=== PATIENT | female | born 1950 | race Caucasian/White ===

== ENCOUNTER 2016-10-23 10:43 | Inpatient (IN) ==
--- NOTE | 2016-10-23 10:56 | Emergency Department Note ---
Disposition Clinical Impression: Acute on chronic kidney failure, Hyperkalemia, Weakness Disposition: Admitted As Inpatient Condition: Good Recheck wound or abnormal lab - General Chief Complaint: ED Recheck/Abnormal Lab/Rx Stated Complaint: Abnormal Labs From [facility] Time Seen by Provider: 10/23/16 10:48 Source: patient, family Mode of arrival: ambulatory Limitations: no limitations Nursing Notes Reviewed: Yes Vital Signs Reviewed: Yes - History of Present Illness HPI Narrative: 66-year-old female history of COPD stage IV followed with nephrology, renal stent, hypertension, lupus, ovarian cancer currently treated with chemotherapy who presents to the ER with a chief complaint of abnormal lab results. Patient reports that she was contacted by her ethnoarchaeology professor office today abnormal labs. She states that she has felt somewhat weak over the last few days. States she was short of breath and had a paracentesis yesterday which improved some of her symptoms. She was called because her creatinine and potassium came back high. She reports compliance with her medications. No recent changes in those. No other complaints. Pt Subjective Complaint: abnormal lab(s) Initial Visit (ago): day(s) Returns Today for: other (Elevated creatinine and potassium) Context: called for abnormal lab result Associated symptoms: shortness of breath - Related Data Home Medications Medication Instructions Recorded Confirmed Allopurinol [Zyloprim 100 MG] 100 mg PO BID 05/03/15 10/23/16 Hydroxychloroquine [Plaquenuil] 200 mg PO QAM 05/03/15 10/23/16 Furosemide [Lasix] 20 mg PO DAILY 10/09/15 10/23/16 HydrALAZINE 25 mg PO Q8HR 10/30/15 10/23/16 Isosorbide DInitrate [Isordil] 10 mg PO TIDAC 10/30/15 10/23/16 Acetaminophen [Tylenol Arthritis] 650 mg PO BID PRN 04/02/16 10/23/16 Multivitamin [Multi-Day Vitamins] 1 each PO DAILY 04/02/16 10/23/16 Aspirin [Lo-Dose Aspirin EC] 81 mg PO DAILY 04/21/16 10/23/16 Esomeprazole Magnesium [Nexium] 20 mg PO BID 07/10/16 10/23/16 Prochlorperazine Maleate 10 mg PO Q8H PRN 10/23/16 10/23/16 [Compazine] Previous Rx's Medication Instructions Recorded Metoprolol XL (24 HR) Succ [Toprol 100 mg PO DAILY 30 Days 08/27/15 Xl] Apixaban [Eliquis] 2.5 mg PO BID #60 tablet 04/21/16 Magnesium Oxide [Mgo] 400 mg PO DAILY #30 tablet 07/28/16 Lidocaine/Prilocaine CREAM [Emla] 1 appl TP AD #1 tube 08/14/16 Allergies Allergy/AdvReac Type Severity Reaction Status Date / Time paclitaxel [From Taxol] AdvReac Severe See Verified 08/08/16 13:31 Comments All systems ED: reviewed and negative except as stated. Constitutional: Denies: fever Cardiovascular: Denies: chest pain Respiratory: Reports: dyspnea. Denies: cough Gastrointestinal: Denies: abdominal pain, nausea, vomiting Genitourinary: Denies: hematuria Musculoskeletal: Denies: back pain, neck pain Past Medical History - Past Medical History Attestation: Yes The following information was validated with the patient. Source: patient Medical history: Reports: arthritis, cancer, CHF, coronary artery disease, hypertension, pulmonary embolus, renal disease, other Surgical history: Reports: hysterectomy, other Psychiatric history: Reports: no psych history - Social History Smoking Status: Never smoker Smokeless Tobacco Status: No Alcohol use: Reports: none Drug use: Reports: none Physical Exam - General Limitations: no limitations General appearance: alert, in no apparent distress - Head Head exam: atraumatic, normocephalic, normal inspection - Eye Eye exam: Present: normal appearance, EOMI - ENT ENT exam: normal exam - Neck Neck exam: Present: normal inspection - Chest Chest inspection: Present: normal inspection, symmetric chest wall rise - Respiratory Respiratory exam: Present: normal lung sounds bilaterally - Cardiovascular Cardiovascular exam: Present: regular rate, normal rhythm, normal heart sounds - Abdominal Exam Abdominal exam: Present: soft, Non-Tender. Absent: tenderness - Expanded Lower Extremity Exam Hip/Pelvis exam: Present: normal inspection, full ROM Upper leg exam: Present: normal inspection, full ROM Knee exam: Present: normal inspection, full ROM Lower leg exam: Present: normal inspection, full ROM Ankle exam: Present: normal inspection, full ROM Foot/toe exam: Present: normal inspection, full ROM - Neurological Exam Neurological exam: Present: alert - Psychiatric Psychiatric exam: Present: normal affect, normal mood - Skin Skin exam: Present: warm, dry, intact, normal color Course Course Narrative: Patient seen and examined. Vital signs reviewed. I reviewed her recent lab work which shows a creatinine of 5.82 which was previously 3.87 on 10/16/16 as well as a potassium of 6.1. She had a recent ultrasound which shows some right hydronephrosis. We will place an IV and repeat her labs and admit her to the hospitalist for further management. - Reevaluation(s) Reevaluation #1: Discussed results of lab work with the patient. Vital Signs Temperature 97.5 F L 10/23/16 10:45 Pulse Rate 77 10/23/16 10:45 Respiratory Rate 18 10/23/16 10:45 Blood Pressure 106/64 10/23/16 10:45 O2 Sat by Pulse Oximetry 98 10/23/16 10:45 Temperature 97.3 F L 10/23/16 15:05 Pulse Rate 77 10/23/16 15:05 Respiratory Rate 16 10/23/16 15:05 Blood Pressure 93/56 10/23/16 15:05 O2 Sat by Pulse Oximetry 97 10/23/16 16:01 Oxygen Delivery Oxygen Delivery Room Air Recheck wound or abnormal lab - MDM Narrative Medical decision making narrative: 66-year-old female presents to the ER due to abnormal lab results. Her creatinine here is up to 5.8 with a potassium of 6.1. She has left bundle branch block on her EKG which is not new however she does have some peaked T waves. Patient was treated with albuterol, insulin, D50, sodium bicarbonate and calcium gluconate. Patient admitted to medicine for further management. - Lab Data Lab results reviewed: Yes I reviewed the patient's lab results. Result diagrams: 10/23/16 11:45 10/23/16 11:45 Lab Results 10/23/16 10/23/16 10/23/16 Range/Units 11:45 11:45 11:45 WBC 6.0 (4.3-11.1) K/mcL RBC 3.25 L (3.82-4.97) M/mcL Hgb 10.8 L (11.5-15.4) g/dL Hct 32.7 L (35.3-44.9) % MCV 100.6 H (83.0-100.0) fL MCH 33.2 (28.0-33.3) pg MCHC 33.0 (31.6-35.5) g/dL RDW 24.7 H (11.5-14.5) % Plt Count 181 (140-400) K/mcL MPV 11.3 (9.4-12.4) fL Immature Gran % 1.5 (0-4) % Seg Neutrophils % 83.9 % Lymphocytes % 9.5 % Monocytes % 3.7 % Eosinophils % 1.2 % Basophils % 0.2 % Neutrophils # 5.0 (1.6-8.9) K/mcL Lymphocytes # 0.6 (0.6-4.6) K/mcL Monocytes # 0.2 (0.0-1.3) K/mcL Eosinophils # 0.1 (0.0-0.6) K/mcL Basophils # 0.0 (0.0-0.2) K/mcL Nucleated RBCs/100 WBC 0.3 H (0) /100 WBC Platelet Estimate Normal (Normal) Large Platelets Present A (Not Present) Anisocytosis 2+ A (Not Present) Ovalocytes 2+ A (Not Present) Sodium 133 L (136-145) mEq/L Potassium 5.8 H (3.5-4.5) mEq/L Chloride 112 H (98-109) mEq/L Carbon Dioxide 13 L (19-29) mEq/L BUN 104 H (7-20) mg/dL Creatinine 5.82 H (0.57-1.11) mg/dL Est GFR ( Amer) 9 L (> 60) Est GFR (Non-Af Amer) 7 L (> 60) BUN/Creatinine Ratio 18 (6-26) Glucose 100 H (70-99) mg/dL Calculated Osmolality 309 H (280-300) Calcium 7.3 L (8.6-10.8) mg/dL Troponin I 0.04 H* (0-0.03) ng/mL - EKG Data EKG attestation: Yes I reviewed and interpreted this EKG. EKG results narrative: EKG demonstrates sinus rhythm with a left bundle branch block with rate of 74 bpm. Left axis deviation. WV interval 147 QRS duration 159 and QTc 473 patient has hyperacute T waves in leads V1 and V2. No ST elevations or depressions. Changes from previous EKG included hyper acute T waves. Attestation Statement - Attestation Attestation: I examined this patient and my medical decision-making was reviewed with the MAINTENANCE ENGINEER/PA/Advanced Practice Nurse/Resident Physician. I agree with the documented findings, disposition and treatment plan as described except to the extent set forth below. Patient presents to the emergency Department with abnormal labs. Patient had outpatient lab studies done with her ethnoarchaeology professor showed hyperkalemia and worsening renal failure. She had outpatient renal ultrasound yesterday as well that showed hydronephrosis. Patient has ovarian cancer. She voices no complaints and states she feels the same as she has for weeks. On examination she is in no acute distress. Heart regular rate and rhythm her lungs are clear. She is nontoxic appearing. Plan. Patient has a left bundle branch block on her EKG however this is not new. He is given hyperkalemia cocktail including insulin, calcium gluconate, sodium bicarbonate, and albuterol. She will be admitted to medicine. 40 minutes of critical care exclusive of separately billable procedures.
[2016-10-23] MEDS ORDERED: Albuterol 2.5 MG/3 ML NEBULIZER IH ONE (11:13)
[2016-10-23] MEDS ORDERED: *HR* Dextrose 50 % in Water (Syg) 50 ML SYRINGE IVP ONE (11:14)
[2016-10-23] MEDS ORDERED: Insulin Human Regular 10 UNIT in 0.9 % Sodium Chloride 10 ML IV ONE (11:14)
[2016-10-23] MEDS ORDERED: Calcium Gluconate 1,000 MG in D5% in Water 100 ML IVPB ONE (11:49)
[2016-10-23 11:54] LABS: Basophils % 0.2 %; Eosinophils # 0.1 K/mcL (0.0-0.6); Eosinophils % 1.2 %; Hematocrit 32.7 % (35.3-44.9); Hemoglobin 10.8 g/dL (11.5-15.4); Immature Granulocytes % 1.5 % (0-4); Lymphocytes # 0.6 K/mcL (0.6-4.6); Lymphocytes % 9.5 %; Mean Corpuscular Hemoglobin 33.2 pg (28.0-33.3); Mean Corpuscular Volume 100.6 fL (83.0-100.0); Mean Platelet Volume 11.3 fL (9.4-12.4); Monocytes # 0.2 K/mcL (0.0-1.3); Monocytes % 3.7 %; Nucleated Red Blood Cells 0.3 /100 WBC (0); Platelet Count 181 K/mcL (140-400); Red Blood Count 3.25 M/mcL (3.82-4.97); Red Cell Distribution Width 24.7 % (11.5-14.5); Segmented Neutrophils % 83.9 %
[2016-10-23 12:06] LABS: Calcium 7.3 mg/dL (8.6-10.8); Potassium 5.8 mEq/L (3.5-4.5)
[2016-10-23 12:16] LABS: Anisocytosis 2+ (Not Present); Large Platelets Present (Not Present); Platelet Estimate Normal (Normal)
[2016-10-23 12:17] LABS: Ovalocytes 2+ (Not Present)
[2016-10-23] MEDS ORDERED: *HR* HYDROmorphone (PF) 1 MG/ML SYRINGE IVP PRN (13:30)
[2016-10-23] MEDS ORDERED: Naloxone 0.4 MG/ML INJ IVP PRN (13:30)
--- NOTE | 2016-10-23 13:50 | Internal Med History&Physical ---
Date of Encounter: 10/23/16 Time of Encounter: 13:44 Assessment and Plan (1) Acute on chronic kidney failure Current visit: Yes Status: Acute Acute on chronic kidney failure: Creatinine: 10/16/2016: 3.37, potassium: 5 Creatinine: 10/23/2016: 5.82, potassium: 5.8 Patient is right-sided hydronephrosis. This is a new development. I have personally spoke to nephrology. Nephrology recommended IV fluids, urology evaluation and oncology evaluation. I have personally spoken to nephrology/urology/oncology (2) Hyperkalemia Current visit: Yes Status: Acute Received treatment for acute hyperkalemic episode. We will recheck potassium in 4-6 hours. (3) Hydronephrosis, right Current visit: No Status: Acute Urology on the board and we will follow the recommendation (4) Lupus (systemic lupus erythematosus) Current visit: No Status: Chronic Stable at this point Qualifiers: Systemic lupus erythematosus type: unspecified Systemic lupus erythematosus organ involvement: unspecified Qualified Code(s): M32.9 - Systemic lupus erythematosus, unspecified (5) Ovarian cancer Current visit: No Status: Chronic Oncology on the phone and will follow the recommendation Qualifiers: Laterality: right Qualified Code(s): C56.1 - Malignant neoplasm of right ovary (6) DVT prophylaxis Current visit: No Status: Acute On Eliquis Medical decision making: This patient has a [id number] risk of worsening in spite of being on the appropriate treatment Internal Medicine - H&P: HPI Chief complaint: abnormal labs Admitted From: Emergency Dept Plans for Post Hospital Care: Home History of present illness: PCP: Cleve aHnnon Top Lift Trimmer : Dr Jerry Urology : [facility] Oncologist : [facility] Oncologist. Brief PMH : HTN, Ovarian cancer, CAD, PE on A/C, CKDIV History of present illness: Patient was called at home by her nephrology team. She was told to come to the emergency room as she has abnormal labs. It was noted that patient's creatinine is elevated and she also has elevated potassium. Patient is asymptomatic. Patient denies any chest pain, cough, shortness of breath, abdominal pain, nausea, vomiting, dizziness, or diarrhea. Course in the ER: Patient was evaluated in the emergency room. It was noted that her creatinine on 10/16/2016 was 3. patient's creatinine today is 5.82. Patient's potassium is 5.8. Patient received treatment for hyperkalemia. Repeat labs show a downward trend of potassium. Patient had ultrasound scan of her kidneys yesterday which showed right-sided hydronephrosis. I received this information from the emergency room physician. Reason for admission: Acute kidney injury in a patient with a chronic kidney disease stage IV. Worsening hydronephrosis on the right side is the possible etiological factor for the same. This patient needs hospitalization for further workup which needs close monitoring in the hospital. Family history: Noncontributory Past Med Surg Social Fam HX - Past Medical History Medical history: arthritis, cancer, CHF, coronary artery disease, hypertension, pulmonary embolus, renal disease, other Psychiatric history: no psych history - Past Surgical History Surgical History: hysterectomy, other - Social History Smoking Status: Never smoker Smokeless Tobacco Status: No Alcohol use: none Drug use: none - Family History Mother Living Status: Hx Family Cardiac Disorders: No Hx Family Respiratory Disorders: No Hx Family Cancer: No Hx Family GI Disorders: No Hx Family Endocrine Disorder: No Hx Family Neuromuscular Disorders: No Hx Family Neurologic Disorders: No Hx Family HEENT Disorders: No Hx Family Autoimmune Disorders: No Father Hx Family Cardiac Disorders: Yes Hx Family Respiratory Disorders: No Hx Family Cancer: No Hx Family GI Disorders: No Hx Family Endocrine Disorder: Yes Hx Family Neuromuscular Disorders: No Hx Family Neurologic Disorders: No Hx Family HEENT Disorders: No Hx Family Autoimmune Disorders: No Internal Medicine - H&P: Meds Allopurinol [Zyloprim 100 MG] 100 mg PO BID 05/03/15 [History] Hydroxychloroquine [Plaquenuil] 200 mg PO QAM 05/03/15 [History] Metoprolol XL (24 HR) Succ [Toprol Xl] 100 mg PO DAILY 30 Days 08/27/15 [Rx] Furosemide [Lasix] 20 mg PO DAILY 10/09/15 [History] HydrALAZINE 25 mg PO Q8HR 10/30/15 [History] Isosorbide DInitrate [Isordil] 10 mg PO TIDAC 10/30/15 [History] Acetaminophen [Tylenol Arthritis] 650 mg PO BID PRN 04/02/16 [History] Multivitamin [Multi-Day Vitamins] 1 each PO DAILY 04/02/16 [History] Apixaban [Eliquis] 2.5 mg PO BID #60 tablet 04/21/16 [Rx] Aspirin [Lo-Dose Aspirin EC] 81 mg PO DAILY 04/21/16 [History] Esomeprazole Magnesium [Nexium] 20 mg PO BID 07/10/16 [History] Magnesium Oxide [Mgo] 400 mg PO DAILY #30 tablet 07/28/16 [Rx] Lidocaine/Prilocaine CREAM [Emla] 1 appl TP AD #1 tube 08/14/16 [Rx] Prochlorperazine Maleate [Compazine] 10 mg PO Q8H PRN 10/23/16 [History] Allergies paclitaxel [From Taxol] Adverse Reaction (Severe, Verified 08/08/16 13:31) See Comments Hypertension, chest pain, pain into her right arm, shortness of breath, constant [id number] movement in the chair All Systems PM: A 10-system review of systems was performed and is negative for pertinent findings except as documented above in the HPI. - Constitutional Constitutional: no chills, no fever(s), no night sweats - EENT Eyes: no change in vision, no discharge, no pain, no photophobia Ears: no ear discharge, no ear pain, no tinnitus Nose, mouth and throat: no dysphagia, no nasal discharge, no neck pain, no sore throat - Cardiovascular Cardiovascular ROS IM: no chest pain, no diaphoresis, no dyspnea, no lightheadedness, no palpitations, no syncope - Respiratory Respiratory: no cough, no dyspnea, no wheezing, no excessive phlegm production - Gastrointestinal Gastrointestinal: no abdominal pain, no diarrhea, no hematemesis, no hematochezia, no melena, no nausea, no vomiting - Genitourinary Genitourinary: no change in urinary stream, no dysuria, no flank pain, no hematuria - Musculoskeletal Musculoskeletal ROS IM: no numbness, no tingling - Integumentary Integumentary IM: no rash, no unusual bruising - Neurological Neurological ROS: no confusion, no convulsions, no focal weakness, no numbness, no tingling, no tremor(s) - Hematologic/Lymphatic Hematologic/Lymphatic: no easy bruising - Constitutional Vitals: Temp Pulse Resp BP Pulse Ox 97.5 F L 75 16 105/56 98 10/23/16 10:45 10/23/16 12:16 10/23/16 13:01 10/23/16 13:01 10/23/16 12:16 General appearance: Present: A&O X 3, pleasant, no acute distress, underweight, answers questions appropriately - Head Head exam: Present: atraumatic, normocephalic - Eye Eye exam: Present: PERRL, conjuntiva pink, sclera anicteric Pupils: Present: PERRL - Neck Neck exam general surgery: Present: supple, trachea midline. Absent: lymphadenopathy - Respiratory Respiratory exam: Present: CTAB. Absent: accessory muscle use, rales, rhonchi, wheezes - Cardiovascular Cardiovascular exam: Present: RRR, +S1, +S2. Absent: diastolic murmur, gallop, rubs, systolic murmur - GI/Abdominal GI/Abdominal exam: Present: normal bowel sounds, soft, no peritoneal signs. Absent: distended, tenderness - Extremities Exam Extremities exam: Present: warm, radial pulses palpable and symetrical. Absent : calf tenderness, cyanotic, pedal edema - Neurological Exam Neurological exam: Present: CN II-XII intact, oriented X3, no focal deficits. Absent: pronater drift, facial droop, speech deficit - Skin Skin exam: Present: dry, intact Internal Med - H&P Results - Labs CBC & Chem 7: 10/23/16 11:45 10/23/16 11:45 Labs: Labs discussed with the emergency room physician.
[2016-10-23] MEDS: 0.9 % Sodium Chloride 1,000 ML IVC SCH (15:16)
--- NOTE | 2016-10-23 15:18 | Urology - Consult Note ---
Date of Encounter: 10/23/16 Time of Encounter: 15:18 - Assessment and Plan (1) Acute on chronic kidney failure Current Visit: Yes Status: Acute Assessment and plan: stent appears to be working well. ct showed that patient had minimal hydro. no urological intervention needed (2) Hydroureter on right Current Visit: No Status: Ruled-out Assessment and plan: stable on right side. no intervention needed from urology standpoint Urology CN:HPI Consult date: 10/23/16 Reason for consult Urology: Hydronephrosis Requesting physician: Alex Napier History of present illness: Michelle is a 66 y/o female well known to me for solitary right kidney with indwelling ureteral stent. The patient had renal us done recently which showed that the stent may not be working well. She also had a dramatically elevated serum creatinine recently. The patient denies any flank pain. Past Med Surg Social Fam HX - Past Medical History Medical history: arthritis, cancer, CHF, coronary artery disease, hypertension, pulmonary embolus, renal disease, other Psychiatric history: no psych history - Past Surgical History Surgical History: hysterectomy, other - Social History Smoking Status: Never smoker Smokeless Tobacco Status: No Alcohol use: none Drug use: none - Family History Mother Living Status: Hx Family Cardiac Disorders: No Hx Family Respiratory Disorders: No Hx Family Cancer: No Hx Family GI Disorders: No Hx Family Endocrine Disorder: No Hx Family Neuromuscular Disorders: No Hx Family Neurologic Disorders: No Hx Family HEENT Disorders: No Hx Family Autoimmune Disorders: No Father Hx Family Cardiac Disorders: Yes Hx Family Respiratory Disorders: No Hx Family Cancer: No Hx Family GI Disorders: No Hx Family Endocrine Disorder: Yes Hx Family Neuromuscular Disorders: No Hx Family Neurologic Disorders: No Hx Family HEENT Disorders: No Hx Family Autoimmune Disorders: No Medications and Allergies Allopurinol [Zyloprim 100 MG] 100 mg PO BID 05/03/15 [History] Hydroxychloroquine [Plaquenuil] 200 mg PO QAM 05/03/15 [History] Metoprolol XL (24 HR) Succ [Toprol Xl] 100 mg PO DAILY 30 Days 08/27/15 [Rx] Furosemide [Lasix] 20 mg PO DAILY 10/09/15 [History] HydrALAZINE 25 mg PO Q8HR 10/30/15 [History] Isosorbide DInitrate [Isordil] 10 mg PO TIDAC 10/30/15 [History] Acetaminophen [Tylenol Arthritis] 650 mg PO BID PRN 04/02/16 [History] Multivitamin [Multi-Day Vitamins] 1 each PO DAILY 04/02/16 [History] Apixaban [Eliquis] 2.5 mg PO BID #60 tablet 04/21/16 [Rx] Aspirin [Lo-Dose Aspirin EC] 81 mg PO DAILY 04/21/16 [History] Esomeprazole Magnesium [Nexium] 20 mg PO BID 07/10/16 [History] Magnesium Oxide [Mgo] 400 mg PO DAILY #30 tablet 07/28/16 [Rx] Lidocaine/Prilocaine CREAM [Emla] 1 appl TP AD #1 tube 08/14/16 [Rx] Prochlorperazine Maleate [Compazine] 10 mg PO Q8H PRN 10/23/16 [History] Allergies paclitaxel [From Taxol] Adverse Reaction (Severe, Verified 08/08/16 13:31) See Comments Hypertension, chest pain, pain into her right arm, shortness of breath, constant [id number]-cbmjr movement in the chair Review of Systems - Constitutional no chills - EENT Nose, mouth and throat: no dizziness - Cardiovascular no chest pain - Respiratory no cough - Gastrointestinal no abdominal pain Exam Initial Vital Signs Temp Pulse Resp BP Pulse Ox 97.5 F L 77 18 106/64 98 10/23/16 10:45 10/23/16 10:45 10/23/16 10:45 10/23/16 10:45 10/23/16 10:45 - General physical appearance Present: well developed - Eyes Present: PERRL - ENT Present: normal nares - Neck Present: no masses - Respiratory Present: normal respiratory effort - Cardiovascular Cardiovascular exam IM: RRR - Abdomen Abdomen: Present: soft Urology Results - Labs 10/23/16 11:45 10/23/16 11:45 Abnormal lab results RBC 3.25 M/mcL (3.82-4.97) L 10/23/16 11:45 Hgb 10.8 g/dL (11.5-15.4) L 10/23/16 11:45 Hct 32.7 % (35.3-44.9) L 10/23/16 11:45 MCV 100.6 fL (83.0-100.0) H 10/23/16 11:45 RDW 24.7 % (11.5-14.5) H 10/23/16 11:45 Nucleated RBCs/100 WBC 0.3 /100 WBC (0) H 10/23/16 11:45 Large Platelets Present (Not Present) A 10/23/16 11:45 Anisocytosis 2+ (Not Present) A 10/23/16 11:45 Ovalocytes 2+ (Not Present) A 10/23/16 11:45 Sodium 133 mEq/L (136-145) L 10/23/16 11:45 Potassium 5.8 mEq/L (3.5-4.5) H 10/23/16 11:45 Chloride 112 mEq/L (98-109) H 10/23/16 11:45 Carbon Dioxide 13 mEq/L (19-29) L 10/23/16 11:45 BUN 104 mg/dL (7-20) H 10/23/16 11:45 Creatinine 5.82 mg/dL (0.57-1.11) H 10/23/16 11:45 Est GFR ( Amer) 9 (> 60) L 10/23/16 11:45 Est GFR (Non-Af Amer) 7 (> 60) L 10/23/16 11:45 Glucose 100 mg/dL (70-99) H 10/23/16 11:45 POC Glucose 106 (58-89) H 10/23/16 15:10 Calculated Osmolality 309 (280-300) H 10/23/16 11:45 Calcium 7.3 mg/dL (8.6-10.8) L 10/23/16 11:45 Troponin I 0.04 ng/mL (0-0.03) H* 10/23/16 11:45 All other labs normal. - Imaging CT scan - abdomen: image reviewed CT scan - pelvis: image reviewed Consult Discharge Plan - Plan Referrals: Cleve Hannon DO [Primary Care Provider] -
--- NOTE | 2016-10-23 16:38 | Oncology Inp Consult Note ---
Date of Encounter: 10/23/16 Time of Encounter: 16:50 Assessment and Plan (1) Ovarian cancer Status: Chronic Assessment and plan: The patient is well known to our oncology practice. On 10/23/16, sent to [facility] ER for acute on chronic kidney failure. Most recently, she is on chemo regimen gemzar/avastin. Last chemo on 10/03/16, and s/p radiation therapy to spleen in early August 2016 for cytopenias. Ascites fluid collection has not improved with chemo, most likely impacted by her liver/portal hypertension. She received paracentesis yesterday with over 2 liters removed. Her abdomen has started to fill again with fluid today. She will most likely need another tap during admission when she starts to get uncomfortable. We discussed possibility of pleurx catheter for her comfort. She is open to the procedure, especially if she requires taps more than once weekly. She went from monthly taps, now to weekly. She is on anticoagulation given her history of pulmonary embolism with her polycythemia vera and use of avastin chemo for her active ovarian cancer. She is on Eliquis 2.5 mg twice daily. Polycythemia- not on hydrea currently. Status post splenic radiation treatments to improve counts Since she is on avastin, please watch for bleeding symptoms or blood clot signs , as well as hypertensive urgency. We will continue to follow. Case discussed with Dr Brandon. Qualifiers: Laterality: right Qualified Code(s): C56.1 - Malignant neoplasm of right ovary (2) Polycythemia rubra vera Status: Chronic (3) Acute on chronic kidney failure Status: Acute (4) History of pulmonary embolus (PE) Status: Chronic - Data of Consult Patient: known to practice within the last 3 years Consult date: 10/23/16 Requesting Physician: Fabian Martinez Primary Care Provider: Cleve Hannon, - Consult Narrative Reason for consult: ovarian cancer on active chemo History of present illness: Ms. Dumont is a 66 year old female well known to [facility]. Once a patient of Dr Chris Singleton, now transitioned to Dr Santos. Her oncology history began in July 2014 she was admitted to the hospital for pneumonia and dehydration and found to have an acute on chronic renal failure as well as worsening anemia hemoglobin 8. At that time she was hydrated , and her Coumadin was reversed due to the fact that she could be maintained off Coumadin as her initial pulmonary embolus in the past was felt to be due to her extremely high hematocrit. Due to high risk of polycythemia she was placed on Hydrea 500 mg per day. For the time of her visit on 05/02/15 she reported having abdominal fullness. On 07/04/2015, she had a nuclear medicine ventilatory perfusion scan secondary to having shortness of breath and dyspnea. Results indicated low probability for pulmonary embolism. On 07/07/[address] of the abdomen and pelvis secondary to having distention and abdominal discomfort and a history of polycythemia. Findings indicate bilateral small pleural effusions with emphysematous changes and increased interstitial markings with minimal bibasilar atelectasis. The spleen was markedly enlarged at the cephalocaudal dimension of 22 cm. The right kidney was of normal size but there was severe pelviccaliectasis and hydroureter. There is also poorly defined complex cystic mass in the pelvis worrisome for enlarged abnormal ovaries in the postmenopausal patient. There is also a large amount of ascites present and abnormal soft tissue nodularity of the omentum morning worrisome for possible neoplastic process/peritoneal metastasis. On 07/13/2015 she had a right ureteral stent placed and nephrostomy tube. On she had a paracentesis was 1850 mL fluid being removed from the abdomen. 07/24/2015 she had nephrostomy tube removed. On 07/30/2015, she arrived at the cancer center to have chemotherapy including carboplatin and Taxol. Carboplatin was held secondary to blood creatinine being reported as 4.0. During her infusion of Taxol she had an infusion reaction this medication was stopped, she recovered with supportive medications. She was then seen in interventional radiology for possible nephrostomy tube placement secondary to increasing blood creatinine. Nephrostomy tube was not deemed necessary by interventional radiology, they did recheck her creatinine and it was 1.4. The patient returned on 07/31/2015 for chemotherapy which will include carboplatin and Abraxane. She received Neulasta for white blood cell support. During this visit she was given information regarding carboplatin Taxol and Neulasta. 07/31/2015 C1D1 carboplatin/abraxane 08/04/2015: C1D8 abraxane dose reduced for ANC 1500 to 60mg/m2 Severe cytopenias with dose reductions. Hospitalized with severe CHF and volume overload. 08/29/2015: Chemotherapy changed to weekly carboplatin. until 10/09/15 Further chemotherapy held for prolonged cytopenias. 01/11/2016: Cycle 1 keytruda-immunotherapy 02/29/2016: single agent carboplatin added to keytruda. 05/16/2016: Feeling better with Bevacizumab. Clinically improved. 06/28/2016: CA-125 is stable at 78. Treated for gastritis with abdominal pain. 07/21/2016: CA-125 CA 125 rises to 101. Clinically worse with worsening ascites. Decision to change therapy to Gemcitabine/Avastin. Keytruda discontinued She started splenic Radiation Therapy today another dose planned next wk--08/29/16 Paracentesis need to be scheduled requiring once weekly in 09/2016 As of 10/23/16: Ovarian cancer--ON gemzar/avastin. Last chemo on 10/03/16, s/p radiation therapy to spleen 09/09 for cytopenias. Ascites fluid collection has not improved with chemo, most likely impacted by her liver/portal hypertension. She is on anticoagulation given her history of pulmonary embolism with her polycythemia vera and use of bevacizumab as well as active ovarian cancer. She is on to Xarelto 2.5 mg twice daily. Polycythemia- not on hydrea currently. S/p splenic RT to improve counts Since she is on avastin Watch for bleeding symptoms/clot, as well as hypertensive urgency. On , sent to [facility] ER for acute on chronic kidney failure, as well as right hydronephrosis. Oncology consulted to follow along. Past Med Surg Social Fam HX - Past Medical History Medical history: arthritis, cancer, CHF, coronary artery disease, hypertension, pulmonary embolus, renal disease, other Psychiatric history: no psych history - Past Surgical History Surgical History: hysterectomy, other - Social History Smoking Status: Never smoker Smokeless Tobacco Status: No Alcohol use: none Drug use: none - Family History Mother Living Status: Hx Family Cardiac Disorders: No Hx Family Respiratory Disorders: No Hx Family Cancer: No Hx Family GI Disorders: No Hx Family Endocrine Disorder: No Hx Family Neuromuscular Disorders: No Hx Family Neurologic Disorders: No Hx Family HEENT Disorders: No Hx Family Autoimmune Disorders: No Father Hx Family Cardiac Disorders: Yes Hx Family Respiratory Disorders: No Hx Family Cancer: No Hx Family GI Disorders: No Hx Family Endocrine Disorder: Yes Hx Family Neuromuscular Disorders: No Hx Family Neurologic Disorders: No Hx Family HEENT Disorders: No Hx Family Autoimmune Disorders: No Medications and Allergies Allopurinol [Zyloprim 100 MG] 100 mg PO BID 05/03/15 [History] Hydroxychloroquine [Plaquenuil] 200 mg PO QAM 05/03/15 [History] Metoprolol XL (24 HR) Succ [Toprol Xl] 100 mg PO DAILY 30 Days 08/27/15 [Rx] Furosemide [Lasix] 20 mg PO DAILY 10/09/15 [History] HydrALAZINE 25 mg PO Q8HR 10/30/15 [History] Isosorbide DInitrate [Isordil] 10 mg PO TIDAC 10/30/15 [History] Acetaminophen [Tylenol Arthritis] 650 mg PO BID PRN 04/02/16 [History] Multivitamin [Multi-Day Vitamins] 1 each PO DAILY 04/02/16 [History] Apixaban [Eliquis] 2.5 mg PO BID #60 tablet 04/21/16 [Rx] Aspirin [Lo-Dose Aspirin EC] 81 mg PO DAILY 04/21/16 [History] Esomeprazole Magnesium [Nexium] 20 mg PO BID 07/10/16 [History] Magnesium Oxide [Mgo] 400 mg PO DAILY #30 tablet 07/28/16 [Rx] Lidocaine/Prilocaine CREAM [Emla] 1 appl TP AD #1 tube 08/14/16 [Rx] Prochlorperazine Maleate [Compazine] 10 mg PO Q8H PRN 10/23/16 [History] Allergies paclitaxel [From Taxol] Adverse Reaction (Severe, Verified 08/08/16 13:31) See Comments Hypertension, chest pain, pain into her right arm, shortness of breath, constant ubci-mab-courc movement in the chair All systems: reviewed and no additional remarkable complaints except as stated Constitutional: Present: fatigue Oncology - Exam - Constitutional Vitals: Temp Pulse Resp BP Pulse Ox 97.3 F L 77 16 93/56 97 10/23/16 15:05 10/23/16 15:05 10/23/16 15:05 10/23/16 15:05 10/23/16 16:01 Oncology - Results - Labs Labs: Laboratory Last Values WBC 6.0 K/mcL (4.3-11.1) 10/23/16 11:45 RBC 3.25 M/mcL (3.82-4.97) L 10/23/16 11:45 Hgb 10.8 g/dL (11.5-15.4) L 10/23/16 11:45 Hct 32.7 % (35.3-44.9) L 10/23/16 11:45 MCV 100.6 fL (83.0-100.0) H 10/23/16 11:45 MCH 33.2 pg (28.0-33.3) 10/23/16 11:45 MCHC 33.0 g/dL (31.6-35.5) 10/23/16 11:45 RDW 24.7 % (11.5-14.5) H 10/23/16 11:45 Plt Count 181 K/mcL (140-400) 10/23/16 11:45 MPV 11.3 fL (9.4-12.4) 10/23/16 11:45 Immature Gran % 1.5 % (0-4) 10/23/16 11:45 Seg Neutrophils % 83.9 % 10/23/16 11:45 Lymphocytes % 9.5 % 10/23/16 11:45 Monocytes % 3.7 % 10/23/16 11:45 Eosinophils % 1.2 % 10/23/16 11:45 Basophils % 0.2 % 10/23/16 11:45 Neutrophils # 5.0 K/mcL (1.6-8.9) 10/23/16 11:45 Lymphocytes # 0.6 K/mcL (0.6-4.6) 10/23/16 11:45 Monocytes # 0.2 K/mcL (0.0-1.3) 10/23/16 11:45 Eosinophils # 0.1 K/mcL (0.0-0.6) 10/23/16 11:45 Basophils # 0.0 K/mcL (0.0-0.2) 10/23/16 11:45 Nucleated RBCs/100 WBC 0.3 /100 WBC (0) H 10/23/16 11:45 Platelet Estimate Normal (Normal) 10/23/16 11:45 Large Platelets Present (Not Present) A 10/23/16 11:45 Anisocytosis 2+ (Not Present) A 10/23/16 11:45 Ovalocytes 2+ (Not Present) A 10/23/16 11:45 Sodium 133 mEq/L (136-145) L 10/23/16 11:45 Potassium 5.8 mEq/L (3.5-4.5) H 10/23/16 11:45 Chloride 112 mEq/L (98-109) H 10/23/16 11:45 Carbon Dioxide 13 mEq/L (19-29) L 10/23/16 11:45 BUN 104 mg/dL (7-20) H 10/23/16 11:45 Creatinine 5.82 mg/dL (0.57-1.11) H 10/23/16 11:45 Est GFR ( Amer) 9 (> 60) L 10/23/16 11:45 Est GFR (Non-Af Amer) 7 (> 60) L 10/23/16 11:45 BUN/Creatinine Ratio 18 (6-26) 10/23/16 11:45 Glucose 100 mg/dL (70-99) H 10/23/16 11:45 POC Glucose 106 (58-89) H 10/23/16 15:10 Calculated Osmolality 309 (280-300) H 10/23/16 11:45 Calcium 7.3 mg/dL (8.6-10.8) L 10/23/16 11:45 Troponin I 0.04 ng/mL (0-0.03) H* 10/23/16 11:45 Consult Discharge Plan - Plan Referrals: Cleve Hannon DO [Primary Care Provider] -
[2016-10-23] MEDS: APIXABAN 2.5 MG TABLET PO SCH (20:05)
[2016-10-23 20:24] LABS: Bilirubin,Urine Negative (Negative); Blood,Urine Negative (Negative); Clarity,Urine Cloudy (Clear); Color,Urine Yellow (Yellow); Glucose,Urine (UA) Normal (Normal); Ketones,Urine Negative (Negative); Leukocyte Esterase,Urine Trace (Negative); Nitrite,Urine Negative (Negative); PH,Urine 5.5 pH Units (5.0-8.0); Protein,Urine 100 mg/dL (Neg-Trace); Specific Gravity,Urine 1.013 (1.010-1.025); Urobilinogen,Urine Normal (Normal)
[2016-10-23 20:31] LABS: Bacteria,Urine None Seen per hpf (None-Few); RBC,Urine 0-3 per hpf (0-3); Squamous Epithelial Cell,Urine Many per lpf (None-Few)
[2016-10-23 20:57] LABS: Hyaline Casts,Urine Few per lpf (None-Few)
[2016-10-24 04:32] LABS: Basophils % 0.2 %; Eosinophils # 0.1 K/mcL (0.0-0.6); Hematocrit 31.9 % (35.3-44.9); Hemoglobin 10.3 g/dL (11.5-15.4); Immature Granulocytes % 1.2 % (0-4); Lymphocytes # 0.6 K/mcL (0.6-4.6); Lymphocytes % 12.1 %; Mean Corpuscular HGB Conc 32.3 g/dL (31.6-35.5); Mean Corpuscular Hemoglobin 32.5 pg (28.0-33.3); Mean Corpuscular Volume 100.6 fL (83.0-100.0); Mean Platelet Volume 11.7 fL (9.4-12.4); Monocytes # 0.1 K/mcL (0.0-1.3); Monocytes % 2.6 %; Platelet Count 191 K/mcL (140-400); Red Blood Count 3.17 M/mcL (3.82-4.97); Red Cell Distribution Width 24.1 % (11.5-14.5); Segmented Neutrophils % 82.9 %
[2016-10-24 04:40] LABS: Neutrophils # 4.2 K/mcL (1.6-8.9)
[2016-10-24 04:47] LABS: Albumin 2.1 g/dL (3.5-5.0); Albumin/Globulin Ratio 1.2 (1.1-2.2); Bilirubin,Total 0.5 mg/dL (0.2-1.2); Calcium 7.3 mg/dL (8.6-10.8); Globulin 1.7 g/dL (2.4-3.5); Magnesium 1.3 mg/dL (1.6-2.6); Phosphorous 5.9 mg/dL (2.3-4.7); Potassium 5.7 mEq/L (3.5-4.5); Total Protein 3.8 g/dL (6.0-8.3)
[2016-10-24 05:04] LABS: Anisocytosis 2+ (Not Present); Ovalocytes 2+ (Not Present); Platelet Estimate Normal (Normal)
--- NOTE | 2016-10-24 09:39 | Nephrology Consult Note ---
Date of Encounter: 10/24/16 Time of Encounter: 08:40 Assessment and Plan (1) Acute on chronic kidney failure Current Visit: Yes Status: Acute DD-recent chemo agents. Avastin 7% ARF, Gemzar 8% ARF and renal fct may not improve even after stopping drug, recent paracentesis/volume depletion contributing. Tumor lysis unlikely. Supportive care, watchful waiting. Avoid ischemic, toxic insults. Discussed with patient may need HD, verbalizes willingness. Will order additional labs. History of Present Illness - Reason for Consult Acute Kidney Injury - History of Present Illness Ms. Dumont is a 66 year old female well known tp practice with CKD 4, baseline 1.7-2.2. Other PMH- CAD, HTN, ovarian cancer, SLE. Ms. Dumont had contacted office early this week stating Oncology did not want to give further chemo( Gemzar/Avastin) since kidney numbers rising, Creat 3.37, K 5.0. Repeat RFP creat worse 5.82, K 5.8. and moderate right hydronephrosis (known atrophic left kidney). Patient was notified at home yesterday that she needed to present herself to ER for worsening renal fct. Patient was asymptomatic, denied N/V or diarrhea. States oral intake good, denied NSAID use. She is S/P paracentesis for chronic ascites x 2 liters two days ago. Past Med Surg Social Fam HX - Past Medical History Medical history: arthritis, cancer, CHF, coronary artery disease, hypertension, pulmonary embolus, renal disease, other Psychiatric history: no psych history - Past Surgical History Surgical History: hysterectomy, other - Social History Smoking Status: Never smoker Smokeless Tobacco Status: No Alcohol use: none Drug use: none - Family History Mother Living Status: Hx Family Cardiac Disorders: No Hx Family Respiratory Disorders: No Hx Family Cancer: No Hx Family GI Disorders: No Hx Family Endocrine Disorder: No Hx Family Neuromuscular Disorders: No Hx Family Neurologic Disorders: No Hx Family HEENT Disorders: No Hx Family Autoimmune Disorders: No Father Hx Family Cardiac Disorders: Yes Hx Family Respiratory Disorders: No Hx Family Cancer: No Hx Family GI Disorders: No Hx Family Endocrine Disorder: Yes Hx Family Neuromuscular Disorders: No Hx Family Neurologic Disorders: No Hx Family HEENT Disorders: No Hx Family Autoimmune Disorders: No Medications and Allergies Allopurinol [Zyloprim 100 MG] 100 mg PO BID 05/03/15 [History] Hydroxychloroquine [Plaquenuil] 200 mg PO QAM 05/03/15 [History] Metoprolol XL (24 HR) Succ [Toprol Xl] 100 mg PO DAILY 30 Days 08/27/15 [Rx] Furosemide [Lasix] 20 mg PO DAILY 10/09/15 [History] HydrALAZINE 25 mg PO Q8HR 10/30/15 [History] Isosorbide DInitrate [Isordil] 10 mg PO TIDAC 10/30/15 [History] Acetaminophen [Tylenol Arthritis] 650 mg PO BID PRN 04/02/16 [History] Multivitamin [Multi-Day Vitamins] 1 each PO DAILY 04/02/16 [History] Apixaban [Eliquis] 2.5 mg PO BID #60 tablet 04/21/16 [Rx] Aspirin [Lo-Dose Aspirin EC] 81 mg PO DAILY 04/21/16 [History] Esomeprazole Magnesium [Nexium] 20 mg PO BID 07/10/16 [History] Magnesium Oxide [Mgo] 400 mg PO DAILY #30 tablet 07/28/16 [Rx] Lidocaine/Prilocaine CREAM [Emla] 1 appl TP AD #1 tube 08/14/16 [Rx] Prochlorperazine Maleate [Compazine] 10 mg PO Q8H PRN 10/23/16 [History] Allergies paclitaxel [From Taxol] Adverse Reaction (Severe, Verified 08/08/16 13:31) See Comments Hypertension, chest pain, pain into her right arm, shortness of breath, constant shas-vmg-rspdh movement in the chair Review of Systems All Systems: reviewed and no additional remarkable complaints except as stated Exam - Vital Signs Vital signs: Initial Vital Signs Temp Pulse Resp BP Pulse Ox 97.5 F L 77 18 106/64 98 10/23/16 10:45 10/23/16 10:45 10/23/16 10:45 10/23/16 10:45 10/23/16 10:45 Vital Signs - Last 8 Hours Temp Pulse Resp BP Pulse Ox 10/24/16 07:37 97.7 F 80 16 106/62 98 10/24/16 04:00 97.9 F 77 16 93/56 98 Intake and Output 10/23/16 10/24/16 10/24/16 23:59 07:59 15:59 Intake Total 0 / 0 Output Total 75 / 75 Balance 0 / 0 -75 / -75 Intake: Oral 0 / 0 Output: Urine 75 / 75 Other: Stool Size Small Stool Characteristics Normal for Patient # Bowel Movements 1 Blood Glucose* 88 - General Appearance General appearance: well-developed, well-nourished, appears started age EENT: mucous membranes moist Neck: no JVD Respiratory: clear Cardiology: regular rate, regular rhythm Additional Comments: 1+ RLE, 2+ LLE, L>R per hx Gastrointestinal: normoactive bowel sounds, no tenderness, no guarding, distended Integumentary: no rash, warm and dry Neurologic: alert and oriented x3 Psychiatric: mood/affect appropriate, cooperative Results - Lab Results 10/24/16 04:05 10/24/16 04:05 Most recent lab results Calcium 7.3 mg/dL (8.6-10.8) L 10/24/16 04:05 Phosphorus 5.9 mg/dL (2.3-4.7) H 10/24/16 04:05 Magnesium 1.3 mg/dL (1.6-2.6) L 10/24/16 04:05 Consult Discharge Plan - Plan Referrals: Cleve Hannon DO [Primary Care Provider] -
[2016-10-24] MEDS: Aspirin Enteric Coated 81 MG Tablet PO SCH (10:17)
[2016-10-24] MEDS: APIXABAN 2.5 MG TABLET PO SCH ×2 (10:17→22:00)
[2016-10-24 10:23] LABS: Uric Acid 3.8 mg/dL (2.6-6.0)
--- NOTE | 2016-10-24 12:49 | Internal Med Progress Note ---
Date of Encounter: 10/24/16 Time of Encounter: 12:47 - Assessment and plan (1) Acute on chronic kidney failure Current Visit: Yes Status: Acute Assessment and plan: Acute on chronic renal failure likely secondary to chemotherapy with gemcitabine and Avastin last chemotherapy on Oct 03, also possibly related to ascites compressing the right functional kidney, left kidney is atrophic CKD4 Has recurrent ascites, Pleurx catheter considered Recent paracentesis removed more than 4 L Lasix on hold CT scan shows severe ascites with a 6 cm cystic mass in the left pelvis area related to ovarian cancer Follow-up by nephrology, continue IV fluids Urology consulted Consider holding allopurinol (2) Hyperkalemia Current Visit: Yes Status: Acute Assessment and plan: Secondary to acute on chronic renal failure Given dose of Kayexalate and monitor in the morning (3) Weakness Current Visit: Yes Status: Acute (4) DVT prophylaxis Current Visit: No Status: Acute Assessment and plan: Eliquis for Hx of PE (5) History of pulmonary embolus (PE) Current Visit: No Status: Chronic (6) Lupus (systemic lupus erythematosus) Current Visit: No Status: Chronic Assessment and plan: On plaquenil Qualifiers: Systemic lupus erythematosus type: unspecified Systemic lupus erythematosus organ involvement: unspecified Qualified Code(s): M32.9 - Systemic lupus erythematosus, unspecified (7) Ovarian cancer Current Visit: No Status: Chronic Assessment and plan: Followed by oncology Qualifiers: Laterality: right Qualified Code(s): C56.1 - Malignant neoplasm of right ovary (8) Polycythemia rubra vera Current Visit: No Status: Chronic Assessment and plan: Usually on hydroxyurea, being held at the moment (9) Hydroureter on right Current Visit: No Status: Ruled-out - Subjective Interval history: The patient mentions that she is not having any pain, complains of abdominal distention, bloating, no nausea or vomiting. He is making a little more urine than before. Denies any chest pain or shortness of breath, no dysuria, no fevers - Constitutional Vitals: Temp Pulse Resp BP Pulse Ox 97.6 F 85 14 104/64 99 10/24/16 12:16 10/24/16 12:16 10/24/16 12:16 10/24/16 12:16 10/24/16 12:16 General appearance: Present: A&O X 3, pleasant, no acute distress, underweight, answers questions appropriately - Head Head exam: Present: atraumatic, normocephalic - Eye Eye exam: Present: PERRL, conjuntiva pink, sclera anicteric Pupils: Present: PERRL - Neck Neck exam general surgery: Present: supple, trachea midline. Absent: lymphadenopathy - Respiratory Respiratory exam: Present: CTAB. Absent: accessory muscle use, rales, rhonchi, wheezes - Cardiovascular Cardiovascular exam: Present: RRR, +S1, +S2, systolic murmur (Systolic murmur 2 out of 6 rad to the aortic area). Absent: diastolic murmur, gallop, rubs - GI/Abdominal GI/Abdominal exam: Present: distended (Ascites evidenced), normal bowel sounds, soft, no peritoneal signs. Absent: tenderness - Extremities Exam Extremities exam: Present: pedal edema (Left lower extremity +2 pitting edema, chronic), warm, radial pulses palpable and symetrical. Absent: calf tenderness , cyanotic - Neurological Exam Neurological exam: Present: CN II-XII intact, oriented X3, no focal deficits. Absent: pronater drift, facial droop, speech deficit - Skin Skin exam: Present: dry, intact Internal Medicine: Result - Labs CBC & Chem 7: 10/24/16 04:05 10/24/16 04:05 Labs: Short CBC 10/24/16 Range/Units 04:05 WBC 5.0 (4.3-11.1) K/mcL Hgb 10.3 L (11.5-15.4) g/dL Hct 31.9 L (35.3-44.9) % Plt Count 191 (140-400) K/mcL Neutrophils # 4.2 (1.6-8.9) K/mcL BMP 10/24/16 04:05 Sodium 136 Potassium 5.7 H Chloride 114 H Carbon Dioxide 13 L BUN 102 H Creatinine 5.62 H Glucose 85 Calcium 7.3 L Liver Function 10/24/16 Range/Units 04:05 Total Bilirubin 0.5 (0.2-1.2) mg/dL AST 25 (5-34) Units/L ALT 22 (0-55) Units/L Alkaline Phosphatase 141 H (38-126) Units/L Albumin 2.1 L (3.5-5.0) g/dL Urine 10/23/16 Range/Units 20:05 Urine Color Yellow (Yellow) Urine Clarity Cloudy A (Clear) Urine pH 5.5 (5.0-8.0) pH Units Ur Specific [place] 1.013 (1.010-1.025) Urine Protein 100 H (Neg-Trace) mg/dL Urine Glucose (UA) Normal (Normal) mg/dL Consult Discharge Plan - Plan Referrals: Cleve Hannon DO [Primary Care Provider] -
--- NOTE | 2016-10-24 14:25 | Palliative - Consult Note ---
Date of Encounter: 10/24/16 Time of Encounter: 14:23 - Assessment and Plan (1) Dry mouth Current Visit: Yes Status: Acute Assessment and plan: Biotene spray to bedside. (2) Goals of care, counseling/discussion Current Visit: Yes Status: Acute Assessment and plan: Discussed goals of care at length including living will, healthcare power of deputy attorney general, and code status. Discussed code status options including Full code, DNR-Arrest, DNR-CC. Handout given to patient. Ms. Corrales would like the opportunity to discuss her wishes with her family. Will follow up on clinical course and advanced directives on Thursday. Please contact us if needed sooner. (3) Ascites Current Visit: Yes Status: Acute Assessment and plan: Recurrent ascites with weekly paracentesis scheduled with interventional radiology. Ms. Dumont's last paracentesis was 10/22/16. She reports a recurrence of fluid already, but it is still tolerable. Qualifiers: Ascites type: malignant Qualified Code(s): R18.0 - Malignant ascites (4) Acute on chronic kidney failure Current Visit: Yes Status: Acute Assessment and plan: Nephrology following. (5) Ovarian cancer Current Visit: No Status: Chronic Assessment and plan: Oncology following. Qualifiers: Laterality: right Qualified Code(s): C56.1 - Malignant neoplasm of right ovary Palliative-CN HPI - Data of Consult Patient: new to practice Consult date: 10/24/16 Requesting Physician: Fabian Martinez Primary Care Provider: Cleve Hannon DO - Consult Narrative Palliative Care/Comfort Measures: Palliative care Reason for consult: Goals of care, symptom management History of present illness: Ms. Dumont is a 66 year old female admitted to [facility] at the instruction of her Diet Counselor. Ms. Dumont has been following at the [facility] for ovarian cancer. She has been on Gemzar/Avastin treatment with her last dose 06/09. Ms. Dumont's renal function has been at stage IV, and she was found to have an elevated BUN/creat and potassium. She was asked to seek medical attention to further investigate the acute on chronic renal failure. Ms. Dumont also has recurrent ascites that requires weekly paracentesis. Her last one was 10/22/16. The palliative care team was consulted to assist with goals of care planning and advanced directives. Ms. Dumont does not complain of pain, but does report bloating and cramping abdominal discomfort when her ascites begins to accumulate. She takes acetaminophen on a rare occasion for generalized pain. When she is nauseated, compazine works well to ease her symptoms. Ms. Dumont's appetite waxes and wanes depending on her level of ascites, but she supplements with Ensure when needed. She does get constipated as well, but uses stool softeners when needed. Ms. Dumont also uses biotene spray for dry mouth. 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) Current living situation: Home, With Family Activity Level: Independent ambulation - Family History Mother Living Status: Hx Family Cardiac Disorders: No Hx Family Respiratory Disorders: No Hx Family Cancer: No Hx Family GI Disorders: No Hx Family Endocrine Disorder: No Hx Family Neuromuscular Disorders: No Hx Family Neurologic Disorders: No Hx Family HEENT Disorders: No Hx Family Autoimmune Disorders: No Father Hx Family Cardiac Disorders: Yes Hx Family Respiratory Disorders: No Hx Family Cancer: No Hx Family GI Disorders: No Hx Family Endocrine Disorder: Yes Hx Family Neuromuscular Disorders: No Hx Family Neurologic Disorders: No Hx Family HEENT Disorders: No Hx Family Autoimmune Disorders: No Medications and Allergies Allopurinol [Zyloprim 100 MG] 100 mg PO BID 05/03/15 [History] Hydroxychloroquine [Plaquenuil] 200 mg PO QAM 05/03/15 [History] Metoprolol XL (24 HR) Succ [Toprol Xl] 100 mg PO DAILY 30 Days 08/27/15 [Rx] Furosemide [Lasix] 20 mg PO DAILY 10/09/15 [History] HydrALAZINE 25 mg PO Q8HR 10/30/15 [History] Isosorbide DInitrate [Isordil] 10 mg PO TIDAC 10/30/15 [History] Acetaminophen [Tylenol Arthritis] 650 mg PO BID PRN 04/02/16 [History] Multivitamin [Multi-Day Vitamins] 1 each PO DAILY 04/02/16 [History] Apixaban [Eliquis] 2.5 mg PO BID #60 tablet 04/21/16 [Rx] Aspirin [Lo-Dose Aspirin EC] 81 mg PO DAILY 04/21/16 [History] Esomeprazole Magnesium [Nexium] 20 mg PO BID 07/10/16 [History] Magnesium Oxide [Mgo] 400 mg PO DAILY #30 tablet 07/28/16 [Rx] Lidocaine/Prilocaine CREAM [Emla] 1 appl TP AD #1 tube 08/14/16 [Rx] Prochlorperazine Maleate [Compazine] 10 mg PO Q8H PRN 10/23/16 [History] Allergies paclitaxel [From Taxol] Adverse Reaction (Severe, Verified 08/08/16 13:31) See Comments Hypertension, chest pain, pain into her right arm, shortness of breath, constant [id number] movement in the chair - Constitutional Constitutional ROS PAL: decreased appetite, fatigue, weight loss (about 20# since diagnosis, difficult to assess due to ascites. ), no fever(s), no frequent falls - EENT Eyes: requires corrective lenses, no change in vision Ears: no decreased hearing Ears, nose, mouth, throat: dry mouth, no dysphagia, no hoarseness, no mouth pain , no nasal congestion, no sore throat - Cardiovascular Cardiovascular ROS: leg edema, orthopnea, pedal edema, no chest pain, no chest pain at rest, no chest pain with activity, no irregular heart rhythm - Respiratory Respiratory: no cough, no dyspnea, no dyspnea on exertion, no wheezing, no chest congestion - Gastrointestinal Gastrointestinal: bloating, change in bowel habits (with build up of ascites), constipation, nausea, no coffee ground emesis, no diarrhea, no loose stools, no vomiting - Genitourinary Palliative ROS female: no difficulty voiding, no dysuria - Musculoskeletal Musculoskeletal ROS IM: muscle weakness - Integumentary ROS Integumentary: no bleeding lesions, no sores - Neurological Neurological ROS: weakness (global), no confusion, no focal weakness, no lack of coordination - Psychiatric Psychiatric general PM: no anxiety Palliative Care-Exam - Constitutional Vitals: Temp Pulse Resp BP Pulse Ox 97.6 F 85 14 104/64 99 10/24/16 12:16 10/24/16 12:16 10/24/16 12:16 10/24/16 12:16 10/24/16 12:16 General appearance: Present: cooperative, no acute distress Exam: 66 year old female appearing appropriate age, smiling and interactive. Participates in conversation - Head Head Exam: Present: atraumatic - Eye Eye exam: Present: EOMI Pupils: Present: PERRL - ENT ENT exam: Present: mucous membranes dry - Expanded ENT Exam Mouth Exam: Present: dry mucosa - Respiratory Respiratory exam: Present: CTAB. Absent: accessory muscle use, decreased breath sounds, respiratory distress, wheezes, tachypnea - Cardiovascular Cardiovascular exam: Present: RRR, systolic murmur. Absent: irregular rhythm - GI/Abdominal Exam GI/Abdominal exam: Present: distended, firm. Absent: tenderness - Expanded GI/Abdominal Exam GI/Abdominal exam: Present: ascites - Rectal Rectal exam: Present: deferred - Expanded Upper Extremities Exam Forearm wrist exam: Present: ecchymosis - Expanded Lower Extremities Exam Lower Leg exam: Present: swelling - Neurological Exam Neurological exam: Present: alert, motor sensory deficit, oriented X3, no focal deficits, strengths equal and symetr throughout - Psychiatric Psychiatric exam: Absent: agitated, anxious - Skin Skin exam: Present: dry, warm Internal Medicine - CN: Reslt - Labs CBC & Chem 7: 10/24/16 04:05 10/24/16 04:05 Labs: Short CBC 10/24/16 Range/Units 04:05 WBC 5.0 (4.3-11.1) K/mcL Hgb 10.3 L (11.5-15.4) g/dL Hct 31.9 L (35.3-44.9) % Plt Count 191 (140-400) K/mcL Neutrophils # 4.2 (1.6-8.9) K/mcL BMP 10/24/16 04:05 Sodium 136 Potassium 5.7 H Chloride 114 H Carbon Dioxide 13 L BUN 102 H Creatinine 5.62 H Glucose 85 Calcium 7.3 L Liver Function 10/24/16 Range/Units 04:05 Total Bilirubin 0.5 (0.2-1.2) mg/dL AST 25 (5-34) Units/L ALT 22 (0-55) Units/L Alkaline Phosphatase 141 H (38-126) Units/L Albumin 2.1 L (3.5-5.0) g/dL Urine 10/23/16 Range/Units 20:05 Urine Color Yellow (Yellow) Urine Clarity Cloudy A (Clear) Urine pH 5.5 (5.0-8.0) pH Units Ur Specific [place] 1.013 (1.010-1.025) Urine Protein 100 H (Neg-Trace) mg/dL Urine Glucose (UA) Normal (Normal) mg/dL Consult Discharge Plan - Plan Referrals: Cleve Hannon DO [Primary Care Provider] - 10/31/16 11:30 am Palliative Quality Palliative Quality: Screen for Code Status: Yes, Screen for Goals of Care: Yes, Screen for Pain: Yes, If Pain Regimen Started, Initiate Bowel Regimen: Yes, Screen for Nausea/Vomitting: Yes
[2016-10-24] MEDS ORDERED: Saliva Stimulant 100ml BOTTLE PO PRN (14:59)
--- NOTE | 2016-10-24 17:13 | Electrocardiograph Report ---
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
[2016-10-24] MEDS ORDERED: NON-FORMULARY MEDICATION 1 EACH EACH (Esomeprazole Magnesium [Nexium] 20 MG) PO SCH (21:00)
[2016-10-24] MEDS: 0.9 % Sodium Chloride 1,000 ML IVC SCH ×2 (21:53→21:55)
[2016-10-25 04:46] LABS: Calcium 7.2 mg/dL (8.6-10.8)
[2016-10-25 04:50] LABS: Potassium 3.9 mEq/L (3.5-4.5)
[2016-10-25] MEDS ORDERED: Metoprolol XL (24 HR) Succ 50 MG TAB.ER.24H PO SCH (09:00)
[2016-10-25] MEDS: Aspirin Enteric Coated 81 MG Tablet PO SCH (09:09)
[2016-10-25] MEDS: APIXABAN 2.5 MG TABLET PO SCH ×2 (09:09→20:17)
--- NOTE | 2016-10-25 09:27 | Internal Med Progress Note ---
Date of Encounter: 10/25/16 Time of Encounter: 09:24 - Assessment and plan (1) Acute on chronic kidney failure Current Visit: Yes Status: Acute Assessment and plan: Acute on chronic renal failure likely secondary to chemotherapy with gemcitabine and Avastin last chemotherapy on Oct 03, also possibly related to ascites compressing the right functional kidney, left kidney is atrophic CKD4 Has recurrent ascites, Pleurx catheter considered Recent paracentesis removed more than 4 L ( every Thursday), usually holds Eliquis 48h prior to paracentesis, may require another paracentesis sooner Lasix on hold CT scan shows severe ascites with a 6 cm cystic mass in the left pelvis area related to ovarian cancer Follow-up by nephrology, continue IV fluids Urology consulted Consider holding allopurinol Hx of sCHF EF 25-30% (2) Hyperkalemia Current Visit: Yes Status: Acute Assessment and plan: Secondary to acute on chronic renal failure Kayexalate was given (3) Weakness Current Visit: Yes Status: Acute (4) DVT prophylaxis Current Visit: No Status: Acute Assessment and plan: Eliquis for Hx of PE (5) History of pulmonary embolus (PE) Current Visit: No Status: Chronic (6) Lupus (systemic lupus erythematosus) Current Visit: No Status: Chronic Assessment and plan: On plaquenil Qualifiers: Qualified Code(s): M32.9 - Systemic lupus erythematosus, unspecified (7) Ovarian cancer Current Visit: No Status: Chronic Assessment and plan: Followed by oncology Qualifiers: Qualified Code(s): C56.1 - Malignant neoplasm of right ovary (8) Polycythemia rubra vera Current Visit: No Status: Chronic Assessment and plan: Usually on hydroxyurea, being held at the moment (9) Hydroureter on right Current Visit: No Status: Ruled-out - Subjective Interval history: Not having any pain, complains of more abdominal distention, bloating, no nausea or vomiting. He is making a little more urine than before. Denies any chest pain or shortness of breath, no dysuria, no fevers, legs are more swollen - Constitutional Vitals: Temp Pulse Resp BP Pulse Ox 98.2 F 96 18 120/71 97 10/25/16 04:12 10/25/16 04:12 10/25/16 04:12 10/25/16 04:12 10/25/16 04:12 General appearance: Present: A&O X 3, pleasant, no acute distress, underweight, answers questions appropriately - Head Head exam: Present: atraumatic, normocephalic - Eye Eye exam: Present: PERRL, conjuntiva pink, sclera anicteric Pupils: Present: PERRL - Neck Neck exam general surgery: Present: supple, trachea midline. Absent: lymphadenopathy - Respiratory Respiratory exam: Present: decreased breath sounds, CTAB. Absent: accessory muscle use, rales, rhonchi, wheezes Additional comments: Right upper chest Port-A-Cath - Cardiovascular Cardiovascular exam: Present: RRR, +S1, +S2, systolic murmur (Systolic 2/6 murmur radiating to the aortic area). Absent: diastolic murmur, gallop, rubs - GI/Abdominal GI/Abdominal exam: Present: distended (Severe ascites), normal bowel sounds, soft, no peritoneal signs. Absent: tenderness - Extremities Exam Extremities exam: Present: pedal edema (+2 pitting edema both lower extremities) , warm, radial pulses palpable and symetrical. Absent: calf tenderness, cyanotic - Neurological Exam Neurological exam: Present: CN II-XII intact, oriented X3, no focal deficits. Absent: pronater drift, facial droop, speech deficit - Skin Skin exam: Present: dry, intact Internal Medicine: Result - Labs CBC & Chem 7: 10/24/16 04:05 10/25/16 04:05 Labs: BMP 10/25/16 04:05 Sodium 138 Potassium 3.9 D Chloride 116 H Carbon Dioxide 12 L BUN 95 H Creatinine 5.20 H Glucose 91 Calcium 7.2 L Consult Discharge Plan - Plan Referrals: Cleve Hannon DO [Primary Care Provider] - 10/31/16 11:30 am
--- NOTE | 2016-10-25 09:45 | Nephrology Progress Note ---
Date of Encounter: 10/25/16 Time of Encounter: 09:08 - Assessment and Plan (1) Acute renal insufficiency Current Visit: No Status: Acute Prob related to recent Chemotherapy v/s hemodynamic mediated sec to borderline low BP with BP meds on board. Does not appear to have HUS, Serum platelet count, hemoglobin and LFTS are stable Has underlying CKD with baseline creatinine in the mid 2 range. H/o atrophic left kidney, chronic hydro on the right with ureteral stent BUN and creatinine are slowly trending down. Monitor renal function and urine output Hyperkalemia has resolved. Serum bicarbonate is low, metabolic acidosis versus respiratory alkalosis. check ABG. Continue NS, plan to change IV fluids depending on ABG results Hyperphosphatemia, corrected calcium is normal (2) Ascites of liver Current Visit: Yes Status: Acute Thought to be secondary to portal hypertension. Continue to Hold diuretics Paracentesis tentatively planned for Thursday, suggesting give albumin after paracentesis (3) CAD (coronary artery disease) Current Visit: Yes Status: Acute Decrease the dose of metoprolol. Nuclear stress test 09/2015; LVEF 33% mild to moderate reversible ischemia Qualifiers: Coronary Disease-Associated Artery/Lesion type: unspecified vessel or lesion type [place] vs. transplanted heart: [place] heart Associated angina: without angina Qualified Code(s): I25.10 - Atherosclerotic heart disease of [place] coronary artery without angina pectoris Subjective Principal diagnosis: acute on chronic renal failure Interval history: 66 years old female with h/o ovarian cancer admitted with acute on chronic renal failure. Baseline creatinine 1.7-2.2 She is on Gemzar and Avastin for ovarian cancer, last dose 10/03/2016. Has recurrent ascites, requiring weekly paracenteses, last one on 10/22/16, about 4.4 L of fluid was removed. H/o atrophic left kidney, chronic hydroureter on the right, has ureteral stent in place. h/o pulmonary embolism, on eliquis, h/o lupus takes Plaquenil, h/o polycythemia vera was on hydroxyurea. Takes 20 mg of Lasix a day Had hyperkalemia, received a dose of Kayexalate yesterday. BP borderline low since admission, iv NS was started at 75 ml and rate decreaed to 50 ml/hr this morning Feels slightly better. Afebrile, BP stable stable. Urine output not documented accurately, probably 325 mL Objective - Vital Signs Vital signs: Vital Signs Temp Pulse Resp BP Pulse Ox 10/25/16 04:12 98.2 F 96 18 120/71 97 10/25/16 00:35 97.6 F 106 20 106/68 96 10/24/16 21:00 96 10/24/16 19:59 97.5 F L 89 20 107/70 98 10/24/16 14:52 97.1 F L 92 14 104/68 98 10/24/16 12:16 97.6 F 85 14 104/64 99 10/24/16 10:25 98 Intake and Output 10/24/16 10/25/16 10/25/16 23:59 07:59 15:59 Intake Total 1320 / 1320 Balance 1320 / 1320 Intake: IV Fluids 1000 / 1000 0.9 % Sodium Chloride 1, 1000 / 1000 000 ML @ 70 mls/hr IVC . [id number] [facility] Rx#: [id number] Oral 320 / 320 Other: Meal Dinner Percent of Meal Consumed 40% Weight 52.3 kg Blood Glucose* 126 89 Patient Weight 10/25/16 23:59 Weight 52.3 kg - General Appearance Exam: CVS; s1s2 present, regular, SM prominent in the right upper sternal border RESP; good air entry, clear to auscultation ABD; distended, soft, NT, BS present, ascites present EXT; 2+ edema, DP pulses palpable. TALENT RECRUITER; alert oriented -3, CN grossly intact - Lab 10/24/16 04:05 10/25/16 04:05 Most recent lab results Calcium 7.2 mg/dL (8.6-10.8) L 10/25/16 04:05 Phosphorus 5.9 mg/dL (2.3-4.7) H 10/24/16 04:05 Magnesium 1.3 mg/dL (1.6-2.6) L 10/24/16 04:05 Consult Discharge Plan - Plan Referrals: Cleve Hannon DO [Primary Care Provider] - 10/31/16 11:30 am
[2016-10-25 10:27] LABS: ABG Base Excess -14.4 mEq/L (-2.0 to 3.0); ABG HCO3 11.4 mEQ/L (21-27); ABG Oxygen Saturation 97 % (95-98); ABG PCO2 26 mmHg (35-45); ABG PH 7.25 pH Units (7.32-7.45); ABG PO2 100 mmHg (85-104); ABG TCO2 12.2 mEq/L (20-26)
[2016-10-25 10:29] LABS: Blood Gas FiO2 21 %
[2016-10-25] MEDS: 0.9 % Sodium Chloride 1,000 ML IVC SCH (15:20)
[2016-10-25] MEDS ORDERED: Ondansetron 4 MG/2 ML VIAL IVP PRN (15:25)
[2016-10-25] MEDS: Sodium Bicarbonate 100 MEQ in D5% in Water 1,000 ML IVC SCH (15:59)
--- NOTE | 2016-10-25 17:14 | Oncology Inp Progress Note ---
Date of Encounter: 10/25/16 Time of Encounter: 16:00 (1) Acute on chronic kidney failure Current Visit: Yes Status: Acute Assessment and plan: Acute kidney injury, creatinine slowly improving, nephrology input appreciated. Imaging of the kidneys, left kidney atrophy right-sided stent with stable changes noted. Paracentesis due for Thursday to relieve discomfort. Dilaudid helping her pain as needed. Zofran when necessary for nausea, add Compazine as she had date taken this at home. Ovarian cancer, left adnexal cyst in imaging, peritoneal carcinomatosis/ascites cirrhotic changes in the liver, on gemcitabine and Avastin both of which will be held until lab meters improved. Plan of care as noted above discussed with the patient and her in detail. Oncology: Subj Interval history: Abdominal swelling, some discomfort and nausea, paracentesis scheduled for Thursday. He is making urine. - Constitutional Vitals: Vital Signs Temp Pulse Resp BP Pulse Ox 10/25/16 04:12 98.2 F 96 18 120/71 97 10/25/16 00:35 97.6 F 106 20 106/68 96 10/24/16 21:00 96 10/24/16 19:59 97.5 F L 89 20 107/70 98 Intake and Output 10/25/16 10/25/16 10/25/16 07:59 15:59 23:59 Intake Total 700 / 700 Output Total 490 / 490 Balance 210 / 210 Intake: IV Fluids 700 / 700 0.9 % Sodium Chloride 1, 700 / 700 000 ML @ 70 mls/hr IVC . [id number] [facility] Rx#: [id number] Output: Urine 490 / 490 Other: # Voids 1 Weight 52.3 kg Blood Glucose* 89 134 Patient Weight 10/25/16 23:59 Weight 52.3 kg General appearance: cooperative, thin - Head Head exam: Present: atraumatic, normal inspection - Eye Eye exam: Present: sclera anicteric - ENT ENT exam: Present: mucous membranes moist - Neck Neck exam: Present: full ROM, normal inspection - Respiratory Additional comments: Decreased air entry bases - Cardiovascular Cardiovascular exam: Present: +S1, +S2 - GI/Abdominal GI/Abdominal exam: Present: distended, soft Additional comments: fluid+ - Extremities Exam Additional comments: audra pedal edema - Neurological Exam Neurological exam: Present: alert, oriented X3 Oncology: Obj Data - Labs CBC & Chem 7: 10/24/16 04:05 10/25/16 04:05 Labs: Laboratory Results - last 24 hr 10/24/16 10/25/16 10/25/16 20:38 04:05 10:15 ABG pH 7.25 L ABG pCO2 26 L ABG pO2 100 ABG HCO3 11.4 L ABG Total CO2 12.2 L ABG O2 Saturation 97 ABG Base Excess -14.4 L Blood Gas Modality RA Inspired O2 21 Sodium 138 Potassium 3.9 D Chloride 116 H Carbon Dioxide 12 L BUN 95 H Creatinine 5.20 H Est GFR ( Amer) 10 L Est GFR (Non-Af Amer) 8 L BUN/Creatinine Ratio 18 Glucose 91 POC Glucose 126 H Calculated Osmolality 315 H Calcium 7.2 L - ABG Interpretation ABG results: ABG ABG pH 7.25 pH Units (7.32-7.45) L 10/25/16 10:15 ABG pCO2 26 mmHg (35-45) L 10/25/16 10:15 ABG pO2 100 mmHg (85-104) 10/25/16 10:15 ABG O2 Saturation 97 % (95-98) 10/25/16 10:15 Consult Discharge Plan - Plan Referrals: Cleve Hannon DO [Primary Care Provider] - 10/31/16 11:30 am
[2016-10-26 04:12] LABS: Hematocrit 31.2 % (35.3-44.9); Mean Corpuscular HGB Conc 32.1 g/dL (31.6-35.5); Mean Corpuscular Hemoglobin 32.7 pg (28.0-33.3); Mean Platelet Volume 11.6 fL (9.4-12.4); Platelet Count 174 K/mcL (140-400); Red Blood Count 3.06 M/mcL (3.82-4.97); Red Cell Distribution Width 23.4 % (11.5-14.5)
[2016-10-26 04:23] LABS: Calcium 7.4 mg/dL (8.6-10.8); Potassium 3.8 mEq/L (3.5-4.5)
[2016-10-26 04:24] LABS: Albumin 2.1 g/dL (3.5-5.0); Calcium 7.5 mg/dL (8.6-10.8); Magnesium 1.3 mg/dL (1.6-2.6); Potassium 3.8 mEq/L (3.5-4.5)
[2016-10-26] MEDS: Sodium Bicarbonate 100 MEQ in D5% in Water 1,000 ML IVC SCH (06:04)
[2016-10-26] MEDS ORDERED: Acetaminophen 325 MG TABLET PO PRN (06:14)
[2016-10-26] MEDS: APIXABAN 2.5 MG TABLET PO SCH (08:59)
[2016-10-26] MEDS: Aspirin Enteric Coated 81 MG Tablet PO SCH (09:00)
[2016-10-26] MEDS: Metoprolol XL (24 HR) Succ 50 MG TAB.ER.24H PO SCH (09:01)
--- NOTE | 2016-10-26 09:28 | Internal Med Progress Note ---
Date of Encounter: 10/26/16 Time of Encounter: 09:26 - Assessment and plan (1) Acute on chronic kidney failure Current Visit: Yes Status: Acute Assessment and plan: Acute on chronic renal failure likely secondary to chemotherapy with gemcitabine and Avastin last chemotherapy on Oct 03, also possibly related to ascites compressing the right functional kidney, left kidney is atrophic CKD4 Has recurrent ascites, Pleurx catheter considered Recent paracentesis removed more than 4 L ( every Thursday), usually holds Eliquis 48h prior to paracentesis, may require another paracentesis sooner Lasix on hold HOld Eliuis for possible paracentesis on Thursday by IR CT scan shows severe ascites with a 6 cm cystic mass in the left pelvis area related to ovarian cancer Follow-up by nephrology, continue IV fluids with bicarbonate Urology consulted Consider holding allopurinol Hx of sCHF EF 25-30% (2) Hyperkalemia Current Visit: Yes Status: Acute Assessment and plan: Secondary to acute on chronic renal failure Kayexalate was given (3) Weakness Current Visit: Yes Status: Acute (4) DVT prophylaxis Current Visit: No Status: Acute Assessment and plan: Eliquis ( on hold) for Hx of PE (5) History of pulmonary embolus (PE) Current Visit: No Status: Chronic (6) Lupus (systemic lupus erythematosus) Current Visit: No Status: Chronic Assessment and plan: On plaquenil Qualifiers: Systemic lupus erythematosus type: unspecified Systemic lupus erythematosus organ involvement: unspecified Qualified Code(s): M32.9 - Systemic lupus erythematosus, unspecified (7) Ovarian cancer Current Visit: No Status: Chronic Assessment and plan: Followed by oncology Qualifiers: Laterality: right Qualified Code(s): C56.1 - Malignant neoplasm of right ovary (8) Polycythemia rubra vera Current Visit: No Status: Chronic Assessment and plan: Usually on hydroxyurea, being held at the moment (9) Hydroureter on right Current Visit: No Status: Ruled-out - Subjective Interval history: Complains of more abdominal distention, bloating, no nausea or vomiting. He is making a little more urine than before. Denies any chest pain or shortness of breath, no dysuria, no fevers, legs are more swollen. Denies pain - Constitutional Vitals: Temp Pulse Resp BP Pulse Ox 97.4 F L 79 14 103/57 97 10/26/16 06:57 10/26/16 06:57 10/26/16 06:57 10/26/16 06:57 10/26/16 06:57 General appearance: Present: A&O X 3, pleasant, no acute distress, underweight, answers questions appropriately - Head Head exam: Present: atraumatic, normocephalic - Eye Eye exam: Present: PERRL, conjuntiva pink, sclera anicteric Pupils: Present: PERRL - Neck Neck exam general surgery: Present: supple, trachea midline. Absent: lymphadenopathy - Respiratory Respiratory exam: Present: CTAB. Absent: accessory muscle use, rales, rhonchi, wheezes - Cardiovascular Cardiovascular exam: Present: RRR, +S1, +S2. Absent: diastolic murmur, gallop, rubs, systolic murmur - GI/Abdominal GI/Abdominal exam: Present: distended (severe ascites), normal bowel sounds, soft, no peritoneal signs. Absent: tenderness - Extremities Exam Extremities exam: Present: pedal edema (+ 2 pitting edema), warm, radial pulses palpable and symetrical. Absent: calf tenderness, cyanotic - Neurological Exam Neurological exam: Present: CN II-XII intact, oriented X3, no focal deficits. Absent: pronater drift, facial droop, speech deficit - Skin Skin exam: Present: dry, intact Internal Medicine: Result - Labs CBC & Chem 7: 10/26/16 03:50 10/26/16 03:50 Labs: Short CBC 10/26/16 Range/Units 03:50 WBC 6.0 (4.3-11.1) K/mcL Hgb 10.0 L (11.5-15.4) g/dL Hct 31.2 L (35.3-44.9) % Plt Count 174 (140-400) K/mcL BMP 10/26/16 10/26/16 03:50 03:50 Sodium 137 137 Potassium 3.8 3.8 Chloride 112 H 112 H Carbon Dioxide 15 L 15 L BUN 88 H 88 H Creatinine 5.13 H 5.13 H Glucose 101 H 102 H Calcium 7.4 L 7.5 L Liver Function 10/26/16 Range/Units 03:50 Albumin 2.1 L (3.5-5.0) g/dL - ABG Interpretation ABG results: ABG ABG pH 7.25 pH Units (7.32-7.45) L 10/25/16 10:15 ABG pCO2 26 mmHg (35-45) L 10/25/16 10:15 ABG pO2 100 mmHg (85-104) 10/25/16 10:15 ABG O2 Saturation 97 % (95-98) 10/25/16 10:15 Consult Discharge Plan - Plan Referrals: Cleve Hannon DO [Primary Care Provider] - 10/31/16 11:30 am
--- NOTE | 2016-10-26 10:26 | Nephrology Progress Note ---
Date of Encounter: 10/26/16 Time of Encounter: 10:26 - Assessment and Plan (1) Acute renal insufficiency Current Visit: No Status: Acute 1. ARF Sec to recent Chemotherapy from Avastin and Gemzar v/s hemodynamic mediated sec to borderline low BP with BP meds on board. Has underlying CKD with baseline creatinine in the mid 2 range. H/o atrophic left kidney, chronic hydro on the right with ureteral stent BUN and creatinine are slightly better, urine output marginal. Has worsening ascites and peripheral edema D/c IV fluids, start IV albumin 2. Metabolic acidosis, serum bicarbonate is trending up, start by mouth bicarbonate supplements 3. Hyperphosphatemia, corrected calcium is normal, start PhosLo with meals 4. Hypomagnesemia, start supplements 5. Ascites, to get paracenteses in a.m. 6. History of PE, Eliquis on hold. Suggest to start Coumadin if anticoagulation is needed given the renal failure. 7. H/o CAD, CHF. Nuclear stress test 09/2015 LV of 33% mild to moderate to severe ischemia. As per pt cardiac cath was done to issue last year and did not require any intervention. Given the borderline low blood pressure DC isosorbide Subjective Principal diagnosis: acute on chronic renal failure Interval history: IVF changed to d5w with bicarb yesterday. SBP 104-120. 24 hr UO 490. c/o increasing abd distension and discomfort, denies dizziness Objective - Vital Signs Vital signs: Vital Signs Temp Pulse Resp BP Pulse Ox 10/26/16 06:57 97.4 F L 79 14 103/57 97 10/26/16 04:21 98.1 F 83 16 109/64 96 10/25/16 23:45 98.4 F 85 16 116/63 96 10/25/16 19:53 97.8 F 81 16 104/53 97 Intake and Output 10/25/16 10/26/16 10/26/16 23:59 07:59 15:59 Intake Total 1000 / 1000 Balance 1000 / 1000 Intake: IV Fluids 1000 / 1000 Sodium Bicarbonate 100 1000 / 1000 MEQ In Dextrose 5% 1,000 ML @ 75 mls/hr IVC . [id number] SAVANNAH Rx#: [id number] Other: Weight 52.1 kg Blood Glucose* 117 102 Patient Weight 10/26/16 23:59 Weight 52.1 kg - General Appearance Exam: CVS; s1s2 present, regular, SM 2/6 dominant in the right upper sternal border RESP; good air entry, clear to auscultation ABD; distended, soft, NT, BS present, ascites present EXT; 2+ edema, DP pulses palpable. 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
[2016-10-26] MEDS: Calcium Acetate 667 MG CAPSULE PO SCH ×2 (12:30→17:00)
[2016-10-26] MEDS: Albumin 25% 25gram/100mL 25 GM/100 ML IV.SOLN IVPB SCH (15:40)
[2016-10-26] MEDS: Magnesium Oxide 400 MG TABLET PO SCH (21:35)
[2016-10-27] MEDS: Albumin 25% 25gram/100mL 25 GM/100 ML IV.SOLN IVPB SCH ×3 (06:08→15:47)
--- NOTE | 2016-10-27 08:23 | Nephrology Progress Note ---
Date of Encounter: 10/27/16 Time of Encounter: 08:20 - Assessment and Plan (1) Acute on chronic kidney failure Current Visit: Yes Status: Acute Patient has acute kidney injury superimposed on stage IV chronic kidney disease. Likely chemotherapy is at least a contributing factor. The patient's renal function is slowly improving although she remains quite azotemic. Today' s lab is pending. Urine output is borderline. We will continue to monitor the patient closely. Should her renal function worsen or plateau she may require initiation of dialysis. Patient is aware of this. She is scheduled to undergo a therapeutic paracentesis later today. (2) Hydronephrosis, right Current Visit: No Status: Acute (3) CKD (chronic kidney disease) stage 4, GFR 15-29 ml/min Current Visit: No Status: Chronic (4) Ovarian cancer Current Visit: No Status: Chronic Qualifiers: Laterality: right Qualified Code(s): C56.1 - Malignant neoplasm of right ovary Subjective Principal diagnosis: acute on chronic renal failure Interval history: Patient denies any new complaints. She is scheduled for paracentesis later today. Renal function has been slowly improving over the weekend. Today's lab is pending. Urine output yesterday is only recorded as 300 mL. Objective - Vital Signs Vital signs: Vital Signs Temp Pulse Resp BP Pulse Ox 10/27/16 07:39 98.4 F 82 17 119/62 99 10/27/16 04:00 98.0 F 86 16 121/67 100 10/26/16 23:52 97.8 F 80 16 103/56 96 10/26/16 22:31 97.6 F 80 16 107/63 98 10/26/16 21:00 96 10/26/16 16:50 97.3 F L 80 14 111/65 99 10/26/16 11:38 97.5 F L 85 16 107/69 98 10/26/16 09:00 97 Intake and Output 10/26/16 10/27/16 10/27/16 23:59 07:59 15:59 Intake Total 340 / 340 Output Total 100 / 100 Balance 240 / 240 Intake: IV Fluids 100 / 100 Flexbumin 25 gm In 100 ml 100 / 100 @ 60 mls/hr IVPB Q8HR SAVANNAH Rx#:[id number] Oral 240 / 240 Output: Urine 100 / 100 Other: Meal Dinner Percent of Meal Consumed 100% Weight 52.4 kg Patient Weight 10/27/16 23:59 Weight 52.4 kg - General Appearance Exam: Patient is alert and oriented. She appears to be dyspneic with activity. Lungs diminished breath sounds. Heart regular rate and rhythm with a gallop and possible very soft friction rub. Abdomen is distended with obvious ascites. There is 2+ lower extremity swelling. - Lab 10/26/16 03:50 10/26/16 03:50 Most recent lab results ABG pH 7.25 pH Units (7.32-7.45) L 10/25/16 10:15 ABG pCO2 26 mmHg (35-45) L 10/25/16 10:15 ABG pO2 100 mmHg (85-104) 10/25/16 10:15 ABG HCO3 11.4 mEQ/L (21-27) L 10/25/16 10:15 ABG O2 Saturation 97 % (95-98) 10/25/16 10:15 Calcium 7.5 mg/dL (8.6-10.8) L 10/26/16 03:50 Phosphorus 6.0 mg/dL (2.3-4.7) H 10/26/16 03:50 Magnesium 1.3 mg/dL (1.6-2.6) L 10/26/16 03:50 Consult Discharge Plan - Plan Referrals: Cleve Hannon DO [Primary Care Provider] - 10/31/16 11:30 am
[2016-10-27] MEDS: Magnesium Oxide 400 MG TABLET PO SCH ×2 (09:35→20:15)
[2016-10-27] MEDS: Aspirin Enteric Coated 81 MG Tablet PO SCH (09:35)
[2016-10-27] MEDS: Metoprolol XL (24 HR) Succ 50 MG TAB.ER.24H PO SCH (09:35)
[2016-10-27] MEDS: Calcium Acetate 667 MG CAPSULE PO SCH ×3 (09:35→17:29)
--- NOTE | 2016-10-27 09:35 | Internal Med Progress Note ---
Date of Encounter: 10/27/16 Time of Encounter: 09:32 - Assessment and plan (1) Acute on chronic kidney failure Current Visit: Yes Status: Acute Assessment and plan: Acute on chronic renal failure likely secondary to chemotherapy with gemcitabine and Avastin last chemotherapy on Oct 03, also possibly related to ascites compressing the right functional kidney, left kidney is atrophic CKD4 Today's labs are pending Has recurrent ascites, Pleurx catheter considered, will need to be placed by interventional radiology after her ascites fills up again Had a paracentesis today removed more 4700cc ( has it every Thursday), usually holds Eliquis 48h prior to paracentesis, may require another paracentesis sooner Lasix on hold Resume Eliuis tonight CT scan shows severe ascites with a 6 cm cystic mass in the left pelvis area related to ovarian cancer Follow-up by nephrology, continue IV fluids and bicarbonate Urology consulted Consider holding allopurinol Hx of sCHF EF 25-30% (2) Hyperkalemia Current Visit: Yes Status: Acute Assessment and plan: Secondary to acute on chronic renal failure Kayexalate was given (3) Weakness Current Visit: Yes Status: Acute (4) DVT prophylaxis Current Visit: No Status: Acute Assessment and plan: Eliquis, resume tonight for Hx of PE (5) History of pulmonary embolus (PE) Current Visit: No Status: Chronic (6) Lupus (systemic lupus erythematosus) Current Visit: No Status: Chronic Assessment and plan: On plaquenil Qualifiers: Systemic lupus erythematosus type: unspecified Systemic lupus erythematosus organ involvement: unspecified Qualified Code(s): M32.9 - Systemic lupus erythematosus, unspecified (7) Ovarian cancer Current Visit: No Status: Chronic Assessment and plan: Followed by oncology Qualifiers: Laterality: right Qualified Code(s): C56.1 - Malignant neoplasm of right ovary (8) Polycythemia rubra vera Current Visit: No Status: Chronic Assessment and plan: Usually on hydroxyurea, being held at the moment (9) Hydroureter on right Current Visit: No Status: Ruled-out - Subjective Interval history: The patient feels relieved after having out 4700 mL of fluid with a paracentesis performed by interventional radiology, denies any bloating, no nausea or vomiting. Making a little more urine than before. Denies any chest pain or shortness of breath, no dysuria, no fevers, legs are more swollen. Denies pain - Constitutional Vitals: Temp Pulse Resp BP Pulse Ox 98.4 F 82 17 119/62 99 10/27/16 07:39 10/27/16 07:39 10/27/16 07:39 10/27/16 07:39 10/27/16 07:39 General appearance: Present: A&O X 3, pleasant, no acute distress, underweight, answers questions appropriately - Head Head exam: Present: atraumatic, normocephalic - Eye Eye exam: Present: PERRL, conjuntiva pink, sclera anicteric Pupils: Present: PERRL - Neck Neck exam general surgery: Present: supple, trachea midline. Absent: lymphadenopathy - Respiratory Respiratory exam: Present: decreased breath sounds, CTAB. Absent: accessory muscle use, rales, rhonchi, wheezes - Cardiovascular Cardiovascular exam: Present: RRR, +S1, +S2. Absent: diastolic murmur, gallop, rubs, systolic murmur - GI/Abdominal GI/Abdominal exam: Present: distended (Ascites has improved), normal bowel sounds, soft, no peritoneal signs. Absent: tenderness - Extremities Exam Extremities exam: Present: pedal edema (+3 pitting edema), warm, radial pulses palpable and symetrical. Absent: calf tenderness, cyanotic - Neurological Exam Neurological exam: Present: CN II-XII intact, oriented X3, no focal deficits. Absent: pronater drift, facial droop, speech deficit - Skin Skin exam: Present: dry, intact Internal Medicine: Result - Labs CBC & Chem 7: 10/26/16 03:50 10/26/16 03:50 - ABG Interpretation ABG results: ABG ABG pH 7.25 pH Units (7.32-7.45) L 10/25/16 10:15 ABG pCO2 26 mmHg (35-45) L 10/25/16 10:15 ABG pO2 100 mmHg (85-104) 10/25/16 10:15 ABG O2 Saturation 97 % (95-98) 10/25/16 10:15 Consult Discharge Plan - Plan Referrals: Cleve Hannon DO [Primary Care Provider] - 10/31/16 11:30 am
--- NOTE | 2016-10-27 09:37 | IR Procedure Note ---
Date of procedure: 10/27/16 Consent Obtained: Written consent Timeout: Correct patient and procedure verified, Correct site verified, Time out performed, Skin prep completed Indications: ascites Procedure Performed: paracentesis Site/Technique: lt abdomen, 8F sheath Results/Findings: large ascites Estimated blood loss (cc): 0 Complications: None; Tolerated procedure well Post Procedure Treatment Plan: observation
[2016-10-27 10:04] LABS: Calcium 7.8 mg/dL (8.6-10.8); Magnesium 1.1 mg/dL (1.6-2.6); Phosphorous 4.6 mg/dL (2.3-4.7); Potassium 3.6 mEq/L (3.5-4.5)
--- NOTE | 2016-10-27 10:28 | Palliative Progress Note ---
Date of Encounter: 10/27/16 Time of Encounter: 10:26 - Assessment and plan (1) Dry mouth Current Visit: Yes Status: Acute Assessment and plan: Biotene spray ordered Thursday. Ok to place at bedside. (2) Goals of care, counseling/discussion Current Visit: Yes Status: Acute Assessment and plan: Reviewed goals of care with Ms. Dumont. She discussed her goals with her family this weekend. At this time, Ms. Dumont does not wish to complete her advanced directives. Symptoms controlled with paracentesis. May need to consider the placement of an abdominal pleurX catheter due to recurrent ascites. The palliative care team will sign off at this time. Please re- consult if needed. (3) Ascites Current Visit: Yes Status: Acute Assessment and plan: S/P paracentesis this morning wiht 4.7L removed. May need to consider placement of an abdominal pleurX catheter for recurrent ascites. Qualifiers: Ascites type: malignant Qualified Code(s): R18.0 - Malignant ascites (4) Acute on chronic kidney failure Current Visit: Yes Status: Acute Assessment and plan: Nephrology following. (5) Ovarian cancer Current Visit: No Status: Chronic Assessment and plan: Oncology following. Qualifiers: Laterality: right Qualified Code(s): C56.1 - Malignant neoplasm of right ovary - Time Spent With Patient Total time spent is greater than 50% in coordination of care (as documented) at patient's floor/unit and/or counseling patient: - Subjective Interval history: Ms. Dumont is sitting up in bed. She had a paracentesis this morning with 4.7L removed. She reports a "healthy" appetite and adequate rest. Ms. Dumont reports her "typical" abdominal discomfort that is much more tolerable following a paracentesis. - Constitutional Vitals: Abnormal lab results RBC 3.06 M/mcL (3.82-4.97) L 10/26/16 03:50 Hgb 10.0 g/dL (11.5-15.4) L 10/26/16 03:50 Hct 31.2 % (35.3-44.9) L 10/26/16 03:50 MCV 102.0 fL (83.0-100.0) H 10/26/16 03:50 RDW 23.4 % (11.5-14.5) H 10/26/16 03:50 Nucleated RBCs/100 WBC 0.3 /100 WBC (0) H 10/23/16 11:45 Large Platelets Present (Not Present) A 10/23/16 11:45 Anisocytosis 2+ (Not Present) A 10/24/16 04:05 Ovalocytes 2+ (Not Present) A 10/24/16 04:05 ABG pH 7.25 pH Units (7.32-7.45) L 10/25/16 10:15 ABG pCO2 26 mmHg (35-45) L 10/25/16 10:15 ABG HCO3 11.4 mEQ/L (21-27) L 10/25/16 10:15 ABG Total CO2 12.2 mEq/L (20-26) L 10/25/16 10:15 ABG Base Excess -14.4 mEq/L (-2.0 to 3.0) L 10/25/16 10:15 Chloride 111 mEq/L (98-109) H 10/27/16 09:34 Carbon Dioxide 17 mEq/L (19-29) L 10/27/16 09:34 BUN 87 mg/dL (7-20) H 10/27/16 09:34 Creatinine 4.73 mg/dL (0.57-1.11) H 10/27/16 09:34 Est GFR ( Amer) 11 (> 60) L 10/27/16 09:34 Est GFR (Non-Af Amer) 9 (> 60) L 10/27/16 09:34 Glucose 129 mg/dL (70-99) H 10/27/16 09:34 POC Glucose 129 (58-89) H 10/26/16 14:14 Calculated Osmolality 310 (280-300) H 10/27/16 09:34 Calcium 7.8 mg/dL (8.6-10.8) L 10/27/16 09:34 Magnesium 1.1 mg/dL (1.6-2.6) L 10/27/16 09:34 Alkaline Phosphatase 141 Units/L (38-126) H 10/24/16 04:05 Creatine Kinase 26 Units/L (29-168) L 10/24/16 04:26 Troponin I 0.04 ng/mL (0-0.03) H* 10/23/16 11:45 Serum Total Protein 3.8 g/dL (6.0-8.3) L 10/24/16 04:05 Albumin 3.0 g/dL (3.5-5.0) L D 10/27/16 09:34 Globulin 1.7 g/dL (2.4-3.5) L 10/24/16 04:05 HDL Cholesterol 28 mg/dL (40-59) L 10/24/16 04:05 Urine Clarity Cloudy (Clear) A 10/23/16 20:05 Urine Protein 100 mg/dL (Neg-Trace) H 10/23/16 20:05 Ur Leukocyte Esterase Trace (Negative) H 10/23/16 20:05 Urine Microscopic WBC 5-15 per hpf (0-3) H 10/23/16 20:05 Ur Squamous Epith Cells Many per lpf (None-Few) H 10/23/16 20:05 General appearance: Present: cooperative, no acute distress Exam: 66 year old female, very pleasant and conversational. - Eye Eye exam: Present: EOMI - Respiratory Respiratory exam: Present: CTAB. Absent: accessory muscle use, decreased breath sounds, respiratory distress, tachypnea - Cardiovascular Cardiovascular exam: Present: systolic murmur - GI/Abdominal GI/Abdominal exam: Present: soft, tenderness. Absent: guarding - Expanded Abdominal Exam GI/Abdominal exam: Present: ascites (s/p paracentesis this morning with 4.7L removed) - Extremities Exam Extremities exam: Present: pedal edema - Expanded Lower Extremity Exam Lower leg exam: Present: swelling (L > R) - Neurological Exam Neurological exam: Present: alert, oriented X3, no focal deficits, strengths equal and symetr throughout - Psychiatric Psychiatric exam: Absent: agitated, anxious - Skin Skin exam: Present: dry, warm Palliative Quality Palliative Quality: Screen for Code Status: Yes, Screen for Goals of Care: Yes, Screen for Pain: Yes, If Pain Regimen Started, Initiate Bowel Regimen: Yes, Screen for Nausea/Vomitting: Yes - Labs CBC & Chem 7: 10/26/16 03:50 10/27/16 09:34 Labs: Laboratory Results - last 24 hr 10/26/16 10/26/16 10/27/16 06:59 14:14 09:34 Sodium 136 Potassium 3.6 Chloride 111 H Carbon Dioxide 17 L BUN 87 H Creatinine 4.73 H Est GFR ( Amer) 11 L Est GFR (Non-Af Amer) 9 L BUN/Creatinine Ratio 18 Glucose 129 H POC Glucose 102 H 129 H Calculated Osmolality 310 H Calcium 7.8 L Phosphorus 4.6 Magnesium 1.1 L Albumin 3.0 L D - Impressions Impressions Paracentesis Ultrasound 10/27/16 00:00 IMPRESSION: Successful ultrasound guided paracentesis. D/ / Karine Bernabe MD / Karine Bernabe MD Interpreting Provider: Karine Bernabe MD - ABG Interpretation ABG results: ABG ABG pH 7.25 pH Units (7.32-7.45) L 10/25/16 10:15 ABG pCO2 26 mmHg (35-45) L 10/25/16 10:15 ABG pO2 100 mmHg (85-104) 10/25/16 10:15 ABG O2 Saturation 97 % (95-98) 10/25/16 10:15 Consult Discharge Plan - Plan Referrals: Cleve Hannon DO [Primary Care Provider] - 10/31/16 11:30 am
[2016-10-27] MEDS: 0.9 % Sodium Chloride 1,000 ML IVC SCH (13:28)
[2016-10-27] MEDS ORDERED: *HR* OxyCODONE Immed Rel 5 MG TABLET PO PRN (15:20)
--- NOTE | 2016-10-27 15:49 | Oncology Inp Progress Note ---
<Jazzy Izaguirre E - Last Filed: 10/27/16 15:46> Date of Encounter: 10/27/16 Time of Encounter: 14:45 (1) Acute on chronic kidney failure Current Visit: Yes Status: Acute Assessment and plan: Appreciate input from nephrology. BUN and creatinine continue to improve. Creatinine 4.73. Patient understands chemotherapy will remain on hold until renal functioning improves. Will continue to follow. Oncology: Subj Interval history: Patient seen and examined at bedside. All labs reviewed. Patient states that she is feeling much better since she had a paracentesis earlier today. At that time 4.7 L were removed. She is hoping she will get the Pleurx catheter inserted so that she can remove the fluid at home at least a couple times a week. She states she continues to have swelling in her lower extremities but it has not worsened. Her abdominal discomfort and appetite have improved since having the paracentesis. - Constitutional Vitals: Vital Signs Temp Pulse Resp BP Pulse Ox 10/27/16 11:30 97.7 F 78 18 108/97 100 10/27/16 09:31 99 10/27/16 07:39 98.4 F 82 17 119/62 99 10/27/16 04:00 98.0 F 86 16 121/67 100 10/26/16 23:52 97.8 F 80 16 103/56 96 10/26/16 22:31 97.6 F 80 16 107/63 98 10/26/16 21:00 96 10/26/16 16:50 97.3 F L 80 14 111/65 99 Intake and Output 10/26/16 10/27/16 10/27/16 23:59 07:59 15:59 Intake Total 340 / 340 240 / 240 Output Total 100 / 100 4700 / 4700 Balance 240 / 240 -4460 / -4460 Intake: IV Fluids 100 / 100 Flexbumin 25 gm In 100 ml 100 / 100 @ 60 mls/hr IVPB Q8HR [facility] Rx#:[id number] Oral 240 / 240 240 / 240 Output: Urine 100 / 100 Peracentesis 4700 / 4700 Other: Meal Dinner Breakfast Percent of Meal Consumed 100% 100% Weight 52.4 kg Blood Glucose* 107 Patient Weight 10/27/16 23:59 Weight 52.4 kg General appearance: cooperative, no acute distress - Head Head exam: Present: normocephalic - ENT ENT exam: Present: mucous membranes moist - Respiratory Respiratory exam: Present: CTAB - Cardiovascular Cardiovascular exam: Present: RRR - GI/Abdominal GI/Abdominal exam: Present: distended, normal bowel sounds - Extremities Exam Extremities exam: Present: pedal edema (Lateral lower extremities) - Back Exam Back exam: Present: normal inspection - Neurological Exam Neurological exam: Present: alert, oriented X3 - Psychiatric Psychiatric exam: Present: normal affect, normal mood Oncology: Obj Data - Labs CBC & Chem 7: 10/26/16 03:50 10/27/16 09:34 Labs: Laboratory Results - last 24 hr 10/26/16 10/26/16 10/27/16 06:59 14:14 09:34 Sodium 136 Potassium 3.6 Chloride 111 H Carbon Dioxide 17 L BUN 87 H Creatinine 4.73 H Est GFR ( Amer) 11 L Est GFR (Non-Af Amer) 9 L BUN/Creatinine Ratio 18 Glucose 129 H POC Glucose 102 H 129 H Calculated Osmolality 310 H Calcium 7.8 L Phosphorus 4.6 Magnesium 1.1 L Albumin 3.0 L D 10/27/16 10/27/16 11:34 14:41 Sodium Potassium Chloride Carbon Dioxide BUN Creatinine Est GFR ( Amer) Est GFR (Non-Af Amer) BUN/Creatinine Ratio Glucose POC Glucose 107 H 101 H Calculated Osmolality Calcium Phosphorus Magnesium Albumin - Impressions Impressions Paracentesis Ultrasound 10/27/16 00:00 IMPRESSION: Successful ultrasound guided paracentesis. D/ / Karine Bernabe MD / Karine Bernabe MD Interpreting Provider: Karine Bernabe MD - ABG Interpretation ABG results: ABG ABG pH 7.25 pH Units (7.32-7.45) L 10/25/16 10:15 ABG pCO2 26 mmHg (35-45) L 10/25/16 10:15 ABG pO2 100 mmHg (85-104) 10/25/16 10:15 ABG O2 Saturation 97 % (95-98) 10/25/16 10:15 Consult Discharge Plan - Plan Referrals: Cleve Hannon DO [Primary Care Provider] - 10/31/16 11:30 am <Monroe Santos - Last Filed: 10/28/16 08:59> (1) Acute on chronic kidney failure Current Visit: Yes Status: Acute Assessment and plan: s/p paracentesis, she is feeling well. Eric leg swelling abd disytension- improved on exam Lab parameters noted. She is considering a pleurex/peritoneal catheter I have seen examined patient myself on 10/27/16 and agree with plan of care as outlined by Jazzy Izaguirre CNP - Constitutional Vitals: Vital Signs Temp Pulse Resp BP Pulse Ox 10/28/16 08:12 99 10/28/16 07:57 97.9 F 78 17 118/66 99 10/28/16 04:31 97.6 F 71 16 115/60 99 10/27/16 23:59 98.0 F 86 16 121/63 98 10/27/16 20:26 98.0 F 78 16 115/61 99 10/27/16 16:27 97.8 F 85 17 118/66 98 10/27/16 11:30 97.7 F 78 18 108/97 100 10/27/16 09:31 99 Intake and Output 10/27/16 10/28/16 10/28/16 23:59 07:59 15:59 Intake Total 1000 / 1000 0 / 0 Output Total 400 / 400 Balance -400 / -400 1000 / 1000 0 / 0 Intake: IV Fluids 1000 / 1000 0.9 % Sodium Chloride 1, 1000 / 1000 000 ML @ 75 mls/hr IVC . [id number] [facility] Rx#: [id number] Oral 0 / 0 Output: Urine 400 / 400 Other: # Voids 1 # Bowel Movements 1 Weight 52.5 kg Blood Glucose* 101 93 Patient Weight 10/28/16 23:59 Weight 52.5 kg Oncology: Obj Data - Labs CBC & Chem 7: 10/28/16 03:45 10/28/16 03:45 Labs: Laboratory Results - last 24 hr 10/27/16 10/27/16 10/27/16 09:34 11:34 14:41 WBC RBC Hgb Hct MCV MCH MCHC RDW Plt Count MPV Seg Neutrophils % Band Neutrophils % Lymphocytes % Monocytes % Eosinophils % Neutrophils # Lymphocytes # Monocytes # Eosinophils # Platelet Estimate Immature Plt Fraction Poikilocytosis Anisocytosis Ovalocytes Sodium 136 Potassium 3.6 Chloride 111 H Carbon Dioxide 17 L BUN 87 H Creatinine 4.73 H Est GFR ( Amer) 11 L Est GFR (Non-Af Amer) 9 L BUN/Creatinine Ratio 18 Glucose 129 H POC Glucose 107 H 101 H Calculated Osmolality 310 H Calcium 7.8 L Phosphorus 4.6 Magnesium 1.1 L Total Bilirubin AST ALT Alkaline Phosphatase Serum Total Protein Albumin 3.0 L D Globulin Albumin/Globulin Ratio 10/28/16 10/28/16 10/28/16 03:45 03:45 07:47 WBC 4.1 L RBC 2.78 L Hgb 9.0 L Hct 27.9 L MCV 100.4 H MCH 32.4 MCHC 32.3 RDW 22.2 H Plt Count 130 L MPV 11.1 Seg Neutrophils % 58.0 Band Neutrophils % 22.0 H Lymphocytes % 16.0 Monocytes % 2.0 Eosinophils % 2.0 Neutrophils # 3.3 Lymphocytes # 0.7 Monocytes # 0.1 Eosinophils # 0.1 Platelet Estimate Normal Immature Plt Fraction 2.8 Poikilocytosis 2+ A Anisocytosis 2+ A Ovalocytes 2+ A Sodium 138 Potassium 3.8 Chloride 114 H Carbon Dioxide 16 L BUN 80 H Creatinine 3.95 H Est GFR ( Amer) 14 L Est GFR (Non-Af Amer) 11 L BUN/Creatinine Ratio 20 Glucose 86 POC Glucose 93 H Calculated Osmolality 309 H Calcium 7.5 L Phosphorus Magnesium Total Bilirubin 1.0 AST 21 ALT 17 Alkaline Phosphatase 96 Serum Total Protein 4.1 L Albumin 2.7 L Globulin 1.4 L Albumin/Globulin Ratio 1.9 - Impressions Impressions Paracentesis Ultrasound 10/27/16 00:00
[2016-10-27] MEDS: APIXABAN 5 MG TABLET PO SCH (20:15)
[2016-10-28 03:59] LABS: Hematocrit 27.9 % (35.3-44.9); Immature Platelets 2.8 % (1.1-6.1); Mean Corpuscular HGB Conc 32.3 g/dL (31.6-35.5); Mean Corpuscular Hemoglobin 32.4 pg (28.0-33.3); Mean Corpuscular Volume 100.4 fL (83.0-100.0); Mean Platelet Volume 11.1 fL (9.4-12.4); Monocytes # 0.1 K/mcL (0.0-1.3); Platelet Count 130 K/mcL (140-400); Red Blood Count 2.78 M/mcL (3.82-4.97); Red Cell Distribution Width 22.2 % (11.5-14.5)
[2016-10-28 04:11] LABS: Albumin 2.7 g/dL (3.5-5.0); Albumin/Globulin Ratio 1.9 (1.1-2.2); Calcium 7.5 mg/dL (8.6-10.8); Globulin 1.4 g/dL (2.4-3.5); Potassium 3.8 mEq/L (3.5-4.5); Total Protein 4.1 g/dL (6.0-8.3)
[2016-10-28 04:42] LABS: Anisocytosis 2+ (Not Present); Eosinophils # 0.1 K/mcL (0.0-0.6); Lymphocytes # 0.7 K/mcL (0.6-4.6); Neutrophils # 3.3 K/mcL (1.6-8.9); Ovalocytes 2+ (Not Present); Poikilocytosis 2+ (Not Present)
[2016-10-28 04:43] LABS: Platelet Estimate Normal (Normal)
[2016-10-28] MEDS: 0.9 % Sodium Chloride 1,000 ML IVC SCH (06:01)
--- NOTE | 2016-10-28 07:56 | Nephrology Progress Note ---
Date of Encounter: 10/28/16 Time of Encounter: 07:55 - Assessment and Plan (1) Acute on chronic kidney failure Current Visit: Yes Status: Acute Patient has acute kidney injury superimposed on stage IV chronic kidney disease. Likely chemotherapy is at least a contributing factor. The patient's renal function continues to improve. I think we can discontinue the maintenance IV fluids. We will continue to monitor her renal function. Currently she does not require dialysis. (2) Hydronephrosis, right Current Visit: No Status: Acute (3) CKD (chronic kidney disease) stage 4, GFR 15-29 ml/min Current Visit: No Status: Chronic (4) Ovarian cancer Current Visit: No Status: Chronic Qualifiers: Laterality: right Qualified Code(s): C56.1 - Malignant neoplasm of right ovary Subjective Principal diagnosis: acute on chronic renal failure Interval history: The patient reports that she feels better following her paracentesis yesterday. Her renal function continues to improve. Serum creatinine is down to 3.95. Objective - Vital Signs Vital signs: Vital Signs Temp Pulse Resp BP Pulse Ox 10/28/16 04:31 97.6 F 71 16 115/60 99 10/27/16 23:59 98.0 F 86 16 121/63 98 10/27/16 20:26 98.0 F 78 16 115/61 99 10/27/16 16:27 97.8 F 85 17 118/66 98 10/27/16 11:30 97.7 F 78 18 108/97 100 10/27/16 09:31 99 Intake and Output 10/27/16 10/27/16 10/28/16 15:59 23:59 07:59 Intake Total 240 / 240 1000 / 1000 Output Total 4700 / 4700 400 / 400 Balance -4460 / -4460 -400 / -400 1000 / 1000 Intake: IV Fluids 1000 / 1000 0.9 % Sodium Chloride 1, 1000 / 1000 000 ML @ 75 mls/hr IVC . [id number] [facility] Rx#: [id number] Oral 240 / 240 Output: Urine 0 / 0 400 / 400 Peracentesis 4700 / 4700 Other: Meal Breakfast Percent of Meal Consumed 100% Weight 52.5 kg Blood Glucose* 107 101 Patient Weight 10/28/16 23:59 Weight 52.5 kg - General Appearance Exam: Patient is alert and oriented. She is in no acute distress. Lung sounds otherwise clear. Heart regular rate and rhythm. Abdomen demonstrates presence of ascites. There is no tenderness. There is 2+ lower extremity swelling. - Lab 10/28/16 03:45 10/28/16 03:45 Most recent lab results ABG pH 7.25 pH Units (7.32-7.45) L 10/25/16 10:15 ABG pCO2 26 mmHg (35-45) L 10/25/16 10:15 ABG pO2 100 mmHg (85-104) 10/25/16 10:15 ABG HCO3 11.4 mEQ/L (21-27) L 10/25/16 10:15 ABG O2 Saturation 97 % (95-98) 10/25/16 10:15 Calcium 7.5 mg/dL (8.6-10.8) L 10/28/16 03:45 Phosphorus 4.6 mg/dL (2.3-4.7) 10/27/16 09:34 Magnesium 1.1 mg/dL (1.6-2.6) L 10/27/16 09:34 Consult Discharge Plan - Plan Referrals: Cleve Hannon DO [Primary Care Provider] - 10/31/16 11:30 am
[2016-10-28] MEDS: Calcium Acetate 667 MG CAPSULE PO SCH ×3 (08:03→16:42)
[2016-10-28] MEDS: Aspirin Enteric Coated 81 MG Tablet PO SCH (08:03)
[2016-10-28] MEDS: Metoprolol XL (24 HR) Succ 50 MG TAB.ER.24H PO SCH (08:03)
[2016-10-28] MEDS: APIXABAN 5 MG TABLET PO SCH ×2 (08:03→20:23)
[2016-10-28] MEDS: Magnesium Oxide 400 MG TABLET PO SCH ×2 (08:03→20:23)
--- NOTE | 2016-10-28 17:18 | Internal Med Progress Note ---
<Shakeel Fernández - Last Filed: 10/28/16 17:31> Date of Encounter: 10/28/16 Time of Encounter: 11:35 - Assessment and plan (1) Auenk-id-zjnmgjo kidney injury Current Visit: Yes Status: Acute Assessment and plan: possibly secondary to dehydration and chemotherapy Improving with IV fluids. Appreciate Nephrologies recommendations. continue to monitor closely Avoid nephrotoxins (2) Metastatic cancer Current Visit: Yes Status: Acute Assessment and plan: Jocelin ovarian On Gemcitabin and Avastin currently being held follow with Oncology. (3) Ascites Current Visit: Yes Status: Acute Assessment and plan: patient had paracentesis yesterday. May consider pleurex as she is to have frequent paracentesis. Qualifiers: Qualified Code(s): R18.8 - Other ascites (4) Diarrhea Current Visit: Yes Status: Acute Assessment and plan: Possibly from fluids/chemotherapy? however patient states it is much more worse than usual. Will work up for infectious etiologies. Qualifiers: Qualified Code(s): R19.7 - Diarrhea, unspecified (5) Systolic heart failure Current Visit: Yes Status: Acute Assessment and plan: EF 20-25% Euvolemic No ACEi secondary to Renal function. continue toprol. May need AICD if continues to be full code and Ef remains low. Qualifiers: Qualified Code(s): I50.20 - Unspecified systolic (congestive) heart failure (6) Pancytopenia Current Visit: Yes Status: Acute Assessment and plan: jocelin from chemotherapeutics continue to monitor. (7) Metabolic acidosis Current Visit: Yes Status: Acute Assessment and plan: NAG Bicarb 16 secondary to diarrhea? On Bicarb. (8) History of pulmonary embolism Current Visit: Yes Status: Acute Assessment and plan: on eliquis (9) DVT prophylaxis Current Visit: Yes Status: Acute Assessment and plan: on eliquis - Subjective Interval history: No majore events overnight. Patient states that she is feeling much better after her paracentesis. She dose complain of diarrhea today. She stats she is having nearly hourly bowel movements that are watery. She states that she dose not have any pain or discomfort. No chest pain or dyspnea. She has no further complaints or concerns at this time. - Constitutional Vitals: Temp Pulse Resp BP Pulse Ox 98.2 F 74 18 125/72 100 10/28/16 15:19 10/28/16 15:19 10/28/16 15:19 10/28/16 15:19 10/28/16 15:19 Exam: General: This is a very pleasant well-developed well-nourished 66-year-old female. She is lying in bed appears to be comfortable. She is alert and orientated to person place time and situation. She is in no acute distress at this time. Head: Normocephalic and atraumatic. EENT: Anicteric sclera, pupils equally round reactive to light and accommodation , dentition intact, moist mucous membranes, neck supple without mass or thyromegaly. No cervical or supraclavicular lymphadenopathy palpable on exam. Heart: Regular rate and rhythm. She has a 2/6 systolic ejection murmur heard best at the left upper sternal border. I did examine her a few months ago and I do not believe it is change since that time. No JVD. Lungs: Clear to auscultation bilaterally. Abdomen: Abdomen is mildly distended, soft, nontender to palpation. Musculoskeletal: Mild pedal edema. Integument: No rashes or lesions. Internal Medicine: Result - Labs CBC & Chem 7: 10/28/16 03:45 10/28/16 03:45 Labs: Short CBC 10/28/16 Range/Units 03:45 WBC 4.1 L (4.3-11.1) K/mcL Hgb 9.0 L (11.5-15.4) g/dL Hct 27.9 L (35.3-44.9) % Plt Count 130 L (140-400) K/mcL Neutrophils # 3.3 (1.6-8.9) K/mcL BMP 10/28/16 03:45 Sodium 138 Potassium 3.8 Chloride 114 H Carbon Dioxide 16 L BUN 80 H Creatinine 3.95 H Glucose 86 Calcium 7.5 L Liver Function 10/28/16 Range/Units 03:45 Total Bilirubin 1.0 (0.2-1.2) mg/dL AST 21 (5-34) Units/L ALT 17 (0-55) Units/L Alkaline Phosphatase 96 (38-126) Units/L Albumin 2.7 L (3.5-5.0) g/dL - ABG Interpretation ABG results: ABG ABG pH 7.25 pH Units (7.32-7.45) L 10/25/16 10:15 ABG pCO2 26 mmHg (35-45) L 10/25/16 10:15 ABG pO2 100 mmHg (85-104) 10/25/16 10:15 ABG O2 Saturation 97 % (95-98) 10/25/16 10:15 Consult Discharge Plan - Plan Referrals: Cleve Hannon DO [Primary Care Provider] - 10/31/16 11:30 am <Alex Napier - Last Filed: 10/28/16 18:33> - Assessment and plan (1) Acute on chronic kidney failure Current Visit: Yes Status: Acute (2) Hyperkalemia Current Visit: Yes Status: Acute (3) Hydronephrosis, right Current Visit: No Status: Acute (4) Lupus (systemic lupus erythematosus) Current Visit: No Status: Chronic Qualifiers: Systemic lupus erythematosus type: unspecified Systemic lupus erythematosus organ involvement: unspecified Qualified Code(s): M32.9 - Systemic lupus erythematosus, unspecified (5) Ovarian cancer Current Visit: No Status: Chronic Qualifiers: Laterality: right Qualified Code(s): C56.1 - Malignant neoplasm of right ovary (6) DVT prophylaxis Current Visit: No Status: Acute - Constitutional Vitals: Temp Pulse Resp BP Pulse Ox 98.2 F 74 18 125/72 100 10/28/16 15:19 10/28/16 15:19 10/28/16 15:19 10/28/16 15:19 10/28/16 15:19 Internal Medicine: Result - Labs CBC & Chem 7: 10/28/16 03:45 10/28/16 03:45 Labs: Short CBC 10/28/16 Range/Units 03:45 WBC 4.1 L (4.3-11.1) K/mcL Hgb 9.0 L (11.5-15.4) g/dL Hct 27.9 L (35.3-44.9) % Plt Count 130 L (140-400) K/mcL Neutrophils # 3.3 (1.6-8.9) K/mcL BMP 10/28/16 03:45 Sodium 138 Potassium 3.8 Chloride 114 H Carbon Dioxide 16 L BUN 80 H Creatinine 3.95 H Glucose 86 Calcium 7.5 L Liver Function 10/28/16 Range/Units 03:45 Total Bilirubin 1.0 (0.2-1.2) mg/dL AST 21 (5-34) Units/L ALT 17 (0-55) Units/L Alkaline Phosphatase 96 (38-126) Units/L Albumin 2.7 L (3.5-5.0) g/dL - ABG Interpretation ABG results: ABG ABG pH 7.25 pH Units (7.32-7.45) L 10/25/16 10:15 ABG pCO2 26 mmHg (35-45) L 10/25/16 10:15 ABG pO2 100 mmHg (85-104) 10/25/16 10:15 ABG O2 Saturation 97 % (95-98) 10/25/16 10:15 - Attending Attestation I examined this patient and my medical decision-making was reviewed with the DETENTION WORKER/PA/Advanced Practice Nurse/Resident Physician. I agree with the documented findings, disposition and treatment plan as described except to the extent set forth below.
[2016-10-29 05:07] LABS: Albumin 2.6 g/dL (3.5-5.0); Albumin/Globulin Ratio 1.7 (1.1-2.2); Calcium 7.5 mg/dL (8.6-10.8); Globulin 1.5 g/dL (2.4-3.5); Potassium 3.9 mEq/L (3.5-4.5); Total Protein 4.1 g/dL (6.0-8.3)
[2016-10-29] MEDS: Magnesium Oxide 400 MG TABLET PO SCH ×2 (08:21→21:44)
[2016-10-29] MEDS: Aspirin Enteric Coated 81 MG Tablet PO SCH (08:22)
[2016-10-29] MEDS: metroNIDAZOLE 500 MG TABLET PO SCH ×3 (08:22→21:45)
[2016-10-29] MEDS: Metoprolol XL (24 HR) Succ 50 MG TAB.ER.24H PO SCH (08:22)
[2016-10-29] MEDS: Calcium Acetate 667 MG CAPSULE PO SCH ×3 (08:22→16:58)
[2016-10-29] MEDS: APIXABAN 5 MG TABLET PO SCH (08:22)
[2016-10-29 08:37] LABS: Campylobacter by PCR Not detected (Not detect); Plesiomonas shigelloides PCR Not detected (Not detect)
--- NOTE | 2016-10-29 08:37 | Nephrology Progress Note ---
Date of Encounter: 10/29/16 Time of Encounter: 08:35 - Assessment and Plan (1) Acute on chronic kidney failure Current Visit: Yes Status: Acute Patient has acute kidney injury superimposed on stage IV chronic kidney disease. Likely chemotherapy is at least a contributing factor. The patient's renal function continues to improve. She continues to exhibit metabolic acidosis related to her renal failure and diarrhea. I am going to increase her bicarbonate supplements. She does not require dialysis. She will require close follow-up in the office following hospital discharge. (2) Hydronephrosis, right Current Visit: No Status: Acute (3) CKD (chronic kidney disease) stage 4, GFR 15-29 ml/min Current Visit: No Status: Chronic (4) Ovarian cancer Current Visit: No Status: Chronic Qualifiers: Laterality: right Qualified Code(s): C56.1 - Malignant neoplasm of right ovary Subjective Principal diagnosis: acute on chronic renal failure Interval history: The patient has developed diarrhea and has been diagnosed with C. difficile. Otherwise she says she is feeling well. Fortunately her creatinine continues to improve. She is down to 3.25. She does continue to exhibit a metabolic acidosis related to her renal failure and diarrhea. Objective - Vital Signs Vital signs: Vital Signs Temp Pulse Resp BP Pulse Ox 10/29/16 07:17 97.9 F 76 16 111/66 100 10/29/16 04:55 97.6 F 72 18 132/66 99 10/29/16 00:13 97.5 F L 87 18 126/72 100 10/28/16 20:18 97.3 F L 77 18 114/66 99 10/28/16 15:19 98.2 F 74 18 125/72 100 10/28/16 11:59 98.5 F 73 18 113/66 100 Intake and Output 10/28/16 10/29/16 10/29/16 23:59 07:59 15:59 Intake Total 350 / 350 Output Total 100 / 100 Balance -100 / -100 350 / 350 Intake: Oral 350 / 350 Output: Urine 100 / 100 Other: Meal Breakfast Percent of Meal Consumed 100% Weight 54.613 kg Blood Glucose* 97 76 Patient Weight 10/29/16 23:59 Weight 54.613 kg - General Appearance Exam: Patient is alert and oriented. She is in no acute distress. Lungs clear to auscultation. Heart regular rate and rhythm. Abdomen is distended with ascites. There is no tenderness. There is lower extremity swelling. - Lab 10/28/16 03:45 10/29/16 04:35 Most recent lab results ABG pH 7.25 pH Units (7.32-7.45) L 10/25/16 10:15 ABG pCO2 26 mmHg (35-45) L 10/25/16 10:15 ABG pO2 100 mmHg (85-104) 10/25/16 10:15 ABG HCO3 11.4 mEQ/L (21-27) L 10/25/16 10:15 ABG O2 Saturation 97 % (95-98) 10/25/16 10:15 Calcium 7.5 mg/dL (8.6-10.8) L 10/29/16 04:35 Phosphorus 4.6 mg/dL (2.3-4.7) 10/27/16 09:34 Magnesium 1.1 mg/dL (1.6-2.6) L 10/27/16 09:34 Consult Discharge Plan - Plan Referrals: Cleve Hannon DO [Primary Care Provider] - 10/31/16 11:30 am
[2016-10-29 08:38] LABS: Adenovirus F 40/41 PCR Not detected (Not detect); Astrovirus PCR Not detected (Not detect); Cryptosporidium by PCR Not detected (Not detect); Cyclospora cayetanensis PCR Not detected (Not detect); E. coli O157 by PCR Not detected (Not detect); Entamoeba histolytica PCR Not detected (Not detect); Enteroaggregative E.coli(EAEC) Not detected (Not detect); Enteropathogenic E.coli(EPEC) Not detected (Not detect); Enterotoxigenic E.coli (ETEC) Not detected (Not detect); Giardia lamblia PCR Not detected (Not detect); Norovirus GI/GII PCR Not detected (Not detect); Rotavirus A PCR Not detected (Not detect); Sapovirus PCR Not detected (Not detect); Shig/EnteroinvasiveE coli EIEC Not detected (Not detect); Shigalike tox-prod E coli STEC Not detected (Not detect); Vibrio PCR Not detected (Not detect); Vibrio cholerae PCR Not detected (Not detect); Yersinia enterocolitica PCR Not detected (Not detect)
[2016-10-29 08:39] LABS: C.difficile Toxin A/B by PCR See reflex test (Not detect)
[2016-10-29 08:40] LABS: Salmonella PCR ***DETECTED*** (Not detect)
[2016-10-29 09:02] LABS: Phosphorous 2.7 mg/dL (2.3-4.7)
[2016-10-29] MEDS ORDERED: 0.9 % Sodium Chloride 1,000 ML IVC SCH (15:00)
--- NOTE | 2016-10-29 16:49 | Internal Med Progress Note ---
<Shakeel Fernández - Last Filed: 10/29/16 16:52> Date of Encounter: 10/29/16 Time of Encounter: 11:25 - Assessment and plan (1) Slmrt-fr-[id number] kidney injury Current Visit: Yes Status: Acute Assessment and plan: possibly secondary to dehydration and chemotherapy Improving with IV fluids. Appreciate Nephrologies recommendations. continue to monitor closely Avoid nephrotoxins (2) Metastatic cancer Current Visit: Yes Status: Acute Assessment and plan: Jocelin ovarian On Gemcitabin and Avastin currently being held follow with Oncology. (3) Ascites Current Visit: Yes Status: Acute Assessment and plan: patient had paracentesis yesterday. We will hold her eloquence and plan for paracentesis on Thursday. Qualifiers: Qualified Code(s): R18.8 - Other ascites (4) Diarrhea Current Visit: Yes Status: Acute Assessment and plan: Patient tested positive for both Clostridium difficile and salmonellosis We will start her with Flagyl. She does not have the severe C. difficile infection at this time. She is a high-risk for Salmonella gastroenteritis as she is about 48 years old and also she is immune of compromise and recently had chemotherapy. Therefore we will treat her with renally adjust Cipro. We will also draw blood cultures to rule out bacteremia. Continue to monitor for drug toxicities. We will add back low-dose of fluids I am concerned that she might develop worsening renal function with her ongoing diarrhea. Qualifiers: Qualified Code(s): R19.7 - Diarrhea, unspecified (5) Systolic heart failure Current Visit: Yes Status: Acute Assessment and plan: EF 20-25% She is mildly hypervolemic today with abdominal distention and some lower extremity edema. No ACEi secondary to Renal function. continue toprol. May need AICD if continues to be full code and Ef remains low. Qualifiers: Qualified Code(s): I50.20 - Unspecified systolic (congestive) heart failure (6) Pancytopenia Current Visit: Yes Status: Acute Assessment and plan: jocelin from chemotherapeutics continue to monitor. (7) Metabolic acidosis Current Visit: Yes Status: Acute Assessment and plan: NAG Bicarb 16 secondary to diarrhea? Also likely has baseline minimal acidosis secondary to CKD On Bicarb. (8) History of pulmonary embolism Current Visit: Yes Status: Acute Assessment and plan: on eliquis (9) DVT prophylaxis Current Visit: Yes Status: Acute Assessment and plan: on eliquis - Subjective Interval history: Measurements overnight. Patient continues to have a diffuse watery diarrhea. She denies any blood in her stool. She denies any melena. She denies any fever chills malaise or rigors overnight. She denies any dyspnea, chest pain, abdominal pain. She does admit to some abdominal distention and chronic lower extremity edema. She denies any further complaints or concerns at this time. - Constitutional Vitals: Temp Pulse Resp BP Pulse Ox 98.2 F 70 16 124/77 100 10/29/16 15:50 10/29/16 15:50 10/29/16 15:50 10/29/16 15:50 10/29/16 15:50 Exam: General: This is a well-developed well-nourished 66-year-old female who is alert and orientated first postop situation. She is lying in bed appears to be comfortable no acute distress this time. HEENT: Head is normal cephalic and atraumatic. Pupils round reactive light and accommodation. Anicteric sclera. Mucous members are moist. Dentition intact. Neck supple without mass or thyromegaly. Heart: Heart has a regular rate and rhythm without murmurs rubs or gallops. chest: No deformities: There is a port placed in the right chest wall that is clean and well dressed. Lungs: Clear to auscultation bilaterally. No crepitus or crackles in the base of lung. Abdomen: Abdomen is a distended, nontender to palpation, bowel sounds positive, no organomegaly. Musculoskeletal: No gross deformities noted. Extremities: There is a 2-3+ pitting edema of the lower extremity at the level of the knee bilaterally. No cyanosis no clubbing. Integument: No rashes or lesions noted. Internal Medicine: Result - Labs CBC & Chem 7: 10/28/16 03:45 10/29/16 04:35 Labs: BMP 10/29/16 04:35 Sodium 137 Potassium 3.9 Chloride 115 H Carbon Dioxide 15 L BUN 76 H Creatinine 3.25 H Glucose 78 Calcium 7.5 L Liver Function 10/29/16 Range/Units 04:35 Total Bilirubin 1.0 (0.2-1.2) mg/dL AST 26 (5-34) Units/L ALT 19 (0-55) Units/L Alkaline Phosphatase 103 (38-126) Units/L Albumin 2.6 L (3.5-5.0) g/dL - ABG Interpretation ABG results: ABG ABG pH 7.25 pH Units (7.32-7.45) L 10/25/16 10:15 ABG pCO2 26 mmHg (35-45) L 10/25/16 10:15 ABG pO2 100 mmHg (85-104) 10/25/16 10:15 ABG O2 Saturation 97 % (95-98) 10/25/16 10:15 Consult Discharge Plan - Plan Referrals: Cleve Hannon DO [Primary Care Provider] - 10/31/16 11:30 am <Alex Napier - Last Filed: 10/29/16 18:43> - Assessment and plan (1) Acute on chronic kidney failure Current Visit: Yes Status: Acute (2) Hyperkalemia Current Visit: Yes Status: Acute (3) Hydronephrosis, right Current Visit: No Status: Acute (4) Lupus (systemic lupus erythematosus) Current Visit: No Status: Chronic Qualifiers: Systemic lupus erythematosus type: unspecified Systemic lupus erythematosus organ involvement: unspecified Qualified Code(s): M32.9 - Systemic lupus erythematosus, unspecified (5) Ovarian cancer Current Visit: No Status: Chronic Qualifiers: Laterality: right Qualified Code(s): C56.1 - Malignant neoplasm of right ovary (6) DVT prophylaxis Current Visit: No Status: Acute - Constitutional Vitals: Temp Pulse Resp BP Pulse Ox 98.2 F 70 16 124/77 100 10/29/16 15:50 10/29/16 15:50 10/29/16 15:50 10/29/16 15:50 10/29/16 15:50 Internal Medicine: Result - Labs CBC & Chem 7: 10/28/16 03:45 10/29/16 04:35 Labs: BMP 10/29/16 04:35 Sodium 137 Potassium 3.9 Chloride 115 H Carbon Dioxide 15 L BUN 76 H Creatinine 3.25 H Glucose 78 Calcium 7.5 L Liver Function 10/29/16 Range/Units 04:35 Total Bilirubin 1.0 (0.2-1.2) mg/dL AST 26 (5-34) Units/L ALT 19 (0-55) Units/L Alkaline Phosphatase 103 (38-126) Units/L Albumin 2.6 L (3.5-5.0) g/dL - ABG Interpretation ABG results: ABG ABG pH 7.25 pH Units (7.32-7.45) L 10/25/16 10:15 ABG pCO2 26 mmHg (35-45) L 10/25/16 10:15 ABG pO2 100 mmHg (85-104) 10/25/16 10:15 ABG O2 Saturation 97 % (95-98) 10/25/16 10:15 - Attending Attestation I examined this patient and my medical decision-making was reviewed with the MARINE PLUMBER/PA/Advanced Practice Nurse/Resident Physician. I agree with the documented findings, disposition and treatment plan as described except to the extent set forth below.
[2016-10-30 04:53] LABS: Basophils % 0.2 %; Hematocrit 32.7 % (35.3-44.9); Hemoglobin 10.5 g/dL (11.5-15.4); Lymphocytes # 0.7 K/mcL (0.6-4.6); Lymphocytes % 13.2 %; Mean Corpuscular HGB Conc 32.1 g/dL (31.6-35.5); Mean Corpuscular Hemoglobin 32.4 pg (28.0-33.3); Mean Corpuscular Volume 100.9 fL (83.0-100.0); Mean Platelet Volume 12.5 fL (9.4-12.4); Monocytes # 0.1 K/mcL (0.0-1.3); Monocytes % 1.6 %; Neutrophils # 4.1 K/mcL (1.6-8.9); Platelet Count 145 K/mcL (140-400); Red Blood Count 3.24 M/mcL (3.82-4.97); Red Cell Distribution Width 21.9 % (11.5-14.5)
[2016-10-30 05:13] LABS: Albumin 2.8 g/dL (3.5-5.0); Albumin/Globulin Ratio 1.6 (1.1-2.2); Bilirubin,Total 1.1 mg/dL (0.2-1.2); Calcium 7.7 mg/dL (8.6-10.8); Globulin 1.7 g/dL (2.4-3.5); Total Protein 4.5 g/dL (6.0-8.3)
[2016-10-30 06:08] LABS: Anisocytosis 2+ (Not Present); Poikilocytosis 2+ (Not Present)
[2016-10-30 06:09] LABS: Large Platelets Present (Not Present); Ovalocytes 1+ (Not Present); Platelet Estimate Normal (Normal); Reactive Lymphocytes Present (Not Present)
--- NOTE | 2016-10-30 08:31 | Nephrology Progress Note ---
Date of Encounter: 10/30/16 Time of Encounter: 08:29 - Assessment and Plan (1) Acute on chronic kidney failure Current Visit: Yes Status: Acute Patient has acute kidney injury superimposed on stage IV chronic kidney disease. Likely chemotherapy is at least a contributing factor. The patient's renal function continues to improve. She continues to exhibit metabolic acidosis related to her renal failure and diarrhea. The patient's bicarbonate supplement was increased yesterday. We will continue the same medical regimen. We will continue to monitor her renal function and follow her closely as an outpatient. (2) Hydronephrosis, right Current Visit: No Status: Acute (3) CKD (chronic kidney disease) stage 4, GFR 15-29 ml/min Current Visit: No Status: Chronic (4) Ovarian cancer Current Visit: No Status: Chronic Qualifiers: Laterality: right Qualified Code(s): C56.1 - Malignant neoplasm of right ovary Subjective Principal diagnosis: acute on chronic renal failure Interval history: The patient continues to have diarrhea but otherwise she says she is feeling well. Creatinine continues to improve. Vital signs are stable. Objective - Vital Signs Vital signs: Vital Signs Temp Pulse Resp BP Pulse Ox 10/30/16 07:57 97.8 F 72 16 121/71 100 10/30/16 04:51 97.7 F 78 18 113/62 100 10/30/16 00:24 98.2 F 83 18 138/72 100 10/29/16 20:07 98 F 80 18 120/71 99 10/29/16 15:50 98.2 F 70 16 124/77 100 10/29/16 11:05 97.5 F L 72 16 129/83 100 Intake and Output 10/29/16 10/30/16 10/30/16 23:59 07:59 15:59 Intake Total 350 / 350 660 / 660 Output Total 450 / 450 200 / 200 Balance -100 / -100 460 / 460 Intake: IV Fluids 600 / 600 0.9 % Sodium Chloride 1, 600 / 600 000 ML @ 40 mls/hr IVC . Q24H SAVANNAH Rx#:[id number] Oral 350 / 350 60 / 60 Output: Urine 450 / 450 200 / 200 Other: Meal Dinner Percent of Meal Consumed 85% Weight 55.792 kg Blood Glucose* 115 87 Patient Weight 10/30/16 23:59 Weight 55.792 kg - General Appearance Exam: Patient is alert and oriented. She is in no acute distress. Lungs essentially clear to auscultation. Heart regular rate and rhythm. Abdomen is distended due to ascites. She has some lower extremity swelling. - Lab 10/30/16 04:40 10/30/16 04:40 Most recent lab results ABG pH 7.25 pH Units (7.32-7.45) L 10/25/16 10:15 ABG pCO2 26 mmHg (35-45) L 10/25/16 10:15 ABG pO2 100 mmHg (85-104) 10/25/16 10:15 ABG HCO3 11.4 mEQ/L (21-27) L 10/25/16 10:15 ABG O2 Saturation 97 % (95-98) 10/25/16 10:15 Calcium 7.7 mg/dL (8.6-10.8) L 10/30/16 04:40 Phosphorus 2.7 mg/dL (2.3-4.7) 10/29/16 04:35 Magnesium 1.1 mg/dL (1.6-2.6) L 10/27/16 09:34 Consult Discharge Plan - Plan Referrals: Cleve Hannon DO [Primary Care Provider] - 10/31/16 11:30 am
[2016-10-30] MEDS: Calcium Acetate 667 MG CAPSULE PO SCH ×3 (09:41→16:53)
[2016-10-30] MEDS: Aspirin Enteric Coated 81 MG Tablet PO SCH (09:41)
[2016-10-30] MEDS: metroNIDAZOLE 500 MG TABLET PO SCH ×3 (09:41→22:25)
[2016-10-30] MEDS: Magnesium Oxide 400 MG TABLET PO SCH ×2 (09:41→22:25)
[2016-10-30] MEDS: Metoprolol XL (24 HR) Succ 50 MG TAB.ER.24H PO SCH (09:41)
--- NOTE | 2016-10-30 14:07 | Internal Med Progress Note ---
<Shakeel Fernández - Last Filed: 10/30/16 15:12> Date of Encounter: 10/30/16 Time of Encounter: 11:05 - Assessment and plan (1) Gjyto-zq-ymjzpvq kidney injury Current Visit: Yes Status: Acute Assessment and plan: possibly secondary to dehydration and chemotherapy continues to Improve. somewhat overloaded. Will stop fluids. Appreciate Nephrologies recommendations. continue to monitor closely Avoid nephrotoxins (2) Metastatic cancer Current Visit: Yes Status: Acute Assessment and plan: Jocelin ovarian On Gemcitabin and Avastin currently being held follow with Oncology. (3) Ascites Current Visit: Yes Status: Acute Assessment and plan: patient had paracentesis yesterday. We will hold her eliquis and plan for paracentesis on Thursday. Qualifiers: Qualified Code(s): R18.8 - Other ascites (4) Diarrhea Current Visit: Yes Status: Acute Assessment and plan: CDiff Salmonellosis Day 2 of antibiotics. Continue flagyl and cipro Qualifiers: Qualified Code(s): R19.7 - Diarrhea, unspecified (5) Systolic heart failure Current Visit: Yes Status: Acute Assessment and plan: EF 20-25% She is mildly hypervolemic today with abdominal distention and some lower extremity edema. No ACEi secondary to Renal function. continue toprol. May need AICD if continues to be full code and Ef remains low. Qualifiers: Qualified Code(s): I50.20 - Unspecified systolic (congestive) heart failure (6) Pancytopenia Current Visit: Yes Status: Acute Assessment and plan: jocelin from chemotherapeutics stable continue to monitor. (7) Metabolic acidosis Current Visit: Yes Status: Acute Assessment and plan: NAG Bicarb 16 secondary to diarrhea? Also likely has baseline minimal acidosis secondary to CKD On Bicarb. (8) History of pulmonary embolism Current Visit: Yes Status: Acute Assessment and plan: on eliquis (9) DVT prophylaxis Current Visit: Yes Status: Acute Assessment and plan: on eliquis EPCDs while on hold - Subjective Interval history: Patient states that she is feeling some better today. However she still has multiple watery stools per day. She denies any abdominal pain. Denies any dyspnea, chest pain. She has no further complaints or concerns at this time. - Constitutional Vitals: Temp Pulse Resp BP Pulse Ox 98.1 F 79 16 124/71 100 10/30/16 12:13 10/30/16 12:13 10/30/16 12:13 10/30/16 12:13 10/30/16 12:13 Exam: General: This is a well-developed well-nourished 58-year-old female who is alert and orientated to person place and situation is better. She comfortable and in no acute distress at this time. head: has normal cephalic atraumatic. eent: anicteric sclera, pupils equally round reactive to light and accommodation. moist mucous membranes, without masses thyromegaly. no cervical or supraclavicular lymphadenopathy on exam Heart: Regular rate and rhythm she does have a 2 out of stolid ejection murmur best at the lower left sternal border. Unchanged from prior exams. Lungs: Clear to auscultation bilaterally. Abdomen: Distended, bowel sounds positive in all 4 quadrants no tenderness to palpation. No guarding. Musculoskeletal: Grossly normal for age no gross deformity noted. Extremities: There is no clubbing or cyanosis. She does have 3+ pitting edema of the larger is at the level of the knee. Integument: No rashes or lesions. Internal Medicine: Result - Labs CBC & Chem 7: 10/30/16 04:40 10/30/16 04:40 Labs: Short CBC 10/30/16 Range/Units 04:40 WBC 4.9 (4.3-11.1) K/mcL Hgb 10.5 L D (11.5-15.4) g/dL Hct 32.7 L (35.3-44.9) % Plt Count 145 (140-400) K/mcL Neutrophils # 4.1 (1.6-8.9) K/mcL BMP 10/30/16 04:40 Sodium 140 Potassium 4.0 Chloride 116 H Carbon Dioxide 16 L BUN 70 H Creatinine 2.91 H Glucose 95 Calcium 7.7 L Liver Function 10/30/16 Range/Units 04:40 Total Bilirubin 1.1 (0.2-1.2) mg/dL AST 32 (5-34) Units/L ALT 24 (0-55) Units/L Alkaline Phosphatase 131 H (38-126) Units/L Albumin 2.8 L (3.5-5.0) g/dL - ABG Interpretation ABG results: ABG ABG pH 7.25 pH Units (7.32-7.45) L 10/25/16 10:15 ABG pCO2 26 mmHg (35-45) L 10/25/16 10:15 ABG pO2 100 mmHg (85-104) 10/25/16 10:15 ABG O2 Saturation 97 % (95-98) 10/25/16 10:15 Consult Discharge Plan - Plan Referrals: Cleve Hannon DO [Primary Care Provider] - 10/31/16 11:30 am <Alex Napier - Last Filed: 10/30/16 18:42> - Assessment and plan (1) Acute on chronic kidney failure Current Visit: Yes Status: Acute (2) Hyperkalemia Current Visit: Yes Status: Acute (3) Hydronephrosis, right Current Visit: No Status: Acute (4) Lupus (systemic lupus erythematosus) Current Visit: No Status: Chronic Qualifiers: Systemic lupus erythematosus type: unspecified Systemic lupus erythematosus organ involvement: unspecified Qualified Code(s): M32.9 - Systemic lupus erythematosus, unspecified (5) Ovarian cancer Current Visit: No Status: Chronic Qualifiers: Laterality: right Qualified Code(s): C56.1 - Malignant neoplasm of right ovary (6) DVT prophylaxis Current Visit: No Status: Acute - Constitutional Vitals: Temp Pulse Resp BP Pulse Ox 98.1 F 79 16 124/71 100 10/30/16 12:13 10/30/16 12:13 10/30/16 12:13 10/30/16 12:13 10/30/16 12:13 Internal Medicine: Result - Labs CBC & Chem 7: 10/30/16 04:40 10/30/16 04:40 Labs: Short CBC 10/30/16 Range/Units 04:40 WBC 4.9 (4.3-11.1) K/mcL Hgb 10.5 L D (11.5-15.4) g/dL Hct 32.7 L (35.3-44.9) % Plt Count 145 (140-400) K/mcL Neutrophils # 4.1 (1.6-8.9) K/mcL BMP 10/30/16 04:40 Sodium 140 Potassium 4.0 Chloride 116 H Carbon Dioxide 16 L BUN 70 H Creatinine 2.91 H Glucose 95 Calcium 7.7 L Liver Function 10/30/16 Range/Units 04:40 Total Bilirubin 1.1 (0.2-1.2) mg/dL AST 32 (5-34) Units/L ALT 24 (0-55) Units/L Alkaline Phosphatase 131 H (38-126) Units/L Albumin 2.8 L (3.5-5.0) g/dL - ABG Interpretation ABG results: ABG ABG pH 7.25 pH Units (7.32-7.45) L 10/25/16 10:15 ABG pCO2 26 mmHg (35-45) L 10/25/16 10:15 ABG pO2 100 mmHg (85-104) 10/25/16 10:15 ABG O2 Saturation 97 % (95-98) 10/25/16 10:15 - Attending Attestation I examined this patient and my medical decision-making was reviewed with the BURIAL VAULT SETTER/PA/Advanced Practice Nurse/Resident Physician. I agree with the documented findings, disposition and treatment plan as described except to the extent set forth below.
[2016-10-31 04:01] LABS: Basophils % 0.5 %; Hematocrit 33.2 % (35.3-44.9); Hemoglobin 10.4 g/dL (11.5-15.4); Immature Granulocytes % 1.1 % (0-4); Lymphocytes # 0.6 K/mcL (0.6-4.6); Lymphocytes % 13.8 %; Mean Corpuscular HGB Conc 31.3 g/dL (31.6-35.5); Mean Corpuscular Hemoglobin 31.5 pg (28.0-33.3); Mean Corpuscular Volume 100.6 fL (83.0-100.0); Mean Platelet Volume 11.7 fL (9.4-12.4); Monocytes # 0.1 K/mcL (0.0-1.3); Nucleated Red Blood Cells 0.5 /100 WBC (0); Platelet Count 132 K/mcL (140-400); Red Cell Distribution Width 21.8 % (11.5-14.5); Segmented Neutrophils % 82.6 %
[2016-10-31 04:10] LABS: Neutrophils # 3.6 K/mcL (1.6-8.9)
[2016-10-31 04:34] LABS: Calcium 7.6 mg/dL (8.6-10.8); Magnesium 1.2 mg/dL (1.6-2.6); Potassium 4.3 mEq/L (3.5-4.5)
[2016-10-31 05:23] LABS: Anisocytosis 2+ (Not Present); Ovalocytes 3+ (Not Present); Platelet Estimate Normal (Normal)
[2016-10-31] MEDS: Magnesium Oxide 400 MG TABLET PO SCH ×2 (09:29→22:20)
[2016-10-31] MEDS: Metoprolol XL (24 HR) Succ 50 MG TAB.ER.24H PO SCH (09:30)
[2016-10-31] MEDS: metroNIDAZOLE 500 MG TABLET PO SCH ×3 (09:30→22:20)
[2016-10-31] MEDS: Aspirin Enteric Coated 81 MG Tablet PO SCH (09:30)
[2016-10-31] MEDS: Calcium Acetate 667 MG CAPSULE PO SCH ×3 (09:31→17:20)
--- NOTE | 2016-10-31 10:14 | Nephrology Progress Note ---
Date of Encounter: 10/31/16 Time of Encounter: 09:35 - Assessment and Plan (1) Acute on chronic kidney failure Current Visit: Yes Status: Acute MIR superimposed on CKD 4. Chemotherapylikely a contributing factor. Renal function slowly improving. Continues to exhibit metabolic acidosis related to her renal failure and diarrhea. Will continue to mointor. Subjective Principal diagnosis: acute on chronic renal failure Interval history: States feeling better. Having paracentesis today. Objective - Vital Signs Vital signs: Vital Signs Temp Pulse Resp BP Pulse Ox 10/31/16 07:19 97.7 F 79 16 139/77 99 10/31/16 05:59 98.2 F 82 18 130/70 100 10/31/16 01:59 98.3 F 87 16 131/71 99 10/30/16 19:44 97.8 F 82 18 124/67 100 10/30/16 12:13 98.1 F 79 16 124/71 100 Intake and Output 10/30/16 10/31/16 10/31/16 23:59 07:59 15:59 Intake Total 0 / 0 160 / 160 Output Total 250 / 250 275 / 275 Balance -250 / -250 -115 / -115 Intake: Oral 0 / 0 160 / 160 Output: Urine 250 / 250 275 / 275 Other: Weight 56.245 kg Blood Glucose* 137 91 Patient Weight 10/31/16 23:59 Weight 56.245 kg - General Appearance General appearance: Present: well-developed, well-nourished, appears started age EENT: Present: mucous membranes moist Neck: Present: no JVD Respiratory: Present: clear Cardiology: Present: regular rate, regular rhythm Additional Comments: 1+edema LE Gastrointestinal: Present: normoactive bowel sounds, distended Integumentary: Present: warm and dry Neurologic: Present: alert and oriented x3 Psychiatric: Present: mood/affect appropriate, cooperative - Lab 10/31/16 03:56 10/31/16 03:56 Most recent lab results ABG pH 7.25 pH Units (7.32-7.45) L 10/25/16 10:15 ABG pCO2 26 mmHg (35-45) L 10/25/16 10:15 ABG pO2 100 mmHg (85-104) 10/25/16 10:15 ABG HCO3 11.4 mEQ/L (21-27) L 10/25/16 10:15 ABG O2 Saturation 97 % (95-98) 10/25/16 10:15 Calcium 7.6 mg/dL (8.6-10.8) L 10/31/16 03:56 Phosphorus 2.7 mg/dL (2.3-4.7) 10/29/16 04:35 Magnesium 1.2 mg/dL (1.6-2.6) L 10/31/16 03:56 Consult Discharge Plan - Plan Referrals: Cleve Hannon DO [Primary Care Provider] - 10/31/16 11:30 am
--- NOTE | 2016-10-31 17:56 | Internal Med Progress Note ---
<Shakeel Fernández - Last Filed: 10/31/16 18:06> Date of Encounter: 10/31/16 Time of Encounter: 11:10 - Assessment and plan (1) [id number] kidney injury Current Visit: Yes Status: Acute Assessment and plan: possibly secondary to dehydration and chemotherapy continues to Improve. somewhat fluid overloaded. Fluids stopped 10/31/16. Appreciate Nephrologies recommendations. continue to monitor closely Avoid nephrotoxins (2) Metastatic cancer Current Visit: Yes Status: Acute Assessment and plan: Jocelin ovarian On Gemcitabin and Avastin currently being held follow with Oncology. (3) Ascites Current Visit: Yes Status: Acute Assessment and plan: Paracentesis today. eliquis held. Restart after. Qualifiers: Qualified Code(s): R18.8 - Other ascites (4) Diarrhea Current Visit: Yes Status: Acute Assessment and plan: Bacterial Infectious diarrhea. CDiff Salmonellosis improving some. Day 3 of antibiotics. Continue flagyl and cipro If still having large volumes of stool in the next day or 2 may consider adding oral vancomycin. May also consider adding cholestyramine. Qualifiers: Qualified Code(s): A09 - Infectious gastroenteritis and colitis, unspecified (5) Systolic heart failure Current Visit: Yes Status: Acute Assessment and plan: EF 20-25% She is mildly hypervolemic today with abdominal distention and some lower extremity edema. No ACEi secondary to Renal function. continue toprol. May need AICD if continues to be full code and Ef remains low. Qualifiers: Qualified Code(s): I50.20 - Unspecified systolic (congestive) heart failure (6) Pancytopenia Current Visit: Yes Status: Acute Assessment and plan: jocelin from chemotherapeutics stable continue to monitor. She has macrocytosis. B12 and Folate not checked since 2015. Will check with AM labs. (7) Metabolic acidosis Current Visit: Yes Status: Acute Assessment and plan: NAG Bicarb 16 secondary to diarrhea? Also likely has baseline minimal acidosis secondary to CKD On Bicarb. (8) History of pulmonary embolism Current Visit: Yes Status: Acute Assessment and plan: restart eliquis after paracentesis (9) Edema Current Visit: Yes Status: Acute Assessment and plan: may consider some lasix in AM if OK with nephrology Qualifiers: Qualified Code(s): R60.9 - Edema, unspecified (10) DVT prophylaxis Current Visit: Yes Status: Acute Assessment and plan: on eliquis EPCDs while on hold - Subjective Interval history: No Major events Overnight. Patient states that she has still been having multiple loose watery stools. she dose think that it is slowing down some. she dose have baseline loose stools however this is still quite different from her baseline. she denies any hematochezia or melena. She denies any dyspnea. chest pain or abdominal pain. admits to continued lower extremity edema. she has no further complaints or concerns at this time. - Constitutional Vitals: Temp Pulse Resp BP Pulse Ox 97.9 F 75 16 114/70 100 10/31/16 16:39 10/31/16 16:39 10/31/16 16:39 10/31/16 16:39 10/31/16 16:39 General appearance: Present: A&O X 3, pleasant, no acute distress, answers questions appropriately - Head Head exam: Present: atraumatic, normocephalic - Eye Eye exam: Present: PERRL, conjuntiva pink, sclera anicteric Pupils: Present: PERRL - Neck Neck exam general surgery: Present: supple, trachea midline. Absent: lymphadenopathy - Respiratory Respiratory exam: Present: CTAB. Absent: accessory muscle use, rales, rhonchi, wheezes - Cardiovascular Cardiovascular exam: Present: RRR, +S1, +S2. Absent: diastolic murmur, gallop, rubs, systolic murmur - GI/Abdominal GI/Abdominal exam: Present: normal bowel sounds, soft, no peritoneal signs. Absent: distended, tenderness Additional comments: distended. BS+ No palpable masses or organomegally. + fluid wave. No gaurding. - Extremities Exam Extremities exam: Present: pedal edema (3+ to the level of the thigh bilaterally. ), warm, radial pulses palpable and symetrical. Absent: calf tenderness, cyanotic Internal Medicine: Result - Labs CBC & Chem 7: 10/31/16 03:56 10/31/16 03:56 Labs: Short CBC 10/31/16 Range/Units 03:56 WBC 4.4 (4.3-11.1) K/mcL Hgb 10.4 L (11.5-15.4) g/dL Hct 33.2 L (35.3-44.9) % Plt Count 132 L (140-400) K/mcL Neutrophils # 3.6 (1.6-8.9) K/mcL BMP 10/31/16 03:56 Sodium 140 Potassium 4.3 Chloride 116 H Carbon Dioxide 16 L BUN 70 H Creatinine 2.87 H Glucose 92 Calcium 7.6 L - ABG Interpretation ABG results: ABG ABG pH 7.25 pH Units (7.32-7.45) L 10/25/16 10:15 ABG pCO2 26 mmHg (35-45) L 10/25/16 10:15 ABG pO2 100 mmHg (85-104) 10/25/16 10:15 ABG O2 Saturation 97 % (95-98) 10/25/16 10:15 - Impressions Impressions Paracentesis Ultrasound 10/31/16 00:00 IMPRESSION: Successful ultrasound guided paracentesis. D/ / Milton Case MD / Milton Case MD Interpreting Provider: Milton Case MD Consult Discharge Plan - Plan Referrals: Cleve Hannon DO [Primary Care Provider] - 10/31/16 11:30 am <Alex Napier - Last Filed: 10/31/16 18:30> - Assessment and plan (1) Acute on chronic kidney failure Current Visit: Yes Status: Acute (2) Hyperkalemia Current Visit: Yes Status: Acute (3) Hydronephrosis, right Current Visit: No Status: Acute (4) Lupus (systemic lupus erythematosus) Current Visit: No Status: Chronic Qualifiers: Systemic lupus erythematosus type: unspecified Systemic lupus erythematosus organ involvement: unspecified Qualified Code(s): M32.9 - Systemic lupus erythematosus, unspecified (5) Ovarian cancer Current Visit: No Status: Chronic Qualifiers: Laterality: right Qualified Code(s): C56.1 - Malignant neoplasm of right ovary (6) DVT prophylaxis Current Visit: No Status: Acute - Constitutional Vitals: Temp Pulse Resp BP Pulse Ox 97.9 F 75 16 114/70 100 10/31/16 16:39 10/31/16 16:39 10/31/16 16:39 10/31/16 16:39 10/31/16 16:39 Internal Medicine: Result - Labs CBC & Chem 7: 10/31/16 03:56 10/31/16 03:56 Labs: Short CBC 10/31/16 Range/Units 03:56 WBC 4.4 (4.3-11.1) K/mcL Hgb 10.4 L (11.5-15.4) g/dL Hct 33.2 L (35.3-44.9) % Plt Count 132 L (140-400) K/mcL Neutrophils # 3.6 (1.6-8.9) K/mcL BMP 10/31/16 03:56 Sodium 140 Potassium 4.3 Chloride 116 H Carbon Dioxide 16 L BUN 70 H Creatinine 2.87 H Glucose 92 Calcium 7.6 L - ABG Interpretation ABG results: ABG ABG pH 7.25 pH Units (7.32-7.45) L 10/25/16 10:15 ABG pCO2 26 mmHg (35-45) L 10/25/16 10:15 ABG pO2 100 mmHg (85-104) 10/25/16 10:15 ABG O2 Saturation 97 % (95-98) 10/25/16 10:15 - Impressions Impressions Paracentesis Ultrasound 10/31/16 00:00 IMPRESSION: Successful ultrasound guided paracentesis. D/ / Milton Case MD / Milton Case MD Interpreting Provider: Milton Case MD - Attending Attestation I examined this patient and my medical decision-making was reviewed with the BUS AND RAIL OPERATOR/PA/Advanced Practice Nurse/Resident Physician. I agree with the documented findings, disposition and treatment plan as described except to the extent set forth below. home soon
[2016-11-01 05:38] LABS: Hematocrit 33.9 % (35.3-44.9); Hemoglobin 10.6 g/dL (11.5-15.4); Immature Platelets 2.8 % (1.1-6.1); Mean Corpuscular HGB Conc 31.3 g/dL (31.6-35.5); Mean Corpuscular Hemoglobin 31.5 pg (28.0-33.3); Mean Corpuscular Volume 100.6 fL (83.0-100.0); Mean Platelet Volume 11.9 fL (9.4-12.4); Monocytes # 0.1 K/mcL (0.0-1.3); Nucleated Red Blood Cells 0.4 /100 WBC (0); Platelet Count 124 K/mcL (140-400); Red Blood Count 3.37 M/mcL (3.82-4.97); Red Cell Distribution Width 21.7 % (11.5-14.5)
[2016-11-01 05:54] LABS: Calcium 7.7 mg/dL (8.6-10.8); Magnesium 1.2 mg/dL (1.6-2.6); Potassium 3.9 mEq/L (3.5-4.5)
[2016-11-01 06:42] LABS: Basophils # 0.1 K/mcL (0.0-0.2); Lymphocytes # 0.7 K/mcL (0.6-4.6); Neutrophils # 3.6 K/mcL (1.6-8.9)
[2016-11-01 06:43] LABS: Ovalocytes 3+ (Not Present); Poikilocytosis 1+ (Not Present); Polychromasia 2+ (Not Present)
[2016-11-01 06:44] LABS: Anisocytosis 2+ (Not Present); Macrocytosis Present (Not Present); Microcytosis Present (Not Present); Toxic Granulation Present (Not Present)
[2016-11-01 06:45] LABS: Large Platelets Present (Not Present); Platelet Estimate Slight Decrease (Normal)
[2016-11-01] MEDS: metroNIDAZOLE 500 MG TABLET PO SCH ×3 (08:24→21:43)
[2016-11-01] MEDS: Aspirin Enteric Coated 81 MG Tablet PO SCH (08:24)
[2016-11-01] MEDS: Metoprolol XL (24 HR) Succ 50 MG TAB.ER.24H PO SCH (08:24)
[2016-11-01] MEDS: APIXABAN 5 MG TABLET PO SCH ×2 (08:24→21:46)
[2016-11-01] MEDS: Magnesium Oxide 400 MG TABLET PO SCH ×2 (08:24→21:43)
[2016-11-01] MEDS: Calcium Acetate 667 MG CAPSULE PO SCH ×3 (09:02→16:11)
--- NOTE | 2016-11-01 09:53 | Nephrology Progress Note ---
Date of Encounter: 11/01/16 Time of Encounter: 09:45 - Assessment and Plan (1) Acute on chronic kidney failure Current Visit: Yes Status: Acute MIR superimposed on CKD 4. Chemotherapy likely a contributing factor. Renal function slowly improving. Creat 2.58. S/P paracentesis x 4.3 liters. Continues to exhibit metabolic acidosis related to her renal failure and diarrhea. Will continue to monitor. Subjective Principal diagnosis: acute on chronic renal failure Interval history: States feeling better. No new complaints. Objective - Vital Signs Vital signs: Vital Signs Temp Pulse Resp BP Pulse Ox 11/01/16 06:44 97.5 F L 78 16 131/74 99 11/01/16 04:43 97.6 F 83 16 136/75 97 11/01/16 00:04 98.0 F 86 16 121/82 100 10/31/16 20:42 98.3 F 81 16 116/65 99 10/31/16 16:39 97.9 F 75 16 114/70 100 10/31/16 12:37 97.4 F L 82 16 127/77 100 Intake and Output 10/31/16 11/01/16 11/01/16 23:59 07:59 15:59 Intake Total 360 / 360 Balance 360 / 360 Intake: Oral 360 / 360 Other: Meal Breakfast Percent of Meal Consumed 100% Weight 51.8 kg Blood Glucose* 100 81 Patient Weight 11/01/16 23:59 Weight 51.8 kg - General Appearance General appearance: Present: well-developed, well-nourished, appears started age EENT: Present: mucous membranes moist Neck: Present: no JVD Respiratory: Present: clear Cardiology: Present: regular rate, regular rhythm Additional Comments: 1-2+ LE pitting edema Gastrointestinal: Present: normoactive bowel sounds, distended Integumentary: Present: warm and dry - Lab 11/01/16 04:00 11/01/16 05:17 Most recent lab results ABG pH 7.25 pH Units (7.32-7.45) L 10/25/16 10:15 ABG pCO2 26 mmHg (35-45) L 10/25/16 10:15 ABG pO2 100 mmHg (85-104) 10/25/16 10:15 ABG HCO3 11.4 mEQ/L (21-27) L 03/04/17 10:15 ABG O2 Saturation 97 % (95-98) 10/25/16 10:15 Calcium 7.7 mg/dL (8.6-10.8) L 11/01/16 05:17 Phosphorus 2.7 mg/dL (2.3-4.7) 10/29/16 04:35 Magnesium 1.2 mg/dL (1.6-2.6) L 11/01/16 05:17 Consult Discharge Plan - Plan Referrals: Cleve Hannon DO [Primary Care Provider] - 10/31/16 11:30 am
--- NOTE | 2016-11-01 18:19 | Internal Med Progress Note ---
Date of Encounter: 11/01/16 Time of Encounter: 18:17 - Assessment and plan (1) Acute on chronic kidney failure Current Visit: Yes Status: Acute Assessment and plan: possibly secondary to dehydration and chemotherapy continues to Improve. somewhat fluid overloaded. Fluids stopped 10/31/16. Appreciate Nephrologies recommendations. continue to monitor closely Avoid nephrotoxins (2) Lupus (systemic lupus erythematosus) Current Visit: No Status: Chronic Assessment and plan: On plaquenil Qualifiers: Systemic lupus erythematosus type: unspecified Systemic lupus erythematosus organ involvement: unspecified Qualified Code(s): M32.9 - Systemic lupus erythematosus, unspecified (3) Ovarian cancer Current Visit: No Status: Chronic Assessment and plan: Followed by oncology Qualifiers: Laterality: right Qualified Code(s): C56.1 - Malignant neoplasm of right ovary (4) DVT prophylaxis Current Visit: No Status: Acute (5) Diarrhea Current Visit: Yes Status: Acute Assessment and plan: Bacterial Infectious diarrhea. CDiff Salmonellosis improving some. Day 4 of antibiotics. Continue flagyl and cipro Qualifiers: Qualified Code(s): A09 - Infectious gastroenteritis and colitis, unspecified - Subjective Interval history: seen and examined still has diarrhea keen to go home recommended that it will be difficult to send as she is not ready yet. patient verbalized understanding - Constitutional Vitals: Temp Pulse Resp BP Pulse Ox 98 F 81 16 108/61 100 11/01/16 15:35 11/01/16 15:35 11/01/16 15:35 11/01/16 15:35 11/01/16 15:35 General appearance: Present: A&O X 3, pleasant, no acute distress, answers questions appropriately - Head Head exam: Present: atraumatic, normocephalic - Eye Eye exam: Present: PERRL, conjuntiva pink, sclera anicteric Pupils: Present: PERRL - Neck Neck exam general surgery: Present: supple, trachea midline. Absent: lymphadenopathy - Respiratory Respiratory exam: Present: CTAB. Absent: accessory muscle use, rales, rhonchi, wheezes - Cardiovascular Cardiovascular exam: Present: RRR, +S1, +S2. Absent: diastolic murmur, gallop, rubs, systolic murmur - GI/Abdominal GI/Abdominal exam: Present: normal bowel sounds, soft, no peritoneal signs. Absent: distended, tenderness - Extremities Exam Extremities exam: Present: warm, radial pulses palpable and symetrical. Absent : calf tenderness, cyanotic, pedal edema - Neurological Exam Neurological exam: Present: CN II-XII intact, oriented X3, no focal deficits. Absent: pronater drift, facial droop, speech deficit - Skin Skin exam: Present: dry, intact Internal Medicine: Result - Labs CBC & Chem 7: 11/01/16 04:00 11/01/16 05:17 Labs: Short CBC 11/01/16 Range/Units 04:00 WBC 4.6 (4.3-11.1) K/mcL Hgb 10.6 L (11.5-15.4) g/dL Hct 33.9 L (35.3-44.9) % Plt Count 124 L (140-400) K/mcL Neutrophils # 3.6 (1.6-8.9) K/mcL BMP 11/01/16 05:17 Sodium 141 Potassium 3.9 Chloride 116 H Carbon Dioxide 16 L BUN 66 H Creatinine 2.58 H Glucose 88 Calcium 7.7 L - ABG Interpretation ABG results: ABG ABG pH 7.25 pH Units (7.32-7.45) L 10/25/16 10:15 ABG pCO2 26 mmHg (35-45) L 10/25/16 10:15 ABG pO2 100 mmHg (85-104) 10/25/16 10:15 ABG O2 Saturation 97 % (95-98) 10/25/16 10:15 Consult Discharge Plan - Plan Referrals: Cleve Hannon DO [Primary Care Provider] - 10/31/16 11:30 am
[2016-11-02] MEDS: metroNIDAZOLE 500 MG TABLET PO SCH ×3 (08:00→20:02)
[2016-11-02] MEDS: APIXABAN 5 MG TABLET PO SCH ×2 (08:00→20:02)
[2016-11-02] MEDS: Calcium Acetate 667 MG CAPSULE PO SCH ×3 (08:00→17:19)
[2016-11-02] MEDS: Metoprolol XL (24 HR) Succ 50 MG TAB.ER.24H PO SCH (08:00)
[2016-11-02] MEDS: Magnesium Oxide 400 MG TABLET PO SCH ×2 (08:00→20:02)
[2016-11-02] MEDS: Aspirin Enteric Coated 81 MG Tablet PO SCH (08:01)
--- NOTE | 2016-11-02 10:03 | Nephrology Progress Note ---
Date of Encounter: 11/02/16 Time of Encounter: 09:50 - Assessment and Plan (1) Acute on chronic kidney failure Current Visit: Yes Status: Acute MIR superimposed on CKD 4. Chemotherapy likely a contributing factor. Renal function slowly improving. today labs pending. S/P paracentesis x 4.3 liters. Continues to exhibit metabolic acidosis related to her renal failure and diarrhea. Will continue to monitor. Subjective Principal diagnosis: acute on chronic renal failure Interval history: States feeling better, though states abdomen filling up again. States frequencing of stooling has lessened. No new complaints. Objective - Vital Signs Vital signs: Vital Signs Temp Pulse Resp BP Pulse Ox 11/02/16 06:40 98.3 F 86 18 147/72 97 11/02/16 03:26 97.8 F 84 16 124/78 11/02/16 00:04 98.1 F 75 16 119/68 97 11/01/16 20:28 98.1 F 83 16 126/72 98 11/01/16 15:35 98 F 81 16 108/61 100 11/01/16 10:38 97.4 F L 72 16 118/68 100 Intake and Output 11/01/16 11/02/16 11/02/16 22:59 07:59 15:59 Intake Total 240 / 240 Output Total Balance 240 / 240 Intake: Oral 240 / 240 Output: Urine Other: Meal Breakfast Percent of Meal Consumed 100% Blood Glucose* - General Appearance General appearance: Present: well-developed, well-nourished, appears started age EENT: Present: mucous membranes moist Neck: Present: no JVD Respiratory: Present: clear Cardiology: Present: regular rate, regular rhythm Additional Comments: 1-2+ pitting edema knees down. Gastrointestinal: Present: normoactive bowel sounds, no tenderness Integumentary: Present: warm and dry Neurologic: Present: alert and oriented x3 Psychiatric: Present: mood/affect appropriate, cooperative - Lab 11/01/16 04:00 11/01/16 05:17 Most recent lab results ABG pH 7.25 pH Units (7.32-7.45) L 10/25/16 10:15 ABG pCO2 26 mmHg (35-45) L 10/25/16 10:15 ABG pO2 100 mmHg (85-104) 10/25/16 10:15 ABG HCO3 11.4 mEQ/L (21-27) L 10/25/16 10:15 ABG O2 Saturation 97 % (95-98) 10/25/16 10:15 Calcium 7.7 mg/dL (8.6-10.8) L 11/01/16 05:17 Phosphorus 2.7 mg/dL (2.3-4.7) 10/29/16 04:35 Magnesium 1.2 mg/dL (1.6-2.6) L 11/01/16 05:17 Consult Discharge Plan - Plan Referrals: Cleve Hannon DO [Primary Care Provider] - (web request sent on 11/02/16)
[2016-11-02 10:22] LABS: Albumin 2.6 g/dL (3.5-5.0); Albumin/Globulin Ratio 1.6 (1.1-2.2); Bilirubin,Total 0.9 mg/dL (0.2-1.2); Calcium 7.4 mg/dL (8.6-10.8); Globulin 1.6 g/dL (2.4-3.5); Potassium 3.7 mEq/L (3.5-4.5); Total Protein 4.2 g/dL (6.0-8.3)
--- NOTE | 2016-11-02 15:32 | Internal Med Progress Note ---
Date of Encounter: 11/02/16 Time of Encounter: 15:29 - Assessment and plan (1) Acute on chronic kidney failure Current Visit: Yes Status: Acute Assessment and plan: possibly secondary to dehydration and chemotherapy continues to Improve. somewhat fluid overloaded. Fluids stopped 10/31/16. Appreciate Nephrologies recommendations. continue to monitor closely Avoid nephrotoxins 11/02/2016 Admitted with creat of 5.8 improved significantly creat is getting settled now will continue to monitor (2) Lupus (systemic lupus erythematosus) Current Visit: No Status: Chronic Assessment and plan: On plaquenil Qualifiers: Systemic lupus erythematosus type: unspecified Systemic lupus erythematosus organ involvement: unspecified Qualified Code(s): M32.9 - Systemic lupus erythematosus, unspecified (3) Ovarian cancer Current Visit: No Status: Chronic Assessment and plan: Followed by oncology Qualifiers: Laterality: right Qualified Code(s): C56.1 - Malignant neoplasm of right ovary (4) DVT prophylaxis Current Visit: No Status: Acute (5) Diarrhea Current Visit: Yes Status: Acute Assessment and plan: Bacterial Infectious diarrhea. CDiff Salmonellosis improving some. Day 4 of antibiotics. Continue flagyl and cipro Qualifiers: Qualified Code(s): A09 - Infectious gastroenteritis and colitis, unspecified - Subjective Interval history: seen and examined still has diarrhea keen to go home recommended that it will be difficult to send as she is not ready yet. patient verbalized understanding 11/02/2016 seen and examined. stool has not formed yet. has loose BM walking around the room - Constitutional Vitals: Temp Pulse Resp BP Pulse Ox 98.3 F 80 18 127/68 98 11/02/16 15:13 11/02/16 15:13 11/02/16 15:13 11/02/16 15:13 11/02/16 15:13 General appearance: Present: A&O X 3, pleasant, no acute distress, answers questions appropriately - Head Head exam: Present: atraumatic, normocephalic - Eye Eye exam: Present: PERRL, conjuntiva pink, sclera anicteric Pupils: Present: PERRL - Neck Neck exam general surgery: Present: supple, trachea midline. Absent: lymphadenopathy - Respiratory Respiratory exam: Present: CTAB. Absent: accessory muscle use, rales, rhonchi, wheezes - Cardiovascular Cardiovascular exam: Present: RRR, +S1, +S2. Absent: diastolic murmur, gallop, rubs, systolic murmur - GI/Abdominal GI/Abdominal exam: Present: normal bowel sounds, soft, no peritoneal signs. Absent: distended, tenderness - Extremities Exam Extremities exam: Present: warm, radial pulses palpable and symetrical. Absent : calf tenderness, cyanotic, pedal edema - Neurological Exam Neurological exam: Present: CN II-XII intact, oriented X3, no focal deficits. Absent: pronater drift, facial droop, speech deficit - Skin Skin exam: Present: dry, intact Internal Medicine: Result - Labs CBC & Chem 7: 11/01/16 04:00 11/02/16 09:40 Labs: BMP 11/02/16 09:40 Sodium 137 Potassium 3.7 Chloride 113 H Carbon Dioxide 16 L BUN 65 H Creatinine 2.85 H Glucose 139 H Calcium 7.4 L Liver Function 11/02/16 Range/Units 09:40 Total Bilirubin 0.9 (0.2-1.2) mg/dL AST 26 (5-34) Units/L ALT 17 (0-55) Units/L Alkaline Phosphatase 107 (38-126) Units/L Albumin 2.6 L (3.5-5.0) g/dL - ABG Interpretation ABG results: ABG ABG pH 7.25 pH Units (7.32-7.45) L 10/25/16 10:15 ABG pCO2 26 mmHg (35-45) L 10/25/16 10:15 ABG pO2 100 mmHg (85-104) 10/25/16 10:15 ABG O2 Saturation 97 % (95-98) 10/25/16 10:15 Consult Discharge Plan - Plan Referrals: Cleve Hannon DO [Primary Care Provider] - (web request sent on 11/02/16)
--- NOTE | 2016-11-03 08:21 | Nephrology Progress Note ---
Date of Encounter: 11/03/16 Time of Encounter: 08:20 - Assessment and Plan (1) Acute on chronic kidney failure Current Visit: Yes Status: Acute Patient has acute kidney injury superimposed on stage IV chronic kidney disease. Likely chemotherapy is at least a contributing factor. The patient's creatinine is a bit worse today compared to yesterday's. This may be related to the recent paracentesis. Clinically she appears stable. From a renal standpoint it is okay for her to be discharged. We will follow her closely as an outpatient. She should continue on the sodium bicarbonate therapy. (2) Hydronephrosis, right Current Visit: No Status: Acute (3) CKD (chronic kidney disease) stage 4, GFR 15-29 ml/min Current Visit: No Status: Chronic (4) Ovarian cancer Current Visit: No Status: Chronic Qualifiers: Laterality: right Qualified Code(s): C56.1 - Malignant neoplasm of right ovary Subjective Principal diagnosis: acute on chronic renal failure Interval history: The patient reports her diarrhea has resolved. She is feeling well in general. Creatinine did increase a bit from 2.58 up to 2.85. Bicarbonate remains low at 16. Objective - Vital Signs Vital signs: Vital Signs Temp Pulse Resp BP Pulse Ox 11/03/16 07:52 98.5 F 85 16 127/72 98 11/03/16 04:39 98.1 F 80 16 126/59 99 11/03/16 00:45 98.0 F 78 16 137/77 99 11/02/16 20:05 98.0 F 77 16 130/79 99 11/02/16 15:13 98.3 F 80 18 127/68 98 11/02/16 10:36 98.0 F 75 16 122/69 100 Intake and Output 11/02/16 11/03/16 11/03/16 23:59 07:59 15:59 Intake Total 360 / 360 100 / 100 Output Total 200 / 200 300 / 300 Balance 160 / 160 -200 / -200 Intake: Oral 360 / 360 100 / 100 Output: Urine 200 / 200 300 / 300 Other: Meal Dinner Percent of Meal Consumed 100% # Voids 2 1 Weight 54.34 kg Blood Glucose* 119 83 Patient Weight 11/03/16 23:59 Weight 54.34 kg - General Appearance Exam: Patient is alert and oriented. She is in no acute distress. Lungs clear to auscultation. Heart regular rate and rhythm. Abdomen is distended with ascites. There is 2+ lower extremity swelling. - Lab 11/01/16 04:00 11/02/16 09:40 Most recent lab results ABG pH 7.25 pH Units (7.32-7.45) L 10/25/16 10:15 ABG pCO2 26 mmHg (35-45) L 10/25/16 10:15 ABG pO2 100 mmHg (85-104) 10/25/16 10:15 ABG HCO3 11.4 mEQ/L (21-27) L 10/25/16 10:15 ABG O2 Saturation 97 % (95-98) 10/25/16 10:15 Calcium 7.4 mg/dL (8.6-10.8) L 11/02/16 09:40 Phosphorus 2.7 mg/dL (2.3-4.7) 10/29/16 04:35 Magnesium 1.2 mg/dL (1.6-2.6) L 11/01/16 05:17 Consult Discharge Plan - Plan Referrals: Cleve Hannon DO [Primary Care Provider] - (web request sent on 11/02/16)
[2016-11-03] MEDS: Calcium Acetate 667 MG CAPSULE PO SCH ×3 (08:22→18:05)
[2016-11-03] MEDS: Metoprolol XL (24 HR) Succ 50 MG TAB.ER.24H PO SCH (08:22)
[2016-11-03] MEDS: APIXABAN 5 MG TABLET PO SCH (08:23)
[2016-11-03] MEDS: metroNIDAZOLE 500 MG TABLET PO SCH ×2 (08:23→18:05)
[2016-11-03] MEDS: Aspirin Enteric Coated 81 MG Tablet PO SCH (08:23)
[2016-11-03] MEDS: Magnesium Oxide 400 MG TABLET PO SCH (08:23)
[2016-11-03 11:46] VITALS: BP 118/73
[2016-11-03 12:45] LABS: MMA (VIT B12 STATUS) 0.31 umol/L (0.00-0.40)
--- NOTE | 2016-11-03 17:27 | Discharge Summary ---
Date of Encounter: 11/03/16 Time of Encounter: 17:22 - Discharge Diagnosis (1) Diarrhea Priority: Primary Status: Acute Comments: c diff diarrhea. resolved. Qualifiers: Qualified Code(s): A09 - Infectious gastroenteritis and colitis, unspecified (2) Acute on chronic kidney failure Priority: Primary Status: Acute (3) Lupus (systemic lupus erythematosus) Priority: Secondary Status: Chronic Qualifiers: Systemic lupus erythematosus type: unspecified Systemic lupus erythematosus organ involvement: unspecified Qualified Code(s): M32.9 - Systemic lupus erythematosus, unspecified (4) Ovarian cancer Priority: Secondary Status: Chronic Qualifiers: Laterality: right Qualified Code(s): C56.1 - Malignant neoplasm of right ovary (5) DVT prophylaxis Priority: Secondary Status: Acute - Discharge Medications Prescriptions: OxyCODONE Immed Rel [Roxicodone 5 MG] 5 mg PO Q4HR PRN #10 tablet PRN Reason: Pain MetroNIDAZOLE [Flagyl] 500 mg PO TID #10 tablet Sodium Bicarbonate 1,300 mg PO TID #30 tablet Home Medications: Allopurinol [Zyloprim 100 MG] 100 mg PO BID 05/03/15 [History] Hydroxychloroquine [Plaquenuil] 200 mg PO QAM 05/03/15 [History] Metoprolol XL (24 HR) Succ [Toprol Xl] 100 mg PO DAILY 30 Days 08/27/15 [Rx] Furosemide [Lasix] 20 mg PO DAILY 10/09/15 [History] HydrALAZINE 25 mg PO Q8HR 10/30/15 [History] Isosorbide DInitrate [Isordil] 10 mg PO TIDAC 10/30/15 [History] Acetaminophen [Tylenol Arthritis] 650 mg PO BID PRN 04/02/16 [History] Multivitamin [Multi-Day Vitamins] 1 each PO DAILY 04/02/16 [History] Apixaban [Eliquis] 2.5 mg PO BID #60 tablet 04/21/16 [Rx] Aspirin [Lo-Dose Aspirin EC] 81 mg PO DAILY 04/21/16 [History] Esomeprazole Magnesium [Nexium] 20 mg PO BID 07/10/16 [History] Magnesium Oxide [Mgo] 400 mg PO DAILY #30 tablet 07/28/16 [Rx] Lidocaine/Prilocaine CREAM [Emla] 1 appl TP AD #1 tube 08/14/16 [Rx] Prochlorperazine Maleate [Compazine] 10 mg PO Q8H PRN 10/23/16 [History] MetroNIDAZOLE [Flagyl] 500 mg PO TID #10 tablet 11/03/16 [Rx] OxyCODONE Immed Rel [Roxicodone 5 MG] 5 mg PO Q4HR PRN #10 tablet 11/03/16 [Rx] Sodium Bicarbonate 1,300 mg PO TID #30 tablet 11/03/16 [Rx] Allergies/Adverse Reactions: Allergies paclitaxel [From Taxol] Adverse Reaction (Severe, Verified 08/08/16 13:31) See Comments Hypertension, chest pain, pain into her right arm, shortness of breath, constant [id number] movement in the chair Date of admission: 10/23/16 14:13 Primary care physician: Cleve Hannon DO Consults: 10/23/16 17:32 Consult to Palliative Care [CONS] Routine Comment: constipation and ascites Consulting Provider: Palliative [facility] [place] 10/26/16 09:22 Consult to Interventional Radiology [CONS] Routine Consulting Provider: Radiology Interventional [facility] Reason for Consult: parcentesis on thursday10/27/16 Call Completed: No 10/27/16 09:37 Consult to Interventional Radiology [CONS] Routine Consulting Provider: Radiology Interventional Cols Reason for Consult: plurex catheter placement Call Completed: No 10/31/16 09:52 Consult to Interventional Radiology [CONS] Routine Consulting Provider: Radiology Interventional Cols Reason for Consult: paracentesis Call Completed: Yes Discharging clinician: Alex Napier - Patient Status Disposition: Home, Self-Care Condition: Good Functional capacity at discharge: uses cane/walker Overall status at discharge: patient is progressing back to baseline - Discharge Instructions Follow Up With: Cleve Hnanon DO [Primary Care Provider] - 11/07/16 11:30 am () Mauro Jerry DO [Non-Partnered Physician] - - Diet and Activity Activity: increase activity as tolerated Diet: low fat, low cholesterol Interval History: PCP: Cleve Hannon Enterprise Systems Manager : Dr Jerry Urology : [facility] Oncologist : [facility]. Brief PMH : HTN, Ovarian cancer, CAD, PE on A/C, CKDIV History of present illness: Patient was called at home by her nephrology team. She was told to come to the emergency room as she has abnormal labs. It was noted that patient's creatinine is elevated and she also has elevated potassium. Patient is asymptomatic. Patient denies any chest pain, cough, shortness of breath, abdominal pain, nausea, vomiting, dizziness, or diarrhea. Course in the ER: Patient was evaluated in the emergency room. It was noted that her creatinine on 10/16/2016 was 3. patient's creatinine today is 5.82. Patient's potassium is 5.8. Patient received treatment for hyperkalemia. Repeat labs show a downward trend of potassium. Patient had ultrasound scan of her kidneys yesterday which showed right-sided hydronephrosis. I received this information from the emergency room physician. Reason for admission: Acute kidney injury in a patient with a chronic kidney disease stage IV. Worsening hydronephrosis on the right side is the possible etiological factor for the same. This patient needs hospitalization for further workup which needs close monitoring in the hospital. Hospital course: Patient was hospitalized. Urology was consulted. Urology recommended no intervention. Patient developed diarrhea. Her diarrhea turned out to be C. difficile diarrhea. She had a prolonged course of diarrhea. Her renal function improved. Her renal function came to baseline. At the end of 6 days finally she started forming the stools. There were no more loose stools. Plan Renal physician decided to sign off and from the renal perspective patient can go home. Prescribed patient bicarbonate as per renal physician. Prescribed patient metronidazole to complete the course for C. difficile diarrhea Pain medication given. Only 10 tablets Patient will see as outpatient to her primary care doctor. Patient will see as outpatient in a financial institution manager. At the time of discharge patient did not have any questions, concerns, update or recommendations - Time Spent with Patient Total time spent providing and/or coordinating discharge services: - Constitutional Vitals: Temp Pulse Resp BP Pulse Ox 97.6 F 85 16 118/73 98 11/03/16 11:46 11/03/16 11:46 11/03/16 11:46 11/03/16 11:46 11/03/16 11:46 General appearance: Present: A&O X 3, pleasant, no acute distress, answers questions appropriately - Head Head exam: Present: atraumatic, normocephalic - Eye Eye exam: Present: PERRL, conjuntiva pink, sclera anicteric Pupils: Present: PERRL - Neck Neck exam general surgery: Present: supple, trachea midline. Absent: lymphadenopathy - Respiratory Respiratory exam: Present: CTAB. Absent: accessory muscle use, rales, rhonchi, wheezes - Cardiovascular Cardiovascular exam: Present: RRR, +S1, +S2. Absent: diastolic murmur, gallop, rubs, systolic murmur - GI/Abdominal GI/Abdominal exam: Present: normal bowel sounds, soft, no peritoneal signs. Absent: distended, tenderness - Extremities Exam Extremities exam: Present: warm, radial pulses palpable and symetrical. Absent : calf tenderness, cyanotic, pedal edema - Neurological Exam Neurological exam: Present: CN II-XII intact, oriented X3, no focal deficits. Absent: pronater drift, facial droop, speech deficit - Skin Skin exam: Present: dry, intact
== END 2016-11-03 18:00 | disposition home or self-care (01) | DRG 683 ==
LOC: 2ANU 10:43 → EMEROO 10:43 → 2ANU 13:20 → SUATTDRO 14:13
PROVIDERS: ADMIT Internal Medicine; ATTEND Internal Medicine

== ENCOUNTER 2017-01-08 17:19 | Inpatient (IN) ==
[2017-01-08] MEDS ORDERED: 0.9 % Sodium Chloride 250 ML IVC ONE (17:46)
[2017-01-08 18:13] LABS: Bilirubin,Urine Negative (Negative); Blood,Urine Small (Negative); Clarity,Urine Cloudy (Clear); Color,Urine Yellow (Yellow); Glucose,Urine (UA) Normal (Normal); Ketones,Urine Negative (Negative); Leukocyte Esterase,Urine Moderate (Negative); Nitrite,Urine Negative (Negative); PH,Urine 5.5 pH Units (5.0-8.0); Protein,Urine 30 mg/dL (Neg-Trace); Specific Gravity,Urine 1.017 (1.010-1.025); Urobilinogen,Urine Normal (Normal)
[2017-01-08 18:15] LABS: Hyaline Casts,Urine Few per lpf (None-Few); Squamous Epithelial Cell,Urine Many per lpf (None-Few); WBC,Urine 30-50 per hpf (0-3)
[2017-01-08 18:24] LABS: Bacteria,Urine Few per hpf (None-Few)
[2017-01-08 18:43] LABS: Basophils % 0.7 %; Eosinophils % 2.1 %; Hematocrit 26.1 % (35.3-44.9); Hemoglobin 8.6 g/dL (11.5-15.4); Immature Granulocytes % 1.4 % (0-4); Lymphocytes # 0.5 K/mcL (0.6-4.6); Mean Corpuscular Volume 94.2 fL (83.0-100.0); Mean Platelet Volume 12.7 fL (9.4-12.4); Monocytes # 0.1 K/mcL (0.0-1.3); Monocytes % 4.1 %; Neutrophils # 0.9 K/mcL (1.6-8.9); Platelet Count 127 K/mcL (140-400); Red Blood Count 2.77 M/mcL (3.82-4.97); Red Cell Distribution Width 25.1 % (11.5-14.5); Segmented Neutrophils % 60.7 %
[2017-01-08 19:03] LABS: Anisocytosis 2+ (Not Present); Burr Cells 1+ (Not Present); Ovalocytes 3+ (Not Present)
[2017-01-08 19:04] LABS: Platelet Estimate Slight Decrease (Normal)
[2017-01-08 19:11] LABS: Albumin 2.3 g/dL (3.5-5.0); Albumin/Globulin Ratio 1.2 (1.1-2.2); Bilirubin,Total 0.9 mg/dL (0.2-1.2); Calcium 7.8 mg/dL (8.6-10.8); Globulin 1.9 g/dL (2.4-3.5); Potassium 5.8 mEq/L (3.5-4.5); Total Protein 4.2 g/dL (6.0-8.3)
[2017-01-08] MEDS ORDERED: 0.9 % Sodium Chloride 1,000 ML IVC SCH (19:45)
[2017-01-08] MEDS ORDERED: Ondansetron 4 MG/2 ML VIAL IVP PRN (22:34)
[2017-01-08] MEDS ORDERED: Acetaminophen 325 MG TABLET PO PRN (22:34)
[2017-01-08] MEDS ORDERED: Naloxone 0.4 MG/ML INJ IVP PRN (22:34)
--- NOTE | 2017-01-08 23:00 | Emergency Department Note ---
Disposition Clinical Impression: Hyperkalemia Acute renal failure Qualifiers: Acute renal failure type: unspecified Qualified Code(s): N17.9 - Acute kidney failure, unspecified Disposition: Home, Self-Care Condition: Fair Time of Disposition: 23:02 General Adult HPI - General Chief complaint: ED Recheck/Abnormal Lab/Rx Stated complaint: sent from [facility], abnormal labs Time Seen by Provider: 01/08/17 17:40 Source: patient Limitations: no limitations Nursing Notes Reviewed: Yes Vital Signs Reviewed: Yes - History of Present Illness HPI Narrative: 58-year-old female who presents from the [facility] with concern for acute renal failure as well as hyperkalemia. She is currently undergoing treatment for ovarian cancer. She has had an aggressive form of cancer which is resulted and ascites. She requires weekly paracentesis. She has one kidney. She is eating, drinking normally and has had no fever. The only reason she is here today is because her metabolic panel from the [facility] showed significant derangement which prompted trasnfer here. Pain Scale: 0 - Related Data Home Medications Medication Instructions Recorded Confirmed Allopurinol [Zyloprim 100 MG] 100 mg PO BID 05/03/15 01/08/17 Hydroxychloroquine [Plaquenuil] 200 mg PO QAM 05/03/15 01/08/17 Isosorbide DInitrate [Isordil] 10 mg PO TIDAC 10/30/15 01/08/17 Acetaminophen [Tylenol Arthritis] 650 mg PO BID PRN 04/02/16 01/08/17 Multivitamin [Multi-Day Vitamins] 1 each PO DAILY 04/02/16 01/08/17 Esomeprazole Magnesium [Nexium] 20 mg PO BID 07/10/16 01/08/17 Prochlorperazine Maleate 10 mg PO Q8H PRN 10/23/16 01/08/17 [Compazine] Magnesium Oxide [Magnesium] 400 mg PO DAILY 11/27/16 01/08/17 Metoprolol XL (24 HR) Succ [Toprol 100 mg PO DAILY 11/27/16 01/08/17 XL] Aspirin 325 mg PO DAILY 01/08/17 01/08/17 Allergies Allergy/AdvReac Type Severity Reaction Status Date / Time paclitaxel [From Taxol] AdvReac Severe See Verified 11/27/16 11:00 Comments All systems ED: reviewed and negative except as stated. Past Medical History - Past Medical History Medical history: Reports: arthritis, cancer, CHF, coronary artery disease, hypertension, pulmonary embolus, renal disease, other Surgical history: Reports: hysterectomy Psychiatric history: Reports: no psych history - Social History Smoking Status: Never smoker Smokeless Tobacco Status: No Alcohol use: Reports: none Drug use: Reports: none Physical Exam - General Limitations: no limitations General appearance: alert - Head Head exam: atraumatic - Eye Eye exam: Present: normal appearance - ENT ENT exam: normal exam, normal oropharynx - Neck Neck exam: Present: normal inspection, full ROM - Chest Chest inspection: Present: normal inspection, symmetric chest wall rise - Respiratory Respiratory exam: Present: normal lung sounds bilaterally - Cardiovascular Cardiovascular exam: Present: regular rate, normal rhythm - Abdominal Exam Abdominal exam: Present: soft, Non-Tender - Extremities Exam Extremities exam: Present: normal inspection, full ROM - Expanded Lower Extremity Exam Hip/Pelvis exam: Present: normal inspection, full ROM Upper leg exam: Present: normal inspection, full ROM - Back Exam Back exam: Present: normal inspection, full ROM - Neurological Exam Neurological exam: Present: alert, oriented X3, CN II-XII intact - Psychiatric Psychiatric exam: Present: normal affect, normal mood - Skin Skin exam: Present: warm, dry - Other Other exam information: Mucous membranes are dry. There is ascites present. There is no peritonitis on abdominal examination. Course Vital Signs Temperature 97.5 F L 01/08/17 17:27 Pulse Rate 80 01/08/17 17:27 Respiratory Rate 18 01/08/17 17:27 Blood Pressure 106/64 01/08/17 17:27 O2 Sat by Pulse Oximetry 100 01/08/17 17:27 Temperature 97.7 F 01/08/17 21:53 Pulse Rate 82 01/08/17 21:53 Respiratory Rate 17 01/08/17 21:53 Blood Pressure 115/78 01/08/17 21:53 O2 Sat by Pulse Oximetry 100 01/08/17 22:20 Oxygen Delivery Oxygen Delivery Room Air Medical Decision Making - MDM Narrative Medical decision making narrative: She has a solitary kidney. I would avoid nephrotoxins. Avoid contrast media. No evidence of urinary tract infection. IV hydration provided including bolus and maintenance fluids. Monitor potassium. Her potassium is 5.8 currently however she has no signs of EKG changes. I do think this is related to underlying renal dysfunction and as such i would provide hydration. Possible consult to nephrology as an inpatient. Discussed case with hospitalist. No fever but she does have evidence of pancytopenia. Will admit for evaluation of hyperkalemia in the setting of acute renal failure. - Medical Records Medical records reviewed: Yes I reviewed the patient's medical records. - Lab Data Lab results reviewed: Yes I reviewed the patient's lab results. Result diagrams: 01/08/17 18:25 01/08/17 18:25 Lab Results 01/08/17 01/08/17 01/08/17 Range/Units 18:00 18:25 18:25 WBC 1.5 L (4.3-11.1) K/mcL RBC 2.77 L (3.82-4.97) M/mcL Hgb 8.6 L (11.5-15.4) g/dL Hct 26.1 L (35.3-44.9) % MCV 94.2 (83.0-100.0) fL MCH 31.0 (28.0-33.3) pg MCHC 33.0 (31.6-35.5) g/dL RDW 25.1 H (11.5-14.5) % Plt Count 127 L (140-400) K/mcL MPV 12.7 H (9.4-12.4) fL Immature Gran % 1.4 (0-4) % Seg Neutrophils % 60.7 % Lymphocytes % 31.0 % Monocytes % 4.1 % Eosinophils % 2.1 % Basophils % 0.7 % Neutrophils # 0.9 L (1.6-8.9) K/mcL Lymphocytes # 0.5 L (0.6-4.6) K/mcL Monocytes # 0.1 (0.0-1.3) K/mcL Eosinophils # 0.0 (0.0-0.6) K/mcL Basophils # 0.0 (0.0-0.2) K/mcL Platelet Estimate Slight Decrease L (Normal) Anisocytosis 2+ A (Not Present) Ovalocytes 3+ A (Not Present) [place] Cells 1+ A (Not Present) Sodium 138 (136-145) mEq/L Potassium 5.8 H (3.5-4.5) mEq/L Chloride 118 H (98-109) mEq/L Carbon Dioxide 10 L* (19-29) mEq/L BUN 136 H (7-20) mg/dL Creatinine 4.53 H (0.57-1.11) mg/dL Est GFR ( Amer) 12 L (> 60) Est GFR (Non-Af Amer) 10 L (> 60) BUN/Creatinine Ratio 30 H (6-26) Glucose 121 H (70-99) mg/dL Calculated Osmolality 331 H (280-300) Calcium 7.8 L (8.6-10.8) mg/dL Total Bilirubin 0.9 (0.2-1.2) mg/dL AST 37 H (5-34) Units/L ALT 58 H (0-55) Units/L Alkaline Phosphatase 236 H (38-126) Units/L Serum Total Protein 4.2 L (6.0-8.3) g/dL Albumin 2.3 L (3.5-5.0) g/dL Globulin 1.9 L (2.4-3.5) g/dL Albumin/Globulin Ratio 1.2 (1.1-2.2) Urine Color Yellow (Yellow) Urine Clarity Cloudy A (Clear) Urine pH 5.5 (5.0-8.0) pH Units Ur Specific [place] 1.017 (1.010-1.025) Urine Protein 30 H (Neg-Trace) mg/dL Urine Glucose (UA) Normal (Normal) mg/dL Urine Ketones Negative (Negative) mg/dL Urine Blood Small H (Negative) Urine Nitrite Negative (Negative) Urine Bilirubin Negative (Negative) Urine Urobilinogen Normal (Normal) mg/dL Ur Leukocyte Esterase Moderate H (Negative) Urine Microscopic RBC 5-15 H (0-3) per hpf Urine Microscopic WBC 30-50 H (0-3) per hpf Ur Squamous Epith Cells Many H (None-Few) per lpf Urine Bacteria Few (None-Few) per hpf Hyaline Casts Few (None-Few) per lpf Ur Culture Indicated? YES A (NO) - Radiology Data Radiology results reviewed: Yes I reviewed the patient's radiology results. - EKG Data EKG #1 EKG results narrative: Sinus rhythm. QRS duration is prolonged however this is baseline for patient. EKG was compared to previous EKG.
[2017-01-08] MEDS: 0.9 % Sodium Chloride 1,000 ML IVC SCH (23:48)
--- NOTE | 2017-01-09 01:08 | Internal Med History&Physical ---
Date of Encounter: 01/08/17 Time of Encounter: 22:30 Assessment and Plan (1) Acute on chronic kidney failure Current visit: Yes Status: Acute likely due to dehydration and related to chemotherapy; continue gentle IV hydration for now and monitor serum creatinine. Baseline creatinine 2.5-3.5, noted to be 4.5 today. (2) Hyperkalemia Current visit: Yes Status: Acute due to renal failure. Will give a dose of Kayexalate and monitor closely. EKG shows no hyperacute T waves; Telemetry monitoring. (3) Metabolic acidosis Current visit: Yes Status: Chronic acute on chronic non anion gap metabolic acidosis related to renal failure. Baseline bicarbonate noted to be around 12, noted to be 10 today; continue home dose of sodium bicarbonate and IV hydration; (4) UTI (urinary tract infection) Current visit: Yes Status: Acute patient was recently treated with 7-day course of Amoxicillin for UTI by her Oncologist, completed about 1 week ago; Urine culture from 12/25/16 grew Enterococcus fecalis; UA today suggestive of UTI, will f/up urine culture and hold off on antibiotics for now. Qualifiers: Urinary tract infection type: acute cystitis Hematuria presence: with hematuria Qualified Code(s): N30.01 - Acute cystitis with hematuria (5) Pancytopenia Current visit: Yes Status: Chronic due to malignancy and chemotherapy; (6) Congestive heart failure Current visit: Yes Status: Chronic continue home meds; Qualifiers: Congestive heart failure type: systolic Congestive heart failure chronicity : chronic Qualified Code(s): I50.22 - Chronic systolic (congestive) heart failure (7) Lupus (systemic lupus erythematosus) Current visit: Yes Status: Chronic continue Plaquenil; Qualifiers: Systemic lupus erythematosus type: unspecified Systemic lupus erythematosus organ involvement: unspecified Qualified Code(s): M32.9 - Systemic lupus erythematosus, unspecified (8) Pulmonary HTN Current visit: Yes Status: Chronic (9) CKD (chronic kidney disease) stage 4, GFR 15-29 ml/min Current visit: Yes Status: Chronic (10) Polycythemia rubra vera Current visit: Yes Status: Chronic (11) CAD (coronary artery disease) Current visit: Yes Status: Chronic Qualifiers: Coronary Disease-Associated Artery/Lesion type: [place] artery [place] vs. transplanted heart: [place] heart Associated angina: without angina Qualified Code(s): I25.10 - Atherosclerotic heart disease of [place] coronary artery without angina pectoris (12) Ovarian cancer Current visit: Yes Status: Chronic follows with Oncology as outpatient, currently on chemotherapy with Gemcitabine and Avastin; Qualifiers: Laterality: right Qualified Code(s): C56.1 - Malignant neoplasm of right ovary Internal Medicine - H&P: HPI Chief complaint: Abnormal labs Admitted From: Emergency Dept Plans for Post Hospital Care: Home History of present illness: Ms. Dumont is a 66 year old female with h/o- ovarian cancer, PCV, was referred by her Oncologist to present to ER due to abnormal results on her routine labs. Patient was noted to have worsening serum creatinine, elevated potassium, low bicarbonate. On ROS, she reports worsening leg swelling and she does not take diuretics at home at this time. No fever/chills, nausea/vomiting, chest pain, dyspnea, abdominal pain or any other complaints. SHe does have baseline abdominal distension due to ascites and has scheduled weekly paracentesis, last one yesterday. Past Med Surg Social Fam HX - Past Medical History Medical history: arthritis, cancer, CHF, coronary artery disease, DVT, hypertension, malignancy, pulmonary embolus, renal disease, other Psychiatric history: no psych history - Past Surgical History Surgical History: hysterectomy, other (bladder tuck surgery) - Social History Smoking Status: Never smoker Smokeless Tobacco Status: No Alcohol use: none Drug use: none Occupational status: retired Current living situation: Home, With Family Activity Level: Independent ambulation Recent Out of Country Travel Within the Last 8 Weeks: No Exposure or Possible Exposure to Illness During Travel: No - Family History Mother Family Member Ethnicity: Non- Living Status: Age at : 85 Cause of : Cancer Hx Family Cardiac Disorders: No Hx Family Respiratory Disorders: No Hx Family Cancer: Yes (inoperative lung cancer) Hx Family GI Disorders: No Hx Family Endocrine Disorder: No Hx Family Neuromuscular Disorders: No Hx Family Neurologic Disorders: Yes (Alzheimers) Hx Family HEENT Disorders: No Hx Family Autoimmune Disorders: No Father Family Member Ethnicity: Non- Living Status: Age at : 74 Hx Family Cardiac Disorders: Yes Hx Family Respiratory Disorders: No Hx Family Cancer: No Hx Family GI Disorders: No Hx Family Endocrine Disorder: Yes (diabetes) Hx Family Neuromuscular Disorders: No Hx Family Neurologic Disorders: No Hx Family HEENT Disorders: No Hx Family Autoimmune Disorders: No Internal Medicine - H&P: Meds Allopurinol [Zyloprim 100 MG] 100 mg PO BID 05/03/15 [History] Hydroxychloroquine [Plaquenuil] 200 mg PO QAM 05/03/15 [History] Isosorbide DInitrate [Isordil] 10 mg PO TIDAC 10/30/15 [History] Acetaminophen [Tylenol Arthritis] 650 mg PO BID PRN 04/02/16 [History] Multivitamin [Multi-Day Vitamins] 1 each PO DAILY 04/02/16 [History] Esomeprazole Magnesium [Nexium] 20 mg PO BID 07/10/16 [History] Prochlorperazine Maleate [Compazine] 10 mg PO Q8H PRN 10/23/16 [History] Magnesium Oxide [Magnesium] 400 mg PO DAILY 11/27/16 [History] Metoprolol XL (24 HR) Succ [Toprol XL] 100 mg PO DAILY 11/27/16 [History] Aspirin 325 mg PO DAILY 01/08/17 [History] Allergies paclitaxel [From Taxol] Adverse Reaction (Severe, Verified 11/27/16 11:00) See Comments Hypertension, chest pain, pain into her right arm, shortness of breath, constant [id number] movement in the chair All Systems PM: A 10-system review of systems was performed and is negative for pertinent findings except as documented above in the HPI. - Constitutional Constitutional: no chills, no fever(s), no night sweats - EENT Eyes: no change in vision, no discharge, no pain, no photophobia Ears: no ear discharge, no ear pain, no tinnitus Nose, mouth and throat: no dysphagia, no nasal discharge, no neck pain, no sore throat - Cardiovascular Cardiovascular ROS IM: edema, no chest pain, no diaphoresis, no dyspnea, no lightheadedness, no palpitations, no syncope - Respiratory Respiratory: no cough, no dyspnea, no wheezing, no excessive phlegm production - Gastrointestinal Gastrointestinal: no abdominal pain, no diarrhea, no hematemesis, no hematochezia, no melena, no nausea, no vomiting - Genitourinary Genitourinary: no change in urinary stream, no dysuria, no flank pain, no hematuria - Musculoskeletal Musculoskeletal ROS IM: no numbness, no tingling - Integumentary Integumentary IM: no rash, no unusual bruising - Neurological Neurological ROS: no confusion, no convulsions, no focal weakness, no numbness, no tingling, no tremor(s) - Hematologic/Lymphatic Hematologic/Lymphatic: no easy bruising - Constitutional Vitals: Temp Pulse Resp BP Pulse Ox 97.6 F 79 17 105/68 100 01/09/17 00:15 01/09/17 00:15 01/09/17 00:15 01/09/17 00:15 01/09/17 00:15 General appearance: Present: A&O X 3, answers questions appropriately - Respiratory Respiratory exam: Present: CTAB. Absent: accessory muscle use, rales, rhonchi, wheezes - Cardiovascular Cardiovascular exam: Present: RRR, +S1, +S2. Absent: diastolic murmur, gallop, rubs, systolic murmur - GI/Abdominal GI/Abdominal exam: Present: distended (ascites+), normal bowel sounds, soft, no peritoneal signs. Absent: tenderness - Extremities Exam Extremities exam: Present: full ROM, pedal edema (3+ pitting pedal edema B/L ankles and legs), warm, radial pulses palpable and symetrical. Absent: calf tenderness, cyanotic - Neurological Exam Neurological exam: Present: CN II-XII intact, oriented X3, no focal deficits. Absent: pronater drift, facial droop, speech deficit - Skin Skin exam: Present: dry, intact Internal Med - H&P Results - Labs CBC & Chem 7: 01/08/17 18:25 01/08/17 18:25
[2017-01-09 04:34] LABS: Hemoglobin 8.8 g/dL (11.5-15.4)
[2017-01-09 04:35] LABS: Hematocrit 27.5 % (35.3-44.9); Lymphocytes # 0.4 K/mcL (0.6-4.6); Mean Corpuscular Hemoglobin 30.2 pg (28.0-33.3); Mean Corpuscular Volume 94.5 fL (83.0-100.0); Monocytes # 0.1 K/mcL (0.0-1.3); Platelet Count 126 K/mcL (140-400); Red Blood Count 2.91 M/mcL (3.82-4.97); Red Cell Distribution Width 25.2 % (11.5-14.5)
[2017-01-09 04:54] LABS: Calcium 7.8 mg/dL (8.6-10.8); Magnesium 1.1 mg/dL (1.6-2.6); Phosphorous 6.4 mg/dL (2.3-4.7); Potassium 5.1 mEq/L (3.5-4.5)
[2017-01-09] MEDS ORDERED: Magnesium Sulfate 2 GM in D5% in Water 100 ML IVPB ONE (05:15)
[2017-01-09 05:27] LABS: Neutrophils # 1.2 K/mcL (1.6-8.9)
[2017-01-09 05:28] LABS: Burr Cells 1+ (Not Present); Ovalocytes 3+ (Not Present); Tear Drop Cells 2+ (Not Present)
[2017-01-09 05:30] LABS: Anisocytosis 2+ (Not Present); Platelet Estimate Slight Decrease (Normal)
[2017-01-09] MEDS: Multivit/Ca/Min/Fe/FA 1 TAB TABLET PO SCH (07:42)
[2017-01-09] MEDS: Aspirin 325 MG TABLET PO SCH (07:43)
[2017-01-09] MEDS: Magnesium Oxide 400 MG TABLET PO SCH (07:44)
[2017-01-09] MEDS: Metoprolol XL (24 HR) Succ 50 MG TAB.ER.24H PO SCH (07:45)
--- NOTE | 2017-01-09 11:02 | Nephrology Consult Note ---
Date of Encounter: 01/09/17 Time of Encounter: 10:35 Assessment and Plan (1) Acute renal insufficiency Current Visit: No Status: Acute MIR most likely related to chemotherapy, hypotension, dehydration superimposed on CKD 4, baseline creat 2.5-3.2. Renal fct slow improvemnt. Would continue gentle IV hydration. Will obtain Renal US with hx ovarian cancer and possible obstructive uropathy. Will increase PO sodium bicarb. Concern for potential need for HD, and line placement with Leukopenia. History of Present Illness - Reason for Consult Acute Kidney Injury, Chronic Kidney Disease - History of Present Illness Ms. Dumont is a 66 year old female, well known to practice with CKD 4, baseline creat 2.5-3.2. Who is currently on chemo for ovarian cancer and was sent to ER by Oncologist for worsening labs. Other PMH-HTN, pulmonary embolus, CAD, DVT, CHF, SLE, arthritis. Initial creatinine 4.5, today 4.16. Potassium now 5.1 from 5.8, received Kaexylate and Bicarb 10, now 9. Just recently started on Bicarb outpatient. WBC 1.5, today 1.6. Receiving gentle IV hydration. Recently treated for UTI, culture grew Enterococcus fecalis, UA suggests current UTI, culture pending. Ms. Dumont states having weekly paracentesis times 3-5 liters, last done this past Thursday. She denies any fever, chills, N/V or diarrhea. Denies NSAID use. Past Med Surg Social Fam HX - Past Medical History Medical history: arthritis, cancer, CHF, coronary artery disease, DVT, hypertension, malignancy, pulmonary embolus, renal disease, other Psychiatric history: no psych history - Past Surgical History Surgical History: hysterectomy, other (bladder tuck surgery) - Social History Smoking Status: Never smoker Smokeless Tobacco Status: No Alcohol use: none Drug use: none - Family History Mother Family Member Ethnicity: Non- Living Status: Age at : 85 Cause of : Cancer Hx Family Cardiac Disorders: No Hx Family Respiratory Disorders: No Hx Family Cancer: Yes (inoperative lung cancer) Hx Family GI Disorders: No Hx Family Endocrine Disorder: No Hx Family Neuromuscular Disorders: No Hx Family Neurologic Disorders: Yes (Alzheimers) Hx Family HEENT Disorders: No Hx Family Autoimmune Disorders: No Father Family Member Ethnicity: Non- Living Status: Age at : 74 Hx Family Cardiac Disorders: Yes Hx Family Respiratory Disorders: No Hx Family Cancer: No Hx Family GI Disorders: No Hx Family Endocrine Disorder: Yes (diabetes) Hx Family Neuromuscular Disorders: No Hx Family Neurologic Disorders: No Hx Family HEENT Disorders: No Hx Family Autoimmune Disorders: No Medications and Allergies Allopurinol [Zyloprim 100 MG] 100 mg PO BID 05/03/15 [History] Hydroxychloroquine [Plaquenuil] 200 mg PO QAM 05/03/15 [History] Isosorbide DInitrate [Isordil] 10 mg PO TIDAC 10/30/15 [History] Acetaminophen [Tylenol Arthritis] 650 mg PO BID PRN 04/02/16 [History] Multivitamin [Multi-Day Vitamins] 1 each PO DAILY 04/02/16 [History] Esomeprazole Magnesium [Nexium] 20 mg PO BID 07/10/16 [History] Prochlorperazine Maleate [Compazine] 10 mg PO Q8H PRN 10/23/16 [History] Magnesium Oxide [Magnesium] 400 mg PO DAILY 11/27/16 [History] Metoprolol XL (24 HR) Succ [Toprol XL] 100 mg PO DAILY 11/27/16 [History] Aspirin 325 mg PO DAILY 01/08/17 [History] Allergies paclitaxel [From Taxol] Adverse Reaction (Severe, Verified 11/27/16 11:00) See Comments Hypertension, chest pain, pain into her right arm, shortness of breath, constant [id number] movement in the chair Review of Systems All Systems: reviewed and no additional remarkable complaints except as stated Exam - Vital Signs Vital signs: Initial Vital Signs Temp Pulse Resp BP Pulse Ox 97.5 F L 80 18 106/64 100 01/08/17 17:27 01/08/17 17:27 01/08/17 17:27 01/08/17 17:27 01/08/17 17:27 Vital Signs - Last 8 Hours Temp Pulse Resp BP Pulse Ox 01/09/17 07:59 97.5 F L 81 17 104/60 100 01/09/17 05:09 97.5 F L 81 16 115/54 99 Intake and Output 01/08/17 01/09/17 01/09/17 23:59 07:59 15:59 Intake Total 422 / 422 0 / 0 240 / 240 Output Total 0 / 0 Balance 422 / 422 0 / 0 240 / 240 Intake: IV Fluids 422 / 422 0.9 % Sodium Chloride 1, 172 / 172 000 ML @ 100 mls/hr IVC . Q10H [facility] Rx#:[id number] 0.9 % Sodium Chloride 250 250 / 250 ML @ 937.5 mls/hr IVC . Q16M [facility] Rx#:[id number] Oral 0 / 0 0 / 0 240 / 240 Output: Urine 0 / 0 Other: Meal Breakfast Percent of Meal Consumed 100% Stool Size Moderate Stool Consistency liquid Stool Color Brown Yellow # Bowel Movements 3 Weight 49.555 kg 50.47 kg Patient Weight 01/09/17 23:59 Weight 50.47 kg - General Appearance General appearance: well-developed, well-nourished, appears started age EENT: mucous membranes moist Neck: no JVD Respiratory: clear Cardiology: edema, regular rate, regular rhythm Additional Comments: pitting ankle Gastrointestinal: normoactive bowel sounds, no tenderness, distended Integumentary: no rash, warm and dry Neurologic: alert and oriented x3 Psychiatric: mood/affect appropriate, cooperative Results - Lab Results 01/09/17 04:20 01/09/17 04:20 Most recent lab results Calcium 7.8 mg/dL (8.6-10.8) L 01/09/17 04:20 Phosphorus 6.4 mg/dL (2.3-4.7) H 01/09/17 04:20 Magnesium 1.1 mg/dL (1.6-2.6) L 01/09/17 04:20 Consult Discharge Plan - Plan Referrals: Cleve Hannon DO [Primary Care Provider] -
--- NOTE | 2017-01-09 15:17 | Internal Med Progress Note ---
Date of Encounter: 01/09/17 Time of Encounter: 12:00 - Assessment and plan (1) MIR (acute kidney injury) Current Visit: No Status: Chronic Assessment and plan: Worsening kidney function testing patient with baseline CKD stage IV. Admitted due to hyperkalemia and worsening kidney function tests. The patient is currently on chemotherapy for advanced ovarian cancer. She has metabolic acidosis, no anion gap has been noted. We will continue with IV fluids, sodium bicarbonate. A consultation with nephrology has been requested , will follow recommendations and continue monitoring her kidney function tests. might need hemodialysis, we will continue monitoring. Patient has recurrent paracenteses and she is clinically dehydrated which could be a contributing factor to this acute kidney injury, additionally she receives chemotherapy which also can affect her kidney function tests. Hyperkalemia trending down. We will continue monitoring Electrolytes tomorrow in a.m. Nephrology evaluated the patient, they recommended to increase the dose of the sodium bicarbonate and to continue with IV fluids. He did receive a dose of Kayexalate for hyperkalemia. Potassium upon admission was 5.8, today 5.1. (2) Hypomagnesemia Current Visit: No Status: Resolved Assessment and plan: Magnesium has been supplemented, will continue monitoring. (3) Pancytopenia Current Visit: Yes Status: Chronic Assessment and plan: Likely secondary to her recent chemotherapy. Will continue monitoring the patient closely. Monitor for signs of bleeding. No need for transfusion at this point. Recheck CBC and platelet count Tomorrow in A.M. (4) CKD (chronic kidney disease) stage 4, GFR 15-29 ml/min Current Visit: Yes Status: Chronic (5) Dehydration Current Visit: No Status: Resolved Assessment and plan: Continue with IV fluids, encourage by mouth hydration. (6) Neutropenia Current Visit: No Status: Acute Qualifiers: Neutropenia type: secondary to cancer chemotherapy Qualified Code(s): D70.1 - Agranulocytosis secondary to cancer chemotherapy (7) DVT prophylaxis Current Visit: No Status: Acute Assessment and plan: We will provide DVT prophylaxis with intermittent compression devices, we will avoid the use of heparin in light of thrombocytopenia and acute kidney injury along with anemia (8) Acute on chronic kidney failure Current Visit: Yes Status: Acute (9) Ascites Current Visit: No Status: Acute Qualifiers: Ascites type: malignant Qualified Code(s): R18.0 - Malignant ascites (10) CAD (coronary artery disease) Current Visit: Yes Status: Chronic Qualifiers: Coronary Disease-Associated Artery/Lesion type: [place] artery [place] vs. transplanted heart: [place] heart Associated angina: without angina Qualified Code(s): I25.10 - Atherosclerotic heart disease of [place] coronary artery without angina pectoris (11) Metastatic cancer Current Visit: No Status: Acute (12) Hyperkalemia Current Visit: Yes Status: Acute Assessment and plan: Potassium trending down, we will continue monitoring. (13) Ovarian cancer Current Visit: Yes Status: Chronic Assessment and plan: Management as per oncology, currently on chemotherapy. Qualifiers: Laterality: right Qualified Code(s): C56.1 - Malignant neoplasm of right ovary - Subjective Interval history: This is my first encounter with the patient. The patient was seen and examined in rounds. She denies shortness of breath, she is states that had a paracentesis done yesterday. roughly she has paracentesis done once a week. She follows up with the cancer Center and with Dr. Jacob for her kidney function tests. - Constitutional Vitals: Temp Pulse Resp BP Pulse Ox 97.6 F 81 18 99/64 100 01/09/17 11:11 01/09/17 11:11 01/09/17 11:11 01/09/17 11:11 01/09/17 11:11 General appearance: Present: cooperative, A&O X 3, answers questions appropriately - Head Head exam: Present: atraumatic, normocephalic - Eye Eye exam: Present: PERRL, conjuntiva pink, sclera anicteric Pupils: Present: PERRL - Neck Neck exam general surgery: Present: supple, trachea midline. Absent: lymphadenopathy - Respiratory Respiratory exam: Present: CTAB. Absent: accessory muscle use, rales, rhonchi, wheezes - Cardiovascular Cardiovascular exam: Present: RRR, +S1, +S2. Absent: diastolic murmur, gallop, rubs, systolic murmur - GI/Abdominal GI/Abdominal exam: Present: normal bowel sounds, soft, no peritoneal signs. Absent: distended, tenderness - Extremities Exam Extremities exam: Present: warm, radial pulses palpable and symetrical. Absent : calf tenderness, cyanotic, pedal edema - Neurological Exam Neurological exam: Present: CN II-XII intact, oriented X3, no focal deficits. Absent: pronater drift, facial droop, speech deficit - Skin Skin exam: Present: dry, intact Internal Medicine: Result - Labs CBC & Chem 7: 01/09/17 04:20 01/09/17 04:20 Labs: Short CBC 01/09/17 Range/Units 04:20 WBC 1.6 L (4.3-11.1) K/mcL Hgb 8.8 L (11.5-15.4) g/dL Hct 27.5 L (35.3-44.9) % Plt Count 126 L (140-400) K/mcL Neutrophils # 1.2 L (1.6-8.9) K/mcL BMP 01/09/17 04:20 Sodium 141 Potassium 5.1 H Chloride 121 H Carbon Dioxide 9 L* BUN 125 H Creatinine 4.16 H Glucose 105 H Calcium 7.8 L Consult Discharge Plan - Plan Referrals: Cleve Hannon DO [Primary Care Provider] -
[2017-01-09] MEDS: 0.9 % Sodium Chloride 1,000 ML IVC SCH (17:03)
--- NOTE | 2017-01-09 17:38 | Electrocardiograph Report ---
[place] [id number] Test Date: 2017-01-08 Pat Name: Michelle Dumont Department: 102 Room: 2A22 Gender: F Modeler: Sharan : 1950 Requested By: Tommy Jones Order Number: [id number] Reading MD: Reno Borges Measurements Intervals [place] Rate: 77 P: 36 ME: 139 QRS: -29 QRSD: 144 T: 106 QT: 422 QTc: 454 Interpretive Statements SINUS RHYTHM WITH SINUS ARRHYTHMIA LEFT BUNDLE BRANCH BLOCK Electronically Signed On 01-09-2017 17:36:20 EDT by Reno Borges
[2017-01-10 04:13] LABS: Immature Granulocytes % 1.4 % (0-4)
[2017-01-10 04:14] LABS: Hematocrit 23.8 % (35.3-44.9); Hemoglobin 7.8 g/dL (11.5-15.4); Lymphocytes % 26.8 %; Mean Corpuscular HGB Conc 32.8 g/dL (31.6-35.5); Mean Corpuscular Hemoglobin 30.7 pg (28.0-33.3); Mean Corpuscular Volume 93.7 fL (83.0-100.0); Monocytes # 0.1 K/mcL (0.0-1.3); Monocytes % 4.9 %; Red Blood Count 2.54 M/mcL (3.82-4.97); Segmented Neutrophils % 66.9 %
[2017-01-10 04:15] LABS: Lymphocytes # 0.4 K/mcL (0.6-4.6)
[2017-01-10 04:20] LABS: Neutrophils # 0.9 K/mcL (1.6-8.9); Platelet Count 79 K/mcL (140-400)
[2017-01-10 04:47] LABS: Anisocytosis 2+ (Not Present); Calcium 7.9 mg/dL (8.6-10.8); Magnesium 1.4 mg/dL (1.6-2.6); Platelet Estimate Decreased (Normal); Potassium 5.2 mEq/L (3.5-4.5)
[2017-01-10 04:48] LABS: Ovalocytes 2+ (Not Present); Poikilocytosis 2+ (Not Present)
[2017-01-10] MEDS: Metoprolol XL (24 HR) Succ 50 MG TAB.ER.24H PO SCH (08:24)
[2017-01-10] MEDS: Aspirin 325 MG TABLET PO SCH (08:24)
[2017-01-10] MEDS: Magnesium Oxide 400 MG TABLET PO SCH (08:24)
[2017-01-10] MEDS: Multivit/Ca/Min/Fe/FA 1 TAB TABLET PO SCH (08:26)
[2017-01-10] MEDS: 0.9 % Sodium Chloride 1,000 ML IVC SCH (08:31)
--- NOTE | 2017-01-10 08:54 | Nephrology Progress Note ---
Date of Encounter: 01/10/17 Time of Encounter: 08:40 - Assessment and Plan (1) Acute renal insufficiency Current Visit: No Status: Acute MIR most likely related to chemotherapy, hypotension, Urine positive for gm neg rods, started on Ceftriaxone, dehydration superimposed on CKD 4, baseline creat 2.5-3.2. Renal fct slow improvment. Creat 4.08. Would continue gentle IV hydration. Renal US negative for obstructive uropathy. Concern for potential need for HD, and line placement with Leukopenia. Subjective Interval history: Up in room, states feeling good. Objective - Vital Signs Vital signs: Vital Signs Temp Pulse Resp BP Pulse Ox 01/10/17 08:19 98.4 F 98 18 120/77 99 01/10/17 03:57 98.0 F 91 13 102/62 98 01/09/17 23:57 97.4 F L 88 13 102/58 100 01/09/17 19:40 97.3 F L 85 16 102/57 99 01/09/17 15:18 97.6 F 78 18 102/65 100 01/09/17 11:11 97.6 F 81 18 99/64 100 Intake and Output 01/09/17 01/10/17 01/10/17 23:59 07:59 15:59 Intake Total 1000 / 1000 Output Total 0 / 0 Balance 1000 / 1000 Intake: IV Fluids 1000 / 1000 0.9 % Sodium Chloride 1, 1000 / 1000 000 ML @ 60 mls/hr IVC . [id number] [facility] Rx#: [id number] Oral 0 / 0 Output: Urine 0 / 0 Other: Weight 50.5 kg Patient Weight 01/10/17 23:59 Weight 50.5 kg - General Appearance General appearance: Present: well-developed, well-nourished, appears started age EENT: Present: mucous membranes moist Neck: Present: no JVD Respiratory: Present: clear Cardiology: Present: edema, regular rate, regular rhythm Additional Comments: mild pitting LE Gastrointestinal: Present: normoactive bowel sounds, no tenderness, distended Integumentary: Present: warm and dry Psychiatric: Present: mood/affect appropriate, cooperative - Lab 01/10/17 03:40 01/10/17 03:40 Most recent lab results Calcium 7.9 mg/dL (8.6-10.8) L 01/10/17 03:40 Phosphorus 6.4 mg/dL (2.3-4.7) H 01/09/17 04:20 Magnesium 1.4 mg/dL (1.6-2.6) L 01/10/17 03:40 - VTE Documentation of Mechanical Device: Intermittent pneumatic compression device Consult Discharge Plan - Plan Referrals: Cleve Hannon DO [Primary Care Provider] -
--- NOTE | 2017-01-10 12:53 | Internal Med Progress Note ---
Date of Encounter: 01/10/17 Time of Encounter: 11:00 - Assessment and plan (1) MIR (acute kidney injury) Current Visit: No Status: Chronic Assessment and plan: Worsening kidney function testing patient with baseline CKD stage IV. Admitted due to hyperkalemia and worsening kidney function tests. The patient is currently on chemotherapy for advanced ovarian cancer. She has metabolic acidosis, no anion gap has been noted. We will continue with IV fluids, sodium bicarbonate. Renal fnction tests slowly improving, hyperkalemia is mild, will follow nephro input. (2) Hypomagnesemia Current Visit: No Status: Resolved (3) Pancytopenia Current Visit: Yes Status: Chronic Assessment and plan: Likely secondary to her recent chemotherapy. Will continue monitoring the patient closely. Monitor for signs of bleeding. No need for transfusion at this point. Recheck CBC and platelet count Tomorrow in A.M. (4) CKD (chronic kidney disease) stage 4, GFR 15-29 ml/min Current Visit: Yes Status: Chronic (5) Dehydration Current Visit: No Status: Resolved (6) Neutropenia Current Visit: No Status: Acute Qualifiers: Neutropenia type: secondary to cancer chemotherapy Qualified Code(s): D70.1 - Agranulocytosis secondary to cancer chemotherapy (7) DVT prophylaxis Current Visit: No Status: Acute (8) Acute on chronic kidney failure Current Visit: Yes Status: Acute (9) Ascites Current Visit: No Status: Acute Qualifiers: Ascites type: malignant Qualified Code(s): R18.0 - Malignant ascites (10) CAD (coronary artery disease) Current Visit: Yes Status: Chronic Qualifiers: Coronary Disease-Associated Artery/Lesion type: [place] artery [place] vs. transplanted heart: [place] heart Associated angina: without angina Qualified Code(s): I25.10 - Atherosclerotic heart disease of [place] coronary artery without angina pectoris (11) Metastatic cancer Current Visit: No Status: Acute (12) Hyperkalemia Current Visit: Yes Status: Acute Assessment and plan: Potassiumstill elevated, follow nephro recommendations, we will continue monitoring. (13) Ovarian cancer Current Visit: Yes Status: Chronic Assessment and plan: Management as per oncology, currently on chemotherapy. Qualifiers: Laterality: right Qualified Code(s): C56.1 - Malignant neoplasm of right ovary (14) UTI (urinary tract infection) Current Visit: Yes Status: Acute Assessment and plan: gram negative rods in urine, started on iv rocephin. follow final report. Qualifiers: Urinary tract infection type: acute cystitis Hematuria presence: with hematuria Qualified Code(s): N30.01 - Acute cystitis with hematuria - Subjective Interval history: The patient was seen and examined in rounds. She denies shortness of breath, afebrile, denies dysuria. - Constitutional Vitals: Temp Pulse Resp BP Pulse Ox 98.4 F 68 16 100/58 100 01/10/17 11:44 01/10/17 11:44 01/10/17 11:44 01/10/17 11:44 01/10/17 11:44 General appearance: Present: cooperative, A&O X 3, pleasant, answers questions appropriately - Head Head exam: Present: atraumatic, normocephalic - Eye Eye exam: Present: PERRL, conjuntiva pink, sclera anicteric Pupils: Present: PERRL - Neck Neck exam general surgery: Present: supple, trachea midline. Absent: lymphadenopathy - Respiratory Respiratory exam: Present: CTAB. Absent: accessory muscle use, rales, rhonchi, wheezes - Cardiovascular Cardiovascular exam: Present: RRR, +S1, +S2. Absent: diastolic murmur, gallop, rubs, systolic murmur - GI/Abdominal GI/Abdominal exam: Present: normal bowel sounds, no peritoneal signs. Absent: distended, tenderness Additional comments: ascites - Extremities Exam Extremities exam: Present: warm, radial pulses palpable and symetrical. Absent : calf tenderness, cyanotic, pedal edema - Neurological Exam Neurological exam: Present: CN II-XII intact, oriented X3, no focal deficits. Absent: pronater drift, facial droop, speech deficit - Skin Skin exam: Present: dry, intact Internal Medicine: Result - Labs CBC & Chem 7: 01/10/17 03:40 01/10/17 03:40 Labs: Short CBC 01/10/17 Range/Units 03:40 WBC 1.4 L (4.3-11.1) K/mcL Hgb 7.8 L (11.5-15.4) g/dL Hct 23.8 L (35.3-44.9) % Plt Count 79 L (140-400) K/mcL Neutrophils # 0.9 L (1.6-8.9) K/mcL BMP 05/20/17 03:40 Sodium 141 Potassium 5.2 H Chloride 120 H Carbon Dioxide 11 L BUN 119 H Creatinine 4.08 H Glucose 97 Calcium 7.9 L - Impressions Impressions Retroperitoneum Ultrasound 01/09/17 14:00 IMPRESSION: 1. Right ureteral stent in place with no hydronephrosis. Increased renal parenchymal echogenicity consistent with medical renal disease. 2. Nonvisualization of the left kidney which was noted to be atrophic on previous CT. 3. Partial distention of the urinary bladder with stent extending into the bladder. 4. Moderate diffuse abdominal ascites. 5. Complex cystic mass in the pelvis which correlates with mass noted on previous CT. D/ / 01/09/2017 15:50:12 Cheikh Mckinnon MD / luly Interpreting Provider: Cheikh Mckinnon MD - VTE Documentation of Mechanical Device: Intermittent pneumatic compression device Consult Discharge Plan - Plan Referrals: Cleve Hannon DO [Primary Care Provider] -
[2017-01-11] MEDS: 0.9 % Sodium Chloride 1,000 ML IVC SCH (01:35)
[2017-01-11 04:09] LABS: Hemoglobin 7.8 g/dL (11.5-15.4)
[2017-01-11 04:11] LABS: Hematocrit 23.9 % (35.3-44.9); Immature Granulocytes % 2.8 % (0-4); Lymphocytes # 0.4 K/mcL (0.6-4.6); Lymphocytes % 29.9 %; Mean Corpuscular HGB Conc 32.6 g/dL (31.6-35.5); Mean Corpuscular Hemoglobin 30.8 pg (28.0-33.3); Mean Corpuscular Volume 94.5 fL (83.0-100.0); Monocytes # 0.1 K/mcL (0.0-1.3); Monocytes % 5.6 %; Neutrophils # 0.9 K/mcL (1.6-8.9); Red Blood Count 2.53 M/mcL (3.82-4.97); Red Cell Distribution Width 25.5 % (11.5-14.5); Segmented Neutrophils % 61.7 %
[2017-01-11 04:23] LABS: Calcium 7.9 mg/dL (8.6-10.8); Magnesium 1.1 mg/dL (1.6-2.6); Potassium 4.3 mEq/L (3.5-4.5)
[2017-01-11 04:46] LABS: Platelet Count 88 K/mcL (140-400)
[2017-01-11 04:49] LABS: Anisocytosis 1+ (Not Present); Ovalocytes 2+ (Not Present); Platelet Estimate Decreased (Normal); Poikilocytosis 2+ (Not Present)
[2017-01-11 04:50] LABS: Tear Drop Cells 1+ (Not Present)
[2017-01-11 04:56] LABS: Schistocytes 1+ (Not Present)
[2017-01-11 04:58] LABS: Reactive Lymphocytes Present (Not Present)
[2017-01-11] MEDS: Multivit/Ca/Min/Fe/FA 1 TAB TABLET PO SCH (08:05)
[2017-01-11] MEDS: Aspirin 325 MG TABLET PO SCH (08:05)
[2017-01-11] MEDS: Magnesium Oxide 400 MG TABLET PO SCH ×2 (08:05→20:44)
[2017-01-11] MEDS: Metoprolol XL (24 HR) Succ 50 MG TAB.ER.24H PO SCH (08:23)
--- NOTE | 2017-01-11 09:02 | Nephrology Progress Note ---
Date of Encounter: 01/11/17 Time of Encounter: 08:45 - Assessment and Plan (1) Acute renal insufficiency Current Visit: No Status: Acute MIR most likely related to chemotherapy, hypotension, Urine positive for gm neg rods, started on Ceftriaxone, dehydration superimposed on CKD 4, baseline creat 2.5-3.2. Renal fct slow improvment. Creat 3.94. Will stop IV hydration. Renal US negative for obstructive uropathy. Concern for potential need for HD, and line placement with Leukopenia. Subjective Interval history: Up in room, states feeling good. States somewhat SOB. Abdomen enlarging. Objective - Vital Signs Vital signs: Vital Signs Temp Pulse Resp BP Pulse Ox 01/11/17 08:04 97.8 F 97 16 102/62 100 01/11/17 04:15 98.3 F 92 16 101/59 98 01/11/17 00:27 98.3 F 90 16 103/65 98 01/10/17 20:43 97.5 F L 95 18 118/77 96 01/10/17 15:57 97.9 F 85 18 110/73 99 01/10/17 11:44 98.4 F 68 16 100/58 100 Intake and Output 01/10/17 01/11/17 01/11/17 23:59 07:59 15:59 Intake Total 100 / 100 1000 / 1000 770 / 770 Output Total 400 / 400 100 / 100 Balance 100 / 100 600 / 600 670 / 670 Intake: IV Fluids 100 / 100 1000 / 1000 530 / 530 0.9 % Sodium Chloride 1, 1000 / 1000 430 / 430 000 ML @ 60 mls/hr IVC . [id number] [facility] Rx#: [id number] Rocephin 1,000 MG In 100 / 100 100 / 100 Dextrose 5% (Minibag+) 100 ML 100 ML @ 200 mls/ hr IVPB Q24H [facility] Rx#: [id number] Oral 0 / 0 240 / 240 Output: Urine 400 / 400 100 / 100 Other: Meal Dinner Breakfast Percent of Meal Consumed 90% 100% Weight 55.066 kg Patient Weight 01/11/17 23:59 Weight 55.066 kg - General Appearance General appearance: Present: well-developed, well-nourished, appears started age EENT: Present: mucous membranes moist Neck: Present: no JVD Respiratory: Present: clear Cardiology: Present: edema, regular rate, regular rhythm Additional Comments: 1+ pitting LE edema Gastrointestinal: Present: normoactive bowel sounds, no tenderness, distended Integumentary: Present: warm and dry Neurologic: Present: alert and oriented x3 Psychiatric: Present: mood/affect appropriate, cooperative - Lab 01/11/17 03:56 01/11/17 03:50 Most recent lab results Calcium 7.9 mg/dL (8.6-10.8) L 01/11/17 03:50 Phosphorus 6.4 mg/dL (2.3-4.7) H 01/09/17 04:20 Magnesium 1.1 mg/dL (1.6-2.6) L 01/11/17 03:50 - VTE Documentation of Mechanical Device: Intermittent pneumatic compression device Consult Discharge Plan - Plan Referrals: Cleve Hannon DO [Primary Care Provider] - (Web Requested 01/10/17)
--- NOTE | 2017-01-11 11:14 | Internal Med Progress Note ---
Date of Encounter: 01/11/17 Time of Encounter: 09:00 - Assessment and plan (1) MIR (acute kidney injury) Current Visit: No Status: Chronic Assessment and plan: Worsening kidney function testing upon admission in a patient with baseline CKD stage IV. Admitted due to hyperkalemia and worsening kidney function tests. The patient is currently on chemotherapy for advanced ovarian cancer. She has metabolic acidosis, no anion gap has been noted. Stop IV fluids, continue with sodium bicarbonate. Renal function tests slowly improving, hyperkalemia corrected, will follow nephro input. (2) Hypomagnesemia Current Visit: No Status: Resolved Assessment and plan: Magnesium oxide bid, will continue monitoring. (3) Pancytopenia Current Visit: Yes Status: Chronic (4) CKD (chronic kidney disease) stage 4, GFR 15-29 ml/min Current Visit: Yes Status: Chronic (5) Dehydration Current Visit: No Status: Resolved (6) Neutropenia Current Visit: No Status: Acute Qualifiers: Neutropenia type: secondary to cancer chemotherapy Qualified Code(s): D70.1 - Agranulocytosis secondary to cancer chemotherapy (7) DVT prophylaxis Current Visit: No Status: Acute (8) Acute on chronic kidney failure Current Visit: Yes Status: Acute (9) Ascites Current Visit: No Status: Acute Assessment and plan: IR consult for possible paracentesis tomorrow. Qualifiers: Ascites type: malignant Qualified Code(s): R18.0 - Malignant ascites (10) CAD (coronary artery disease) Current Visit: Yes Status: Chronic Qualifiers: Coronary Disease-Associated Artery/Lesion type: [place] artery [place] vs. transplanted heart: [place] heart Associated angina: without angina Qualified Code(s): I25.10 - Atherosclerotic heart disease of [place] coronary artery without angina pectoris (11) Metastatic cancer Current Visit: No Status: Acute (12) Hyperkalemia Current Visit: Yes Status: Acute (13) Ovarian cancer Current Visit: Yes Status: Chronic Qualifiers: Laterality: right Qualified Code(s): C56.1 - Malignant neoplasm of right ovary (14) UTI (urinary tract infection) Current Visit: Yes Status: Acute Assessment and plan: gram negative rods in urine, started on iv rocephin. Klebisella found in urine culture, switch rocephin to Augmentin 500 mg daily in light of low GFR. Qualifiers: Urinary tract infection type: acute cystitis Hematuria presence: with hematuria Qualified Code(s): N30.01 - Acute cystitis with hematuria - Subjective Interval history: The patient was seen and examined in rounds. She denies shortness of breath, afebrile, denies dysuria. - Constitutional Vitals: Temp Pulse Resp BP Pulse Ox 97.8 F 97 16 102/62 100 01/11/17 08:04 01/11/17 08:04 01/11/17 08:04 01/11/17 08:04 01/11/17 08:04 General appearance: Present: cooperative, A&O X 3, pleasant, answers questions appropriately - Head Head exam: Present: atraumatic, normocephalic - Eye Eye exam: Present: PERRL, conjuntiva pink, sclera anicteric Pupils: Present: PERRL - Neck Neck exam general surgery: Present: supple, trachea midline. Absent: lymphadenopathy - Respiratory Respiratory exam: Present: CTAB. Absent: accessory muscle use, rales, rhonchi, wheezes - Cardiovascular Cardiovascular exam: Present: RRR, +S1, +S2. Absent: diastolic murmur, gallop, rubs, systolic murmur - GI/Abdominal GI/Abdominal exam: Present: normal bowel sounds, no peritoneal signs. Absent: distended, tenderness Additional comments: tense ascites - Extremities Exam Extremities exam: Present: warm, radial pulses palpable and symetrical. Absent : calf tenderness, cyanotic, pedal edema - Neurological Exam Neurological exam: Present: CN II-XII intact, oriented X3, no focal deficits. Absent: pronater drift, facial droop, speech deficit - Skin Skin exam: Present: dry, intact Internal Medicine: Result - Labs CBC & Chem 7: 01/11/17 03:56 01/11/17 03:50 Labs: Short CBC 01/11/17 Range/Units 03:56 WBC 1.4 L (4.3-11.1) K/mcL Hgb 7.8 L (11.5-15.4) g/dL Hct 23.9 L (35.3-44.9) % Plt Count 88 L (140-400) K/mcL Neutrophils # 0.9 L (1.6-8.9) K/mcL BMP 01/11/17 03:50 Sodium 141 Potassium 4.3 Chloride 119 H Carbon Dioxide 13 L BUN 116 H Creatinine 3.94 H Glucose 109 H Calcium 7.9 L - VTE Documentation of Mechanical Device: Intermittent pneumatic compression device Consult Discharge Plan - Plan Referrals: Cleve Hannon DO [Primary Care Provider] - (Web Requested 01/10/17)
[2017-01-11] MEDS: Amoxicillin/Clavulanate 500 MG TABLET PO SCH (12:33)
[2017-01-12 06:10] LABS: Mean Corpuscular HGB Conc 32.5 g/dL (31.6-35.5); Nucleated Red Blood Cells 1.2 /100 WBC (0)
[2017-01-12 06:11] LABS: Hemoglobin 7.8 g/dL (11.5-15.4); Mean Corpuscular Hemoglobin 30.6 pg (28.0-33.3); Mean Corpuscular Volume 94.1 fL (83.0-100.0); Monocytes # 0.1 K/mcL (0.0-1.3); Neutrophils # 1.2 K/mcL (1.6-8.9); Platelet Count 100 K/mcL (140-400); Red Blood Count 2.55 M/mcL (3.82-4.97)
[2017-01-12 06:23] LABS: Calcium 7.9 mg/dL (8.6-10.8); Magnesium 1.1 mg/dL (1.6-2.6); Potassium 4.2 mEq/L (3.5-4.5)
[2017-01-12 06:43] LABS: Lymphocytes # 0.4 K/mcL (0.6-4.6)
[2017-01-12 06:45] LABS: Anisocytosis 1+ (Not Present); Microcytosis Present (Not Present); Ovalocytes 3+ (Not Present)
[2017-01-12 06:46] LABS: Platelet Estimate Decreased (Normal); Poikilocytosis 2+ (Not Present); Reactive Lymphocytes Present (Not Present); Schistocytes 1+ (Not Present)
[2017-01-12] MEDS ORDERED: Magnesium Sulfate 2 GM in D5% in Water 100 ML IVPB ONE (08:17)
--- NOTE | 2017-01-12 08:44 | Nephrology Progress Note ---
Date of Encounter: 01/12/17 Time of Encounter: 08:35 - Assessment and Plan (1) Acute renal insufficiency Current Visit: No Status: Acute MIR most likely related to chemotherapy, hypotension, Urine positive for gm neg rods, started on Ceftriaxone, dehydration superimposed on CKD 4, baseline creat 2.5-3.2. Renal fct currently plateaued. Creat 3.95. Renal US negative for obstructive uropathy. Concern for potential need for HD, and line placement with Leukopenia. Paracentesis today. Subjective Interval history: Sitting on edge of bed. States had difficult sleeping last 2/2 increased FARRAH. Abdomen enlarging. States to have paracentesis. Objective - Vital Signs Vital signs: Vital Signs Temp Pulse Resp BP Pulse Ox 01/12/17 07:40 97.7 F 94 18 119/74 98 01/12/17 05:04 97.8 F 94 16 115/68 97 01/12/17 00:07 97.8 F 93 16 98/59 97 01/11/17 19:22 97.9 F 103 18 128/75 98 01/11/17 17:13 97.7 F 97 16 123/73 100 01/11/17 12:11 97.8 F 98 16 116/71 99 Intake and Output 01/11/17 01/12/17 01/12/17 23:59 07:59 15:59 Intake Total 420 / 420 0 / 0 Output Total 100 / 100 Balance 320 / 320 0 / 0 Intake: Oral 420 / 420 0 / 0 Output: Urine 100 / 100 Other: Meal Dinner Percent of Meal Consumed 95% Weight 55.2 kg Patient Weight 01/12/17 23:59 Weight 55.2 kg - General Appearance General appearance: Present: well-developed, well-nourished, appears started age EENT: Present: mucous membranes moist Neck: Present: no JVD Respiratory: Present: clear Cardiology: Present: edema, regular rate, regular rhythm Additional Comments: pitting knees down Gastrointestinal: Present: normoactive bowel sounds, distended Integumentary: Present: warm and dry Neurologic: Present: alert and oriented x3 Psychiatric: Present: mood/affect appropriate, cooperative - Lab 01/12/17 04:58 01/12/17 04:58 Most recent lab results Calcium 7.9 mg/dL (8.6-10.8) L 01/12/17 04:58 Phosphorus 6.4 mg/dL (2.3-4.7) H 01/09/17 04:20 Magnesium 1.1 mg/dL (1.6-2.6) L 01/12/17 04:58 - VTE Documentation of Mechanical Device: Intermittent pneumatic compression device Consult Discharge Plan - Plan Referrals: Cleve Hannon DO [Primary Care Provider] - (Web Requested 01/10/17)
--- NOTE | 2017-01-12 09:26 | IR Procedure Note ---
Date of procedure: 01/12/17 Consent Obtained: Written consent Timeout: Correct patient and procedure verified, Correct site verified, Time out performed, Skin prep completed Local anesthetic: Lidocaine 1% Indications: Recurrent ascites Procedure Performed: Paracentesis Site/Technique: LLQ used for access Results/Findings: Draining straw colored fluid. Still draining Estimated blood loss (cc): 1 Complications: None; Tolerated procedure well Post Procedure Treatment Plan: Monitoring in pts room.
[2017-01-12] MEDS: Amoxicillin/Clavulanate 500 MG TABLET PO SCH (10:07)
[2017-01-12] MEDS: Metoprolol XL (24 HR) Succ 50 MG TAB.ER.24H PO SCH (10:07)
[2017-01-12] MEDS: Multivit/Ca/Min/Fe/FA 1 TAB TABLET PO SCH (10:07)
[2017-01-12] MEDS: Magnesium Oxide 400 MG TABLET PO SCH ×2 (10:08→21:08)
[2017-01-12] MEDS: Aspirin 325 MG TABLET PO SCH (10:09)
--- NOTE | 2017-01-12 14:19 | Internal Med Progress Note ---
Date of Encounter: 01/12/17 Time of Encounter: 11:25 - Assessment and plan (1) MIR (acute kidney injury) Current Visit: No Status: Chronic Assessment and plan: Worsening kidney function testing upon admission in a patient with baseline CKD stage IV. Admitted due to hyperkalemia and worsening kidney function tests. The patient is currently on chemotherapy for advanced ovarian cancer. She has metabolic acidosis, no anion gap has been noted. The IV fluids were stopped yesterday, will continue with sodium bicarbonate. Renal function tests slowly improving, hyperkalemia corrected, will follow nephro input. Today she underwent paracentesis. (2) Hypomagnesemia Current Visit: No Status: Resolved Assessment and plan: Magnesium oxide bid, also magnesium IV today, will continue monitoring. (3) Pancytopenia Current Visit: Yes Status: Chronic (4) CKD (chronic kidney disease) stage 4, GFR 15-29 ml/min Current Visit: Yes Status: Chronic (5) Dehydration Current Visit: No Status: Resolved (6) Neutropenia Current Visit: No Status: Acute Qualifiers: Neutropenia type: secondary to cancer chemotherapy Qualified Code(s): D70.1 - Agranulocytosis secondary to cancer chemotherapy (7) DVT prophylaxis Current Visit: No Status: Acute Assessment and plan: We will provide DVT prophylaxis with intermittent compression devices, we will avoid the use of heparin in light of thrombocytopenia and acute kidney injury along with anemia (8) Acute on chronic kidney failure Current Visit: Yes Status: Acute (9) Ascites Current Visit: No Status: Acute Assessment and plan: Paracentesis performed by interventional radiology today. Fluid was sent for testing. Qualifiers: Ascites type: malignant Qualified Code(s): R18.0 - Malignant ascites (10) CAD (coronary artery disease) Current Visit: Yes Status: Chronic Qualifiers: Coronary Disease-Associated Artery/Lesion type: [place] artery [place] vs. transplanted heart: [place] heart Associated angina: without angina Qualified Code(s): I25.10 - Atherosclerotic heart disease of [place] coronary artery without angina pectoris (11) Metastatic cancer Current Visit: No Status: Acute (12) Hyperkalemia Current Visit: Yes Status: Acute Assessment and plan: hyperkalemia corrected, we will continue monitoring. (13) Ovarian cancer Current Visit: Yes Status: Chronic Assessment and plan: Management as per oncology, currently on chemotherapy. Qualifiers: Laterality: right Qualified Code(s): C56.1 - Malignant neoplasm of right ovary (14) UTI (urinary tract infection) Current Visit: Yes Status: Acute Assessment and plan: gram negative rods in urine, started on iv rocephin. Klebisella found in urine culture, yesterday I switched rocephin to Augmentin 500 mg daily in light of low GFR. Qualifiers: Urinary tract infection type: acute cystitis Hematuria presence: with hematuria Qualified Code(s): N30.01 - Acute cystitis with hematuria - Subjective Interval history: The patient was seen and examined in rounds. She denies shortness of breath, afebrile, denies dysuria. Feels better after paracentesis. - Constitutional Vitals: Temp Pulse Resp BP Pulse Ox 97.5 F L 90 16 94/54 100 01/12/17 11:36 01/12/17 11:36 01/12/17 11:36 01/12/17 11:36 01/12/17 11:36 General appearance: Present: cooperative, A&O X 3, pleasant, answers questions appropriately - Head Head exam: Present: atraumatic, normocephalic - Eye Eye exam: Present: PERRL, conjuntiva pink, sclera anicteric Pupils: Present: PERRL - Neck Neck exam general surgery: Present: supple, trachea midline. Absent: lymphadenopathy - Respiratory Respiratory exam: Present: CTAB. Absent: accessory muscle use, rales, rhonchi, wheezes - Cardiovascular Cardiovascular exam: Present: RRR, +S1, +S2. Absent: diastolic murmur, gallop, rubs, systolic murmur - GI/Abdominal GI/Abdominal exam: Present: normal bowel sounds, soft, no peritoneal signs. Absent: distended, tenderness - Extremities Exam Extremities exam: Present: warm, radial pulses palpable and symetrical. Absent : calf tenderness, cyanotic, pedal edema - Neurological Exam Neurological exam: Present: CN II-XII intact, oriented X3, no focal deficits. Absent: pronater drift, facial droop, speech deficit - Skin Skin exam: Present: dry, intact Internal Medicine: Result - Labs CBC & Chem 7: 01/12/17 04:58 01/12/17 04:58 Labs: Short CBC 01/12/17 Range/Units 04:58 WBC 1.7 L (4.3-11.1) K/mcL Hgb 7.8 L (11.5-15.4) g/dL Hct 24.0 L (35.3-44.9) % Plt Count 100 L (140-400) K/mcL Neutrophils # 1.2 L (1.6-8.9) K/mcL BMP 01/12/17 04:58 Sodium 141 Potassium 4.2 Chloride 118 H Carbon Dioxide 13 L BUN 110 H Creatinine 3.95 H Glucose 103 H Calcium 7.9 L - Impressions Impressions Paracentesis Ultrasound 01/12/17 00:00 IMPRESSION: Successful ultrasound guided paracentesis. D/ / Cheikh Francisco MD / Cheikh Francisco MD Interpreting Provider: Cheikh Francisco MD - VTE Documentation of Mechanical Device: Intermittent pneumatic compression device Consult Discharge Plan - Plan Referrals: Cleve Hannon DO [Primary Care Provider] - 01/21/17 11:30 am (Web Requested )
[2017-01-13 05:45] LABS: Mean Corpuscular Volume 92.7 fL (83.0-100.0); Red Cell Distribution Width 25.1 % (11.5-14.5)
[2017-01-13 05:47] LABS: Hematocrit 25.4 % (35.3-44.9); Hemoglobin 8.6 g/dL (11.5-15.4); Immature Granulocytes % 2.4 % (0-4); Immature Platelets 3.7 % (1.1-6.1); Lymphocytes # 0.4 K/mcL (0.6-4.6); Lymphocytes % 17.5 %; Mean Corpuscular HGB Conc 33.9 g/dL (31.6-35.5); Mean Corpuscular Hemoglobin 31.4 pg (28.0-33.3); Monocytes # 0.1 K/mcL (0.0-1.3); Monocytes % 4.8 %; Neutrophils # 1.9 K/mcL (1.6-8.9); Nucleated Red Blood Cells 0.8 /100 WBC (0); Red Blood Count 2.74 M/mcL (3.82-4.97); Segmented Neutrophils % 75.3 %
[2017-01-13 05:48] LABS: Platelet Count 83 K/mcL (140-400)
[2017-01-13 06:00] LABS: Calcium 7.9 mg/dL (8.6-10.8); Magnesium 1.5 mg/dL (1.6-2.6); Potassium 3.9 mEq/L (3.5-4.5)
[2017-01-13 06:14] LABS: Ovalocytes 3+ (Not Present); Platelet Estimate Decreased (Normal); Poikilocytosis 3+ (Not Present)
[2017-01-13 06:15] LABS: Anisocytosis 2+ (Not Present); Macrocytosis Present (Not Present)
[2017-01-13 06:16] LABS: Schistocytes 1+ (Not Present)
[2017-01-13] MEDS ORDERED: Magnesium Sulfate 1 GM in D5% in Water 100 ML IVPB ONE (07:58)
[2017-01-13] MEDS: Aspirin 325 MG TABLET PO SCH (08:06)
[2017-01-13] MEDS: Multivit/Ca/Min/Fe/FA 1 TAB TABLET PO SCH (08:07)
[2017-01-13] MEDS: Magnesium Oxide 400 MG TABLET PO SCH ×2 (08:07→20:43)
[2017-01-13] MEDS: Metoprolol XL (24 HR) Succ 50 MG TAB.ER.24H PO SCH (08:07)
[2017-01-13] MEDS: Amoxicillin/Clavulanate 500 MG TABLET PO SCH (08:07)
--- NOTE | 2017-01-13 08:20 | Nephrology Progress Note ---
Date of Encounter: 01/13/17 Time of Encounter: 08:18 - Assessment and Plan (1) MIR (acute kidney injury) Current Visit: No Status: Chronic Patient has a KI superimposed on stage IV chronic kidney disease. AK eyes in the setting of leukopenia recent administration of chemotherapy and the paracentesis. A LAVON is slowly resolving. She is on increased dose of sodium bicarbonate for the associated metabolic acidosis. That is slowly improving. Patient remained stable from a renal perspective. Her active issues are satisfactory she may be able to be discharged and we can follow her renal function as an outpatient. (2) CKD (chronic kidney disease) stage 4, GFR 15-29 ml/min Current Visit: Yes Status: Chronic (3) Immunocompromised Current Visit: No Status: Chronic Subjective Interval history: Patient reports she is feeling well. She had a paracentesis yesterday. Patient reports the removed proximally 4.8 L. Renal function continues to slowly improve. White count is starting to recover. Objective - Vital Signs Vital signs: Vital Signs Temp Pulse Resp BP Pulse Ox 01/12/17 23:27 98.4 F 92 16 108/64 97 01/12/17 19:08 98.0 F 92 16 108/54 98 01/12/17 15:36 97.7 F 86 18 97/59 99 01/12/17 11:36 97.5 F L 90 16 94/54 100 Intake and Output 01/12/17 01/13/17 01/13/17 23:59 07:59 15:59 Intake Total 240 / 240 Balance 240 / 240 Intake: Oral 240 / 240 Other: Meal Dinner Percent of Meal Consumed 100% - General Appearance Exam: Patient is alert and oriented. She is in no acute distress. Lungs sounds otherwise clear. Heart regular rate rhythm. Abdomen shows presence of ascites. Abdomen is soft there is no tenderness. There is some lower extremity swelling. - Lab 01/13/17 05:34 01/13/17 05:34 Most recent lab results Calcium 7.9 mg/dL (8.6-10.8) L 01/13/17 05:34 Phosphorus 6.4 mg/dL (2.3-4.7) H 01/09/17 04:20 Magnesium 1.5 mg/dL (1.6-2.6) L 01/13/17 05:34 - VTE Documentation of Mechanical Device: Intermittent pneumatic compression device Consult Discharge Plan - Plan Referrals: Cleve Hannon DO [Primary Care Provider] - 01/21/17 11:30 am (Web Requested )
--- NOTE | 2017-01-13 12:19 | Internal Med Progress Note ---
Date of Encounter: 01/13/17 Time of Encounter: 12:16 - Assessment and plan (1) Jieib-bf-frgpxvl kidney injury Current Visit: No Status: Acute Assessment and plan: Renal function improving Current responding appropriately to bicarb therapy will closely monitor and likely d/c in am continue to avoid nephro toxic agents nephrology eval appreciated (2) Ascites Current Visit: No Status: Acute Assessment and plan: Pt receives weekly paracentesis for ascites secondary to underlying malignancy s/p Paracentesis on 01/12/17 Qualifiers: Ascites type: malignant Qualified Code(s): R18.0 - Malignant ascites (3) CAD (coronary artery disease) Current Visit: Yes Status: Chronic Assessment and plan: continue home medications no signs of angina present at this time Qualifiers: Coronary Disease-Associated Artery/Lesion type: [place] artery [place] vs. transplanted heart: [place] heart Associated angina: without angina Qualified Code(s): I25.10 - Atherosclerotic heart disease of [place] coronary artery without angina pectoris (4) DVT prophylaxis Current Visit: No Status: Acute Assessment and plan: SCD (5) Hypomagnesemia Current Visit: No Status: Resolved Assessment and plan: Mg supplemented continue to monitor electrolytes and replace as needed (6) Ovarian cancer Current Visit: Yes Status: Chronic Assessment and plan: Management as per oncology, currently on chemotherapy. Qualifiers: Laterality: right Qualified Code(s): C56.1 - Malignant neoplasm of right ovary (7) Pancytopenia Current Visit: No Status: Chronic (8) UTI (urinary tract infection) Current Visit: Yes Status: Acute Assessment and plan: Urine culture: Klebsiella Pneumoniae will continue abx for a total of 7 days Qualifiers: Urinary tract infection type: acute cystitis Hematuria presence: with hematuria Qualified Code(s): N30.01 - Acute cystitis with hematuria - Subjective Interval history: Pt seen and examined with family present at bedside. Resting in chair and reports of feeling better today. No overnight issues were reported. - Constitutional Vitals: Temp Pulse Resp BP Pulse Ox 97.7 F 88 18 110/67 98 01/13/17 11:31 01/13/17 11:31 01/13/17 11:31 01/13/17 11:31 01/13/17 11:31 General appearance: Present: cooperative, A&O X 3, pleasant, answers questions appropriately - Head Head exam: Present: atraumatic, normocephalic - Eye Eye exam: Present: normal appearance, conjuntiva pink, sclera anicteric - Respiratory Respiratory exam: Present: CTAB. Absent: accessory muscle use, rales, rhonchi, wheezes - Cardiovascular Cardiovascular exam: Present: RRR, +S1, +S2. Absent: diastolic murmur, gallop, rubs, systolic murmur - GI/Abdominal GI/Abdominal exam: Present: normal bowel sounds, soft. Absent: tenderness - Extremities Exam Extremities exam: Present: pedal edema (bilateral lower extremity pitting edema) , warm, radial pulses palpable and symetrical. Absent: calf tenderness - Neurological Exam Neurological exam: Present: alert, oriented X3 - Psychiatric Psychiatric exam: Present: normal affect, normal mood Internal Medicine: Result - Labs CBC & Chem 7: 01/13/17 05:34 01/13/17 05:34 Labs: Short CBC 01/13/17 Range/Units 05:34 WBC 2.5 L (4.3-11.1) K/mcL Hgb 8.6 L (11.5-15.4) g/dL Hct 25.4 L (35.3-44.9) % Plt Count 83 L (140-400) K/mcL Neutrophils # 1.9 (1.6-8.9) K/mcL BMP 01/13/17 05:34 Sodium 138 Potassium 3.9 Chloride 114 H Carbon Dioxide 15 L BUN 100 H Creatinine 3.63 H Glucose 97 Calcium 7.9 L - Impressions Impressions Paracentesis Ultrasound 01/12/17 00:00 IMPRESSION: Successful ultrasound guided paracentesis. D/ / Cheikh Francisco MD / Cheikh Francisco MD Interpreting Provider: Cheikh Francisco MD - VTE Documentation of Mechanical Device: Intermittent pneumatic compression device Consult Discharge Plan - Plan Referrals: Cleve Hannon DO [Primary Care Provider] - 01/21/17 11:30 am (Web Requested )
--- NOTE | 2017-01-13 16:46 | Electrocardiograph Report ---
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
[2017-01-14 05:25] LABS: Hematocrit 22.4 % (35.3-44.9); Hemoglobin 7.5 g/dL (11.5-15.4); Mean Corpuscular HGB Conc 33.5 g/dL (31.6-35.5); Mean Corpuscular Hemoglobin 31.3 pg (28.0-33.3); Mean Corpuscular Volume 93.3 fL (83.0-100.0); Mean Platelet Volume 14.1 fL (9.4-12.4); Nucleated Red Blood Cells 1.5 /100 WBC (0); Platelet Count 147 K/mcL (140-400); Red Cell Distribution Width 24.9 % (11.5-14.5)
[2017-01-14 05:39] LABS: Calcium 7.7 mg/dL (8.6-10.8); Magnesium 1.6 mg/dL (1.6-2.6); Phosphorous 3.8 mg/dL (2.3-4.7); Potassium 3.7 mEq/L (3.5-4.5)
[2017-01-14 06:17] LABS: Lymphocytes # 0.6 K/mcL (0.6-4.6); Monocytes # 0.1 K/mcL (0.0-1.3); Neutrophils # 2.5 K/mcL (1.6-8.9); Platelet Estimate Slight Decrease (Normal)
[2017-01-14 06:18] LABS: Anisocytosis 2+ (Not Present); Macrocytosis Present (Not Present); Ovalocytes 3+ (Not Present); Poikilocytosis 2+ (Not Present); Polychromasia 1+ (Not Present); Schistocytes 1+ (Not Present)
[2017-01-14 06:19] LABS: Tear Drop Cells 1+ (Not Present)
--- NOTE | 2017-01-14 08:27 | Nephrology Progress Note ---
Date of Encounter: 01/14/17 Time of Encounter: 08:25 - Assessment and Plan (1) MIR (acute kidney injury) Current Visit: No Status: Chronic Patient has a MIR superimposed on stage IV chronic kidney disease. The patient' s renal function is improving on a daily basis. Metabolic acidosis is also improving. Patient is stable from a renal perspective. From a renal perspective she can be discharged. We will monitor her as an outpatient. (2) CKD (chronic kidney disease) stage 4, GFR 15-29 ml/min Current Visit: Yes Status: Chronic (3) Immunocompromised Current Visit: No Status: Chronic Subjective Interval history: Patient reports she is feeling well. She has a good appetite. Renal function continues to slowly improve. Serum bicarbonate is slowly increasing. Objective - Vital Signs Vital signs: Vital Signs Temp Pulse Resp BP Pulse Ox 01/14/17 07:22 97.5 F L 83 16 110/65 99 01/14/17 04:45 97.7 F 88 16 125/76 96 01/14/17 00:07 98.1 F 86 16 104/64 96 01/13/17 19:15 97.6 F 84 16 117/68 96 01/13/17 15:52 97.8 F 86 16 111/67 98 01/13/17 11:31 97.7 F 88 18 110/67 98 01/13/17 08:54 97.2 F L 85 16 120/75 97 Intake and Output 01/13/17 01/14/17 01/14/17 23:59 07:59 15:59 Intake Total 840 / 840 Output Total 500 / 500 Balance 340 / 340 Intake: Oral 840 / 840 Output: Urine 500 / 500 Other: Meal Dinner Percent of Meal Consumed 100% Weight 53.433 kg Patient Weight 01/14/17 23:59 Weight 53.433 kg - General Appearance Exam: Patient is alert and oriented. She is in no acute distress. Lungs managed per sounds otherwise clear to auscultation. Heart regular rate and rhythm. Abdomen shows ascites. Abdomen is soft. There is no tenderness nor guarding. There is some lower extremity swelling about the same as yesterday. - Lab 01/14/17 04:25 01/14/17 04:25 Most recent lab results Calcium 7.7 mg/dL (8.6-10.8) L 01/14/17 04:25 Phosphorus 3.8 mg/dL (2.3-4.7) 01/14/17 04:25 Magnesium 1.6 mg/dL (1.6-2.6) 01/14/17 04:25 - VTE Documentation of Mechanical Device: Intermittent pneumatic compression device Consult Discharge Plan - Plan Referrals: Cleve Hannon DO [Primary Care Provider] - 01/21/17 11:30 am (Web Requested )
[2017-01-14] MEDS: Magnesium Oxide 400 MG TABLET PO SCH (09:35)
[2017-01-14] MEDS: Amoxicillin/Clavulanate 500 MG TABLET PO SCH (09:35)
[2017-01-14] MEDS: Metoprolol XL (24 HR) Succ 50 MG TAB.ER.24H PO SCH (09:35)
[2017-01-14] MEDS: Multivit/Ca/Min/Fe/FA 1 TAB TABLET PO SCH (09:35)
[2017-01-14] MEDS: Aspirin 325 MG TABLET PO SCH (09:35)
[2017-01-14 09:51] LABS: Hemoglobin 8.2 g/dL (11.5-15.4)
[2017-01-14 09:58] LABS: Basophils % 0.3 %; Mean Corpuscular Hemoglobin 31.1 pg (28.0-33.3); Red Blood Count 2.64 M/mcL (3.82-4.97)
[2017-01-14 10:04] LABS: Eosinophils % 0.8 %; Hematocrit 24.7 % (35.3-44.9); Immature Granulocytes % 2.2 % (0-4); Immature Platelets 3.3 % (1.1-6.1); Lymphocytes # 0.4 K/mcL (0.6-4.6); Lymphocytes % 11.3 %; Mean Corpuscular HGB Conc 33.2 g/dL (31.6-35.5); Mean Corpuscular Volume 93.6 fL (83.0-100.0); Monocytes # 0.2 K/mcL (0.0-1.3); Monocytes % 4.8 %; Nucleated Red Blood Cells 1.6 /100 WBC (0); Platelet Count 115 K/mcL (140-400); Red Cell Distribution Width 25.3 % (11.5-14.5); Segmented Neutrophils % 80.6 %
[2017-01-14 10:24] LABS: Anisocytosis 3+ (Not Present)
[2017-01-14 10:26] LABS: Ovalocytes 2+ (Not Present); Polychromasia 2+ (Not Present)
[2017-01-14 10:27] LABS: Basophilic Stippling 2+ (Not Present)
[2017-01-14 10:28] LABS: Platelet Estimate Decreased (Normal)
[2017-01-14 10:36] VITALS: BP 102/66
--- NOTE | 2017-01-14 10:36 | Discharge Summary ---
Date of Encounter: 01/14/17 Time of Encounter: 10:34 - Discharge Diagnosis (1) Iznhd-sn-opweemc kidney injury Priority: Primary Status: Acute (2) Ascites Priority: Secondary Status: Chronic Qualifiers: Ascites type: malignant Qualified Code(s): R18.0 - Malignant ascites (3) CAD (coronary artery disease) Priority: Secondary Status: Chronic Qualifiers: Coronary Disease-Associated Artery/Lesion type: [place] artery [place] vs. transplanted heart: [place] heart Associated angina: without angina Qualified Code(s): I25.10 - Atherosclerotic heart disease of [place] coronary artery without angina pectoris (4) DVT prophylaxis Priority: Secondary Status: Acute (5) Hypomagnesemia Priority: Secondary Status: Resolved (6) Ovarian cancer Priority: Secondary Status: Chronic Qualifiers: Laterality: right Qualified Code(s): C56.1 - Malignant neoplasm of right ovary (7) Pancytopenia Priority: Secondary Status: Chronic (8) UTI (urinary tract infection) Priority: Primary Status: Acute Qualifiers: Urinary tract infection type: acute cystitis Hematuria presence: with hematuria Qualified Code(s): N30.01 - Acute cystitis with hematuria - Discharge Medications Prescriptions: Amoxicillin/Clavulanate [Augmentin] 500 mg PO DAILY #3 tablet Sodium Bicarbonate 1,300 mg PO TID #15 tablet Home Medications: Allopurinol [Zyloprim 100 MG] 100 mg PO BID 05/03/15 [History] Hydroxychloroquine [Plaquenuil] 200 mg PO QAM 05/03/15 [History] Isosorbide DInitrate [Isordil] 10 mg PO TIDAC 10/30/15 [History] Acetaminophen [Tylenol Arthritis] 650 mg PO BID PRN 04/02/16 [History] Multivitamin [Multi-Day Vitamins] 1 each PO DAILY 04/02/16 [History] Esomeprazole Magnesium [Nexium] 20 mg PO BID 07/10/16 [History] Prochlorperazine Maleate [Compazine] 10 mg PO Q8H PRN 10/23/16 [History] Magnesium Oxide [Magnesium] 400 mg PO DAILY 11/27/16 [History] Metoprolol XL (24 HR) Succ [Toprol Xl] 100 mg PO DAILY 11/27/16 [History] Aspirin 325 mg PO DAILY 01/08/17 [History] Amoxicillin/Clavulanate [Augmentin] 500 mg PO DAILY #3 tablet 01/14/17 [Rx] Sodium Bicarbonate 1,300 mg PO TID #15 tablet 01/14/17 [Rx] Allergies/Adverse Reactions: Allergies paclitaxel [From Taxol] Adverse Reaction (Severe, Verified 11/27/16 11:00) See Comments Hypertension, chest pain, pain into her right arm, shortness of breath, constant [id number] movement in the chair Procedures/tests Complete & Pending: Procedures Performed prior 72 hours Category Date Time Status IR paracentesis ultrasound [IR] Routine IR 01/12/17 Completed IR paracentesis ultrasound [IR] Routine IR 01/14/17 Ordered Date of admission: 01/08/17 22:34 Primary care physician: Cleve Hannon DO Consults: 01/09/17 08:27 Consult to Nephrology [CONS] Routine Consulting Provider: [facility] Reason for Consult: worsening renal function, met acidosis, hyperkalemia h/o ovarian cancer Call Completed: No 01/12/17 07:00 Consult to Interventional Radiology [CONS] Routine Consulting Provider: Radiology Interventional Cols Reason for Consult: ir guided paracentesis Call Completed: No Discharging clinician: Tania Daniel Anticipated date of discharge: 01/14/17 - Patient Status Disposition: Home, Self-Care Condition: Good Functional capacity at discharge: independent ambulation Overall status at discharge: patient is back to baseline - Discharge Instructions Follow Up With: Cleve Hannon DO [Primary Care Provider] - 01/21/17 11:30 am (Web Requested ) Forms: ED Satisfaction Letter Additional Instructions: Please follow up with your primary care physician within 5 days after your discharge from the hospital. Please follow up with your dredgemaster within five days after your discharge from the hospital. Your dredgemaster will closely monitor your electrolytes and kidney function. Please continue oral antibiotics as prescribed. Resume all other medications as prescribed by your primary care physician. - Diet and Activity Activity: resume usual activities as tolerated Diet: low salt diet Hospital course: Ms. Dumont is a 66 year old female past medical history of ovarian cancer, CAD, hypertension, CKD who was admitted for management of abnormal lab results. She was further noted to have urinary tract infection for which she was empirically started on IV antibiotics. She was noted to have metabolic acidosis in addition to CKD for which she was started on bicarbonate supplementation. Patient responded appropriately to therapy. Her antibiotics were switched to oral therapy as per her culture results. At this time patient is hemodynamically stable, with improvement in her renal function. She was closely followed by a dredgemaster throughout the course of this admission. She is hemodynamically stable for discharge and will follow up with primary care physician and dredgemaster after discharge. Patient demonstrates understanding of her diagnosis and agree with the discharge care and plan. - Time Spent with Patient Total time spent providing and/or coordinating discharge services: Less than 30 minutes - Constitutional Vitals: Temp Pulse Resp BP Pulse Ox 97.5 F L 83 16 110/65 99 01/14/17 07:22 01/14/17 07:22 01/14/17 07:22 01/14/17 07:22 01/14/17 07:22 General appearance: Present: cooperative, A&O X 3, pleasant, answers questions appropriately - Head Head exam: Present: atraumatic, normocephalic - Eye Eye exam: Present: normal appearance, conjuntiva pink, sclera anicteric - Respiratory Respiratory exam: Present: CTAB. Absent: accessory muscle use, rales, rhonchi, wheezes - Cardiovascular Cardiovascular exam: Present: RRR, +S1, +S2. Absent: diastolic murmur, gallop, rubs, systolic murmur - GI/Abdominal GI/Abdominal exam: Present: normal bowel sounds, soft, no peritoneal signs. Absent: distended, tenderness - Extremities Exam Extremities exam: Present: pedal edema, warm, radial pulses palpable and symetrical. Absent: calf tenderness - Neurological Exam Neurological exam: Present: alert, oriented X3 - Psychiatric Psychiatric exam: Present: normal affect, normal mood - VTE Documentation of Mechanical Device: Intermittent pneumatic compression device
== END 2017-01-14 11:35 | disposition home or self-care (01) | DRG 682 ==
LOC: EMEROO 17:19 → 2ANU 17:19 → SUATTDRO 22:34 → 2ANU 01-09 03:42
PROVIDERS: ADMIT Internal Medicine; ATTEND Internal Medicine

== ENCOUNTER 2017-02-14 07:56 | Inpatient (IN) ==
[2017-02-14] MEDS ORDERED: *HR* HYDROmorphone (PF) 1 MG/ML SYRINGE IVP ONE ×3 (08:34→12:43)
[2017-02-14] MEDS ORDERED: Ondansetron 4 MG/2 ML VIAL IVP ONE (08:34)
[2017-02-14] MEDS ORDERED: 0.9 % Sodium Chloride 500 ML IVC ONE ×2 (08:37→11:44)
--- NOTE | 2017-02-14 08:41 | Emergency Department Note ---
Disposition Clinical Impression: Sepsis, Pneumonia Disposition: Admitted As Inpatient Condition: Fair Time of Disposition: 12:34 Abdominal Pain HPI - General Chief Complaint: ED Abdominal Pain Stated Complaint: abd pain Time Seen by Provider: 02/14/17 08:19 Source: patient Mode of arrival: private vehicle Limitations: no limitations Nursing Notes Reviewed: Yes Vital Signs Reviewed: Yes - History of Present Illness HPI Narrative: 66-year-old female with history of ovarian cancer, end-stage renal disease on Thursday dialysis, PE, heart disease presents with epigastric abdominal pain persisting over the last 2 days. She states that it began before going to bed 2 nights ago and has persisted. It is sharp and nonradiating and constant. It is associated with nausea and poor appetite without vomiting. Patient states that she ate a piece of plain toast yesterday , but could not tolerate anything else. She has history of prior hysterectomy for fibroids. She does not make urine. She denies any fever, headache, confusion, cough or chest pain. She denies any melena or history of GI bleed. She states that she had a normal colonoscopy about 2 years ago. She does admit to exertional dyspnea. She denies any localizing abdominal pain. She admits to one episode of light-colored diarrhea yesterday. She has pedal edema which she states is at baseline. She denies any calf tenderness. She had a permacath placed a few weeks ago. Patient has weekly chemotherapy, but did not receive it this week due to low blood counts. Hemoglobin was 7.9 most recently. Pt Subjective Complaint: abdominal pain Pain Scale: 8 - Related Data Home Medications Medication Instructions Recorded Confirmed Allopurinol [Zyloprim 100 MG] 100 mg PO BID 05/03/15 02/14/17 Hydroxychloroquine [Plaquenuil] 200 mg PO QAM 05/03/15 02/14/17 Isosorbide DInitrate [Isordil] 10 mg PO TIDAC 10/30/15 02/14/17 Acetaminophen [Tylenol Arthritis] 650 mg PO BID PRN 04/02/16 02/14/17 Multivitamin [Multi-Day Vitamins] 1 tab PO DAILY 04/02/16 02/14/17 Esomeprazole Magnesium [Nexium] 20 mg PO BID 07/10/16 02/14/17 Prochlorperazine Maleate 10 mg PO Q8H PRN 10/23/16 02/14/17 [Compazine] Magnesium Oxide [Magnesium] 400 mg PO DAILY 11/27/16 02/14/17 Metoprolol XL (24 HR) Succ [Toprol 50 mg PO DAILY 11/27/16 02/14/17 Xl] Aspirin 325 mg PO DAILY 01/08/17 02/14/17 Cinacalcet [Sensipar] 30 mg PO DAILY 02/14/17 02/14/17 Midodrine [ProAmatine] 10 mg PO BID 02/14/17 02/14/17 Sevelamer [Renvela] 800 mg PO TID 02/14/17 02/14/17 Sodium Bicarbonate 1,300 mg PO BID 02/14/17 02/14/17 Previous Rx's Medication Instructions Recorded OxyCODONE Immed Rel [Roxicodone 5 5 mg PO BID PRN #60 tablet 01/16/17 MG] Allergies Allergy/AdvReac Type Severity Reaction Status Date / Time paclitaxel [From Taxol] AdvReac Severe See Verified 02/14/17 08:03 Comments All systems ED: reviewed and negative except as stated. Abdominal Pain PMH - Past Medical History Medical history: Reports: arthritis, cancer, CHF, coronary artery disease, DVT, hypertension, malignancy, pulmonary embolus, renal disease, other Female Surgical History: Reports: other Psychiatric history: Reports: no psych history - Social History Smoking status: Never smoker Alcohol use: Reports: none Drug use: Reports: none Physical Exam - Head Head exam: atraumatic, normocephalic, normal inspection - Eye Eye exam: Present: normal appearance, PERRL, EOMI - ENT ENT exam: normal exam, normal oropharynx, mucous membranes moist - Neck Neck exam: Present: normal inspection, full ROM, trachea midline - Chest There is a port present in the right upper chest and a dialysis catheter in the left upper chest. - Respiratory Respiratory exam: Clear to auscultation bilaterally without wheezes rales or rhonchi Cardiovascular Cardiovascular exam: Present: regular rate, normal rhythm, normal heart sounds - Abdominal Exam Abdomen is distended and soft with positive bowel sounds and diffuse mild tenderness. No definite masses. - Lower extremity exam_ Bilateral pedal edema without tenderness. - Back Exam Back exam: Present: normal inspection, full ROM. Absent: tenderness, CVA tenderness (R), CVA tenderness (L) - Neurological Exam Neurological exam: Present: alert, oriented X3, CN II-XII intact - Psychiatric Psychiatric exam: Present: normal affect, normal mood - Skin Skin exam: Present: warm, dry, intact, pale color - General Limitations: no limitations General appearance: alert, in no apparent distress Course - Reevaluation(s) Reevaluation #1: Lactate found to be elevated to 4.5. Patient is receiving a fluid bolus. Troponin elevated to 0.1. Patient is receiving aspirin. Broad-spectrum antibiotics were ordered with concern for possible SBP. Patient is going to CT and we will perform a paracentesis if this does not elicit a cause of her condition. Patient notes that she is full code and is to be intubated in the event of respiratory failure. Blood pressure remains in the 90s over 50s. Normal for the patient is 100-110 systolic. Time: 09:45 Reevaluation #2: Paracentesis performed by Dr. Murphy. He obtained 5 mL of clear fluid for diagnostic purposes. Labs are pending on this. I discussed the case with hospitalist finish production manager Dr. Kennedy. He requests a repeat lactate and would like the patient in ICU of lactated is not trending down. This is drawn. We will admit the patient after lactate returned. Time: 11:44 Reevaluation #3: Repeat lactate is improved to 1.9. Patient will be admitted to hospitalist service in the stepdown unit. Time: 12:33 Vital Signs Temperature 97.9 F 02/14/17 07:59 Pulse Rate 79 02/14/17 07:59 Respiratory Rate 16 02/14/17 07:59 Blood Pressure 75/51 02/14/17 07:59 O2 Sat by Pulse Oximetry 94 02/14/17 07:59 Temperature 97.9 F 02/14/17 07:59 Pulse Rate 83 02/14/17 13:56 Respiratory Rate 18 02/14/17 13:49 Blood Pressure 93/59 02/14/17 13:49 O2 Sat by Pulse Oximetry 98 02/14/17 13:56 Oxygen Delivery Oxygen Delivery Room Air Abdominal Pain - Medical Records Medical records reviewed: Yes I reviewed the patient's medical records. - Lab Data Lab results reviewed: Yes I reviewed the patient's lab results. Result diagrams: 02/14/17 09:00 02/14/17 09:00 Lab Results 02/14/17 02/14/17 02/14/17 Range/Units 08:45 09:00 09:00 WBC 28.8 H D (4.3-11.1) K/mcL RBC 3.67 L (3.82-4.97) M/mcL Hgb 12.5 D (11.5-15.4) g/dL Hct 38.5 (35.3-44.9) % MCV 104.9 H (83.0-100.0) fL MCH 34.1 H (28.0-33.3) pg MCHC 32.5 (31.6-35.5) g/dL RDW 27.2 H (11.5-14.5) % Plt Count 140 D (140-400) K/mcL MPV TNP Seg Neutrophils % 78.0 % Band Neutrophils % 10.0 H (0-4) % Lymphocytes % 4.0 % Monocytes % 8.0 % Neutrophils # 25.3 H (1.6-8.9) K/mcL Lymphocytes # 1.2 (0.6-4.6) K/mcL Monocytes # 2.3 H (0.0-1.3) K/mcL Nucleated RBCs/100 WBC 1.4 H (0) /100 WBC Platelet Estimate Decreased L (Normal) Large Platelets Present A (Not Present) Polychromasia 1+ A (Not Present) Anisocytosis 1+ A (Not Present) Macrocytosis Present A (Not Present) Ovalocytes 1+ A (Not Present) PT (9.4-12.1) Seconds INR Sodium 138 (136-145) mEq/L Potassium 5.7 H D (3.5-4.5) mEq/L Chloride 102 (98-109) mEq/L Carbon Dioxide 19 (19-29) mEq/L BUN 43 H (7-20) mg/dL Creatinine 4.98 H (0.57-1.11) mg/dL Est GFR ( Amer) 10 L (> 60) Est GFR (Non-Af Amer) 9 L (> 60) BUN/Creatinine Ratio 9 (6-26) Glucose 57 L (70-99) mg/dL Calculated Osmolality 295 (280-300) Lactic Acid (0.5-2.2) mmol/L Calcium 8.2 L (8.6-10.8) mg/dL Phosphorus (2.3-4.7) mg/dL Magnesium (1.6-2.6) mg/dL Total Bilirubin 4.8 H D (0.2-1.2) mg/dL Direct Bilirubin 1.8 H (0.0-0.5) mg/dL Indirect Bilirubin 3.0 H (0.0-1.2) mg/dL AST 36 H (5-34) Units/L ALT 32 (0-55) Units/L Alkaline Phosphatase 296 H (38-126) Units/L Troponin I (0-0.03) ng/mL B-Natriuretic Peptide (0-100) pg/mL Serum Total Protein 4.7 L D (6.0-8.3) g/dL Albumin 2.3 L (3.5-5.0) g/dL Globulin 2.4 (2.4-3.5) g/dL Albumin/Globulin Ratio 1.0 L (1.1-2.2) Lipase < 4 L (8-78) Units/L Peritoneal Appearance (Clear) Peritoneal Volume mL Peritoneal RBC (0.000 - 0.002) M/mcL Periton Tot Nuc Cells (0-300) TNC/mcL Periton Neutrophils % Periton Band Neuts Peritoneal Eosinophils Peritoneal Basophils Periton Lymphocytes % Periton Monocytes % % Periton Other Cells % % Stool Occult Blood Negative (Negative) Blood Type Antibody Screen 02/14/17 02/14/17 02/14/17 Range/Units 09:00 09:00 09:00 WBC (4.3-11.1) K/mcL RBC (3.82-4.97) M/mcL Hgb (11.5-15.4) g/dL Hct (35.3-44.9) % MCV (83.0-100.0) fL MCH (28.0-33.3) pg MCHC (31.6-35.5) g/dL RDW (11.5-14.5) % Plt Count (140-400) K/mcL MPV Seg Neutrophils % % Band Neutrophils % (0-4) % Lymphocytes % % Monocytes % % Neutrophils # (1.6-8.9) K/mcL Lymphocytes # (0.6-4.6) K/mcL Monocytes # (0.0-1.3) K/mcL Nucleated RBCs/100 WBC (0) /100 WBC Platelet Estimate (Normal) Large Platelets (Not Present) Polychromasia (Not Present) Anisocytosis (Not Present) Macrocytosis (Not Present) Ovalocytes (Not Present) PT (9.4-12.1) Seconds INR Sodium (136-145) mEq/L Potassium (3.5-4.5) mEq/L Chloride (98-109) mEq/L Carbon Dioxide (19-29) mEq/L BUN (7-20) mg/dL Creatinine (0.57-1.11) mg/dL Est GFR ( Amer) (> 60) Est GFR (Non-Af Amer) (> 60) BUN/Creatinine Ratio (6-26) Glucose (70-99) mg/dL Calculated Osmolality (280-300) Lactic Acid 4.3 H* (0.5-2.2) mmol/L Calcium (8.6-10.8) mg/dL Phosphorus 4.9 H (2.3-4.7) mg/dL Magnesium 1.4 L (1.6-2.6) mg/dL Total Bilirubin (0.2-1.2) mg/dL Direct Bilirubin (0.0-0.5) mg/dL Indirect Bilirubin (0.0-1.2) mg/dL AST (5-34) Units/L ALT (0-55) Units/L Alkaline Phosphatase (38-126) Units/L Troponin I 0.10 H* (0-0.03) ng/mL B-Natriuretic Peptide (0-100) pg/mL Serum Total Protein (6.0-8.3) g/dL Albumin (3.5-5.0) g/dL Globulin (2.4-3.5) g/dL Albumin/Globulin Ratio (1.1-2.2) Lipase (8-78) Units/L Peritoneal Appearance (Clear) Peritoneal Volume mL Peritoneal RBC (0.000 - 0.002) M/mcL Periton Tot Nuc Cells (0-300) TNC/mcL Periton Neutrophils % Periton Band Neuts Peritoneal Eosinophils Peritoneal Basophils Periton Lymphocytes % Periton Monocytes % % Periton Other Cells % % Stool Occult Blood (Negative) Blood Type Antibody Screen 02/14/17 02/14/17 02/14/17 Range/Units 09:00 09:00 09:00 WBC (4.3-11.1) K/mcL RBC (3.82-4.97) M/mcL Hgb (11.5-15.4) g/dL Hct (35.3-44.9) % MCV (83.0-100.0) fL MCH (28.0-33.3) pg MCHC (31.6-35.5) g/dL RDW (11.5-14.5) % Plt Count (140-400) K/mcL MPV Seg Neutrophils % % Band Neutrophils % (0-4) % Lymphocytes % % Monocytes % % Neutrophils # (1.6-8.9) K/mcL Lymphocytes # (0.6-4.6) K/mcL Monocytes # (0.0-1.3) K/mcL Nucleated RBCs/100 WBC (0) /100 WBC Platelet Estimate (Normal) Large Platelets (Not Present) Polychromasia (Not Present) Anisocytosis (Not Present) Macrocytosis (Not Present) Ovalocytes (Not Present) PT 14.8 H (9.4-12.1) Seconds INR 1.4 Sodium (136-145) mEq/L Potassium (3.5-4.5) mEq/L Chloride (98-109) mEq/L Carbon Dioxide (19-29) mEq/L BUN (7-20) mg/dL Creatinine (0.57-1.11) mg/dL Est GFR ( Amer) (> 60) Est GFR (Non-Af Amer) (> 60) BUN/Creatinine Ratio (6-26) Glucose (70-99) mg/dL Calculated Osmolality (280-300) Lactic Acid (0.5-2.2) mmol/L Calcium (8.6-10.8) mg/dL Phosphorus (2.3-4.7) mg/dL Magnesium (1.6-2.6) mg/dL Total Bilirubin (0.2-1.2) mg/dL Direct Bilirubin (0.0-0.5) mg/dL Indirect Bilirubin (0.0-1.2) mg/dL AST (5-34) Units/L ALT (0-55) Units/L Alkaline Phosphatase (38-126) Units/L Troponin I (0-0.03) ng/mL B-Natriuretic Peptide 333 H (0-100) pg/mL Serum Total Protein (6.0-8.3) g/dL Albumin (3.5-5.0) g/dL Globulin (2.4-3.5) g/dL Albumin/Globulin Ratio (1.1-2.2) Lipase (8-78) Units/L Peritoneal Appearance (Clear) Peritoneal Volume mL Peritoneal RBC (0.000 - 0.002) M/mcL Periton Tot Nuc Cells (0-300) TNC/mcL Periton Neutrophils % Periton Band Neuts Peritoneal Eosinophils Peritoneal Basophils Periton Lymphocytes % Periton Monocytes % % Periton Other Cells % % Stool Occult Blood (Negative) Blood Type A POSITIVE Antibody Screen NEGATIVE 02/14/17 02/14/17 Range/Units 11:15 11:55 WBC (4.3-11.1) K/mcL RBC (3.82-4.97) M/mcL Hgb (11.5-15.4) g/dL Hct (35.3-44.9) % MCV (83.0-100.0) fL MCH (28.0-33.3) pg MCHC (31.6-35.5) g/dL RDW (11.5-14.5) % Plt Count (140-400) K/mcL MPV Seg Neutrophils % % Band Neutrophils % (0-4) % Lymphocytes % % Monocytes % % Neutrophils # (1.6-8.9) K/mcL Lymphocytes # (0.6-4.6) K/mcL Monocytes # (0.0-1.3) K/mcL Nucleated RBCs/100 WBC (0) /100 WBC Platelet Estimate (Normal) Large Platelets (Not Present) Polychromasia (Not Present) Anisocytosis (Not Present) Macrocytosis (Not Present) Ovalocytes (Not Present) PT (9.4-12.1) Seconds INR Sodium (136-145) mEq/L Potassium (3.5-4.5) mEq/L Chloride (98-109) mEq/L Carbon Dioxide (19-29) mEq/L BUN (7-20) mg/dL Creatinine (0.57-1.11) mg/dL Est GFR ( Amer) (> 60) Est GFR (Non-Af Amer) (> 60) BUN/Creatinine Ratio (6-26) Glucose (70-99) mg/dL Calculated Osmolality (280-300) Lactic Acid 1.9 (0.5-2.2) mmol/L Calcium (8.6-10.8) mg/dL Phosphorus (2.3-4.7) mg/dL Magnesium (1.6-2.6) mg/dL Total Bilirubin (0.2-1.2) mg/dL Direct Bilirubin (0.0-0.5) mg/dL Indirect Bilirubin (0.0-1.2) mg/dL AST (5-34) Units/L ALT (0-55) Units/L Alkaline Phosphatase (38-126) Units/L Troponin I (0-0.03) ng/mL B-Natriuretic Peptide (0-100) pg/mL Serum Total Protein (6.0-8.3) g/dL Albumin (3.5-5.0) g/dL Globulin (2.4-3.5) g/dL Albumin/Globulin Ratio (1.1-2.2) Lipase (8-78) Units/L Peritoneal Appearance HAZY (Clear) Peritoneal Volume 5.0 mL Peritoneal RBC < 0.002 (0.000 - 0.002) M/mcL Periton Tot Nuc Cells 2158 H (0-300) TNC/mcL Periton Neutrophils 94.0 % Periton Band Neuts Test Not Performed Peritoneal Eosinophils Test Not Performed Peritoneal Basophils Test Not Performed Periton Lymphocytes % Test Not Performed Periton Monocytes % 5.0 % Periton Other Cells % 1.0 % Stool Occult Blood (Negative) Blood Type Antibody Screen - Radiology Data Radiology results reviewed: Yes I reviewed the patient's radiology results. Abdomen/Pelvis CT 02/14/17 08:35 IMPRESSION: 1. Slight decrease in size of the 10 cm right adnexal mass due to bilateral ovarian carcinoma. 2. New trace bilateral pleural effusions with unchanged mosaic perfusion pattern. 3. Large amount of ascites with worsening moderate anasarca. 4. Unchanged splenomegaly with splenic infarct. D/ / Shahab Jurado MD / Shahab Jurado MD Interpreting Provider: Shahab Jurado MD Chest X-Ray 02/14/17 08:35 IMPRESSION: Mild left basilar airspace disease. D/ / Clifford Vann MD / Clifford Vann MD Interpreting Provider: Clifford Vann MD - EKG Data EKG attestation: Yes I reviewed and interpreted this EKG. EKG results narrative: EKG shows normal sinus rhythm at 92 with left axis deviation and short MI interval at 116. There is anterior discordant ST elevation consistent with left bundle branch block. Otherwise no ST elevation or depression. These ST changes are unchanged when compared with 01/11/2017. This is an abnormal EKG. Critical Care Time Critical Care Time: Yes Total Critical Care Time: 35 Attestation: The high probability of a clinically significant, sudden or life threatening deterioration of the [hemodynamic] system(s) required my full and direct attention, intervention and personal management. The aggregate critical care time was [35] minutes. This time is in addition to time spent performing reported procedures but includes the following: [X] Data Review and interpretation [X] Patient assessment and monitoring of vital signs [X] Documentation [X] Medication orders and management Attestation Statement - Attestation Attestation: I personally interviewed and examined this patient and my medical decision- making was reviewed with the ED Resident Physician, Dr. Garcia I agree with the documented findings, disposition and treatment plan as described except to the extent set forth below. 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 She also has a history of renal failure and dialyzes on Thursday and Thursday. Patient missed her dialysis session this morning due to not feeling well and having a 2 day history of continued generalized abdominal pain which has gradually worsened over the course of last 48 hours associated with mild nausea and decreased appetite. Patient's states that she no longer makes urine secondary to her kidney disease. Patient denies any fevers or chills, no upper respiratory symptoms cough or shortness of breath , no chest pain or pressure sensation. Patient does have some plan bilateral lower extremity edema which she states is baseline for her and denies any lower extremity pain. Patient has been getting regular paracentesis to remove abdominal ascites secondary to her ovarian CVA. Last episode was a week ago. Patient has no abdominal redness erythema or warmth to touch. Pt arrives afebrile and hypotensive on arrival looking clinically dehydrated. Established IV access and initiated fluid bolus on arrival and continued cardiac monitoring and pulse ox. Did empirically draw blood cultures and start broad-spectrum antibiotics. The patient's physical exam findings as documented. Patient's white count was significantly elevated at 28 with a left shift. Patient's H&H is stable. Patient with elevated bilirubin. Due to concern for sepsis with patient's hypotension lactate was also ordered which initial value was over 4. Due to the height of the initial lactate IV fluid bolus was initiated, patient was started on broad-spectrum antibiotics to cover spontaneous bacterial peritonitis as we are concerned about this as an etiology. Patient also had a repeat scheduled lactate ordered. Patient's blood pressure improved nicely with IV fluids. Due to concern for possible peritonitis we proceeded with a bedside paracentesis to obtain fluid for culture and analysis. Please see procedure note. This was supervised by myself at bedside during procedure. Patient with no complications during procedure and tolerated it well. CT abdomen and pelvis shows significant ascites, but no other acute abnormality seen. Pt not will be admitted for sepsis and abdominal pain, has improved vital signs following IV fluid administration. Antibiotics are being administered. Patient 's clinical status is improved at this time and repeat lactate significantly improved from initial. Discussed with the hospitalist patient will be admitted for further evaluation and treatment.
[2017-02-14 09:10] LABS: Hematocrit 38.5 % (35.3-44.9); Hemoglobin 12.5 g/dL (11.5-15.4); Mean Corpuscular HGB Conc 32.5 g/dL (31.6-35.5); Mean Corpuscular Hemoglobin 34.1 pg (28.0-33.3); Mean Corpuscular Volume 104.9 fL (83.0-100.0); Nucleated Red Blood Cells 1.4 /100 WBC (0); Platelet Count 140 K/mcL (140-400); Red Blood Count 3.67 M/mcL (3.82-4.97); Red Cell Distribution Width 27.2 % (11.5-14.5)
[2017-02-14 09:15] LABS: INR 1.4; Prothrombin Time 14.8 Seconds (9.4-12.1)
[2017-02-14 09:25] LABS: Alanine Aminotransferase 32 Units/L (0-55); Albumin 2.3 g/dL (3.5-5.0); Alkaline Phosphatase 296 Units/L (38-126); Aspartate Amino Transferase 36 Units/L (5-34); BUN/Creatinine Ratio 9 (6-26); Bilirubin,Direct 1.8 mg/dL (0.0-0.5); Blood Urea Nitrogen 43 mg/dL (7-20); Calcium 8.2 mg/dL (8.6-10.8); Carbon Dioxide 19 mEq/L (19-29); Chloride 102 mEq/L (98-109); Globulin 2.4 g/dL (2.4-3.5); Glucose 57 mg/dL (70-99); Magnesium 1.4 mg/dL (1.6-2.6); Osmolality,Calculated 295 (280-300); Phosphorous 4.9 mg/dL (2.3-4.7); Sodium 138 mEq/L (136-145); eGFR For African Americans 10 (> 60); eGFR For Non-African Americans 9 (> 60)
[2017-02-14] MEDS ORDERED: Vancomycin 1,000 MG in D5% in Water 250 ML IVPB ONE (09:25)
[2017-02-14] MEDS ORDERED: Cefotaxime 1,000 MG in D5% in Water (Mini-Bag+) 100 ML IVPB ONE (09:25)
[2017-02-14] MEDS ORDERED: 0.9 % Sodium Chloride 1,000 ML IVC ONE (09:25)
[2017-02-14 09:26] LABS: Bilirubin,Total 4.8 mg/dL (0.2-1.2); Lipase < 4 Units/L (8-78); Total Protein 4.7 g/dL (6.0-8.3)
[2017-02-14 09:28] LABS: Potassium 5.7 mEq/L (3.5-4.5)
[2017-02-14] MEDS ORDERED: Aspirin 81 MG TAB.CHEW PO ONE (09:43)
[2017-02-14 09:58] LABS: Lymphocytes # 1.2 K/mcL (0.6-4.6); Monocytes # 2.3 K/mcL (0.0-1.3); Neutrophils # 25.3 K/mcL (1.6-8.9)
[2017-02-14 09:59] LABS: Anisocytosis 1+ (Not Present); Large Platelets Present (Not Present); Ovalocytes 1+ (Not Present); Platelet Estimate Decreased (Normal); Polychromasia 1+ (Not Present)
[2017-02-14 10:00] LABS: Macrocytosis Present (Not Present)
--- NOTE | 2017-02-14 11:37 | Emergency Department Note ---
Disposition Clinical Impression: Sepsis, Pneumonia Disposition: Admitted As Inpatient Condition: Fair General Adult HPI - General Chief complaint: ED Abdominal Pain Stated complaint: abd pain Time Seen by Provider: 02/14/17 08:19 Source: patient Mode of arrival: private vehicle Limitations: no limitations Nursing Notes Reviewed: Yes Vital Signs Reviewed: Yes - History of Present Illness HPI Narrative: I performed the diagnostic paracentesis. Please refer to Dr. Garcia's note for further details Pain Scale: 8 - Related Data Home Medications Medication Instructions Recorded Confirmed Allopurinol [Zyloprim 100 MG] 100 mg PO BID 05/03/15 02/14/17 Hydroxychloroquine [Plaquenuil] 200 mg PO QAM 05/03/15 02/14/17 Isosorbide DInitrate [Isordil] 10 mg PO TIDAC 10/30/15 02/14/17 Acetaminophen [Tylenol Arthritis] 650 mg PO BID PRN 04/02/16 02/14/17 Multivitamin [Multi-Day Vitamins] 1 tab PO DAILY 04/02/16 02/14/17 Esomeprazole Magnesium [Nexium] 20 mg PO BID 07/10/16 02/14/17 Prochlorperazine Maleate 10 mg PO Q8H PRN 10/23/16 02/14/17 [Compazine] Magnesium Oxide [Magnesium] 400 mg PO DAILY 11/27/16 02/14/17 Metoprolol XL (24 HR) Succ [Toprol 50 mg PO DAILY 11/27/16 02/14/17 Xl] Aspirin 325 mg PO DAILY 01/08/17 02/14/17 Cinacalcet [Sensipar] 30 mg PO DAILY 02/14/17 02/14/17 Midodrine [ProAmatine] 10 mg PO BID 02/14/17 02/14/17 Sevelamer [Renvela] 800 mg PO TID 02/14/17 02/14/17 Sodium Bicarbonate 1,300 mg PO BID 02/14/17 02/14/17 Previous Rx's Medication Instructions Recorded OxyCODONE Immed Rel [Roxicodone 5 5 mg PO BID PRN #60 tablet 01/16/17 MG] Allergies Allergy/AdvReac Type Severity Reaction Status Date / Time paclitaxel [From Taxol] AdvReac Severe See Verified 02/14/17 08:03 Comments Past Medical History - Past Medical History Medical history: Reports: arthritis, cancer, CHF, coronary artery disease, DVT, hypertension, malignancy, pulmonary embolus, renal disease, other Surgical history: Reports: hysterectomy Psychiatric history: Reports: no psych history - Social History Smoking Status: Never smoker Smokeless Tobacco Status: No Alcohol use: Reports: none Drug use: Reports: none Physical Exam - General Limitations: no limitations General appearance: alert, in no apparent distress Course Vital Signs Temperature 97.9 F 02/14/17 07:59 Pulse Rate 79 02/14/17 07:59 Respiratory Rate 16 02/14/17 07:59 Blood Pressure 75/51 02/14/17 07:59 O2 Sat by Pulse Oximetry 94 02/14/17 07:59 Temperature 97.9 F 02/14/17 07:59 Pulse Rate 82 02/14/17 13:11 Respiratory Rate 18 02/14/17 13:29 Blood Pressure 91/49 02/14/17 13:29 O2 Sat by Pulse Oximetry 93 02/14/17 13:11 Oxygen Delivery Oxygen Delivery Room Air Procedures - Paracentesis Consent Obtained: written consent Time Out Performed: Yes Local Anesthetic: lidocaine 1% Amount of anesthesia used (mL): 8 Fluid: clear, sent to lab for analysis Post Procedure Exam: awake, alert, normal BP, normal HR Patient Tolerated Procedure: well Complications: none Medical Decision Making - Medical Records Medical records reviewed: Yes I reviewed the patient's medical records. - Lab Data Lab results reviewed: Yes I reviewed the patient's lab results. Result diagrams: 02/14/17 09:00 02/14/17 09:00 Lab Results 02/14/17 02/14/17 02/14/17 Range/Units 08:45 09:00 09:00 WBC 28.8 H D (4.3-11.1) K/mcL RBC 3.67 L (3.82-4.97) M/mcL Hgb 12.5 D (11.5-15.4) g/dL Hct 38.5 (35.3-44.9) % MCV 104.9 H (83.0-100.0) fL MCH 34.1 H (28.0-33.3) pg MCHC 32.5 (31.6-35.5) g/dL RDW 27.2 H (11.5-14.5) % Plt Count 140 D (140-400) K/mcL MPV TNP Seg Neutrophils % 78.0 % Band Neutrophils % 10.0 H (0-4) % Lymphocytes % 4.0 % Monocytes % 8.0 % Neutrophils # 25.3 H (1.6-8.9) K/mcL Lymphocytes # 1.2 (0.6-4.6) K/mcL Monocytes # 2.3 H (0.0-1.3) K/mcL Nucleated RBCs/100 WBC 1.4 H (0) /100 WBC Platelet Estimate Decreased L (Normal) Large Platelets Present A (Not Present) Polychromasia 1+ A (Not Present) Anisocytosis 1+ A (Not Present) Macrocytosis Present A (Not Present) Ovalocytes 1+ A (Not Present) PT (9.4-12.1) Seconds INR Sodium 138 (136-145) mEq/L Potassium 5.7 H D (3.5-4.5) mEq/L Chloride 102 (98-109) mEq/L Carbon Dioxide 19 (19-29) mEq/L BUN 43 H (7-20) mg/dL Creatinine 4.98 H (0.57-1.11) mg/dL Est GFR ( Amer) 10 L (> 60) Est GFR (Non-Af Amer) 9 L (> 60) BUN/Creatinine Ratio 9 (6-26) Glucose 57 L (70-99) mg/dL Calculated Osmolality 295 (280-300) Lactic Acid (0.5-2.2) mmol/L Calcium 8.2 L (8.6-10.8) mg/dL Phosphorus (2.3-4.7) mg/dL Magnesium (1.6-2.6) mg/dL Total Bilirubin 4.8 H D (0.2-1.2) mg/dL Direct Bilirubin 1.8 H (0.0-0.5) mg/dL Indirect Bilirubin 3.0 H (0.0-1.2) mg/dL AST 36 H (5-34) Units/L ALT 32 (0-55) Units/L Alkaline Phosphatase 296 H (38-126) Units/L Troponin I (0-0.03) ng/mL B-Natriuretic Peptide (0-100) pg/mL Serum Total Protein 4.7 L D (6.0-8.3) g/dL Albumin 2.3 L (3.5-5.0) g/dL Globulin 2.4 (2.4-3.5) g/dL Albumin/Globulin Ratio 1.0 L (1.1-2.2) Lipase < 4 L (8-78) Units/L Peritoneal RBC (0.000 - 0.002) M/mcL Periton Tot Nuc Cells (0-300) TNC/mcL Stool Occult Blood Negative (Negative) Blood Type Antibody Screen 02/14/17 02/14/17 02/14/17 Range/Units 09:00 09:00 09:00 WBC (4.3-11.1) K/mcL RBC (3.82-4.97) M/mcL Hgb (11.5-15.4) g/dL Hct (35.3-44.9) % MCV (83.0-100.0) fL MCH (28.0-33.3) pg MCHC (31.6-35.5) g/dL RDW (11.5-14.5) % Plt Count (140-400) K/mcL MPV Seg Neutrophils % % Band Neutrophils % (0-4) % Lymphocytes % % Monocytes % % Neutrophils # (1.6-8.9) K/mcL Lymphocytes # (0.6-4.6) K/mcL Monocytes # (0.0-1.3) K/mcL Nucleated RBCs/100 WBC (0) /100 WBC Platelet Estimate (Normal) Large Platelets (Not Present) Polychromasia (Not Present) Anisocytosis (Not Present) Macrocytosis (Not Present) Ovalocytes (Not Present) PT (9.4-12.1) Seconds INR Sodium (136-145) mEq/L Potassium (3.5-4.5) mEq/L Chloride (98-109) mEq/L Carbon Dioxide (19-29) mEq/L BUN (7-20) mg/dL Creatinine (0.57-1.11) mg/dL Est GFR ( Amer) (> 60) Est GFR (Non-Af Amer) (> 60) BUN/Creatinine Ratio (6-26) Glucose (70-99) mg/dL Calculated Osmolality (280-300) Lactic Acid 4.3 H* (0.5-2.2) mmol/L Calcium (8.6-10.8) mg/dL Phosphorus 4.9 H (2.3-4.7) mg/dL Magnesium 1.4 L (1.6-2.6) mg/dL Total Bilirubin (0.2-1.2) mg/dL Direct Bilirubin (0.0-0.5) mg/dL Indirect Bilirubin (0.0-1.2) mg/dL AST (5-34) Units/L ALT (0-55) Units/L Alkaline Phosphatase (38-126) Units/L Troponin I 0.10 H* (0-0.03) ng/mL B-Natriuretic Peptide (0-100) pg/mL Serum Total Protein (6.0-8.3) g/dL Albumin (3.5-5.0) g/dL Globulin (2.4-3.5) g/dL Albumin/Globulin Ratio (1.1-2.2) Lipase (8-78) Units/L Peritoneal RBC (0.000 - 0.002) M/mcL Periton Tot Nuc Cells (0-300) TNC/mcL Stool Occult Blood (Negative) Blood Type Antibody Screen 02/14/17 02/14/17 02/14/17 Range/Units 09:00 09:00 09:00 WBC (4.3-11.1) K/mcL RBC (3.82-4.97) M/mcL Hgb (11.5-15.4) g/dL Hct (35.3-44.9) % MCV (83.0-100.0) fL MCH (28.0-33.3) pg MCHC (31.6-35.5) g/dL RDW (11.5-14.5) % Plt Count (140-400) K/mcL MPV Seg Neutrophils % % Band Neutrophils % (0-4) % Lymphocytes % % Monocytes % % Neutrophils # (1.6-8.9) K/mcL Lymphocytes # (0.6-4.6) K/mcL Monocytes # (0.0-1.3) K/mcL Nucleated RBCs/100 WBC (0) /100 WBC Platelet Estimate (Normal) Large Platelets (Not Present) Polychromasia (Not Present) Anisocytosis (Not Present) Macrocytosis (Not Present) Ovalocytes (Not Present) PT 14.8 H (9.4-12.1) Seconds INR 1.4 Sodium (136-145) mEq/L Potassium (3.5-4.5) mEq/L Chloride (98-109) mEq/L Carbon Dioxide (19-29) mEq/L BUN (7-20) mg/dL Creatinine (0.57-1.11) mg/dL Est GFR ( Amer) (> 60) Est GFR (Non-Af Amer) (> 60) BUN/Creatinine Ratio (6-26) Glucose (70-99) mg/dL Calculated Osmolality (280-300) Lactic Acid (0.5-2.2) mmol/L Calcium (8.6-10.8) mg/dL Phosphorus (2.3-4.7) mg/dL Magnesium (1.6-2.6) mg/dL Total Bilirubin (0.2-1.2) mg/dL Direct Bilirubin (0.0-0.5) mg/dL Indirect Bilirubin (0.0-1.2) mg/dL AST (5-34) Units/L ALT (0-55) Units/L Alkaline Phosphatase (38-126) Units/L Troponin I (0-0.03) ng/mL B-Natriuretic Peptide 333 H (0-100) pg/mL Serum Total Protein (6.0-8.3) g/dL Albumin (3.5-5.0) g/dL Globulin (2.4-3.5) g/dL Albumin/Globulin Ratio (1.1-2.2) Lipase (8-78) Units/L Peritoneal RBC (0.000 - 0.002) M/mcL Periton Tot Nuc Cells (0-300) TNC/mcL Stool Occult Blood (Negative) Blood Type A POSITIVE Antibody Screen NEGATIVE 02/14/17 02/14/17 Range/Units 11:15 11:55 WBC (4.3-11.1) K/mcL RBC (3.82-4.97) M/mcL Hgb (11.5-15.4) g/dL Hct (35.3-44.9) % MCV (83.0-100.0) fL MCH (28.0-33.3) pg MCHC (31.6-35.5) g/dL RDW (11.5-14.5) % Plt Count (140-400) K/mcL MPV Seg Neutrophils % % Band Neutrophils % (0-4) % Lymphocytes % % Monocytes % % Neutrophils # (1.6-8.9) K/mcL Lymphocytes # (0.6-4.6) K/mcL Monocytes # (0.0-1.3) K/mcL Nucleated RBCs/100 WBC (0) /100 WBC Platelet Estimate (Normal) Large Platelets (Not Present) Polychromasia (Not Present) Anisocytosis (Not Present) Macrocytosis (Not Present) Ovalocytes (Not Present) PT (9.4-12.1) Seconds INR Sodium (136-145) mEq/L Potassium (3.5-4.5) mEq/L Chloride (98-109) mEq/L Carbon Dioxide (19-29) mEq/L BUN (7-20) mg/dL Creatinine (0.57-1.11) mg/dL Est GFR ( Amer) (> 60) Est GFR (Non-Af Amer) (> 60) BUN/Creatinine Ratio (6-26) Glucose (70-99) mg/dL Calculated Osmolality (280-300) Lactic Acid 1.9 (0.5-2.2) mmol/L Calcium (8.6-10.8) mg/dL Phosphorus (2.3-4.7) mg/dL Magnesium (1.6-2.6) mg/dL Total Bilirubin (0.2-1.2) mg/dL Direct Bilirubin (0.0-0.5) mg/dL Indirect Bilirubin (0.0-1.2) mg/dL AST (5-34) Units/L ALT (0-55) Units/L Alkaline Phosphatase (38-126) Units/L Troponin I (0-0.03) ng/mL B-Natriuretic Peptide (0-100) pg/mL Serum Total Protein (6.0-8.3) g/dL Albumin (3.5-5.0) g/dL Globulin (2.4-3.5) g/dL Albumin/Globulin Ratio (1.1-2.2) Lipase (8-78) Units/L Peritoneal RBC < 0.002 (0.000 - 0.002) M/mcL Periton Tot Nuc Cells 2158 H (0-300) TNC/mcL Stool Occult Blood (Negative) Blood Type Antibody Screen - Radiology Data Radiology results reviewed: Yes I reviewed the patient's radiology results. Abdomen/Pelvis CT 02/14/17 08:35 IMPRESSION: 1. Slight decrease in size of the 10 cm right adnexal mass due to bilateral ovarian carcinoma. 2. New trace bilateral pleural effusions with unchanged mosaic perfusion pattern. 3. Large amount of ascites with worsening moderate anasarca. 4. Unchanged splenomegaly with splenic infarct. D/ / Shahab Jurado MD / Shahab Jurado MD Interpreting Provider: Shahab Jurado MD Chest X-Ray 02/14/17 08:35 IMPRESSION: Mild left basilar airspace disease. D/ / Clifford Vann MD / Clifford Vann MD Interpreting Provider: Clifford Vann MD Attestation Statement - Attestation Attestation: I personally interviewed and examined this patient and my medical decision- making was reviewed with the Ed Resident Physician, Dr. Garcia I agree with the documented findings, disposition and treatment plan as described except to the extent set forth below.
[2017-02-14 12:13] LABS: RBC,Peritoneal Fluid < 0.002 M/mcL
[2017-02-14] MEDS ORDERED: Naloxone 0.4 MG/ML INJ IVP PRN (14:09)
[2017-02-14] MEDS ORDERED: Acetaminophen 325 MG TABLET PO PRN (14:11)
[2017-02-14 14:26] LABS: Appearance of Peritoneal Fl HAZY (Clear)
--- NOTE | 2017-02-14 15:45 | Internal Med History&Physical ---
Date of Encounter: 02/14/17 Time of Encounter: 15:15 Assessment and Plan (1) Severe sepsis Current visit: Yes Status: Acute Sepsis most likely related to peritonitis. We will treat with IV antibiotics. Follow blood culture results and peritoneal fluid culture results. High risk for complications due to underlying comorbidities. DVT prophylaxis with subcutaneous heparin but monitor platelet count closely due to history of thrombocytopenia. (2) Peritonitis Current visit: Yes Status: Acute Patient with possible acute bacterial peritonitis. We will treat with IV antibiotics. Follow culture results. (3) End stage renal disease on dialysis Current visit: Yes Status: Chronic Consult nephrology for dialysis needs. Patient missed dialysis today. Potassium is 5.7. Monitor for now. Patient was dialyzed tomorrow per nephrology recommendations. (4) Ascites Current visit: Yes Status: Acute Due to ovarian cancer. With possible peritonitis. Qualifiers: Ascites type: malignant Qualified Code(s): R18.0 - Malignant ascites (5) Lupus (systemic lupus erythematosus) Current visit: No Status: Chronic On Plaquenil. We will continue Qualifiers: Systemic lupus erythematosus type: unspecified Systemic lupus erythematosus organ involvement: unspecified Qualified Code(s): M32.9 - Systemic lupus erythematosus, unspecified Internal Medicine - H&P: HPI Chief complaint: Abdominal pain Admitted From: Emergency Dept Plans for Post Hospital Care: Home History of present illness: Ms. Dumont is a 66 year old female patient with a history of end-stage renal disease on hemodialysis on a TTS schedule, Polycythemia, lupus, malignant ascites who gets paracentesis every Thursday presented to the ER with complaints of severe generalized abdominal pain that began 2 days back. Pain was 8 out of 10 in severity. Nonradiating. Has shortness of breath. No chest pain. No cough. She has had some chills and fevers. No dysuria or hematuria. Past Med Surg Social Fam HX - Past Medical History Attestation: Yes The following information was validated with the patient. Source: patient Medical history: arthritis, cancer, CHF, coronary artery disease, DVT, hypertension, malignancy, pulmonary embolus, renal disease, other (Ovarian cancer) Psychiatric history: no psych history - Past Surgical History Surgical History: hysterectomy - Social History Smoking Status: Never smoker Smokeless Tobacco Status: No Alcohol use: none Drug use: none - Family History Mother Family Member Ethnicity: Non- Living Status: Hx Family Cardiac Disorders: No Hx Family Respiratory Disorders: No Hx Family Cancer: Yes (inoperative lung cancer) Hx Family GI Disorders: No Hx Family Endocrine Disorder: No Hx Family Neuromuscular Disorders: No Hx Family Neurologic Disorders: Yes (Alzheimers) Hx Family HEENT Disorders: No Hx Family Autoimmune Disorders: No Father Family Member Ethnicity: Non- Living Status: Hx Family Cardiac Disorders: Yes Hx Family Respiratory Disorders: No Hx Family Cancer: No Hx Family GI Disorders: No Hx Family Endocrine Disorder: Yes (diabetes) Hx Family Neuromuscular Disorders: No Hx Family Neurologic Disorders: No Hx Family HEENT Disorders: No Hx Family Autoimmune Disorders: No Internal Medicine - H&P: Meds Allopurinol [Zyloprim 100 MG] 100 mg PO BID 05/03/15 [History] Hydroxychloroquine [Plaquenuil] 200 mg PO QAM 05/03/15 [History] Isosorbide DInitrate [Isordil] 10 mg PO TIDAC 10/30/15 [History] Acetaminophen [Tylenol Arthritis] 650 mg PO BID PRN 04/02/16 [History] Multivitamin [Multi-Day Vitamins] 1 tab PO DAILY 04/02/16 [History] Esomeprazole Magnesium [Nexium] 20 mg PO BID 07/10/16 [History] Prochlorperazine Maleate [Compazine] 10 mg PO Q8H PRN 10/23/16 [History] Magnesium Oxide [Magnesium] 400 mg PO DAILY 11/27/16 [History] Metoprolol XL (24 HR) Succ [Toprol Xl] 50 mg PO DAILY 11/27/16 [History] Aspirin 325 mg PO DAILY 01/08/17 [History] OxyCODONE Immed Rel [Roxicodone 5 MG] 5 mg PO BID PRN #60 tablet 01/16/17 [Rx] Cinacalcet [Sensipar] 30 mg PO DAILY 02/14/17 [History] Midodrine [ProAmatine] 10 mg PO BID 02/14/17 [History] Sevelamer [Renvela] 800 mg PO TID 02/14/17 [History] Sodium Bicarbonate 1,300 mg PO BID 02/14/17 [History] Allergies paclitaxel [From Taxol] Adverse Reaction (Severe, Verified 02/14/17 08:03) See Comments Hypertension, chest pain, pain into her right arm, shortness of breath, constant [id number] movement in the chair All Systems PM: A 10-system review of systems was performed and is negative for pertinent findings except as documented above in the HPI. - Constitutional Constitutional: chills, fever(s), no night sweats - EENT Eyes: no change in vision, no discharge, no pain, no photophobia Ears: no ear discharge, no ear pain, no tinnitus Nose, mouth and throat: no dysphagia, no nasal discharge, no neck pain, no sore throat - Cardiovascular Cardiovascular ROS IM: no chest pain, no diaphoresis, no dyspnea, no lightheadedness, no palpitations, no syncope - Respiratory Respiratory: no cough, no dyspnea, no wheezing, no excessive phlegm production - Gastrointestinal Gastrointestinal: abdominal pain, nausea, no diarrhea, no hematemesis, no hematochezia, no melena, no vomiting - Genitourinary Genitourinary: no change in urinary stream, no dysuria, no flank pain, no hematuria - Musculoskeletal Musculoskeletal ROS IM: no numbness, no tingling - Integumentary Integumentary IM: no rash, no unusual bruising - Neurological Neurological ROS: no confusion, no convulsions, no focal weakness, no numbness, no tingling, no tremor(s) - Hematologic/Lymphatic Hematologic/Lymphatic: no easy bruising - Constitutional Vitals: Temp Pulse Resp BP Pulse Ox 97.9 F 83 18 93/59 98 02/14/17 07:59 02/14/17 13:56 02/14/17 13:49 02/14/17 13:49 02/14/17 13:56 General appearance: Present: cooperative, mild distress, A&O X 3, answers questions appropriately - Eye Eye exam: Present: EOMI, PERRL, conjuntiva pink, sclera anicteric - Neck Neck exam general surgery: Present: supple, trachea midline. Absent: lymphadenopathy - Respiratory Respiratory exam: Present: CTAB. Absent: accessory muscle use, rales, rhonchi, wheezes - Cardiovascular Cardiovascular exam: Present: RRR, +S1, +S2. Absent: diastolic murmur, gallop, rubs, systolic murmur - GI/Abdominal GI/Abdominal exam: Present: distended, normal bowel sounds, soft, tenderness ( Generalized), no peritoneal signs - Extremities Exam Extremities exam: Present: warm, radial pulses palpable and symetrical. Absent : calf tenderness, cyanotic, pedal edema - Neurological Exam Neurological exam: Present: alert, oriented X3, no focal deficits. Absent: facial droop, speech deficit - Skin Skin exam: Present: dry, intact, pallor Internal Med - H&P Results - Labs CBC & Chem 7: 02/14/17 09:00 02/14/17 09:00 - Impressions Impressions Abdomen/Pelvis CT 02/14/17 08:35 IMPRESSION: 1. Slight decrease in size of the 10 cm right adnexal mass due to bilateral ovarian carcinoma. 2. New trace bilateral pleural effusions with unchanged mosaic perfusion pattern. 3. Large amount of ascites with worsening moderate anasarca. 4. Unchanged splenomegaly with splenic infarct. D/ / Shahab Jurado MD / Shahab Jurado MD Interpreting Provider: Shahab Jurado MD Chest X-Ray 02/14/17 08:35 IMPRESSION: Mild left basilar airspace disease. D/ / Clifford Vann MD / Clifford Vann MD Interpreting Provider: Clifford Vann MD
[2017-02-14] MEDS: *HR* Heparin 5,000 UNIT/ML VIAL SQ SCH (17:32)
[2017-02-14] MEDS: *HR* OxyCODONE Immed Rel 5 MG TABLET PO PRN (18:40)
[2017-02-14] MEDS: *HR* Promethazine 25 MG/ML VIAL IVP PRN (19:32)
[2017-02-15] MEDS: *HR* Morphine 2 MG/ML SYRINGE IVP PRN ×3 (00:39→09:15)
[2017-02-15] MEDS: Ondansetron 4 MG/2 ML VIAL IVP PRN ×2 (00:39→09:41)
[2017-02-15 03:24] LABS: Enterococcus by PCR Not Detected (Not Detect); Staphylococcus aureus by PCR Not Detected (Not Detect); Streptococcus by PCR ***DETECTED*** (Not Detect)
[2017-02-15 03:25] LABS: Acinetobacter baumannii by PCR Not Detected (Not Detect); Candida albicans by PCR Not Detected (Not Detect); Candida glabrata by PCR Not Detected (Not Detect); Candida krusei by PCR Not Detected (Not Detect); Candida parapsilosis by PCR Not Detected (Not Detect); Candida tropicalis by PCR Not Detected (Not Detect); Escherichia coli by PCR Not Detected (Not Detect); Klebsiella oxytoca by PCR Not Detected (Not Detect); Klebsiella pneumoniae by PCR Not Detected (Not Detect); Pseudomonas aeruginosa by PCR Not Detected (Not Detect); Serratia marcescens by PCR Not Detected (Not Detect); Streptococcus agalactiae(B)PCR Not Detected (Not Detect); Streptococcus pneumoniae PCR Not Detected (Not Detect); Streptococcus pyogenes (A) PCR Not Detected (Not Detect)
[2017-02-15] MEDS: *HR* Promethazine 25 MG/ML VIAL IVP PRN ×2 (05:04→14:44)
[2017-02-15] MEDS: *HR* Heparin 5,000 UNIT/ML VIAL SQ SCH (05:05)
[2017-02-15 05:43] LABS: Hemoglobin 11.4 g/dL (11.5-15.4)
[2017-02-15 05:45] LABS: Basophils # 0.1 K/mcL (0.0-0.2); Basophils % 0.4 %; Hematocrit 35.4 % (35.3-44.9); Immature Granulocytes % 4.8 % (0-4); Immature Platelets 8.9 % (1.1-6.1); Lymphocytes % 4.3 %; Mean Corpuscular HGB Conc 32.2 g/dL (31.6-35.5); Mean Corpuscular Hemoglobin 34.2 pg (28.0-33.3); Mean Corpuscular Volume 106.3 fL (83.0-100.0); Monocytes # 1.4 K/mcL (0.0-1.3); Monocytes % 6.4 %; Neutrophils # 18.9 K/mcL (1.6-8.9); Red Blood Count 3.33 M/mcL (3.82-4.97); Red Cell Distribution Width 28.2 % (11.5-14.5); Segmented Neutrophils % 84.1 %
[2017-02-15 05:54] LABS: Calcium 7.8 mg/dL (8.6-10.8); Potassium 5.9 mEq/L (3.5-4.5)
[2017-02-15] MEDS ORDERED: 0.9 % Sodium Chloride 500 ML IVC ONE ×2 (06:10→06:15)
[2017-02-15 06:13] LABS: Platelet Count 80 K/mcL (140-400)
[2017-02-15] MEDS ORDERED: 0.9 % Sodium Chloride 500 ML ONE (06:38)
[2017-02-15] MEDS: Metoprolol XL (24 HR) Succ 50 MG TAB.ER.24H PO SCH ×2 (06:43→08:05)
[2017-02-15 06:46] LABS: Macrocytosis Present (Not Present)
[2017-02-15 06:47] LABS: Hypochromasia Present (Not Present); Microcytosis Present (Not Present); Poikilocytosis 1+ (Not Present); Polychromasia 2+ (Not Present)
[2017-02-15 06:48] LABS: Large Platelets Present (Not Present); Platelet Estimate Decreased (Normal); Schistocytes 1+ (Not Present)
[2017-02-15 06:49] LABS: Anisocytosis 2+ (Not Present); Ovalocytes 2+ (Not Present)
--- NOTE | 2017-02-15 07:56 | Nephrology Consult Note ---
Date of Encounter: 02/15/17 Time of Encounter: 07:54 Assessment and Plan (1) End-stage renal disease Current Visit: Yes Status: Acute The patient has end-stage renal disease in the setting of advanced ovarian cancer. She now presents with acute abdominal peritonitis possibly related to recent paracentesis this past Thursday. She has chronic hypotension and does not tolerate dialysis very well. Her potassium is 5.9. She is chronically volume overloaded. We will attempt dialysis today. She is on midodrine to try and maintain blood pressure. (2) Peritonitis (acute) generalized Current Visit: Yes Status: Acute (3) Ovarian cancer Current Visit: Yes Status: Acute Qualifiers: Laterality: unspecified laterality Qualified Code(s): C56.9 - Malignant neoplasm of unspecified ovary History of Present Illness - History of Present Illness This is a 66-year-old female with end-stage renal disease. She receives dialysis and [facility] every Thursday. Patient was admitted with abdominal pain that began on Thursday. Patient has advanced ovarian carcinoma. She receives a therapeutic paracentesis weekly. Her last paracentesis was this past Thursday. She developed abdominal pain on Thursday. She has been diagnosed with peritonitis. The peritoneal fluid white blood cell count is elevated. She has clinical symptoms of peritonitis. She has been placed on antibiotics. Blood cultures are also growing gram-positive cocci. She did not receive dialysis yesterday because of her abdominal pain and she subsequently went to the emergency room. Patient has been unstable on dialysis because of chronic hypotension. Volume removal has been extremely difficult. She was recently started on midodrine for blood pressure support as an outpatient. She continues to experience abdominal pain worse with any movement. She denies fevers chills or sweats. She did have an episode of vomiting last night. Past Med Surg Social Fam HX - Past Medical History Medical history: arthritis, cancer, CHF, coronary artery disease, DVT, hypertension, malignancy, pulmonary embolus, renal disease, other (Ovarian cancer) Psychiatric history: no psych history - Past Surgical History Surgical History: hysterectomy - Social History Smoking Status: Never smoker Smokeless Tobacco Status: No Alcohol use: none Drug use: none - Family History Mother Family Member Ethnicity: Non- Living Status: Hx Family Cardiac Disorders: No Hx Family Respiratory Disorders: No Hx Family Cancer: Yes (inoperative lung cancer) Hx Family GI Disorders: No Hx Family Endocrine Disorder: No Hx Family Neuromuscular Disorders: No Hx Family Neurologic Disorders: Yes (Alzheimers) Hx Family HEENT Disorders: No Hx Family Autoimmune Disorders: No Father Family Member Ethnicity: Non- Living Status: Hx Family Cardiac Disorders: Yes Hx Family Respiratory Disorders: No Hx Family Cancer: No Hx Family GI Disorders: No Hx Family Endocrine Disorder: Yes (diabetes) Hx Family Neuromuscular Disorders: No Hx Family Neurologic Disorders: No Hx Family HEENT Disorders: No Hx Family Autoimmune Disorders: No Medications and Allergies Allopurinol [Zyloprim 100 MG] 100 mg PO BID 05/03/15 [History] Hydroxychloroquine [Plaquenuil] 200 mg PO QAM 05/03/15 [History] Isosorbide DInitrate [Isordil] 10 mg PO TIDAC 10/30/15 [History] Acetaminophen [Tylenol Arthritis] 650 mg PO BID PRN 04/02/16 [History] Multivitamin [Multi-Day Vitamins] 1 tab PO DAILY 04/02/16 [History] Esomeprazole Magnesium [Nexium] 20 mg PO BID 07/10/16 [History] Prochlorperazine Maleate [Compazine] 10 mg PO Q8H PRN 10/23/16 [History] Magnesium Oxide [Magnesium] 400 mg PO DAILY 11/27/16 [History] Metoprolol XL (24 HR) Succ [Toprol Xl] 50 mg PO DAILY 11/27/16 [History] Aspirin 325 mg PO DAILY 01/08/17 [History] OxyCODONE Immed Rel [Roxicodone 5 MG] 5 mg PO BID PRN #60 tablet 01/16/17 [Rx] Cinacalcet [Sensipar] 30 mg PO DAILY 02/14/17 [History] Midodrine [ProAmatine] 10 mg PO BID 02/14/17 [History] Sevelamer [Renvela] 800 mg PO TID 02/14/17 [History] Sodium Bicarbonate 1,300 mg PO BID 02/14/17 [History] Allergies paclitaxel [From Taxol] Adverse Reaction (Severe, Verified 02/14/17 08:03) See Comments Hypertension, chest pain, pain into her right arm, shortness of breath, constant [id number] movement in the chair Review of Systems Constitutional: weakness Eyes: bilateral: blurred vision (patient denies), diplopia (patient denies) Nose, mouth and throat: no dizziness, no headache(s) Cardiovascular: dyspnea, dyspnea on exertion, edema Respiratory: dyspnea, dyspnea on exertion Gastrointestinal: abdominal pain, vomiting Musculoskeletal: no muscle weakness, no numbness Neurological: weakness Psychiatric: no depression, no difficulty concentrating Exam - Vital Signs Vital signs: Initial Vital Signs Temp Pulse Resp BP Pulse Ox 97.9 F 79 16 75/51 94 02/14/17 07:59 02/14/17 07:59 02/14/17 07:59 02/14/17 07:59 02/14/17 07:59 Vital Signs - Last 8 Hours Temp Pulse Resp BP Pulse Ox 02/15/17 07:24 98.2 F 118 16 96/56 98 02/15/17 04:00 97.9 F 118 16 90/51 95 02/15/17 03:00 115 16 90/54 96 02/15/17 00:45 98.7 F 104 16 86/51 96 Intake and Output 02/14/17 02/14/17 02/15/17 15:59 23:59 07:59 Intake Total 500 / 500 Balance 500 / 500 Intake: IV Fluids 500 / 500 0.9 % Sodium Chloride 500 500 / 500 ML @ 1875 mls/hr IVC . Q16M ONE Rx#:[id number] - General Appearance Exam: Patient appears chronically ill. Blood pressure is 96/56. Neck is supple. Lungs diminished breath sounds otherwise clear. Heart regular rate and rhythm. Precordium is hyperdynamic. Heart rate is 126. Abdomen is distended with ascites. There is generalized abdominal tenderness to light palpation. There is 2-3+ swelling of the lower extremities bilaterally. There is a tunnel dialysis catheter in the left chest. That catheter shows no obvious external sign of infection. The tunnel is not inflamed. The exit site is not tender and there is no drainage. There is an Zflygd-z-Moar in the right chest. Results - Lab Results 02/15/17 05:00 02/15/17 05:00 Most recent lab results Calcium 7.8 mg/dL (8.6-10.8) L 02/15/17 05:00 Phosphorus 4.9 mg/dL (2.3-4.7) H 02/14/17 09:00 Magnesium 1.4 mg/dL (1.6-2.6) L 02/14/17 09:00 Consult Discharge Plan - Plan Referrals: Cleve Hannon DO [Primary Care Provider] -
[2017-02-15] MEDS ORDERED: Albumin 25% 12.5gm/50mL 12.5 GM/50 ML IV.SOLN IVPB PRN (07:58)
[2017-02-15] MEDS ORDERED: 0.9 % Sodium Chloride 250 ML IVC PRN (07:58)
[2017-02-15] MEDS ORDERED: Sodium Bicarbonate 50 MEQ in 0.45 % Sodium Chloride 1,000 ML IVC SCH (08:00)
--- NOTE | 2017-02-15 09:55 | Electrocardiograph Report ---
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
[2017-02-15] MEDS: Magnesium Oxide 400 MG TABLET PO SCH (10:02)
[2017-02-15] MEDS: Aspirin 325 MG TABLET PO SCH (10:02)
[2017-02-15 10:22] LABS: Hepatitis B Surface Antigen Nonreactive (Nonreactive)
[2017-02-15] MEDS ORDERED: Albumin 25% 12.5gm/50mL 12.5 GM/50 ML IV.SOLN ONE ×2 (12:03→13:00)
[2017-02-15] MEDS ORDERED: Albumin 25% 12.5gm/50mL 12.5 GM/50 ML IV.SOLN IVPB ONE ×2 (12:06→13:16)
[2017-02-15] MEDS ORDERED: *HR* Heparin 10,000 UNIT/10 ML VIAL IV PRN (13:39)
[2017-02-15] MEDS ORDERED: 0.9 % Sodium Chloride 2,000 ML ONE (13:53)
--- NOTE | 2017-02-15 14:07 | Internal Med Progress Note ---
Date of Encounter: 02/15/17 Time of Encounter: 12:45 - Subjective Interval history: Patient seen and examined during hemodialysis. Patient is frail appearing and reports of generalized weakness. She is noted to have positive blood cultures with gram positive cocci. Patient is currently receiving hemodialysis. Pt is noted to remain hypotensive due to which albumin is being supplemented during hemodialysis. Palliative care consultation requested to establish goals of care and code status Assessment and Plan (1) Severe sepsis Current visit: Yes Status: Acute likely secondary to Bacteremia and perotinitis continue IV abx (Vancomycin and Ceftriaxone) follow up blood cultures leukocytosis persists but improved from previous day patient at high risk for complications due to underlying comorbidities ( advanced ovarian cancer with malignant ascites) (2) Peritonitis Current visit: Yes Status: Acute Patient with possible acute bacterial peritonitis. continue IV antibiotics. Follow culture results. (3) End stage renal disease on dialysis Current visit: Yes Status: Chronic Nephrology consultation appreciated patient receiving HD today patient received albumin therapy during HD to maintain BP continue Midodrine therapy will closely monitor BP patient has chronic history of being hypotensive (4) Ascites Current visit: Yes Status: Acute Due to ovarian cancer. concern for peritonitis, will continue IV abx Qualifiers: Ascites type: malignant Qualified Code(s): R18.0 - Malignant ascites (5) Lupus (systemic lupus erythematosus) Current visit: No Status: Chronic continue Plaquenil Qualifiers: Systemic lupus erythematosus type: unspecified Systemic lupus erythematosus organ involvement: unspecified Qualified Code(s): M32.9 - Systemic lupus erythematosus, unspecified (6) DVT prophylaxis Current visit: Yes Status: Acute D/c heparin sQ given thrombocytopenia SCD (7) Elevated TNI Current visit: Yes Status: Acute Likely demand ischemia no chest pain reported at this time will monitor serial TNI - Constitutional Vitals: Temp Pulse Resp BP Pulse Ox 97.6 F 123 18 86/54 94 02/15/17 11:00 02/15/17 07:43 02/15/17 11:00 02/15/17 13:45 02/15/17 07:43 General appearance: Present: cooperative, A&O X 3 (frail appearing female), pleasant, answers questions appropriately - Head Head exam: Present: atraumatic, normocephalic - Eye Eye exam: Present: conjuntiva pink, sclera anicteric - Respiratory Respiratory exam: Absent: respiratory distress, wheezes - Cardiovascular Cardiovascular exam: Present: +S1, +S2, tachycardia - GI/Abdominal GI/Abdominal exam: Present: normal bowel sounds (diffuse ascites ), soft. Absent: tenderness - Extremities Exam Extremities exam: Present: pedal edema (bilateral pedal edema), warm, radial pulses palpable and symetrical - Neurological Exam Neurological exam: Present: alert, oriented X3 - Psychiatric Psychiatric exam: Present: normal affect, normal mood Internal Medicine: Result - Labs CBC & Chem 7: 02/15/17 05:00 02/15/17 05:00 Labs: Short CBC 02/15/17 Range/Units 05:00 WBC 22.5 H (4.3-11.1) K/mcL Hgb 11.4 L (11.5-15.4) g/dL Hct 35.4 (35.3-44.9) % Plt Count 80 L (140-400) K/mcL Neutrophils # 18.9 H (1.6-8.9) K/mcL BMP 02/14/17 02/15/17 18:48 05:00 Sodium 136 Potassium 5.5 H 5.9 H Chloride 104 Carbon Dioxide 17 L BUN 51 H Creatinine 5.33 H Glucose 64 L Calcium 7.8 L Cardiac Enzymes 02/15/17 02/15/17 Range/Units 05:00 09:30 Troponin I 0.19 H* 0.20 H* (0-0.03) ng/mL - ABG Interpretation ABG results: PT/INR, D-dimer PT 14.8 Seconds (9.4-12.1) H 02/14/17 09:00 Consult Discharge Plan - Plan Referrals: Cleve Hannon DO [Primary Care Provider] -
[2017-02-15] MEDS ORDERED: Vancomycin 500 MG in D5% in Water (Mini-Bag+) 100 ML IVPB ONE (18:00)
[2017-02-16 05:01] LABS: Basophils % 0.3 %; Hematocrit 26.8 % (35.3-44.9); Hemoglobin 8.7 g/dL (11.5-15.4); Immature Granulocytes % 2.4 % (0-4); Immature Platelets 6.6 % (1.1-6.1); Lymphocytes # 0.6 K/mcL (0.6-4.6); Lymphocytes % 4.3 %; Mean Corpuscular HGB Conc 32.5 g/dL (31.6-35.5); Mean Corpuscular Hemoglobin 34.9 pg (28.0-33.3); Mean Corpuscular Volume 107.6 fL (83.0-100.0); Monocytes # 0.9 K/mcL (0.0-1.3); Monocytes % 6.6 %; Neutrophils # 12.4 K/mcL (1.6-8.9); Nucleated Red Blood Cells 0.6 /100 WBC (0); Red Blood Count 2.49 M/mcL (3.82-4.97); Red Cell Distribution Width 27.7 % (11.5-14.5); Segmented Neutrophils % 86.4 %
[2017-02-16 05:12] LABS: Calcium 7.5 mg/dL (8.6-10.8); Magnesium 1.2 mg/dL (1.6-2.6); Potassium 4.6 mEq/L (3.5-4.5)
[2017-02-16 05:28] LABS: Platelet Count 67 K/mcL (140-400)
[2017-02-16 05:32] LABS: Anisocytosis 3+ (Not Present)
[2017-02-16 05:33] LABS: Macrocytosis Present (Not Present); Microcytosis Present (Not Present); Ovalocytes 2+ (Not Present); Platelet Estimate Decreased (Normal); Poikilocytosis 2+ (Not Present); Schistocytes 1+ (Not Present)
[2017-02-16 05:34] LABS: Basophilic Stippling 1+ (Not Present); Polychromasia 1+ (Not Present)
[2017-02-16] MEDS: Magnesium Oxide 400 MG TABLET PO SCH (08:26)
[2017-02-16] MEDS: Aspirin 325 MG TABLET PO SCH (08:26)
--- NOTE | 2017-02-16 09:32 | Nephrology Progress Note ---
Date of Encounter: 02/16/17 Time of Encounter: 09:30 - Assessment and Plan (1) End-stage renal disease Current Visit: Yes Status: Acute Patient received dialysis yesterday. She will receive dialysis again tomorrow. We will await final blood culture results and then decide if the tunnel dialysis catheter needs to be removed. (2) Peritonitis (acute) generalized Current Visit: Yes Status: Acute (3) Ovarian cancer Current Visit: Yes Status: Acute Qualifiers: Laterality: unspecified laterality Qualified Code(s): C56.9 - Malignant neoplasm of unspecified ovary Subjective Interval history: The patient reports her abdominal pain is improving. She has no further nausea or vomiting. Blood cultures are growing a strep species. Abdominal fluid cultures are negative so far. Objective - Vital Signs Vital signs: Vital Signs Temp Pulse Resp BP Pulse Ox 02/16/17 07:30 98.5 F 100 16 109/58 97 02/16/17 07:09 98.5 F 100 16 109/58 97 02/16/17 04:30 96 02/16/17 04:29 98.1 F 99 17 107/56 97 02/16/17 00:16 98 F 105 17 110/65 97 02/15/17 23:35 98 F 105 02/15/17 20:00 96 16 100 02/15/17 19:42 97.5 F L 98 17 94/48 100 02/15/17 16:15 98.1 F 102 15 113/58 100 02/15/17 14:41 97.5 F L 113 20 101/58 96 02/15/17 14:10 97.7 F 16 100/55 02/15/17 14:00 91/56 02/15/17 13:45 86/54 02/15/17 13:30 92/54 02/15/17 13:15 88/54 02/15/17 13:00 93/52 02/15/17 12:45 96/53 02/15/17 12:30 95/47 02/15/17 12:15 84/54 02/15/17 12:00 88/51 02/15/17 11:45 85/53 02/15/17 11:30 108/73 02/15/17 11:15 87/52 02/15/17 11:00 97.6 F 18 98/60 Intake and Output 02/15/17 02/16/17 02/16/17 23:59 07:59 15:59 Intake Total 0 / 0 220 / 220 Output Total 50 / 50 25 / 25 Balance -50 / -50 195 / 195 Intake: IV Fluids 100 / 100 Rocephin 2,000 MG In 100 / 100 Dextrose 5% (Minibag+) 100 ML 100 ML @ 200 mls/ hr IVPB DAILY SAVANNAH Rx#: [id number] Oral 0 / 0 120 / 120 Output: Urine 50 / 50 25 / 25 Other: Meal Breakfast Percent of Meal Consumed 40% # Voids 1 Weight 60.6 kg Patient Weight 02/16/17 23:59 Weight 60.6 kg - General Appearance Exam: Patient is alert and oriented. She is in no acute distress. She appears chronically ill. Vital signs are stable. Lungs diminished breath sounds otherwise clear. Heart regular rate and rhythm. Heart is hyperdynamic. Abdomen shows ascites. There is still tenderness to mild palpation. Lower extremity swelling is improved compared to yesterday. There is a tunnel dialysis catheter in the left chest and an Eyyzhy-a-Dpwi in the right chest. - Lab 02/16/17 04:35 02/16/17 04:35 Most recent lab results Calcium 7.5 mg/dL (8.6-10.8) L 02/16/17 04:35 Phosphorus 5.0 mg/dL (2.3-4.7) H 02/16/17 04:35 Magnesium 1.2 mg/dL (1.6-2.6) L 02/16/17 04:35 - VTE Documentation of Mechanical Device: Intermittent pneumatic compression device Consult Discharge Plan - Plan Referrals: Cleve Hannon DO [Primary Care Provider] -
[2017-02-16] MEDS ORDERED: Magnesium Sulfate 2 GM in D5% in Water 100 ML IVPB ONE (10:46)
--- NOTE | 2017-02-16 10:56 | Internal Med Progress Note ---
Date of Encounter: 02/16/17 Time of Encounter: 10:15 - Subjective Interval history: Patient seen and examined. Resting in bed and reports of feeling significantly better compared to previous day. No overnight events reported hypotension improved from previous day. Holding antihypertensives if SBP<100. Pt noted of taking Metoprolol XL 50mg PO qd, however given current BP readings, will hold at this time. Will start Metoprolol 12.5mg PO q12h for better HR control. Palliative care consultation requested to establish goals of care and code status Assessment and Plan (1) Severe sepsis Current visit: Yes Status: Acute likely secondary to Bacteremia and perotinitis continue IV abx (Vancomycin and Ceftriaxone) follow up blood cultures leukocytosis persists but improved from previous day patient at high risk for complications due to underlying comorbidities ( advanced ovarian cancer with malignant ascites) clinically improving (2) Peritonitis Current visit: Yes Status: Acute Patient with possible acute bacterial peritonitis. continue IV antibiotics. Follow culture results. (3) End stage renal disease on dialysis Current visit: Yes Status: Chronic Nephrology consultation appreciated patient received HD yesterday (02/15/17) continue Midodrine therapy will closely monitor BP patient has chronic history of being hypotensive (4) Ascites Current visit: Yes Status: Acute Due to ovarian cancer. concern for peritonitis, will continue IV abx Qualifiers: Ascites type: malignant Qualified Code(s): R18.0 - Malignant ascites (5) Lupus (systemic lupus erythematosus) Current visit: No Status: Chronic continue Plaquenil Qualifiers: Systemic lupus erythematosus type: unspecified Systemic lupus erythematosus organ involvement: unspecified Qualified Code(s): M32.9 - Systemic lupus erythematosus, unspecified (6) DVT prophylaxis Current visit: Yes Status: Acute SCD for dvt ppx given current and history of thrombocytopenia (7) Elevated TNI Current visit: Yes Status: Acute Likely demand ischemia no chest pain reported at this time will monitor serial TNI (8) Hypomagnesemia Current visit: Yes Status: Acute Mg supplemented continue to monitor electrolytes and replace as needed - Constitutional Vitals: Temp Pulse Resp BP Pulse Ox 98.5 F 100 16 109/58 97 02/16/17 07:30 02/16/17 07:30 02/16/17 07:30 02/16/17 07:30 02/16/17 07:30 General appearance: Present: cooperative, A&O X 3 (frail appearing female), pleasant, no acute distress, answers questions appropriately - Head Head exam: Present: atraumatic, normocephalic - Respiratory Respiratory exam: Absent: respiratory distress, wheezes - Cardiovascular Cardiovascular exam: Present: +S1, +S2, tachycardia - GI/Abdominal GI/Abdominal exam: Present: distended (diffuse ascites), normal bowel sounds, soft, no peritoneal signs. Absent: guarding, tenderness - Extremities Exam Extremities exam: Present: pedal edema (pitting edema in bilateral lower extremities), warm, radial pulses palpable and symetrical. Absent: calf tenderness - Neurological Exam Neurological exam: Present: alert, oriented X3 - Psychiatric Psychiatric exam: Present: normal affect, normal mood Internal Medicine: Result - Labs CBC & Chem 7: 02/16/17 04:35 02/16/17 04:35 Labs: Short CBC 02/16/17 Range/Units 04:35 WBC 14.3 H (4.3-11.1) K/mcL Hgb 8.7 L D (11.5-15.4) g/dL Hct 26.8 L (35.3-44.9) % Plt Count 67 L (140-400) K/mcL Neutrophils # 12.4 H (1.6-8.9) K/mcL BMP 02/16/17 04:35 Sodium 134 L Potassium 4.6 H D Chloride 99 Carbon Dioxide 23 BUN 35 H D Creatinine 3.92 H Glucose 61 L Calcium 7.5 L Cardiac Enzymes 02/16/17 Range/Units 04:35 Troponin I 0.27 H* (0-0.03) ng/mL - ABG Interpretation ABG results: PT/INR, D-dimer PT 14.8 Seconds (9.4-12.1) H 02/14/17 09:00 - VTE Documentation of Mechanical Device: Intermittent pneumatic compression device Consult Discharge Plan - Plan Referrals: Cleve Hannon DO [Primary Care Provider] - (SENT WEB REQUEST ON 02-16-17 @ 0472)
--- NOTE | 2017-02-16 13:00 | Palliative - Consult Note ---
Date of Encounter: 02/16/17 Time of Encounter: 12:55 - Assessment and Plan (1) Dyspnea Current Visit: Yes Status: Acute Assessment and plan: Ms. Dumont is experiencing conversational dyspnea, dyspnea with exertion, and orthopnea. This is likely related to her ascites. Plan for HD on 02/17 as previously scheduled, and paracentesis on 02/18 as previoyusly scheduled. May use Morphine as needed for dyspena or pain. Qualifiers: Dyspnea type: unspecified Qualified Code(s): R06.00 - Dyspnea, unspecified (2) Goals of care, counseling/discussion Current Visit: No Status: Acute Assessment and plan: Discussed goals of care with the patient. She was very clear that she had discussed her "wishes" with her family (spouse and children), and they were aware of her healthcare desires. Ms. Dumont declined to complete advanced directives. She voluntarily discussed code status, and informed me that she will remain a full code. Attempted to discuss detention goals, Ms. Dumont declined the conversation. Ms. Dumont will remain a FULL CODE. Her daughter arrived at the end of the discussion and was allowed time for questions/answers. The patient and daughter declined questions. (3) Ascites Current Visit: Yes Status: Chronic Assessment and plan: Planned for paracentesis on Sunday 02/18 as scheduled. Qualifiers: Ascites type: malignant Qualified Code(s): R18.0 - Malignant ascites (4) Peritonitis Current Visit: Yes Status: Acute Assessment and plan: Management per hospitalist. (5) Ovarian cancer Current Visit: Yes Status: Acute Assessment and plan: Followed by oncology. Currently on chemotherapy last dose 02/06/17. Qualifiers: Laterality: unspecified laterality Qualified Code(s): C56.9 - Malignant neoplasm of unspecified ovary (6) Cancer associated pain Current Visit: Yes Status: Acute Assessment and plan: Ms. Dumont currently denies pain. She was recently started on oxycodone by the [facility]. Continue current medications. Palliative-CN HPI - Data of Consult Patient: known to practice within the last 3 years Consult date: 02/16/17 Requesting Physician: Tania Daniel MD Primary Care Provider: Cleve Hannon DO - Consult Narrative Palliative Care/Comfort Measures: Palliative care Reason for consult: Goals of Care History of present illness: Ms. Dumont is a 66 year old female known to the palliative care team from prior admissions. She was diagnosed with Ovarian CA in June 2015, and has been seeking treatments at the [facility]. She is currently taking treatments Gemcitabine/Avastin and has completed radiation. She started on hemodialysis in October following an acute on chronic kidney injury. Her HD days are Thursday, , and Thursday. Ms. Dumont requires weekly paracentesis for malignant ascites. Her last drain was 02/11/17. Ms. Dumont initially presented to [facility] ED with complaints of abdominal pain for 2 days. She reports nausea with vomiting, but denies fever/chills. Her appetite comes and goes depending on the level of ascites. The ascites also contributes to orthopnea. She has pitting edema to the level of her hip that has been present for 2-3 weeks. Ms. Dumont denies changes in her vision, hearing, swallowing. 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 CC: Tania Daniel MD Past Med Surg Social Fam HX - Past Medical History Attestation: Yes The following information was validated with the patient. Source: patient Medical history: arthritis, cancer, CHF, coronary artery disease, DVT, hypertension, malignancy, pulmonary embolus, renal disease, other (Ovarian cancer) Psychiatric history: no psych history - Past Surgical History Surgical History: hysterectomy - Social History Smoking Status: Never smoker Smokeless Tobacco Status: No Alcohol use: none Drug use: none - Family History Mother Family Member Ethnicity: Non- Living Status: Hx Family Cardiac Disorders: No Hx Family Respiratory Disorders: No Hx Family Cancer: Yes (inoperative lung cancer) Hx Family GI Disorders: No Hx Family Endocrine Disorder: No Hx Family Neuromuscular Disorders: No Hx Family Neurologic Disorders: Yes (Alzheimers) Hx Family HEENT Disorders: No Hx Family Autoimmune Disorders: No Father Family Member Ethnicity: Non- Living Status: Hx Family Cardiac Disorders: Yes Hx Family Respiratory Disorders: No Hx Family Cancer: No Hx Family GI Disorders: No Hx Family Endocrine Disorder: Yes (diabetes) Hx Family Neuromuscular Disorders: No Hx Family Neurologic Disorders: No Hx Family HEENT Disorders: No Hx Family Autoimmune Disorders: No Medications and Allergies Allopurinol [Zyloprim 100 MG] 100 mg PO BID 05/03/15 [History] Hydroxychloroquine [Plaquenuil] 200 mg PO QAM 05/03/15 [History] Isosorbide DInitrate [Isordil] 10 mg PO TIDAC 10/30/15 [History] Acetaminophen [Tylenol Arthritis] 650 mg PO BID PRN 04/02/16 [History] Multivitamin [Multi-Day Vitamins] 1 tab PO DAILY 04/02/16 [History] Esomeprazole Magnesium [Nexium] 20 mg PO BID 07/10/16 [History] Prochlorperazine Maleate [Compazine] 10 mg PO Q8H PRN 10/23/16 [History] Magnesium Oxide [Magnesium] 400 mg PO DAILY 11/27/16 [History] Metoprolol XL (24 HR) Succ [Toprol Xl] 50 mg PO DAILY 11/27/16 [History] Aspirin 325 mg PO DAILY 01/08/17 [History] OxyCODONE Immed Rel [Roxicodone 5 MG] 5 mg PO BID PRN #60 tablet 01/16/17 [Rx] Cinacalcet [Sensipar] 30 mg PO DAILY 02/14/17 [History] Midodrine [ProAmatine] 10 mg PO BID 02/14/17 [History] Sevelamer [Renvela] 800 mg PO TID 02/14/17 [History] Sodium Bicarbonate 1,300 mg PO BID 02/14/17 [History] Allergies paclitaxel [From Taxol] Adverse Reaction (Severe, Verified 02/14/17 08:03) See Comments Hypertension, chest pain, pain into her right arm, shortness of breath, constant slch-[id number] movement in the chair All systems: reviewed and no additional remarkable complaints except as stated Palliative Care-Exam - Constitutional Vitals: Temp Pulse Resp BP Pulse Ox 97.5 F L 102 16 94/61 97 02/16/17 11:18 02/16/17 11:18 02/16/17 11:18 02/16/17 11:18 02/16/17 11:18 General appearance: Present: cooperative Exam: 66 year old female with a thin appearing face/neck, but overall weight/body frame is distorted by the amount of ascites and edema. She is smiling and interactive. She does have some conversational dyspnea. - Head Head Exam: Present: atraumatic - Eye Eye exam: Present: EOMI - ENT ENT exam: Present: mucous membranes moist - Respiratory Respiratory exam: Present: accessory muscle use. Absent: respiratory distress, rhonchi Additional comments: some mild conversational dyspnea. - Cardiovascular Cardiovascular exam: Present: RRR - GI/Abdominal Exam GI/Abdominal exam: Present: distended, firm, tenderness - Expanded GI/Abdominal Exam GI/Abdominal exam: Present: ascites - Extremities Exam Extremities exam: Present: pedal edema - Expanded Upper Extremities Exam Forearm wrist exam: Present: abrasion - Expanded Lower Extremities Exam Upper Leg exam: Present: swelling Lower Leg exam: Present: swelling - Neurological Exam Neurological exam: Present: alert, normal gait, oriented X3, strengths equal and symetr throughout - Psychiatric Psychiatric exam: Present: flat affect. Absent: agitated, anxious - Skin Skin exam: Present: dry, warm Internal Medicine - CN: Reslt - Labs CBC & Chem 7: 02/16/17 04:35 02/16/17 04:35 Labs: Short CBC 02/16/17 Range/Units 04:35 WBC 14.3 H (4.3-11.1) K/mcL Hgb 8.7 L D (11.5-15.4) g/dL Hct 26.8 L (35.3-44.9) % Plt Count 67 L (140-400) K/mcL Neutrophils # 12.4 H (1.6-8.9) K/mcL BMP 02/16/17 04:35 Sodium 134 L Potassium 4.6 H D Chloride 99 Carbon Dioxide 23 BUN 35 H D Creatinine 3.92 H Glucose 61 L Calcium 7.5 L Cardiac Enzymes 02/16/17 02/16/17 Range/Units 04:35 12:14 Troponin I 0.27 H* 0.32 H* (0-0.03) ng/mL - ABG Interpretation ABG results: PT/INR, D-dimer PT 14.8 Seconds (9.4-12.1) H 02/14/17 09:00 Consult Discharge Plan - Plan Referrals: Kiana Mcgraw CNP [Advanced Practice Nurse] - 02/23/17 9:30 am Palliative Quality Palliative Quality: Screen for Code Status: Yes, Screen for Goals of Care: Yes, Screen for Pain: Yes, If Pain Regimen Started, Initiate Bowel Regimen: NA, Screen for Nausea/Vomitting: Yes
[2017-02-16] MEDS: Ondansetron 4 MG/2 ML VIAL IVP PRN ×2 (14:34→21:42)
[2017-02-16] MEDS ORDERED: Dextrose Gel 15 GM PO PRN ×2 (14:34)
[2017-02-16] MEDS ORDERED: D5% in Water 1,000 ML IVC PRN (14:34)
[2017-02-16] MEDS ORDERED: *HR* Dextrose 50 % in Water (Syg) 50 ML SYRINGE IVP PRN (14:34)
--- NOTE | 2017-02-16 15:41 | Electrocardiograph Report ---
[place] [id number] Test Date: 2017-02-16 Pat Name: Michelle Dumont Department: 110 Room: 2N12 Gender: F Project Lead: CAMERON : 1950 Requested By: Titus Stewart Order Number: [id number] Reading MD: Stepan Brady MD Measurements Intervals [place] Rate: 101 P: 34 TN: 123 QRS: 1 QRSD: 145 T: 150 QT: 403 QTc: 461 Interpretive Statements SINUS TACHYCARDIA LEFT BUNDLE BRANCH BLOCK Electronically Signed On 02-16-2017 15:40:07 EDT by Stepan Brady MD
[2017-02-16] MEDS: *HR* Promethazine 25 MG/ML VIAL IVP PRN ×2 (17:58→22:46)
[2017-02-17 03:49] LABS: Basophils # 0.1 K/mcL (0.0-0.2); Basophils % 0.3 %; Hematocrit 30.1 % (35.3-44.9); Hemoglobin 9.8 g/dL (11.5-15.4); Lymphocytes # 0.7 K/mcL (0.6-4.6); Mean Corpuscular HGB Conc 32.6 g/dL (31.6-35.5); Mean Corpuscular Hemoglobin 34.6 pg (28.0-33.3); Mean Corpuscular Volume 106.4 fL (83.0-100.0); Monocytes # 1.6 K/mcL (0.0-1.3); Neutrophils # 19.3 K/mcL (1.6-8.9); Nucleated Red Blood Cells 0.3 /100 WBC (0); Platelet Count 109 K/mcL (140-400); Red Blood Count 2.83 M/mcL (3.82-4.97); Red Cell Distribution Width 28.2 % (11.5-14.5); Segmented Neutrophils % 86.7 %
[2017-02-17 03:53] LABS: Anisocytosis 1+ (Not Present); Platelet Estimate Decreased (Normal); Poikilocytosis 1+ (Not Present)
[2017-02-17 04:03] LABS: Phosphorous 6.2 mg/dL (2.3-4.7)
[2017-02-17 04:04] LABS: Albumin 2.1 g/dL (3.5-5.0); Albumin/Globulin Ratio 1.2 (1.1-2.2); Bilirubin,Total 4.2 mg/dL (0.2-1.2); Calcium 7.5 mg/dL (8.6-10.8); Globulin 1.7 g/dL (2.4-3.5); Potassium 5.1 mEq/L (3.5-4.5); Total Protein 3.8 g/dL (6.0-8.3)
--- NOTE | 2017-02-17 08:22 | Nephrology Progress Note ---
Date of Encounter: 02/17/17 Time of Encounter: 08:20 - Assessment and Plan (1) End-stage renal disease Current Visit: Yes Status: Acute The patient will undergo dialysis today. She requires albumin for blood pressure support. I am going to request infectious disease consult to assist with antibiotic management and to help decide if the patient's indwelling catheters need to be removed. (2) Peritonitis (acute) generalized Current Visit: Yes Status: Acute (3) Ovarian cancer Current Visit: Yes Status: Acute Qualifiers: Laterality: unspecified laterality Qualified Code(s): C56.9 - Malignant neoplasm of unspecified ovary Subjective Interval history: The patient reports she had recurrent nausea and vomiting yesterday. She was unable to eat any of her meals. She continues to have some abdominal discomfort but not as severe as when she was first admitted to the hospital. She is scheduled for dialysis today. Her white count is increasing. Blood cultures are growing a strep species. Peritoneal cultures remain negative to date. Objective - Vital Signs Vital signs: Vital Signs Temp Pulse Resp BP Pulse Ox 02/17/17 04:47 103 02/17/17 03:56 98.1 F 106 18 99/53 97 02/16/17 23:23 97.7 F 122 18 104/56 95 02/16/17 23:15 121 02/16/17 20:45 111 02/16/17 19:51 97.6 F 113 18 100/67 97 02/16/17 16:35 97.9 F 106 16 90/58 98 02/16/17 15:45 97.9 F 106 16 90/58 98 02/16/17 12:30 97.5 F L 102 16 94/61 97 02/16/17 11:18 97.5 F L 102 16 94/61 97 Intake and Output 02/16/17 02/17/17 02/17/17 23:59 07:59 15:59 Intake Total 0 / 0 Output Total 0 / 0 50 / 50 Balance 0 / 0 -50 / -50 Intake: Oral 0 / 0 Output: Urine 0 / 0 50 / 50 Other: Meal Dinner Percent of Meal Consumed 0% Weight 61.3 kg Patient Weight 02/17/17 23:59 Weight 61.3 kg - General Appearance Exam: Patient is alert and oriented. She is in no acute distress. She appears chronically ill. Lungs diminished breath sounds. Heart regular rate and rhythm. Precordium is hyperdynamic. She continues to have diffuse abdominal tenderness. Abdomen is distended with ascites. She has significant lower extremity swelling. There is a tunnel dialysis catheter in the left chest and an [id number] in the right chest. - Lab 02/17/17 03:35 02/17/17 03:35 Most recent lab results Calcium 7.5 mg/dL (8.6-10.8) L 02/17/17 03:35 Phosphorus 6.2 mg/dL (2.3-4.7) H 02/17/17 03:35 Magnesium 2.0 mg/dL (1.6-2.6) 02/17/17 03:35 - VTE Documentation of Mechanical Device: Intermittent pneumatic compression device Consult Discharge Plan - Plan Referrals: Kiana Mcgraw CNP [Advanced Practice Nurse] - 02/23/17 9:30 am
[2017-02-17] MEDS ORDERED: Albumin 25% 12.5gm/50mL 12.5 GM/50 ML IV.SOLN IVPB PRN (08:23)
[2017-02-17] MEDS ORDERED: 0.9 % Sodium Chloride 250 ML IVC PRN (08:23)
[2017-02-17] MEDS: Ondansetron 4 MG/2 ML VIAL IVP PRN ×2 (08:35→18:06)
[2017-02-17] MEDS: Aspirin 325 MG TABLET PO SCH (08:36)
[2017-02-17] MEDS ORDERED: Albumin 25% 12.5gm/50mL 12.5 GM/50 ML IV.SOLN ONE (10:35)
[2017-02-17] MEDS ORDERED: Albumin 25% 12.5gm/50mL 12.5 GM/50 ML IV.SOLN IVPB ONE (10:39)
[2017-02-17] MEDS ORDERED: *HR* Heparin 10,000 UNIT/10 ML VIAL IV PRN (11:35)
--- NOTE | 2017-02-17 11:41 | Palliative Progress Note ---
Date of Encounter: 02/17/17 Time of Encounter: 10:00 - Assessment and plan (1) Dyspnea Current Visit: Yes Status: Acute Assessment and plan: Dyspnea with exertion, lying down, and conversation. Ms. Dumont feels that this is related to ascites. Supplemental oxygen, position for comfort. Planned paracentesis tomorrow. May use morphine for uncontrolled dyspnea. Qualifiers: Dyspnea type: unspecified Qualified Code(s): R06.00 - Dyspnea, unspecified (2) Goals of care, counseling/discussion Current Visit: Yes Status: Acute Assessment and plan: Ms. Dumont continues to desire aggressive measures. She will remain a FULL CODE. (3) Ascites Current Visit: Yes Status: Chronic Assessment and plan: Plan for therapeutic paracentesis tomorrow. Qualifiers: Ascites type: malignant Qualified Code(s): R18.0 - Malignant ascites (4) Peritonitis Current Visit: Yes Status: Acute (5) Ovarian cancer Current Visit: Yes Status: Acute Assessment and plan: Currently seeking treatment at the [facility]. Qualifiers: Laterality: unspecified laterality Qualified Code(s): C56.9 - Malignant neoplasm of unspecified ovary (6) Cancer associated pain Current Visit: Yes Status: Acute Assessment and plan: Currently, Ms. Dumont denies pain. She does have oxycodone and morphine if needed. Continue to monitor. (7) Nausea & vomiting Current Visit: Yes Status: Acute Assessment and plan: Ms. Dumont currently reports nausea. She states that it "comes and goes". She did vomit yesterday afternoon and describes is as undigested food particles. Last BM was prior to admission. Planned paracentesis tomorrow. Qualifiers: Vomiting type: unspecified Vomiting Intractability: non-intractable Qualified Code(s): R11.2 - Nausea with vomiting, unspecified - Time Spent With Patient Total time spent is greater than 50% in coordination of care (as documented) at patient's floor/unit and/or counseling patient: - Subjective Interval history: Ms. Dumont was seen in dialysis. She continues to report nausea and vomited yesterday. She has not had a BM since admission, and typically goes daily. She denies pain. - Constitutional Vitals: Abnormal lab results WBC 22.2 K/mcL (4.3-11.1) H D 02/17/17 03:35 RBC 2.83 M/mcL (3.82-4.97) L 02/17/17 03:35 Hgb 9.8 g/dL (11.5-15.4) L 02/17/17 03:35 Hct 30.1 % (35.3-44.9) L 02/17/17 03:35 MCV 106.4 fL (83.0-100.0) H 02/17/17 03:35 MCH 34.6 pg (28.0-33.3) H 02/17/17 03:35 RDW 28.2 % (11.5-14.5) H 02/17/17 03:35 Plt Count 109 K/mcL (140-400) L D 02/17/17 03:35 Band Neutrophils % 10.0 % (0-4) H 02/14/17 09:00 Neutrophils # 19.3 K/mcL (1.6-8.9) H 02/17/17 03:35 Monocytes # 1.6 K/mcL (0.0-1.3) H 02/17/17 03:35 Nucleated RBCs/100 WBC 0.3 /100 WBC (0) H 02/17/17 03:35 Platelet Estimate Decreased (Normal) L 02/17/17 03:35 Large Platelets Present (Not Present) A 02/15/17 05:00 Immature Plt Fraction 6.6 % (1.1-6.1) H 02/16/17 04:35 Polychromasia 1+ (Not Present) A 02/16/17 04:35 Hypochromasia Present (Not Present) A 02/15/17 05:00 Poikilocytosis 1+ (Not Present) A 02/17/17 03:35 Basophilic Stippling 1+ (Not Present) A 02/16/17 04:35 Anisocytosis 1+ (Not Present) A 02/17/17 03:35 Microcytosis Present (Not Present) A 02/16/17 04:35 Macrocytosis Present (Not Present) A 02/16/17 04:35 Ovalocytes 2+ (Not Present) A 02/16/17 04:35 Schistocytes 1+ (Not Present) A 02/16/17 04:35 PT 14.8 Seconds (9.4-12.1) H 02/14/17 09:00 Sodium 133 mEq/L (136-145) L 02/17/17 03:35 Potassium 5.1 mEq/L (3.5-4.5) H 02/17/17 03:35 BUN 45 mg/dL (7-20) H D 02/17/17 03:35 Creatinine 5.00 mg/dL (0.57-1.11) H 02/17/17 03:35 Est GFR ( Amer) 10 (> 60) L 02/17/17 03:35 Est GFR (Non-Af Amer) 9 (> 60) L 02/17/17 03:35 Glucose 60 mg/dL (70-99) L 02/17/17 03:35 Calcium 7.5 mg/dL (8.6-10.8) L 02/17/17 03:35 Phosphorus 6.2 mg/dL (2.3-4.7) H 02/17/17 03:35 Total Bilirubin 4.2 mg/dL (0.2-1.2) H 02/17/17 03:35 Direct Bilirubin 1.8 mg/dL (0.0-0.5) H 02/14/17 09:00 Indirect Bilirubin 3.0 mg/dL (0.0-1.2) H 02/14/17 09:00 Alkaline Phosphatase 163 Units/L (38-126) H 02/17/17 03:35 Troponin I 0.33 ng/mL (0-0.03) H* 02/17/17 03:35 B-Natriuretic Peptide 333 pg/mL (0-100) H 02/14/17 09:00 Serum Total Protein 3.8 g/dL (6.0-8.3) L 02/17/17 03:35 Albumin 2.1 g/dL (3.5-5.0) L 02/17/17 03:35 Globulin 1.7 g/dL (2.4-3.5) L 02/17/17 03:35 Lipase < 4 Units/L (8-78) L 02/14/17 09:00 Periton Tot Nuc Cells 2158 TNC/mcL (0-300) H 02/14/17 11:15 Streptococcus sp PCR DETECTED (Not Detect) A 02/14/17 09:22 Exam: 66 year old female appearing chronically ill with ascites. She was examined in dialysis. - Eye Eye exam: Present: PERRL - ENT ENT exam: Present: mucous membranes dry - Respiratory Respiratory exam: Present: decreased breath sounds. Absent: accessory muscle use, respiratory distress, rhonchi, wheezes, tachypnea - Cardiovascular Cardiovascular exam: Present: RRR - GI/Abdominal GI/Abdominal exam: Present: distended, firm, hypoactive bowel sounds. Absent: guarding, tenderness - Expanded Abdominal Exam GI/Abdominal exam: Present: ascites - Extremities Exam Extremities exam: Present: pedal edema - Expanded Lower Extremity Exam Upper Leg exam: Present: swelling Lower leg exam: Present: swelling - Neurological Exam Neurological exam: Present: alert, oriented X3, no focal deficits, strengths equal and symetr throughout - Psychiatric Psychiatric exam: Present: flat affect - Skin Skin exam: Present: dry, warm Palliative Quality Palliative Quality: Screen for Code Status: Yes, Screen for Goals of Care: Yes, Screen for Pain: Yes, If Pain Regimen Started, Initiate Bowel Regimen: NA, Screen for Nausea/Vomitting: Yes - Labs CBC & Chem 7: 02/17/17 03:35 02/17/17 03:35 Labs: Laboratory Results - last 24 hr 02/15/17 02/16/17 02/17/17 09:30 12:14 03:35 WBC 22.2 H D RBC 2.83 L Hgb 9.8 L Hct 30.1 L MCV 106.4 H MCH 34.6 H MCHC 32.6 RDW 28.2 H Plt Count 109 L D Immature Gran % 3.0 Seg Neutrophils % 86.7 Lymphocytes % 3.0 Monocytes % 7.0 Eosinophils % 0.0 Basophils % 0.3 Neutrophils # 19.3 H Lymphocytes # 0.7 Monocytes # 1.6 H Eosinophils # 0.0 Basophils # 0.1 Nucleated RBCs/100 WBC 0.3 H Platelet Estimate Decreased L Poikilocytosis 1+ A Anisocytosis 1+ A Sodium Potassium Chloride Carbon Dioxide BUN Creatinine Est GFR ( Amer) Est GFR (Non-Af Amer) BUN/Creatinine Ratio Glucose Calculated Osmolality Calcium Phosphorus Magnesium Total Bilirubin AST ALT Alkaline Phosphatase Troponin I 0.32 H* Serum Total Protein Albumin Globulin Albumin/Globulin Ratio Hep Bs Antibody 0.00 02/17/17 02/17/17 02/17/17 03:35 03:35 03:35 WBC RBC Hgb Hct MCV MCH MCHC RDW Plt Count Immature Gran % Seg Neutrophils % Lymphocytes % Monocytes % Eosinophils % Basophils % Neutrophils # Lymphocytes # Monocytes # Eosinophils # Basophils # Nucleated RBCs/100 WBC Platelet Estimate Poikilocytosis Anisocytosis Sodium 133 L Potassium 5.1 H Chloride 98 Carbon Dioxide 23 BUN 45 H D Creatinine 5.00 H Est GFR ( Amer) 10 L Est GFR (Non-Af Amer) 9 L BUN/Creatinine Ratio 9 Glucose 60 L Calculated Osmolality 285 Calcium 7.5 L Phosphorus 6.2 H Magnesium 2.0 Total Bilirubin 4.2 H AST 29 ALT 15 Alkaline Phosphatase 163 H Troponin I 0.33 H* Serum Total Protein 3.8 L Albumin 2.1 L Globulin 1.7 L Albumin/Globulin Ratio 1.2 Hep Bs Antibody - ABG Interpretation ABG results: PT/INR, D-dimer PT 14.8 Seconds (9.4-12.1) H 02/14/17 09:00 Consult Discharge Plan - Plan Referrals: Kiana Mcgraw CNP [Advanced Practice Nurse] - 02/23/17 9:30 am
[2017-02-17] MEDS ORDERED: 0.9 % Sodium Chloride 2,000 ML ONE (12:04)
--- NOTE | 2017-02-17 12:56 | Infectious Disease Consult ---
Date of Encounter: 02/17/17 Time of Encounter: 12:53 Assessment and Plan (1) Severe sepsis Status: Acute Assessment and plan: The patient had leukocytosis with bandemia and tachycardia with thrombocytopenia , lactic acidosis, and hyperbilirubinemia. Likely secondary to SBP and bacteremia. Improved. WBC improved, but did go back up some today when compared with yesterday. She continues to have tachycardia. Lactic acid has normalized. Blood cultures drawn 02/14/17 are positive 2/2 sets for GPC. PCR picked up Strep species, but not S. pneumoniae, GAS, or GBS. (2) Bacteremia Status: Acute Assessment and plan: Causative organism Strep species. Final ID and sensitivities are pending. Source likely SBP. Blood cultures drawn from a peripheral stick 02/14/17 are positive 2/2 sets for GPC. PCR picked up Strep species, but not GAS, GBS, or S. pneumoniae. Final ID and sensitivities are pending. Repeat blood cultures drawn 02/16/17 are pending x 2 sets. The patient does have an a-port and a TDC that could also be potential sources. There have been no blood cultures obtained from either line. Clinically, they do not appear infected and patient has no history of line infections. Continue Vancomycin IV. Pharmacy to dose. Goal trough approximately 15. VT 17.4. Continue Rocephin 2 grams IV daily. Await final ID and sensitivities and de-escalate antibiotics if/when able. Await repeat cultures. Based on the clinical picture at this point, I think we can leave the current a- port and TDC for now. If repeat cultures are positive, we may need to consider removing them, but given the patient's frail state and her need for the a-port for her weekly chemo and the TDC for her dialysis, I think we can attempt to leave the lines for now. Recommend administering the Vancomycin through the dialysis catheter on HD days and give the Rocephin through the a-port daily. Monitor for drug toxicity and dose-adjust antibiotics for HD. Duration of treatment depends on the clinical picture. (3) Peritonitis Status: Acute Assessment and plan: SBP. Likely secondary to weekly paracentesis. CT of the abdomen and pelvis showed large amount of ascites, but no infectious etiology. Paracentesis in the ED showed TNC of 2158 with 94% Neutrophils (PMN 2028). Culture is negative. Continue antibiotics as above. Duration of treatment depends on the clinical picture. (4) Lactic acidosis Status: Resolved Assessment and plan: Likely secondary to sepsis. Resolved. (5) Hyperbilirubinemia Status: Acute Assessment and plan: Etiology unclear, but likely related to sepsis. AST and ALT normal, but alk phos elevated. Continue to trend. (6) Thrombocytopenia Status: Acute Assessment and plan: Likely secondary to sepsis. No acute bleeding noted. Continue to trend. Management per the primary team. (7) Ascites Status: Acute Assessment and plan: Likely secondary to ovarian cancer. Requires weekly paracentesis. Qualifiers: Ascites type: malignant Qualified Code(s): R18.0 - Malignant ascites (8) Dyspnea Status: Acute Assessment and plan: Likely secondary to fluid overload based on clinical exam. CXR shows left basilar airspace disease, but low index of suspicion for PNA based on clinical picture. Continue supportive care. Qualifiers: Dyspnea type: unspecified Qualified Code(s): R06.00 - Dyspnea, unspecified (9) Nausea & vomiting Status: Acute Qualifiers: Vomiting type: unspecified Vomiting Intractability: non-intractable Qualified Code(s): R11.2 - Nausea with vomiting, unspecified (10) End-stage renal disease Status: Acute Assessment and plan: Requires HD //Thu. Follows with Dr. Jerry. Nephrology consulted and following. (11) Ovarian cancer Status: Acute Assessment and plan: Diagnosed in June 2015. Currently on Genzar and Avastin D1, D8, D15 every 28 days with last dose . Follows with [facility]. Consider Hem/Onc consult for further recommendations. Qualifiers: Laterality: unspecified laterality Qualified Code(s): C56.9 - Malignant neoplasm of unspecified ovary Infectious Disease HPI - Data of Consult Patient: known to practice within the last 3 years Consult date: 02/17/17 Requesting Physician: Tania Daniel MD Primary Care Provider: Cleve Hannon DO - Consult Narrative Reason for consult: Strep bacteremia, SBP History of present illness: Ms. Dumont is a 66 year old female with a past medical history of ovarian cancer diagnosed in 2014 currently on IV chemotherapy, and stage renal disease on hemodialysis Thursday, , and Thursday, pulmonary embolism, CAD, CHF, DVT, polycythemia, lupus, and malignant ascites. The patient was managed the hospital February 14 for abdominal pain and peritonitis. We are consulted February 17 for further evaluation and treatment recommendations regarding strep bacteremia. The patient is a 66-year-old female past medical history as stated above. The patient states that approximately 2 days prior to presenting to the emergency department she had severe epigastric abdominal pain with nausea, vomiting, and decreased appetite. Upon arrival, the patient was tachycardic and was hypotensive. She also had leukocytosis with bandemia. Bilirubin was elevated at 4.8. Lactic acid was high at 4.3. Troponin was elevated at 0.10 chest x-ray was completed that showed a mild left base airspace disease. CT abdomen and pelvis showed a decreasing size of the right adnexal mass, trace bilateral pleural effusions, large amount of ascites, and splenomegaly. Patient underwent a bedside paracentesis that revealed a small amount of clear fluid with 2158 TNC with 94% segmented neutrophils (2028). The specimen was sent for gram stain and culture, but was negative. The patient was started on empiric antibiotics and was admitted to the hospital for further evaluation and treatment. Since admission, the patient's white blood cell count has improved, but did go back up again today. Her bandemia has resolved. Lactic acid is back to normal. Blood cultures drawn in the emergency department came back +2 out of 2 sets for gram-positive cocci. 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 The patient's antibiotics were switched to IV Rocephin and IV vancomycin. We've been asked to evaluate and make further recommendations. During my exam today, the patient endorses a history as stated above. She denies any fevers or chills or rigors prior to admission. She denies any headache or neck pain or dizziness. She does report severe fatigue and malaise. She denies any chest pain, but does report shortness of breath that is normal for her when she gets close to needing another paracentesis. She denies any cough, but does report some clear rhinorrhea. She denies any congestion, earache , or sore throat. She reports nausea with vomiting and poor appetite. She states the abdominal pain was worse in the epigastric region, but was really quite diffuse. She denies any urinary complaints. She denies any diarrhea. She states she's not had a bowel movement several days. She denies any oral thrush or skin lesions. The patient did have a port placed back in August 2016. She states she's not had any problems with the a port to indicate a right be a source of infection. Additionally, the patient had a temporary dialysis catheter inserted on January 29. She again states that she's not had any problems to indicate an infection with this line. CC: Tania Daniel MD Past Med Surg Social Fam HX - Past Medical History Attestation: Yes The following information was validated with the patient. Source: patient, old records reviewed, nursing notes reviewed Medical history: arthritis, CHF, coronary artery disease, DVT, hypertension, malignancy (Ovarian cancer - diagnosed 2014, currently on Genzar/Avastin D1, D8 , D15 Q28 days), pulmonary embolus, renal disease (ESRD on HD //Thu), other Psychiatric history: no psych history - Past Surgical History Surgical History: hysterectomy - Social History Smoking Status: Never smoker Smokeless Tobacco Status: No Alcohol use: none Drug use: none Occupational status: unemployed Current living situation: Home - Independent Activity Level: Independent ambulation Recent Out of Country Travel Within the Last 8 Weeks: No Exposure or Possible Exposure to Illness During Travel: No - Family History Mother Family Member Ethnicity: Non- Living Status: Hx Family Cardiac Disorders: No Hx Family Respiratory Disorders: No Hx Family Cancer: Yes (inoperative lung cancer) Hx Family GI Disorders: No Hx Family Endocrine Disorder: No Hx Family Neuromuscular Disorders: No Hx Family Neurologic Disorders: Yes (Alzheimers) Hx Family HEENT Disorders: No Hx Family Autoimmune Disorders: No Father Family Member Ethnicity: Non- Living Status: Hx Family Cardiac Disorders: Yes Hx Family Respiratory Disorders: No Hx Family Cancer: No Hx Family GI Disorders: No Hx Family Endocrine Disorder: Yes (diabetes) Hx Family Neuromuscular Disorders: No Hx Family Neurologic Disorders: No Hx Family HEENT Disorders: No Hx Family Autoimmune Disorders: No Infectious Disease-CN:Meds Allopurinol [Zyloprim 100 MG] 100 mg PO BID 05/03/15 [History] Hydroxychloroquine [Plaquenuil] 200 mg PO QAM 05/03/15 [History] Isosorbide DInitrate [Isordil] 10 mg PO TIDAC 10/30/15 [History] Acetaminophen [Tylenol Arthritis] 650 mg PO BID PRN 04/02/16 [History] Multivitamin [Multi-Day Vitamins] 1 tab PO DAILY 04/02/16 [History] Esomeprazole Magnesium [Nexium] 20 mg PO BID 07/10/16 [History] Prochlorperazine Maleate [Compazine] 10 mg PO Q8H PRN 10/23/16 [History] Magnesium Oxide [Magnesium] 400 mg PO DAILY 11/27/16 [History] Metoprolol XL (24 HR) Succ [Toprol Xl] 50 mg PO DAILY 11/27/16 [History] Aspirin 325 mg PO DAILY 01/08/17 [History] OxyCODONE Immed Rel [Roxicodone 5 MG] 5 mg PO BID PRN #60 tablet 01/16/17 [Rx] Cinacalcet [Sensipar] 30 mg PO DAILY 02/14/17 [History] Midodrine [ProAmatine] 10 mg PO BID 02/14/17 [History] Sevelamer [Renvela] 800 mg PO TID 02/14/17 [History] Sodium Bicarbonate 1,300 mg PO BID 02/14/17 [History] Allergies paclitaxel [From Taxol] Adverse Reaction (Severe, Verified 02/14/17 08:03) See Comments Hypertension, chest pain, pain into her right arm, shortness of breath, constant [id number] movement in the chair All systems: reviewed and no additional remarkable complaints except as stated Exam - Constitutional Vitals: Temp Pulse Resp BP Pulse Ox 97.9 F 115 16 112/48 96 02/17/17 12:25 02/17/17 08:30 02/17/17 12:25 02/17/17 12:25 02/17/17 08:30 General appearance: cooperative, no acute distress, thin - Head Head exam: Present: atraumatic, normal inspection, normocephalic - Eye Eye exam: Present: EOMI, normal appearance, PERRL Pupils: Present: normal accommodation Additional comments: No subconjunctival hemorrhage noted. - ENT ENT exam: Present: mucous membranes moist - Neck Neck exam: Present: normal inspection. Absent: lymphadenopathy - Respiratory Respiratory exam: Present: CTAB. Absent: rales, respiratory distress, rhonchi, wheezes - Cardiovascular Cardiovascular exam: Present: +S1, +S2, tachycardia - GI/Abdominal GI/Abdominal exam: Present: distended, firm, normal bowel sounds, tenderness ( generalized) - Extremities Exam Extremities exam: Present: pedal edema (2+ BLE). Absent: joint swelling, tenderness - Neurological Exam Neurological exam: Present: alert, oriented X3, no focal deficits - Psychiatric Psychiatric exam: Present: normal affect, normal mood - Skin Skin exam: Present: dry, intact, normal color, warm Additional comments: No endocarditis stigmata noted. - Additional findings Additional findings: A-port noted to the right upper chest, accessed with Black needle with transparent dressing C/D/I. No erythema, warmth, or drainage noted. TDC noted to the left upper chest with transparent dressing C/D/I. No warmth, erythema, or tenderness noted. Infectious Disease CN: Results - Labs CBC & Chem 7: 02/17/17 03:35 02/17/17 03:35 Cultures: Cultures 02/14/17 09:22 Blood Culture - Preliminary Central Venous Catheter Gram Positive Cocci 02/14/17 11:15 Body Fluid Culture - Preliminary Ascites Fluid 02/14/17 09:00 Blood Culture - Preliminary Peripheral Venipuncture Gram Positive Cocci - Chains Serology: Serology 02/15/17 Range/Units 09:30 Hep Bs Antigen Nonreactive (Nonreactive) Hep Bs Antibody 0.00 mIU/mL Serology 02/15/17 02/14/17 02/14/17 Range/Units 09:30 11:15 09:22 Peritoneal Appearance HAZY (Clear) Peritoneal Volume 5.0 mL Peritoneal RBC < 0.002 (0.000 - 0.002) M/mcL Periton Tot Nuc Cells 2158 H (0-300) TNC/mcL Periton Neutrophils 94.0 % Periton Band Neuts Test Not Performed Peritoneal Eosinophils Test Not Performed Peritoneal Basophils Test Not Performed Periton Lymphocytes % Test Not Performed Periton Monocytes % 5.0 % Periton Other Cells % 1.0 % Stool Occult Blood (Negative) A. baumannii (PCR) Not Detected (Not Detect) Ting albicans (PCR) Not Detected (Not Detect) C. glabrata (PCR) Not Detected (Not Detect) C. krusei (PCR) Not Detected (Not Detect) C. parapsilosis (PCR) Not Detected (Not Detect) C. tropicalis (PCR) Not Detected (Not Detect) Enterobacteriac sp PCR Not Detected (Not Detect) E. cloacae complex PCR Not Detected (Not Detect) Enterococcus sp PCR Not Detected (Not Detect) E. coli (PCR) Not Detected (Not Detect) H. influenzae (PCR) Not Detected (Not Detect) Hep Bs Antigen Nonreactive (Nonreactive) Hep Bs Antibody 0.00 mIU/mL Klebsiella oxytoca PCR Not Detected (Not Detect) Klebsiella pneumoniae Not Detected (Not Detect) List. monocytogenes PCR Not Detected (Not Detect) N. meningitidis (PCR) Not Detected (Not Detect) Proteus species (PCR) Not Detected (Not Detect) Serratia marcescens PCR Not Detected (Not Detect) Staphylococcus sp PCR Not Detected (Not Detect) Staph aureus (PCR) Not Detected (Not Detect) mecA-Methicil Res Gene N/A (Not Detect) Streptococcus sp PCR DETECTED A (Not Detect) Group A Strep DNA Not Detected (Not Detect) Group B Strep (PCR) Not Detected (Not Detect) Strep pneumoniae (PCR) Not Detected (Not Detect) P. aeruginosa (PCR) Not Detected (Not Detect) Oswaldo/B-Vanco Res Genes N/A (Not Detect) KPC (blaKPC) Detect PCR N/A (Not Detect) 02/14/17 Range/Units 08:45 Peritoneal Appearance (Clear) Peritoneal Volume mL Peritoneal RBC (0.000 - 0.002) M/mcL Periton Tot Nuc Cells (0-300) TNC/mcL Periton Neutrophils % Periton Band Neuts Peritoneal Eosinophils Peritoneal Basophils Periton Lymphocytes % Periton Monocytes % % Periton Other Cells % % Stool Occult Blood Negative (Negative) A. baumannii (PCR) (Not Detect) Ting albicans (PCR) (Not Detect) C. glabrata (PCR) (Not Detect) C. krusei (PCR) (Not Detect) C. parapsilosis (PCR) (Not Detect) C. tropicalis (PCR) (Not Detect) Enterobacteriac sp PCR (Not Detect) E. cloacae complex PCR (Not Detect) Enterococcus sp PCR (Not Detect) E. coli (PCR) (Not Detect) H. influenzae (PCR) (Not Detect) Hep Bs Antigen (Nonreactive) Hep Bs Antibody mIU/mL Klebsiella oxytoca PCR (Not Detect) Klebsiella pneumoniae (Not Detect) List. monocytogenes PCR (Not Detect) N. meningitidis (PCR) (Not Detect) Proteus species (PCR) (Not Detect) Serratia marcescens PCR (Not Detect) Staphylococcus sp PCR (Not Detect) Staph aureus (PCR) (Not Detect) mecA-Methicil Res Gene (Not Detect) Streptococcus sp PCR (Not Detect) Group A Strep DNA (Not Detect) Group B Strep (PCR) (Not Detect) Strep pneumoniae (PCR) (Not Detect) P. aeruginosa (PCR) (Not Detect) Oswaldo/B-Vanco Res Genes (Not Detect) KPC (blaKPC) Detect PCR (Not Detect) - VTE Documentation of Mechanical Device: Intermittent pneumatic compression device Consult Discharge Plan - Plan Referrals: Kiana Mcgraw CNP [Advanced Practice Nurse] - 02/23/17 9:30 am - Attending Attestation I examined this patient and my medical decision-making was reviewed with the ENGINE TEST CELL TECHNICIAN/PA/Advanced Practice Nurse/Resident Physician. I agree with the documented findings, disposition and treatment plan as described except to the extent set forth below. This is an addendum to original report dictated by Deysi Contreras CNP. Please refer to his note for full detail. Patient is a 66-year-old unfortunate woman who we have seen in the past was admitted to [facility] on 02/14/2017 complaining of abdominal pain. We are consulted to evaluate the patient for bacteremia with a streptococcal species, bacterial peritonitis with a paracentesis showing WBC over 2000 and severe sepsis. Patient on admission had severe sepsis with lactic acidosis. Workup revealed a bacteremia with gram-positive cocci streptococcal species and patient has significant ascites and she was having therapeutic paracentesis done about once weekly. Patients fluid was sent for analysis and showed WBC over 2000. We received a phone call from nephrology asking us to evaluate the patient. Patient also has a port for her chemotherapy and has a dialysis catheter. Patient has been diagnosed with ovarian cancer back in 2014. At this point patient has been started on vancomycin and Rocephin. Patient is very weak and frail and concerned that we can switch the port and the dialysis catheter. Ill treatment with try to salvage the specially if it Streptococcus and its not MRSA. Therefore we will give the Rocephin through 1 access and the vancomycin with dialysis through the dialysis catheter. Will also continue to do paracentesis is to decrease the burden. Duration of treatment depends on the clinical picture but at least likely 2 weeks. In the meantime when to monitor labs and for Dr. toxicity goal vancomycin trough around 15. Well give vancomycin after dialysis 3 times a week. Well ask pharmacy to help with the dosing. Monitor labs and for drug toxicity. Overall prognosis guarded.
[2017-02-17] MEDS: Magnesium Oxide 400 MG TABLET PO SCH (13:15)
[2017-02-17] MEDS: Silvasorb 44.4 ML TUBE TP SCH (13:16)
[2017-02-17] MEDS ORDERED: Vancomycin 500 MG in D5% in Water (Mini-Bag+) 100 ML IVPB ONE (14:00)
--- NOTE | 2017-02-17 15:17 | Internal Med Progress Note ---
Date of Encounter: 02/17/17 Time of Encounter: 15:06 - Assessment and plan (1) Sepsis Current Visit: Yes Status: Acute Assessment and plan: likely secondary to Bacteremia and perotinitis continue IV abx (Vancomycin and Ceftriaxone) follow up blood cultures, growing grm positive both blood and perm cath( has been removed) ID on board worsening up trend of lecocytes today, no fever. patient at high risk for complications due to underlying comorbidities ( advanced ovarian cancer with malignant ascites) will follow ID recommnedations on duration and the choice of antibiotics at dc, will most likely need IV antibiotics Qualifiers: Sepsis type: Streptococcus, unspecified Qualified Code(s): A40.9 - Streptococcal sepsis, unspecified; A40 - Streptococcal sepsis (2) Peritonitis Current Visit: Yes Status: Acute Assessment and plan: 2/2 SBP, has chronic long standing ascitis from ovarian cancer will contineu IV antibiotics. will need regular IR guided paracentesis tomm with IR body fluid cx is negative (3) End stage renal disease on dialysis Current Visit: Yes Status: Chronic Assessment and plan: on HD, got her regular HD today, followed by Dr. Jerry, appreciate recommendations. (4) Lupus (systemic lupus erythematosus) Current Visit: No Status: Chronic Assessment and plan: continue Plaquenil Qualifiers: Systemic lupus erythematosus type: unspecified Systemic lupus erythematosus organ involvement: unspecified Qualified Code(s): M32.9 - Systemic lupus erythematosus, unspecified - Subjective Interval history: Patient seen at the bedside, lying in bed with no acute distress. Reports that the nausea is better and was able to eat her lunch today. Status post dialysis today. - Constitutional Vitals: Temp Pulse Resp BP Pulse Ox 97.9 F 115 16 112/48 96 02/17/17 12:25 02/17/17 08:30 02/17/17 12:25 02/17/17 12:25 02/17/17 08:30 General appearance: Present: cooperative, A&O X 3 (frail appearing female), pleasant, no acute distress, answers questions appropriately Exam: - Head Head exam: Present: atraumatic, normocephalic - Respiratory Respiratory exam: b/l clear, Absent: respiratory distress, wheezes - Cardiovascular Cardiovascular exam: Present: +S1, +S2, tachycardia - GI/Abdominal GI/Abdominal exam: Present: distended (diffuse ascites), normal bowel sounds, soft, no peritoneal signs. Absent: guarding, tenderness - Extremities Exam Extremities exam: Present: pedal edema (pitting edema in bilateral lower extremities), warm, radial pulses palpable and symetrical. Absent: calf tenderness - Neurological Exam Neurological exam: Present: alert, oriented X3 - Psychiatric Psychiatric exam: Present: normal affect, normal mood Internal Medicine: Result - Labs CBC & Chem 7: 02/17/17 03:35 02/17/17 03:35 Labs: Short CBC 02/17/17 Range/Units 03:35 WBC 22.2 H D (4.3-11.1) K/mcL Hgb 9.8 L (11.5-15.4) g/dL Hct 30.1 L (35.3-44.9) % Plt Count 109 L D (140-400) K/mcL Neutrophils # 19.3 H (1.6-8.9) K/mcL BMP 02/17/17 03:35 Sodium 133 L Potassium 5.1 H Chloride 98 Carbon Dioxide 23 BUN 45 H D Creatinine 5.00 H Glucose 60 L Calcium 7.5 L Cardiac Enzymes 02/17/17 Range/Units 03:35 Troponin I 0.33 H* (0-0.03) ng/mL Liver Function 02/17/17 Range/Units 03:35 Total Bilirubin 4.2 H (0.2-1.2) mg/dL AST 29 (5-34) Units/L ALT 15 (0-55) Units/L Alkaline Phosphatase 163 H (38-126) Units/L Albumin 2.1 L (3.5-5.0) g/dL - ABG Interpretation ABG results: PT/INR, D-dimer PT 14.8 Seconds (9.4-12.1) H 02/14/17 09:00 - VTE Documentation of Mechanical Device: Intermittent pneumatic compression device Consult Discharge Plan - Plan Referrals: Kiana Mcgraw CNP [Advanced Practice Nurse] - 02/23/17 9:30 am
[2017-02-17] MEDS: *HR* Promethazine 25 MG/ML VIAL IVP PRN (20:33)
[2017-02-18] MEDS: Ondansetron 4 MG/2 ML VIAL IVP PRN (02:40)
[2017-02-18] MEDS: *HR* Promethazine 25 MG/ML VIAL IVP PRN ×2 (03:23→09:47)
[2017-02-18 09:54] LABS: Basophils % 0.3 %
[2017-02-18 09:56] LABS: Basophils # 0.1 K/mcL (0.0-0.2); Hematocrit 32.1 % (35.3-44.9); Hemoglobin 10.4 g/dL (11.5-15.4); Immature Granulocytes % 2.9 % (0-4); Immature Platelets 6.5 % (1.1-6.1); Lymphocytes # 0.6 K/mcL (0.6-4.6); Lymphocytes % 3.1 %; Mean Corpuscular HGB Conc 32.4 g/dL (31.6-35.5); Mean Corpuscular Hemoglobin 34.9 pg (28.0-33.3); Mean Corpuscular Volume 107.7 fL (83.0-100.0); Monocytes # 1.3 K/mcL (0.0-1.3); Monocytes % 6.7 %; Neutrophils # 16.8 K/mcL (1.6-8.9); Nucleated Red Blood Cells 0.2 /100 WBC (0); Red Blood Count 2.98 M/mcL (3.82-4.97); Red Cell Distribution Width 27.5 % (11.5-14.5)
[2017-02-18 09:58] LABS: Platelet Count 79 K/mcL (140-400)
[2017-02-18 10:11] LABS: Calcium 7.7 mg/dL (8.6-10.8); Potassium 4.5 mEq/L (3.5-4.5)
[2017-02-18] MEDS ORDERED: Ondansetron 4 MG/2 ML VIAL IVP PRN (10:21)
[2017-02-18 10:29] LABS: Anisocytosis 3+ (Not Present); Microcytosis Present (Not Present); Platelet Estimate Slight Decrease (Normal); Poikilocytosis 2+ (Not Present)
--- NOTE | 2017-02-18 10:43 | Infectious Disease Progress No ---
Date of Encounter: 02/18/17 Time of Encounter: 10:41 - Assessment and Plan (1) Severe sepsis Current Visit: Yes Status: Acute The patient had leukocytosis with bandemia and tachycardia with thrombocytopenia , lactic acidosis, and hyperbilirubinemia. Likely secondary to SBP and bacteremia. Improved. WBC improved. She continues to have tachycardia. Lactic acid has normalized. Blood cultures drawn 02/14/17 are positive 2/2 sets for GPC. PCR picked up Strep species, but not S. pneumoniae, GAS, or GBS. (2) Bacteremia Current Visit: Yes Status: Acute Causative organism Strep species. Final ID and sensitivities are pending. Source likely SBP. Blood cultures drawn from a peripheral stick 02/14/17 are positive 2/2 sets for GPC. PCR picked up Strep species, but not GAS, GBS, or S. pneumoniae. Final ID and sensitivities are pending. Repeat blood cultures drawn 02/16/17 is no growth to date 1 set. The patient does have an a-port and a TDC that could also be potential sources. There have been no blood cultures obtained from either line. Clinically, they do not appear infected and patient has no history of line infections. Continue Vancomycin IV. Pharmacy to dose. Goal trough approximately 15. VT 17.4. Continue Rocephin 2 grams IV daily. Give after dialysis on dialysis days. Await final ID and sensitivities and de-escalate antibiotics if/when able. Await repeat cultures. Based on the clinical picture at this point, I think we can leave the current a- port and TDC for now. If repeat cultures are positive, we may need to consider removing them, but given the patient's frail state and her need for the a-port for her weekly chemo and the TDC for her dialysis, I think we can attempt to leave the lines for now. Recommend administering the Vancomycin through the dialysis catheter on HD days and give the Rocephin through the a-port daily. Monitor for drug toxicity and dose-adjust antibiotics for HD. Duration of treatment depends on the clinical picture. (3) Peritonitis Current Visit: Yes Status: Acute SBP. Likely secondary to weekly paracentesis. CT of the abdomen and pelvis showed large amount of ascites, but no infectious etiology. Paracentesis in the ED showed TNC of 2158 with 94% Neutrophils (PMN 2028). Culture is negative. Continue antibiotics as above. Duration of treatment depends on the clinical picture. (4) Lactic acidosis Current Visit: Yes Status: Resolved Likely secondary to sepsis. Resolved. (5) Hyperbilirubinemia Current Visit: Yes Status: Acute Etiology unclear, but likely related to sepsis. AST and ALT normal, but alk phos elevated. Continue to trend. Repeat LFTs in the morning. (6) Thrombocytopenia Current Visit: Yes Status: Acute Likely secondary to sepsis. No acute bleeding noted. Continue to trend. Management per the primary team. (7) Ascites Current Visit: Yes Status: Acute Likely secondary to ovarian cancer. Requires weekly paracentesis. Scheduled for later today. Qualifiers: Ascites type: malignant Qualified Code(s): R18.0 - Malignant ascites (8) Dyspnea Current Visit: Yes Status: Acute Likely secondary to fluid overload based on clinical exam. CXR shows left basilar airspace disease, but low index of suspicion for PNA based on clinical picture. Continue supportive care. Qualifiers: Dyspnea type: unspecified Qualified Code(s): R06.00 - Dyspnea, unspecified (9) Nausea & vomiting Current Visit: Yes Status: Acute Qualifiers: Vomiting type: unspecified Vomiting Intractability: non-intractable Qualified Code(s): R11.2 - Nausea with vomiting, unspecified (10) End-stage renal disease Current Visit: Yes Status: Acute Requires HD Tu//Sat. Follows with Dr. Jerry. Nephrology consulted and following. (11) Ovarian cancer Current Visit: Yes Status: Acute Diagnosed in June 2015. Currently on Genzar and Avastin D1, D8, D15 every 28 days with last dose . Follows with [facility]. Consider Hem/Onc consult for further recommendations. Qualifiers: Laterality: unspecified laterality Qualified Code(s): C56.9 - Malignant neoplasm of unspecified ovary (12) Constipation Current Visit: Yes Status: Acute Patient reports she has not had a BM since admission. States she normally takes stool softeners at home, but states she normally has diarrhea for 48 hours after she has paracentesis. Consider re-starting stool softeners. Further management per the primary team. Qualifiers: Constipation type: unspecified constipation type Qualified Code(s): K59.00 - Constipation, unspecified - Subjective Interval history: Patient seen and examined. No acute events noted overnight. Patient reports nausea with vomiting overnight and into this morning. She denies any fevers or chills or rigors. She denies any chest pain or cough, but does report some mild shortness of breath. She reports abdominal distention and fullness and pain related to her ascites. She is scheduled for paracentesis later this morning. She states her appetite is very poor. She denies pain other than in her abdomen. She denies any oral thrush or skin lesions, but does complain of mouth dryness. The patient states she has not had a bowel movement a week, but usually has diarrhea for a couple days following her paracentesis. Infect Dis PN-Objective Data - Labs CBC & Chem 7: 02/18/17 09:45 02/18/17 09:45 Labs: Laboratory Results - last 24 hr 02/18/17 02/18/17 09:45 09:45 WBC 19.3 H RBC 2.98 L Hgb 10.4 L Hct 32.1 L MCV 107.7 H MCH 34.9 H MCHC 32.4 RDW 27.5 H Plt Count 79 L MPV TNP Immature Gran % 2.9 Seg Neutrophils % 87.0 Lymphocytes % 3.1 Monocytes % 6.7 Eosinophils % 0.0 Basophils % 0.3 Neutrophils # 16.8 H Lymphocytes # 0.6 Monocytes # 1.3 Eosinophils # 0.0 Basophils # 0.1 Nucleated RBCs/100 WBC 0.2 H Platelet Estimate Slight Decrease L Immature Plt Fraction 6.5 H Poikilocytosis 2+ A Anisocytosis 3+ A Microcytosis Present A Sodium 136 Potassium 4.5 Chloride 98 Carbon Dioxide 22 BUN 37 H Creatinine 4.56 H Est GFR ( Amer) 12 L Est GFR (Non-Af Amer) 10 L BUN/Creatinine Ratio 8 Glucose 98 Calculated Osmolality 291 Calcium 7.7 L Cultures: Cultures 02/16/17 04:35 Blood Culture - Preliminary Peripheral Venipuncture No growth. Serology 02/15/17 Range/Units 09:30 Hep Bs Antigen Nonreactive (Nonreactive) Hep Bs Antibody 0.00 mIU/mL Exam - Constitutional Vitals: Temp Pulse Resp BP Pulse Ox 97.8 F 106 16 114/63 100 02/18/17 08:07 02/18/17 08:07 02/18/17 08:07 02/18/17 08:07 02/18/17 08:07 General appearance: cooperative, no acute distress, thin - Head Head exam: Present: atraumatic, normal inspection, normocephalic - Eye Eye exam: Present: EOMI, normal appearance, PERRL Pupils: Present: normal accommodation Additional comments: No subconjunctival hemorrhage noted. - ENT ENT exam: Present: mucous membranes dry - Neck Neck exam: Present: normal inspection - Respiratory Respiratory exam: Present: CTAB, rhonchi. Absent: rales, respiratory distress, wheezes - Cardiovascular Cardiovascular exam: Present: +S1, +S2, tachycardia. Absent: irregular rhythm - GI/Abdominal GI/Abdominal exam: Present: distended, firm, normal bowel sounds, tenderness ( Generalized) - Extremities Exam Extremities exam: Present: pedal edema (2+ bilateral lower extremities). Absent : joint swelling, tenderness - Neurological Exam Neurological exam: Present: alert, oriented X3, no focal deficits - Psychiatric Psychiatric exam: Present: normal affect, normal mood - Skin Skin exam: Present: dry, intact, normal color, warm Additional comments: No endocarditis stigmata noted. - Additional findings Additional findings: Temporary dialysis catheter noted to the left upper chest with transparent dressing clean, dry, and intact. No warmth, erythema, edema, or drainage noted. A port noted to the right upper chest, currently accessed with a 19-gauge to reveal. Transparent dressing is clean, dry, and intact. There is no erythema, edema, warmth, or drainage noted. - VTE Documentation of Mechanical Device: Intermittent pneumatic compression device Consult Discharge Plan - Plan Referrals: Kiana Mcgraw CNP [Advanced Practice Nurse] - 02/23/17 9:30 am - Attending Attestation I examined this patient and my medical decision-making was reviewed with the RESIDENTIAL SALES CONSULTANT/PA/Advanced Practice Nurse/Resident Physician. I agree with the documented findings, disposition and treatment plan as described except to the extent set forth below.
--- NOTE | 2017-02-18 10:48 | IR Procedure Note ---
Date of procedure: 02/18/17 Consent Obtained: Verbal consent Timeout: Correct patient and procedure verified, Time out performed, Skin prep completed Local anesthetic: Lidocaine 1% Indications: Ascites Procedure Performed: Paracentesis Complications: None; Tolerated procedure well (Monitor on floor)
[2017-02-18] MEDS: Magnesium Oxide 400 MG TABLET PO SCH (11:37)
[2017-02-18] MEDS: Aspirin 325 MG TABLET PO SCH (11:37)
[2017-02-18] MEDS: Silvasorb 44.4 ML TUBE TP SCH (11:45)
[2017-02-18] MEDS: Metoclopramide 10 MG/10 ML UD.LIQ PO SCH ×4 (11:58→23:13)
--- NOTE | 2017-02-18 13:06 | Nephrology Progress Note ---
Date of Encounter: 02/18/17 Time of Encounter: 12:45 - Assessment and Plan (1) End stage renal disease on dialysis Current Visit: Yes Status: Chronic No HD tomorrow, keeping TTS schedule. Subjective Interval history: Attempting to eat lunch, has nausea. S/P paracentesis x 2L this morning. Objective - Vital Signs Vital signs: Vital Signs Temp Pulse Resp BP Pulse Ox 02/18/17 11:00 97.6 F 112 18 110/70 100 02/18/17 08:07 97.8 F 106 16 114/63 100 02/18/17 07:54 104 100 02/18/17 03:25 97.9 F 112 18 103/65 94 02/17/17 23:40 98.7 F 128 16 104/66 98 02/17/17 19:05 98.5 F 99 16 105/61 99 02/17/17 15:30 97.9 F 105 16 102/56 96 Intake and Output 02/17/17 02/18/17 02/18/17 23:59 07:59 15:59 Intake Total 237 / 237 940 / 940 Output Total 0 / 0 Balance 237 / 237 940 / 940 Intake: IV Fluids 100 / 100 Rocephin 2,000 MG In 100 / 100 Dextrose 5% (Minibag+) 100 ML 100 ML @ 200 mls/ hr IVPB DAILY [facility] Rx#: [id number] Oral 237 / 237 480 / 480 Free Water 360 / 360 Output: Urine 0 / 0 Other: Meal Dinner Breakfast Percent of Meal Consumed 10% 25% Weight 60.6 kg 60.6 kg Patient Weight 02/18/17 23:59 Weight 60.6 kg - General Appearance General appearance: Present: appears started age, fatigue EENT: Present: mucous membranes moist Neck: Present: no JVD Respiratory: Present: clear Cardiology: Present: edema, regular rate, regular rhythm Additional Comments: 2-3+ pitting, buttocks down. Gastrointestinal: Present: normoactive bowel sounds, no tenderness Integumentary: Present: warm and dry Neurologic: Present: alert and oriented x3 Psychiatric: Present: mood/affect appropriate, cooperative - Lab 02/18/17 09:45 02/18/17 09:45 Most recent lab results Calcium 7.7 mg/dL (8.6-10.8) L 02/18/17 09:45 Phosphorus 6.2 mg/dL (2.3-4.7) H 02/17/17 03:35 Magnesium 2.0 mg/dL (1.6-2.6) 02/17/17 03:35 - VTE Documentation of Mechanical Device: Intermittent pneumatic compression device Consult Discharge Plan - Plan Referrals: Kiana Mcgraw CNP [Advanced Practice Nurse] - 02/23/17 9:30 am
--- NOTE | 2017-02-18 14:50 | Internal Med Progress Note ---
Date of Encounter: 02/18/17 Time of Encounter: 14:48 - Assessment and plan (1) Sepsis Current Visit: Yes Status: Acute Assessment and plan: likely secondary to Bacteremia and perotinitis continue IV abx (Vancomycin and Ceftriaxone) follow up blood cultures, growing grm positive both blood and perm cath( has been removed) ID on board white count has improved to 19 today, no fever. patient at high risk for complications due to underlying comorbidities ( advanced ovarian cancer with malignant ascites) will follow ID recommnedations on duration and the choice of antibiotics at mo, will most likely need IV antibiotics have added reglan for nausea, will stop phenergan for possible drug interaction , continue zofrn q6h Qualifiers: Sepsis type: Streptococcus, unspecified Qualified Code(s): A40.9 - Streptococcal sepsis, unspecified; A40 - Streptococcal sepsis (2) Peritonitis Current Visit: Yes Status: Acute Assessment and plan: 2/2 SBP, has chronic long standing ascitis from ovarian cancer will contineu IV antibiotics. s/p IR guided paracentesis today, removal of 2 l of ascitic fluid. body fluid cx is negative (3) End stage renal disease on dialysis Current Visit: Yes Status: Chronic Assessment and plan: on HD, followed by Dr. Jerry, appreciate recommendations. (4) Lupus (systemic lupus erythematosus) Current Visit: No Status: Chronic Assessment and plan: continue Plaquenil Qualifiers: Systemic lupus erythematosus type: unspecified Systemic lupus erythematosus organ involvement: unspecified Qualified Code(s): M32.9 - Systemic lupus erythematosus, unspecified - Subjective Interval history: Patient seen at the bedside, lying in bed with no acute distress. Reports that still has nausea and vomited one time today. Status post IR guided paracentesis, removal of 2 L of ascites fluid today. - Constitutional Vitals: Temp Pulse Resp BP Pulse Ox 97.9 F 101 18 102/60 100 02/18/17 13:00 02/18/17 13:00 02/18/17 13:00 02/18/17 13:00 02/18/17 13:00 General appearance: Present: cooperative, A&O X 3 (frail appearing female), pleasant, no acute distress, answers questions appropriately Exam: - Head Head exam: Present: atraumatic, normocephalic - Respiratory Respiratory exam: b/l clear, Absent: respiratory distress, wheezes - Cardiovascular Cardiovascular exam: Present: +S1, +S2, tachycardia - GI/Abdominal GI/Abdominal exam: Present: distended (diffuse ascites), normal bowel sounds, soft, no peritoneal signs. Absent: guarding, tenderness - Extremities Exam Extremities exam: Present: pedal edema (pitting edema in bilateral lower extremities), warm, radial pulses palpable and symetrical. Absent: calf tenderness - Neurological Exam Neurological exam: Present: alert, oriented X3 - Psychiatric Psychiatric exam: Present: normal affect, normal mood Internal Medicine: Result - Labs CBC & Chem 7: 02/18/17 09:45 02/18/17 09:45 Labs: Short CBC 02/18/17 Range/Units 09:45 WBC 19.3 H (4.3-11.1) K/mcL Hgb 10.4 L (11.5-15.4) g/dL Hct 32.1 L (35.3-44.9) % Plt Count 79 L (140-400) K/mcL Neutrophils # 16.8 H (1.6-8.9) K/mcL BMP 02/18/17 09:45 Sodium 136 Potassium 4.5 Chloride 98 Carbon Dioxide 22 BUN 37 H Creatinine 4.56 H Glucose 98 Calcium 7.7 L - ABG Interpretation ABG results: PT/INR, D-dimer PT 14.8 Seconds (9.4-12.1) H 02/14/17 09:00 - Impressions Impressions Paracentesis Ultrasound 02/18/17 00:00 IMPRESSION: 1. Successful ultrasound guided paracentesis. D/ / Buck Champagne MD / Buck Champagne MD Interpreting Provider: Buck Champagne MD - VTE Documentation of Mechanical Device: Intermittent pneumatic compression device Consult Discharge Plan - Plan Referrals: Kiana Mcgraw CNP [Advanced Practice Nurse] - 02/23/17 9:30 am
--- NOTE | 2017-02-18 14:54 | Palliative Progress Note ---
Date of Encounter: 02/18/17 Time of Encounter: 14:30 - Assessment and plan (1) Nausea & vomiting Current Visit: Yes Status: Acute Assessment and plan: Patient still reporting nausea. S/P Paracentesis with removal of 2L Current regimen includes: Reglan, Phenergan and Zofran. Plan: Schedule Zofran instead of PRN, continue Reglan and Phenergan Qualifiers: Vomiting type: unspecified Vomiting Intractability: non-intractable Qualified Code(s): R11.2 - Nausea with vomiting, unspecified (2) Dyspnea Current Visit: Yes Status: Acute Assessment and plan: S/P Paracentesis with removal of 2L. Reports feeling better. Position for comfort and provide supplemental O2. Qualifiers: Dyspnea type: unspecified Qualified Code(s): R06.00 - Dyspnea, unspecified (3) Ascites Current Visit: Yes Status: Chronic Assessment and plan: S/P Paracentesis with removal of 2L. Reports feeling better. Continue supplemental O2. Qualifiers: Ascites type: malignant Qualified Code(s): R18.0 - Malignant ascites (4) Constipation Current Visit: Yes Status: Acute Assessment and plan: Patient reports no BM for 4 days. Will add bowel regimen and monitor. Qualifiers: Constipation type: unspecified constipation type Qualified Code(s): K59.00 - Constipation, unspecified - Time Spent With Patient Total time spent is greater than 50% in coordination of care (as documented) at patient's floor/unit and/or counseling patient: 25 - 35 minutes - Subjective Interval history: S/P Paracentesis, removal of 2L. Patient alert, still reporting nausea. Reports not able to eat lunch because of nausea. - Constitutional Vitals: Abnormal lab results WBC 19.3 K/mcL (4.3-11.1) H 02/18/17 09:45 RBC 2.98 M/mcL (3.82-4.97) L 02/18/17 09:45 Hgb 10.4 g/dL (11.5-15.4) L 02/18/17 09:45 Hct 32.1 % (35.3-44.9) L 02/18/17 09:45 MCV 107.7 fL (83.0-100.0) H 02/18/17 09:45 MCH 34.9 pg (28.0-33.3) H 02/18/17 09:45 RDW 27.5 % (11.5-14.5) H 02/18/17 09:45 Plt Count 79 K/mcL (140-400) L 02/18/17 09:45 Band Neutrophils % 10.0 % (0-4) H 02/14/17 09:00 Neutrophils # 16.8 K/mcL (1.6-8.9) H 02/18/17 09:45 Nucleated RBCs/100 WBC 0.2 /100 WBC (0) H 02/18/17 09:45 Platelet Estimate Slight Decrease (Normal) L 02/18/17 09:45 Large Platelets Present (Not Present) A 02/15/17 05:00 Immature Plt Fraction 6.5 % (1.1-6.1) H 02/18/17 09:45 Polychromasia 1+ (Not Present) A 02/16/17 04:35 Hypochromasia Present (Not Present) A 02/15/17 05:00 Poikilocytosis 2+ (Not Present) A 02/18/17 09:45 Basophilic Stippling 1+ (Not Present) A 02/16/17 04:35 Anisocytosis 3+ (Not Present) A 02/18/17 09:45 Microcytosis Present (Not Present) A 02/18/17 09:45 Macrocytosis Present (Not Present) A 02/16/17 04:35 Ovalocytes 2+ (Not Present) A 02/16/17 04:35 Schistocytes 1+ (Not Present) A 02/16/17 04:35 PT 14.8 Seconds (9.4-12.1) H 02/14/17 09:00 BUN 37 mg/dL (7-20) H 02/18/17 09:45 Creatinine 4.56 mg/dL (0.57-1.11) H 02/18/17 09:45 Est GFR ( Amer) 12 (> 60) L 02/18/17 09:45 Est GFR (Non-Af Amer) 10 (> 60) L 02/18/17 09:45 Calcium 7.7 mg/dL (8.6-10.8) L 02/18/17 09:45 Phosphorus 6.2 mg/dL (2.3-4.7) H 02/17/17 03:35 Total Bilirubin 4.2 mg/dL (0.2-1.2) H 02/17/17 03:35 Direct Bilirubin 1.8 mg/dL (0.0-0.5) H 02/14/17 09:00 Indirect Bilirubin 3.0 mg/dL (0.0-1.2) H 02/14/17 09:00 Alkaline Phosphatase 163 Units/L (38-126) H 02/17/17 03:35 Troponin I 0.33 ng/mL (0-0.03) H* 02/17/17 03:35 B-Natriuretic Peptide 333 pg/mL (0-100) H 02/14/17 09:00 Serum Total Protein 3.8 g/dL (6.0-8.3) L 02/17/17 03:35 Albumin 2.1 g/dL (3.5-5.0) L 02/17/17 03:35 Globulin 1.7 g/dL (2.4-3.5) L 02/17/17 03:35 Lipase < 4 Units/L (8-78) L 02/14/17 09:00 Periton Tot Nuc Cells 2158 TNC/mcL (0-300) H 02/14/17 11:15 Streptococcus sp PCR DETECTED (Not Detect) A 02/14/17 09:22 - Head Head exam: Present: atraumatic, normal inspection, normocephalic - Eye Eye exam: Present: PERRL Pupils: Present: PERRL - ENT ENT exam: Present: mucous membranes moist - Neck Neck exam: Present: full ROM - Respiratory Respiratory exam: Present: decreased breath sounds - Expanded Respiratory Exam Location: decreased breath sounds: Left, Right, Lower - Cardiovascular Cardiovascular exam: Present: RRR, +S1, +S2 - GI/Abdominal GI/Abdominal exam: Present: normal bowel sounds - Expanded Abdominal Exam GI/Abdominal exam: Present: ascites (s/p paracentesis) - Extremities Exam Extremities exam: Present: full ROM, pedal edema - Back Exam Back exam: Present: normal inspection - Neurological Exam Neurological exam: Present: alert, CN II-XII intact, oriented X3 - Psychiatric Psychiatric exam: Present: normal affect - Skin Skin exam: Present: pallor, warm Palliative Quality Palliative Quality: Screen for Code Status: Yes, Screen for Goals of Care: Yes, Screen for Pain: Yes, If Pain Regimen Started, Initiate Bowel Regimen: NA, Screen for Nausea/Vomitting: Yes - Labs CBC & Chem 7: 02/18/17 09:45 02/18/17 09:45 Labs: Laboratory Results - last 24 hr 02/18/17 02/18/17 09:45 09:45 WBC 19.3 H RBC 2.98 L Hgb 10.4 L Hct 32.1 L MCV 107.7 H MCH 34.9 H MCHC 32.4 RDW 27.5 H Plt Count 79 L MPV TNP Immature Gran % 2.9 Seg Neutrophils % 87.0 Lymphocytes % 3.1 Monocytes % 6.7 Eosinophils % 0.0 Basophils % 0.3 Neutrophils # 16.8 H Lymphocytes # 0.6 Monocytes # 1.3 Eosinophils # 0.0 Basophils # 0.1 Nucleated RBCs/100 WBC 0.2 H Platelet Estimate Slight Decrease L Immature Plt Fraction 6.5 H Poikilocytosis 2+ A Anisocytosis 3+ A Microcytosis Present A Sodium 136 Potassium 4.5 Chloride 98 Carbon Dioxide 22 BUN 37 H Creatinine 4.56 H Est GFR ( Amer) 12 L Est GFR (Non-Af Amer) 10 L BUN/Creatinine Ratio 8 Glucose 98 Calculated Osmolality 291 Calcium 7.7 L - Impressions Impressions Paracentesis Ultrasound 02/18/17 00:00 IMPRESSION: 1. Successful ultrasound guided paracentesis. D/ / Buck Champagne MD / Buck Champagne MD Interpreting Provider: Buck Champagne MD - ABG Interpretation ABG results: PT/INR, D-dimer PT 14.8 Seconds (9.4-12.1) H 02/14/17 09:00 Consult Discharge Plan - Plan Referrals: Kiana Mcgraw CNP [Advanced Practice Nurse] - 02/23/17 9:30 am
[2017-02-18] MEDS: Ondansetron 4 MG/2 ML VIAL IVP SCH ×3 (16:43→23:13)
[2017-02-19 04:37] LABS: Basophils # 0.1 K/mcL (0.0-0.2); Basophils % 0.4 %; Eosinophils % 0.1 %; Hematocrit 34.2 % (35.3-44.9); Lymphocytes # 0.7 K/mcL (0.6-4.6); Lymphocytes % 3.5 %; Mean Corpuscular HGB Conc 32.2 g/dL (31.6-35.5); Mean Corpuscular Hemoglobin 34.5 pg (28.0-33.3); Mean Corpuscular Volume 107.2 fL (83.0-100.0); Monocytes # 1.4 K/mcL (0.0-1.3); Monocytes % 7.4 %; Neutrophils # 15.8 K/mcL (1.6-8.9); Nucleated Red Blood Cells 0.1 /100 WBC (0); Platelet Count 128 K/mcL (140-400); Red Blood Count 3.19 M/mcL (3.82-4.97); Red Cell Distribution Width 26.8 % (11.5-14.5); Segmented Neutrophils % 85.6 %
[2017-02-19 04:54] LABS: Calcium 7.6 mg/dL (8.6-10.8)
[2017-02-19 05:02] LABS: Potassium 4.8 mEq/L (3.5-4.5)
[2017-02-19 05:14] LABS: Anisocytosis 3+ (Not Present); Microcytosis Present (Not Present); Poikilocytosis 2+ (Not Present); Polychromasia 1+ (Not Present)
[2017-02-19 05:15] LABS: Platelet Estimate Slight Decrease (Normal)
[2017-02-19] MEDS: Ondansetron 4 MG/2 ML VIAL IVP SCH ×6 (05:59→23:34)
[2017-02-19] MEDS: Metoclopramide 10 MG/10 ML UD.LIQ PO SCH ×4 (05:59→23:34)
[2017-02-19] MEDS: Aspirin 325 MG TABLET PO SCH (07:50)
[2017-02-19] MEDS ORDERED: 0.9 % Sodium Chloride 250 ML IVC PRN (08:33)
[2017-02-19] MEDS ORDERED: Albumin 25% 12.5gm/50mL 12.5 GM/50 ML IV.SOLN IVPB PRN (08:33)
[2017-02-19] MEDS ORDERED: 0.9 % Sodium Chloride 1,000 ML PRIME SCH (08:45)
[2017-02-19] MEDS ORDERED: Vancomycin 500 MG in D5% in Water (Mini-Bag+) 100 ML IVPB ONE (09:00)
--- NOTE | 2017-02-19 09:44 | Nephrology Progress Note ---
Date of Encounter: 02/19/17 Time of Encounter: 09:35 - Assessment and Plan (1) End stage renal disease on dialysis Current Visit: Yes Status: Chronic HD today, orders given with Albumin for BP support while on treatment, keeping TTS schedule. Subjective Interval history: Seen on HD. Continues to have nausea. Objective - Vital Signs Vital signs: Vital Signs Temp Pulse Resp BP Pulse Ox 02/19/17 07:57 97.7 F 130 18 105/65 100 02/19/17 07:25 97.7 F 130 18 105/65 100 02/19/17 04:35 126 02/19/17 03:35 97.8 F 129 18 110/69 100 02/19/17 00:19 98.1 F 130 16 108/72 97 02/18/17 23:19 129 02/18/17 20:06 97.9 F 108 18 106/62 100 02/18/17 19:00 100 02/18/17 16:30 105 18 103/60 100 02/18/17 13:00 97.9 F 101 18 102/60 100 02/18/17 11:50 103 02/18/17 11:00 97.6 F 112 18 110/70 100 Intake and Output 02/18/17 02/19/17 02/19/17 23:59 07:59 15:59 Intake Total 120 / 120 60 / 60 Output Total 750 / 750 Balance 120 / 120 -690 / -690 Intake: Oral 120 / 120 60 / 60 Output: Urine 0 / 0 Emesis 750 / 750 Other: Meal Dinner Percent of Meal Consumed 90% Weight 59.6 kg Patient Weight 02/19/17 23:59 Weight 59.6 kg - General Appearance General appearance: Present: appears started age, fatigue EENT: Present: mucous membranes moist Neck: Present: no JVD Respiratory: Present: clear Cardiology: Present: edema, regular rate, regular rhythm Additional Comments: pitting, buttocks down. Gastrointestinal: Present: normoactive bowel sounds, distended Integumentary: Present: warm and dry Neurologic: Present: alert and oriented x3 Psychiatric: Present: mood/affect appropriate, cooperative - Lab 02/19/17 04:25 02/19/17 04:25 Most recent lab results Calcium 7.6 mg/dL (8.6-10.8) L 02/19/17 04:25 Phosphorus 6.2 mg/dL (2.3-4.7) H 02/17/17 03:35 Magnesium 2.0 mg/dL (1.6-2.6) 02/17/17 03:35 - VTE Documentation of Mechanical Device: Intermittent pneumatic compression device Consult Discharge Plan - Plan Referrals: Kiana Mcgraw CNP [Advanced Practice Nurse] - 02/23/17 9:30 am
[2017-02-19] MEDS ORDERED: 0.9 % Sodium Chloride 2,000 ML ONE (09:56)
[2017-02-19] MEDS ORDERED: Albumin 25% 12.5gm/50mL 12.5 GM/50 ML IV.SOLN ONE (09:56)
--- NOTE | 2017-02-19 11:17 | Palliative Progress Note ---
Date of Encounter: 02/19/17 Time of Encounter: 11:00 - Assessment and plan (1) Nausea & vomiting Current Visit: Yes Status: Acute Assessment and plan: Ms. Dumont currently reports nausea, but has not vomited yet today. She did vomit yesterday afternoon and describes is as undigested food particles. Scheduled Reglan and Zofran (Phenergan was d/c'd yesterday). Last BM was prior to admission. Will give rectal suppository X1 today to assist with constipation. Active bowel sounds in all quadrants, and some abdominal tenderness with palpation. Qualifiers: Vomiting type: unspecified Vomiting Intractability: non-intractable Qualified Code(s): R11.2 - Nausea with vomiting, unspecified (2) Dyspnea Current Visit: Yes Status: Acute Assessment and plan: Dyspnea improved following paracentesis. Supplemental oxygen, position for comfort. HD today for fluid removal. Qualifiers: Dyspnea type: unspecified Qualified Code(s): R06.00 - Dyspnea, unspecified (3) Goals of care, counseling/discussion Current Visit: Yes Status: Acute Assessment and plan: Ms. Dumont continues to desire aggressive measures. She will remain a FULL CODE. (4) Ascites Current Visit: Yes Status: Chronic Assessment and plan: Therapeutic paracentesis yesterday with 2 L removed. Qualifiers: Ascites type: malignant Qualified Code(s): R18.0 - Malignant ascites (5) Peritonitis Current Visit: Yes Status: Acute Assessment and plan: Infectious disease following for peritonitis and bacteremia. (6) Ovarian cancer Current Visit: Yes Status: Acute Assessment and plan: Currently seeking treatment at the [facility]. Qualifiers: Laterality: unspecified laterality Qualified Code(s): C56.9 - Malignant neoplasm of unspecified ovary (7) Cancer associated pain Current Visit: Yes Status: Acute Assessment and plan: Currently, Ms. Dumont denies pain. She does have oxycodone if needed. Continue to monitor. - Time Spent With Patient Total time spent is greater than 50% in coordination of care (as documented) at patient's floor/unit and/or counseling patient: - Subjective Interval history: Ms. Dumont was seen during dialysis. She continues to report nausea and vomiting. She has not had a BM since admission, and typically goes daily. She denies pain, and shortness of breath since the paracentesis. Ms. Dumont does report continued weakness and states her legs feel "heavy" due to the "fluid". - Constitutional Vitals: Abnormal lab results WBC 18.5 K/mcL (4.3-11.1) H 02/19/17 04:25 RBC 3.19 M/mcL (3.82-4.97) L 02/19/17 04:25 Hgb 11.0 g/dL (11.5-15.4) L 02/19/17 04:25 Hct 34.2 % (35.3-44.9) L 02/19/17 04:25 MCV 107.2 fL (83.0-100.0) H 02/19/17 04:25 MCH 34.5 pg (28.0-33.3) H 02/19/17 04:25 RDW 26.8 % (11.5-14.5) H 02/19/17 04:25 Plt Count 128 K/mcL (140-400) L D 02/19/17 04:25 Band Neutrophils % 10.0 % (0-4) H 02/14/17 09:00 Neutrophils # 15.8 K/mcL (1.6-8.9) H 02/19/17 04:25 Monocytes # 1.4 K/mcL (0.0-1.3) H 02/19/17 04:25 Nucleated RBCs/100 WBC 0.1 /100 WBC (0) H 02/19/17 04:25 Platelet Estimate Slight Decrease (Normal) L 02/19/17 04:25 Large Platelets Present (Not Present) A 02/15/17 05:00 Immature Plt Fraction 6.5 % (1.1-6.1) H 02/18/17 09:45 Polychromasia 1+ (Not Present) A 02/19/17 04:25 Hypochromasia Present (Not Present) A 02/15/17 05:00 Poikilocytosis 2+ (Not Present) A 02/19/17 04:25 Basophilic Stippling 1+ (Not Present) A 02/16/17 04:35 Anisocytosis 3+ (Not Present) A 02/19/17 04:25 Microcytosis Present (Not Present) A 02/19/17 04:25 Macrocytosis Present (Not Present) A 02/16/17 04:35 Ovalocytes 2+ (Not Present) A 02/16/17 04:35 Schistocytes 1+ (Not Present) A 02/16/17 04:35 PT 14.8 Seconds (9.4-12.1) H 02/14/17 09:00 Sodium 134 mEq/L (136-145) L 02/19/17 04:25 Potassium 4.8 mEq/L (3.5-4.5) H 02/19/17 04:25 Chloride 97 mEq/L (98-109) L 02/19/17 04:25 BUN 43 mg/dL (7-20) H 02/19/17 04:25 Creatinine 5.19 mg/dL (0.57-1.11) H 02/19/17 04:25 Est GFR ( Amer) 10 (> 60) L 02/19/17 04:25 Est GFR (Non-Af Amer) 8 (> 60) L 02/19/17 04:25 Calcium 7.6 mg/dL (8.6-10.8) L 02/19/17 04:25 Phosphorus 6.2 mg/dL (2.3-4.7) H 02/17/17 03:35 Total Bilirubin 4.2 mg/dL (0.2-1.2) H 02/17/17 03:35 Direct Bilirubin 1.8 mg/dL (0.0-0.5) H 02/14/17 09:00 Indirect Bilirubin 3.0 mg/dL (0.0-1.2) H 02/14/17 09:00 Alkaline Phosphatase 163 Units/L (38-126) H 02/17/17 03:35 Troponin I 0.33 ng/mL (0-0.03) H* 02/17/17 03:35 B-Natriuretic Peptide 333 pg/mL (0-100) H 02/14/17 09:00 Serum Total Protein 3.8 g/dL (6.0-8.3) L 02/17/17 03:35 Albumin 2.1 g/dL (3.5-5.0) L 02/17/17 03:35 Globulin 1.7 g/dL (2.4-3.5) L 02/17/17 03:35 Lipase < 4 Units/L (8-78) L 02/14/17 09:00 Periton Tot Nuc Cells 2158 TNC/mcL (0-300) H 02/14/17 11:15 Streptococcus sp PCR DETECTED (Not Detect) A 02/14/17 09:22 Exam: 66 year old female appearing chronically ill. She is currently receiving dialysis. - Eye Eye exam: Present: EOMI - ENT ENT exam: Present: mucous membranes moist - Respiratory Respiratory exam: Present: CTAB. Absent: accessory muscle use, respiratory distress, wheezes, tachypnea - Cardiovascular Cardiovascular exam: Present: RRR, tachycardia - GI/Abdominal GI/Abdominal exam: Present: firm, normal bowel sounds, tenderness - Expanded Abdominal Exam GI/Abdominal exam: Present: ascites - Extremities Exam Extremities exam: Present: pedal edema Additional comments: pitting edema noted from sacrum down to bilateral feet. Edema has increased from 2 days ago. - Neurological Exam Neurological exam: Present: alert, oriented X3, no focal deficits, strengths equal and symetr throughout (global weakness) - Psychiatric Psychiatric exam: Present: flat affect. Absent: agitated, anxious - Skin Skin exam: Present: dry, warm Palliative Quality Palliative Quality: Screen for Code Status: Yes, Screen for Goals of Care: Yes, Screen for Pain: Yes, If Pain Regimen Started, Initiate Bowel Regimen: NA, Screen for Nausea/Vomitting: Yes - Labs CBC & Chem 7: 02/19/17 04:25 02/19/17 04:25 Labs: Laboratory Results - last 24 hr 02/19/17 02/19/17 02/19/17 04:25 04:25 04:25 WBC 18.5 H RBC 3.19 L Hgb 11.0 L Hct 34.2 L MCV 107.2 H MCH 34.5 H MCHC 32.2 RDW 26.8 H Plt Count 128 L D MPV TNP Immature Gran % 3.0 Seg Neutrophils % 85.6 Lymphocytes % 3.5 Monocytes % 7.4 Eosinophils % 0.1 Basophils % 0.4 Neutrophils # 15.8 H Lymphocytes # 0.7 Monocytes # 1.4 H Eosinophils # 0.0 Basophils # 0.1 Nucleated RBCs/100 WBC 0.1 H Platelet Estimate Slight Decrease L Polychromasia 1+ A Poikilocytosis 2+ A Anisocytosis 3+ A Microcytosis Present A Sodium 134 L Potassium 4.8 H Chloride 97 L Carbon Dioxide 22 BUN 43 H Creatinine 5.19 H Est GFR ( Amer) 10 L Est GFR (Non-Af Amer) 8 L BUN/Creatinine Ratio 8 Glucose 76 Calculated Osmolality 288 Calcium 7.6 L Vancomycin Trough 17.7 - Impressions Impressions Paracentesis Ultrasound 02/18/17 00:00 IMPRESSION: 1. Successful ultrasound guided paracentesis. D/ / Buck Champagne MD / Buck Champagne MD Interpreting Provider: Buck Champagne MD - ABG Interpretation ABG results: PT/INR, D-dimer PT 14.8 Seconds (9.4-12.1) H 02/14/17 09:00 Consult Discharge Plan - Plan Referrals: Kiana Mcgraw CNP [Advanced Practice Nurse] - 02/23/17 9:30 am
[2017-02-19] MEDS: Bisacodyl 10 MG RECTAL SUPPOSITORY RC SCH (12:49)
[2017-02-19] MEDS: Magnesium Oxide 400 MG TABLET PO SCH (14:51)
[2017-02-19] MEDS: Silvasorb 44.4 ML TUBE TP SCH (14:52)
--- NOTE | 2017-02-19 15:40 | Internal Med Progress Note ---
Date of Encounter: 02/19/17 Time of Encounter: 15:36 - Assessment and plan (1) Sepsis Current Visit: Yes Status: Acute Assessment and plan: likely secondary to Bacteremia and perotinitis continue IV abx (Vancomycin and Ceftriaxone) follow up blood cultures, growing strep species, final results pending. white count has improved to 18 today, no fever. patient at high risk for complications due to underlying comorbidities ( advanced ovarian cancer with malignant ascites) will follow ID recommnedations on duration and the choice of antibiotics at dc, will most likely need IV antibiotics will continue reglan for nausea and will increase the frequency to q4h BP noted to be on the lower side after HD today,received 250 of bolus at HD , will give one dose of albumin and observe BP today. Qualifiers: Sepsis type: Streptococcus, unspecified Qualified Code(s): A40.9 - Streptococcal sepsis, unspecified; A40 - Streptococcal sepsis (2) Peritonitis Current Visit: Yes Status: Acute Assessment and plan: 2/2 SBP, has chronic long standing ascitis from ovarian cancer will contineu IV antibiotics. s/p IR guided paracentesis , removal of 2 l of ascitic fluid. body fluid cx is negative (3) End stage renal disease on dialysis Current Visit: Yes Status: Chronic Assessment and plan: on HD, followed by Dr. Jerry, appreciate recommendations. (4) Lupus (systemic lupus erythematosus) Current Visit: No Status: Chronic Assessment and plan: continue Plaquenil Qualifiers: Systemic lupus erythematosus type: unspecified Systemic lupus erythematosus organ involvement: unspecified Qualified Code(s): M32.9 - Systemic lupus erythematosus, unspecified - Subjective Interval history: Patient seen at the bedside, lying in bed with no acute distress, back from HD. Reports that still has nausea, reglan was added yesterday along with the zofran. Status post IR guided paracentesis, removal of 2 L of ascites fluid . - Constitutional Vitals: Temp Pulse Resp BP Pulse Ox 97.9 F 124 18 99/64 100 02/19/17 15:15 02/19/17 15:15 02/19/17 15:15 02/19/17 15:15 02/19/17 15:15 General appearance: Present: cooperative, A&O X 3 (frail appearing female), pleasant, no acute distress, answers questions appropriately Exam: - Head Head exam: Present: atraumatic, normocephalic - Respiratory Respiratory exam: b/l clear, Absent: respiratory distress, wheezes - Cardiovascular Cardiovascular exam: Present: +S1, +S2, tachycardia - GI/Abdominal GI/Abdominal exam: Present: distended (diffuse ascites), normal bowel sounds, soft, no peritoneal signs. Absent: guarding, tenderness - Extremities Exam Extremities exam: Present: pedal edema (pitting edema in bilateral lower extremities), warm, radial pulses palpable and symetrical. Absent: calf tenderness - Neurological Exam Neurological exam: Present: alert, oriented X3 - Psychiatric Psychiatric exam: Present: normal affect, normal mood Internal Medicine: Result - Labs CBC & Chem 7: 02/19/17 04:25 02/19/17 04:25 Labs: Short CBC 02/19/17 Range/Units 04:25 WBC 18.5 H (4.3-11.1) K/mcL Hgb 11.0 L (11.5-15.4) g/dL Hct 34.2 L (35.3-44.9) % Plt Count 128 L D (140-400) K/mcL Neutrophils # 15.8 H (1.6-8.9) K/mcL BMP 02/19/17 04:25 Sodium 134 L Potassium 4.8 H Chloride 97 L Carbon Dioxide 22 BUN 43 H Creatinine 5.19 H Glucose 76 Calcium 7.6 L - ABG Interpretation ABG results: PT/INR, D-dimer PT 14.8 Seconds (9.4-12.1) H 02/14/17 09:00 - VTE Documentation of Mechanical Device: Intermittent pneumatic compression device Consult Discharge Plan - Plan Referrals: Kiana Mcgraw CNP [Advanced Practice Nurse] - 02/23/17 9:30 am
--- NOTE | 2017-02-19 18:02 | Infectious Disease Progress No ---
Date of Encounter: 02/19/17 Time of Encounter: 18:00 - Assessment and Plan (1) Severe sepsis Current Visit: Yes Status: Acute The patient had leukocytosis with bandemia and tachycardia with thrombocytopenia , lactic acidosis, and hyperbilirubinemia. Likely secondary to SBP and bacteremia. Improved. WBC improved. She continues to have tachycardia. Lactic acid has normalized. Blood cultures drawn 02/14/17 are positive 2/2 sets for GPC. PCR picked up Strep species, but not S. pneumoniae, GAS, or GBS. discussed with pharmacy likely to get strep ID tomorrow (2) Bacteremia Current Visit: Yes Status: Acute Causative organism Strep species. Final ID and sensitivities are pending. Source likely SBP. Blood cultures drawn from a peripheral stick 02/14/17 are positive 2/2 sets for GPC. PCR picked up Strep species, but not GAS, GBS, or S. pneumoniae. Final ID and sensitivities are pending. Repeat blood cultures drawn 02/16/17 is no growth to date 1 set. The patient does have an a-port and a TDC that could also be potential sources. There have been no blood cultures obtained from either line. Clinically, they do not appear infected and patient has no history of line infections. Continue Vancomycin IV. Pharmacy to dose. Goal trough approximately 15. VT 17.4. Continue Rocephin 2 grams IV daily. Give after dialysis on dialysis days. Await final ID and sensitivities and de-escalate antibiotics if/when able. Await repeat cultures. Based on the clinical picture at this point, I think we can leave the current a- port and TDC for now. If repeat cultures are positive, we may need to consider removing them, but given the patient's frail state and her need for the a-port for her weekly chemo and the TDC for her dialysis, I think we can attempt to leave the lines for now. Recommend administering the Vancomycin through the dialysis catheter on HD days and give the Rocephin through the a-port daily. Monitor for drug toxicity and dose-adjust antibiotics for HD. Duration of treatment depends on the clinical picture. (3) Peritonitis Current Visit: Yes Status: Acute SBP. Likely secondary to weekly paracentesis. CT of the abdomen and pelvis showed large amount of ascites, but no infectious etiology. Paracentesis in the ED showed TNC of 2158 with 94% Neutrophils (PMN 2028). Culture is negative. Continue antibiotics as above. Duration of treatment depends on the clinical picture. (4) Lactic acidosis Current Visit: Yes Status: Resolved Likely secondary to sepsis. Resolved. (5) Hyperbilirubinemia Current Visit: Yes Status: Acute Etiology unclear, but likely related to sepsis. AST and ALT normal, but alk phos elevated. Continue to trend. Repeat LFTs in the morning. (6) Thrombocytopenia Current Visit: Yes Status: Acute Likely secondary to sepsis. No acute bleeding noted. Continue to trend. Management per the primary team. (7) Ascites Current Visit: Yes Status: Acute Likely secondary to ovarian cancer. Requires weekly paracentesis. Scheduled for later today. Qualifiers: Ascites type: malignant Qualified Code(s): R18.0 - Malignant ascites (8) Dyspnea Current Visit: Yes Status: Acute Likely secondary to fluid overload based on clinical exam. CXR shows left basilar airspace disease, but low index of suspicion for PNA based on clinical picture. Continue supportive care. Qualifiers: Dyspnea type: unspecified Qualified Code(s): R06.00 - Dyspnea, unspecified (9) Nausea & vomiting Current Visit: Yes Status: Acute Qualifiers: Vomiting type: unspecified Vomiting Intractability: non-intractable Qualified Code(s): R11.2 - Nausea with vomiting, unspecified (10) End-stage renal disease Current Visit: Yes Status: Acute Requires HD Tu//Sat. Follows with Dr. Jerry. Nephrology consulted and following. (11) Ovarian cancer Current Visit: Yes Status: Acute Diagnosed in June 2015. Currently on Genzar and Avastin D1, D8, D15 every 28 days with last dose . Follows with [facility]. Consider Hem/Onc consult for further recommendations. Qualifiers: Laterality: unspecified laterality Qualified Code(s): C56.9 - Malignant neoplasm of unspecified ovary (12) Constipation Current Visit: Yes Status: Acute Patient reports she has not had a BM since admission. States she normally takes stool softeners at home, but states she normally has diarrhea for 48 hours after she has paracentesis. Consider re-starting stool softeners. Further management per the primary team. Qualifiers: Constipation type: unspecified constipation type Qualified Code(s): K59.00 - Constipation, unspecified - Subjective Interval history: Patient seen and examined. states that she is feeling okay today. family at bedside. had many vomiting episodes at night. Infect Dis PN-Objective Data - Labs CBC & Chem 7: 02/19/17 04:25 02/19/17 04:25 Labs: Laboratory Results - last 24 hr 02/19/17 02/19/17 02/19/17 04:25 04:25 04:25 WBC 18.5 H RBC 3.19 L Hgb 11.0 L Hct 34.2 L MCV 107.2 H MCH 34.5 H MCHC 32.2 RDW 26.8 H Plt Count 128 L D MPV TNP Immature Gran % 3.0 Seg Neutrophils % 85.6 Lymphocytes % 3.5 Monocytes % 7.4 Eosinophils % 0.1 Basophils % 0.4 Neutrophils # 15.8 H Lymphocytes # 0.7 Monocytes # 1.4 H Eosinophils # 0.0 Basophils # 0.1 Nucleated RBCs/100 WBC 0.1 H Platelet Estimate Slight Decrease L Polychromasia 1+ A Poikilocytosis 2+ A Anisocytosis 3+ A Microcytosis Present A Sodium 134 L Potassium 4.8 H Chloride 97 L Carbon Dioxide 22 BUN 43 H Creatinine 5.19 H Est GFR ( Amer) 10 L Est GFR (Non-Af Amer) 8 L BUN/Creatinine Ratio 8 Glucose 76 Calculated Osmolality 288 Calcium 7.6 L Vancomycin Trough 17.7 Cultures: Cultures 02/16/17 04:35 Blood Culture - Preliminary Peripheral Venipuncture No growth. Serology 02/15/17 Range/Units 09:30 Hep Bs Antigen Nonreactive (Nonreactive) Hep Bs Antibody 0.00 mIU/mL Exam - Constitutional Vitals: Temp Pulse Resp BP Pulse Ox 97.8 F 97 19 92/55 100 02/19/17 15:38 02/19/17 15:38 02/19/17 15:38 02/19/17 15:38 02/19/17 15:38 General appearance: no acute distress, no febrile - Head Head exam: Present: atraumatic, normocephalic - Neck Neck exam: Present: full ROM - Respiratory Additional comments: air sounds audible both lung garcia - Cardiovascular Cardiovascular exam: Present: RRR, +S1, +S2 - GI/Abdominal GI/Abdominal exam: Present: distended, hypoactive bowel sounds, soft - Extremities Exam Extremities exam: Present: normal inspection. Absent: pedal edema - VTE Documentation of Mechanical Device: Intermittent pneumatic compression device Consult Discharge Plan - Plan Referrals: Kiana Mcgraw CNP [Advanced Practice Nurse] - 02/23/17 9:30 am
[2017-02-20] MEDS: Ondansetron 4 MG/2 ML VIAL IVP SCH ×5 (03:32→21:45)
[2017-02-20] MEDS: Metoclopramide 10 MG/10 ML UD.LIQ PO SCH ×3 (06:14→19:31)
[2017-02-20] MEDS: Magnesium Oxide 400 MG TABLET PO SCH (08:35)
[2017-02-20] MEDS: Aspirin 325 MG TABLET PO SCH (08:35)
[2017-02-20] MEDS: Bisacodyl 10 MG RECTAL SUPPOSITORY RC SCH (08:47)
[2017-02-20] MEDS: Silvasorb 44.4 ML TUBE TP SCH (08:49)
[2017-02-20 10:29] LABS: Basophils # 0.1 K/mcL (0.0-0.2); Basophils % 0.3 %; Eosinophils # 0.1 K/mcL (0.0-0.6); Eosinophils % 0.2 %; Hematocrit 33.5 % (35.3-44.9); Hemoglobin 10.5 g/dL (11.5-15.4); Immature Granulocytes % 4.3 % (0-4); Lymphocytes # 0.4 K/mcL (0.6-4.6); Lymphocytes % 1.6 %; Mean Corpuscular HGB Conc 31.3 g/dL (31.6-35.5); Mean Corpuscular Hemoglobin 33.5 pg (28.0-33.3); Monocytes # 1.8 K/mcL (0.0-1.3); Monocytes % 7.4 %; Nucleated Red Blood Cells 0.1 /100 WBC (0); Platelet Count 198 K/mcL (140-400); Red Blood Count 3.13 M/mcL (3.82-4.97); Red Cell Distribution Width 26.2 % (11.5-14.5); Segmented Neutrophils % 86.2 %
[2017-02-20 10:31] LABS: Neutrophils # 20.6 K/mcL (1.6-8.9)
[2017-02-20 10:41] LABS: Calcium 7.2 mg/dL (8.6-10.8)
[2017-02-20 10:42] LABS: Potassium 4.8 mEq/L (3.5-4.5)
[2017-02-20 10:48] LABS: Anisocytosis 3+ (Not Present); Ovalocytes 1+ (Not Present)
[2017-02-20 10:51] LABS: Helmet Cells Present (Not Present); Poikilocytosis 2+ (Not Present); Schistocytes 2+ (Not Present)
[2017-02-20 10:52] LABS: Basophilic Stippling 1+ (Not Present)
[2017-02-20 10:53] LABS: Platelet Estimate Normal (Normal)
--- NOTE | 2017-02-20 11:13 | Palliative Progress Note ---
Date of Encounter: 02/20/17 Time of Encounter: 10:00 - Assessment and plan (1) Nausea & vomiting Current Visit: Yes Status: Acute Assessment and plan: Continue scheduled Reglan and Zofran. Monitor for diarrhea secondary to reglan. Ms. Dumont did have a BM following the rectal suppository and reports relief. Will change suppository to PRN. Qualifiers: Vomiting type: unspecified Vomiting Intractability: non-intractable Qualified Code(s): R11.2 - Nausea with vomiting, unspecified (2) Dyspnea Current Visit: Yes Status: Acute Assessment and plan: Dyspnea improved following paracentesis. Supplemental oxygen, position for comfort. She states she will have HD again today. Qualifiers: Dyspnea type: unspecified Qualified Code(s): R06.00 - Dyspnea, unspecified (3) Goals of care, counseling/discussion Current Visit: Yes Status: Acute Assessment and plan: Ms. Dumont continues to desire aggressive measures. She will remain a FULL CODE. Plans for discharge to [facility] for inpatient rehab and IV ATB when medically stable. director of casework services following. (4) Ascites Current Visit: Yes Status: Chronic Assessment and plan: Therapeutic paracentesis weekly on Wednesdays Qualifiers: Ascites type: malignant Qualified Code(s): R18.0 - Malignant ascites (5) Peritonitis Current Visit: Yes Status: Acute Assessment and plan: Infectious disease following for peritonitis and bacteremia. (6) Ovarian cancer Current Visit: Yes Status: Acute Assessment and plan: Currently seeking treatment at the [facility]. Qualifiers: Laterality: unspecified laterality Qualified Code(s): C56.9 - Malignant neoplasm of unspecified ovary (7) Cancer associated pain Current Visit: Yes Status: Acute Assessment and plan: Currently, Ms. Dumont denies pain. She does have oxycodone if needed. Continue to monitor. - Time Spent With Patient Total time spent is greater than 50% in coordination of care (as documented) at patient's floor/unit and/or counseling patient: - Subjective Interval history: Ms. Dumont reports improvement in her nausea/vomiting. She has not vomited since 0300 yesterday. She is no longer holding her emesis basin in her lap as she has for the past several days. She denies pain and reports working with physical therapy with plans for in-patient rehab upon discharge. Ms. Dumont did have a BM following the rectal suppository and reports relief. - Constitutional Vitals: Abnormal lab results WBC 23.9 K/mcL (4.3-11.1) H 02/20/17 10:19 RBC 3.13 M/mcL (3.82-4.97) L 02/20/17 10:19 Hgb 10.5 g/dL (11.5-15.4) L 02/20/17 10:19 Hct 33.5 % (35.3-44.9) L 02/20/17 10:19 MCV 107.0 fL (83.0-100.0) H 02/20/17 10:19 MCH 33.5 pg (28.0-33.3) H 02/20/17 10:19 MCHC 31.3 g/dL (31.6-35.5) L 02/20/17 10:19 RDW 26.2 % (11.5-14.5) H 02/20/17 10:19 Immature Gran % 4.3 % (0-4) H 02/20/17 10:19 Band Neutrophils % 10.0 % (0-4) H 02/14/17 09:00 Neutrophils # 20.6 K/mcL (1.6-8.9) H 02/20/17 10:19 Lymphocytes # 0.4 K/mcL (0.6-4.6) L 02/20/17 10:19 Monocytes # 1.8 K/mcL (0.0-1.3) H 02/20/17 10:19 Nucleated RBCs/100 WBC 0.1 /100 WBC (0) H 02/20/17 10:19 Large Platelets Present (Not Present) A 02/15/17 05:00 Immature Plt Fraction 6.5 % (1.1-6.1) H 02/18/17 09:45 Polychromasia 1+ (Not Present) A 02/19/17 04:25 Hypochromasia Present (Not Present) A 02/15/17 05:00 Poikilocytosis 2+ (Not Present) A 02/20/17 10:19 Basophilic Stippling 1+ (Not Present) A 02/20/17 10:19 Anisocytosis 3+ (Not Present) A 02/20/17 10:19 Microcytosis Present (Not Present) A 02/19/17 04:25 Macrocytosis Present (Not Present) A 02/16/17 04:35 Ovalocytes 1+ (Not Present) A 02/20/17 10:19 Helmet Cells Present (Not Present) A 02/20/17 10:19 Schistocytes 2+ (Not Present) A 02/20/17 10:19 PT 14.8 Seconds (9.4-12.1) H 02/14/17 09:00 Sodium 133 mEq/L (136-145) L 02/20/17 10:19 Potassium 4.8 mEq/L (3.5-4.5) H 02/20/17 10:19 Chloride 96 mEq/L (98-109) L 02/20/17 10:19 BUN 47 mg/dL (7-20) H 02/20/17 10:19 Creatinine 5.62 mg/dL (0.57-1.11) H 02/20/17 10:19 Est GFR ( Amer) 9 (> 60) L 02/20/17 10:19 Est GFR (Non-Af Amer) 8 (> 60) L 02/20/17 10:19 Calcium 7.2 mg/dL (8.6-10.8) L 02/20/17 10:19 Phosphorus 6.2 mg/dL (2.3-4.7) H 02/17/17 03:35 Total Bilirubin 4.2 mg/dL (0.2-1.2) H 02/17/17 03:35 Direct Bilirubin 1.8 mg/dL (0.0-0.5) H 02/14/17 09:00 Indirect Bilirubin 3.0 mg/dL (0.0-1.2) H 02/14/17 09:00 Alkaline Phosphatase 163 Units/L (38-126) H 02/17/17 03:35 Troponin I 0.33 ng/mL (0-0.03) H* 02/17/17 03:35 B-Natriuretic Peptide 333 pg/mL (0-100) H 02/14/17 09:00 Serum Total Protein 3.8 g/dL (6.0-8.3) L 02/17/17 03:35 Albumin 2.1 g/dL (3.5-5.0) L 02/17/17 03:35 Globulin 1.7 g/dL (2.4-3.5) L 02/17/17 03:35 Lipase < 4 Units/L (8-78) L 02/14/17 09:00 Periton Tot Nuc Cells 2158 TNC/mcL (0-300) H 02/14/17 11:15 Streptococcus sp PCR DETECTED (Not Detect) A 02/14/17 09:22 General appearance: Present: cooperative, no acute distress Exam: 66 year old female appearing more alert with a brighter/smiling affect when compared to yesterday. She is no longer clutching her emesis basin and was able to eat some cream of wheat for breakfast. - Eye Eye exam: Present: EOMI - Respiratory Respiratory exam: Present: CTAB. Absent: accessory muscle use, decreased breath sounds, respiratory distress, tachypnea - Cardiovascular Cardiovascular exam: Present: RRR, tachycardia - GI/Abdominal GI/Abdominal exam: Present: firm. Absent: guarding, tenderness (improved from yesterday) - Expanded Abdominal Exam GI/Abdominal exam: Present: ascites - Extremities Exam Extremities exam: Present: pedal edema Additional comments: +2 pitting edema noted from the sacral area down to bilateral feet. - Expanded Lower Extremity Exam Upper Leg exam: Present: swelling Lower leg exam: Present: swelling - Neurological Exam Neurological exam: Present: alert, oriented X3, no focal deficits, strengths equal and symetr throughout - Psychiatric Psychiatric exam: Present: normal affect, normal mood. Absent: agitated, anxious - Skin Skin exam: Present: dry, warm Palliative Quality Palliative Quality: Screen for Code Status: Yes, Screen for Goals of Care: Yes, Screen for Pain: Yes, If Pain Regimen Started, Initiate Bowel Regimen: NA, Screen for Nausea/Vomitting: Yes - Labs CBC & Chem 7: 02/20/17 10:19 02/20/17 10:19 Labs: Laboratory Results - last 24 hr 02/20/17 02/20/17 10:19 10:19 WBC 23.9 H RBC 3.13 L Hgb 10.5 L Hct 33.5 L MCV 107.0 H MCH 33.5 H MCHC 31.3 L RDW 26.2 H Plt Count 198 D MPV TNP Immature Gran % 4.3 H Seg Neutrophils % 86.2 Lymphocytes % 1.6 Monocytes % 7.4 Eosinophils % 0.2 Basophils % 0.3 Neutrophils # 20.6 H Lymphocytes # 0.4 L Monocytes # 1.8 H Eosinophils # 0.1 Basophils # 0.1 Nucleated RBCs/100 WBC 0.1 H Platelet Estimate Normal Poikilocytosis 2+ A Basophilic Stippling 1+ A Anisocytosis 3+ A Ovalocytes 1+ A Helmet Cells Present A Schistocytes 2+ A Sodium 133 L Potassium 4.8 H Chloride 96 L Carbon Dioxide 21 BUN 47 H Creatinine 5.62 H Est GFR ( Amer) 9 L Est GFR (Non-Af Amer) 8 L BUN/Creatinine Ratio 8 Glucose 81 Calculated Osmolality 287 Calcium 7.2 L - ABG Interpretation ABG results: PT/INR, D-dimer PT 14.8 Seconds (9.4-12.1) H 02/14/17 09:00 Consult Discharge Plan - Plan Referrals: Kiana Mcgraw, [facility] [Advanced Practice Nurse] - (PT IS GOING TO ECF NO PCP APPOINTMENT NEEDED)
--- NOTE | 2017-02-20 12:26 | Nephrology Progress Note ---
Date of Encounter: 02/20/17 Time of Encounter: 11:40 - Assessment and Plan (1) End stage renal disease on dialysis Current Visit: Yes Status: Chronic Sequential UF/HD today, orders given with Albumin for BP support. No emesis today, BM, passing flatus with rectal suppository. Had concern for bowel obstruction. Subjective Interval history: Had intractable vomiting yesterday, states no emesis today and is feeling better. Was unable to complete HD yesterday due to low BP despite Albumin for support. States given rectal supp. today with BM, also passing flatus Objective - Vital Signs Vital signs: Vital Signs Temp Pulse Resp BP Pulse Ox 02/20/17 03:32 98 02/20/17 03:01 97.6 F 103 16 109/59 98 02/19/17 23:32 97.5 F L 99 16 85/54 100 02/19/17 20:00 98.9 F 98 16 90/53 99 02/19/17 19:25 97 02/19/17 15:38 97.8 F 97 19 92/55 100 02/19/17 15:15 97.9 F 124 18 99/64 100 02/19/17 12:41 97.9 F 119 18 85/55 100 Intake and Output 02/19/17 02/20/17 02/20/17 23:59 07:59 15:59 Intake Total 240 / 240 200 / 200 140 / 140 Balance 240 / 240 200 / 200 140 / 140 Intake: Oral 240 / 240 200 / 200 120 / 120 Other 20 / 20 Other: Meal Dinner Percent of Meal Consumed 55% 5% Stool Size Small Small Stool Consistency loose loose liquid liquid Stool Color Brown Brown Brown # Bowel Movements 1 Weight 58.2 kg Patient Weight 02/20/17 23:59 Weight 58.2 kg - General Appearance General appearance: Present: appears started age, chronically ill, frail EENT: Present: mucous membranes moist Neck: Present: no JVD Additional Comments: fine bibasilar crackles Cardiology: Present: edema, regular rate, regular rhythm Additional Comments: pitting edema buttocks down, somewhat improved Gastrointestinal: Present: hypoactive bowel sounds, no tenderness, distended Integumentary: Present: warm and dry Neurologic: Present: alert and oriented x3 Psychiatric: Present: mood/affect appropriate, cooperative - Lab 02/20/17 10:19 02/20/17 10:19 Most recent lab results Calcium 7.2 mg/dL (8.6-10.8) L 02/20/17 10:19 Phosphorus 6.2 mg/dL (2.3-4.7) H 02/17/17 03:35 Magnesium 2.0 mg/dL (1.6-2.6) 02/17/17 03:35 - VTE Documentation of Mechanical Device: Intermittent pneumatic compression device Consult Discharge Plan - Plan Referrals: Kiana Mcgraw CNP [Advanced Practice Nurse] - (PT IS GOING TO ECF NO PCP APPOINTMENT NEEDED)
[2017-02-20] MEDS ORDERED: Albumin 25% 12.5gm/50mL 12.5 GM/50 ML IV.SOLN IVPB PRN (13:29)
[2017-02-20] MEDS ORDERED: 0.9 % Sodium Chloride 250 ML IVC PRN (13:29)
[2017-02-20] MEDS ORDERED: 0.9 % Sodium Chloride 1,000 ML PRIME SCH (13:30)
[2017-02-20] MEDS ORDERED: Albumin 25% 12.5gm/50mL 12.5 GM/50 ML IV.SOLN ONE ×2 (13:53→14:41)
[2017-02-20] MEDS ORDERED: 0.9 % Sodium Chloride 1,000 ML ONE (13:54)
--- NOTE | 2017-02-20 15:53 | Internal Med Progress Note ---
Date of Encounter: 02/20/17 Time of Encounter: 15:33 - Assessment and plan (1) Sepsis Current Visit: Yes Status: Acute Assessment and plan: likely secondary to Bacteremia and perotinitis continue IV abx follow up blood cultures, growing strep species, final results pending, will possible stop vanco and continue rocephin. white count has been fluctuating , today 23, has no fever and actually looks clinically better. patient at high risk for complications due to underlying comorbidities ( advanced ovarian cancer with malignant ascites) will follow ID recommnedations on duration and the choice of antibiotics at id, will most likely need IV antibiotics will continue reglan for nausea and will increase the frequency to q4h Qualifiers: Sepsis type: Streptococcus, unspecified Qualified Code(s): A40.9 - Streptococcal sepsis, unspecified; A40 - Streptococcal sepsis (2) Peritonitis Current Visit: Yes Status: Acute Assessment and plan: 2/2 SBP, has chronic long standing ascitis from ovarian cancer will contineu IV antibiotics. s/p IR guided paracentesis , removal of 2 l of ascitic fluid. body fluid cx is negative (3) End stage renal disease on dialysis Current Visit: Yes Status: Chronic Assessment and plan: on HD, followed by Dr. Jerry, appreciate recommendations. (4) Lupus (systemic lupus erythematosus) Current Visit: No Status: Chronic Assessment and plan: continue Plaquenil Qualifiers: Systemic lupus erythematosus type: unspecified Systemic lupus erythematosus organ involvement: unspecified Qualified Code(s): M32.9 - Systemic lupus erythematosus, unspecified - Subjective Interval history: Patient seen at the bedside, lying in bed with no acute distress, reports that she feels much better, nausea is much better today. Status post IR guided paracentesis, removal of 2 L of ascites fluid. planning for repeat HD today. - Constitutional Vitals: Temp Pulse Resp BP Pulse Ox 97.6 F 98 16 109/59 98 02/20/17 03:01 02/20/17 03:32 02/20/17 03:01 02/20/17 03:01 02/20/17 03:01 General appearance: Present: cooperative, A&O X 3 (frail appearing female), pleasant, no acute distress, answers questions appropriately Exam: neck- supple chest- b/l clear, no added sounds CVS-s1 and s2, no m/r/g abd-soft, mildly distended, bs are present ext- b/l lower leg edema. neuro- no focal neuro defecits Internal Medicine: Result - Labs CBC & Chem 7: 02/20/17 10:19 02/20/17 10:19 Labs: Short CBC 02/20/17 Range/Units 10:19 WBC 23.9 H (4.3-11.1) K/mcL Hgb 10.5 L (11.5-15.4) g/dL Hct 33.5 L (35.3-44.9) % Plt Count 198 D (140-400) K/mcL Neutrophils # 20.6 H (1.6-8.9) K/mcL BMP 02/20/17 10:19 Sodium 133 L Potassium 4.8 H Chloride 96 L Carbon Dioxide 21 BUN 47 H Creatinine 5.62 H Glucose 81 Calcium 7.2 L - ABG Interpretation ABG results: PT/INR, D-dimer PT 14.8 Seconds (9.4-12.1) H 02/14/17 09:00 - VTE Documentation of Mechanical Device: Intermittent pneumatic compression device Consult Discharge Plan - Plan Referrals: Kiana Mcgraw CNP [Advanced Practice Nurse] - (PT IS GOING TO ECF NO PCP APPOINTMENT NEEDED) Monroe Santos MD [Partnered Physician] - 03/02/17 12:00 pm
--- NOTE | 2017-02-20 16:12 | Oncology Inp Consult Note ---
Date of Encounter: 02/20/17 Time of Encounter: 16:00 Assessment and Plan (1) Ovarian cancer Status: Chronic Assessment and plan: Labs and ovarian mass stable with current treatment regimen but patient has required periodic paracentesis for ascites and she continues to have them on a weekly basis. Not many other options for systemic therapy due to CKD. We discussed to hold chemotherapy for another wk, re-evaluate and then resume. Bacteremia/SBP. Immunosuppression from ongoing chemotherapy, chronic kidney kidney disease multiple comorbidities, continue intravenous antibiotics per infectious disease recommendations. Leucocytosis--bandemia consistent with bacteremia/infectious process. s/p splenic RT wk--09/09 for cytopenia in the past. CKD on HD. BP issues/requiring albumin infusions. Currently tolerating HD. Polycythemia- not on hydrea. S/p splenic RT to improve counts She has had hx PE/DVT yrs ago. Not placed on routine anticoagulation. PAlliative care following patient. She has developed co-morbidities in addition to incurable malignancy and several hospitalization in the few months. Clinic appt due for today rescheduled for wk of Qualifiers: Laterality: unspecified laterality Qualified Code(s): C56.9 - Malignant neoplasm of unspecified ovary - Data of Consult Requesting Physician: Tania Daniel MD Primary Care Provider: Cleve Hannon DO - Consult Narrative Reason for consult: bacteremia, ovarian cancer History of present illness: 66-year-old female diagnosed with the ovarian/peritoneal carcinomatosis when on 07/07/[address] of the abdomen and pelvis secondary to having distention and abdominal discomfort and a history of polycythemia. Findings indicate bilateral small pleural effusions with emphysematous changes and increased interstitial markings with minimal bibasilar atelectasis. The spleen was markedly enlarged at the cephalocaudal dimension of 22 cm. The right kidney was of normal size but there was severe pelviccaliectasis and hydroureter , poorly defined complex cystic mass in the pelvis worrisome for enlarged abnormal ovaries in the postmenopausal patient. large amount of ascites present and abnormal soft tissue nodularity of the omentum morning worrisome for possible neoplastic process/peritoneal metastasis. On 07/13/2015 she had a right ureteral stent placed and nephrostomy tube. She underwent fluid analysis/biopsy that showed malignant cells, underwent chemotherapy with carboplatin and Taxol, followed by carboplatin and Abraxane- 2014, developed cytopenia and in 08/29/2015: Chemotherapy changed to weekly carboplatin. until 10/09/15 Further chemotherapy held for prolonged cytopenias. Had on 01/11/2016: Cycle 1 keytruda. Then avastin gemcitabine. She had a declining blood counts with gemcitabine and Avastin she underwent radiation to spleen August 2016 for cytopenia. Avastin has been held due to renal insufficiency and dialysis. She continues gemcitabine the day before dialysis 2 weeks in a row and a week off treatment. Her tumor marker CA-125 had declined from from around 100s to 78 to more recently. She is hospitalized with the worsening abdominal pain after paracentesis as well as chills without fevers. Blood culture had shown a gram-positive cocci, bacteremia leukocytosis and fluid analysis and on antibiotics per ID recommendations on vancomycin and Rocephin. NAusea abd bloating is better. SHe had suppository and helped symptoms. She is in dialysis and 1 more hr to go. Leg swelling. Symptoms with vision. ROS otherwise neg Past Med Surg Social Fam HX - Past Medical History Medical history: arthritis, CHF, coronary artery disease, DVT, hypertension, malignancy (Ovarian cancer - diagnosed 2014, currently on Genzar/Avastin D1, D8 , D15 Q28 days), pulmonary embolus, renal disease (ESRD on HD //Thu), other Psychiatric history: no psych history - Past Surgical History Surgical History: hysterectomy - Social History Smoking Status: Never smoker Smokeless Tobacco Status: No Alcohol use: none Drug use: none - Family History Mother Family Member Ethnicity: Non- Living Status: Hx Family Cardiac Disorders: No Hx Family Respiratory Disorders: No Hx Family Cancer: Yes (inoperative lung cancer) Hx Family GI Disorders: No Hx Family Endocrine Disorder: No Hx Family Neuromuscular Disorders: No Hx Family Neurologic Disorders: Yes (Alzheimers) Hx Family HEENT Disorders: No Hx Family Autoimmune Disorders: No Father Family Member Ethnicity: Non- Living Status: Hx Family Cardiac Disorders: Yes Hx Family Respiratory Disorders: No Hx Family Cancer: No Hx Family GI Disorders: No Hx Family Endocrine Disorder: Yes (diabetes) Hx Family Neuromuscular Disorders: No Hx Family Neurologic Disorders: No Hx Family HEENT Disorders: No Hx Family Autoimmune Disorders: No Medications and Allergies Allopurinol [Zyloprim 100 MG] 100 mg PO BID 05/03/15 [History] Hydroxychloroquine [Plaquenuil] 200 mg PO QAM 05/03/15 [History] Isosorbide DInitrate [Isordil] 10 mg PO TIDAC 10/30/15 [History] Acetaminophen [Tylenol Arthritis] 650 mg PO BID PRN 04/02/16 [History] Multivitamin [Multi-Day Vitamins] 1 tab PO DAILY 04/02/16 [History] Esomeprazole Magnesium [Nexium] 20 mg PO BID 07/10/16 [History] Prochlorperazine Maleate [Compazine] 10 mg PO Q8H PRN 10/23/16 [History] Magnesium Oxide [Magnesium] 400 mg PO DAILY 11/27/16 [History] Metoprolol XL (24 HR) Succ [Toprol Xl] 50 mg PO DAILY 11/27/16 [History] Aspirin 325 mg PO DAILY 01/08/17 [History] OxyCODONE Immed Rel [Roxicodone 5 MG] 5 mg PO BID PRN #60 tablet 01/16/17 [Rx] Cinacalcet [Sensipar] 30 mg PO DAILY 02/14/17 [History] Midodrine [ProAmatine] 10 mg PO BID 02/14/17 [History] Sevelamer [Renvela] 800 mg PO TID 02/14/17 [History] Sodium Bicarbonate 1,300 mg PO BID 02/14/17 [History] Allergies paclitaxel [From Taxol] Adverse Reaction (Severe, Verified 02/14/17 08:03) See Comments Hypertension, chest pain, pain into her right arm, shortness of breath, constant [id number] movement in the chair Review of systems: in HPI Oncology - Exam - Constitutional Vitals: Temp Pulse Resp BP Pulse Ox 97.7 F 98 18 67/38 98 02/20/17 14:25 02/20/17 03:32 02/20/17 14:25 02/20/17 14:50 02/20/17 03:01 Oncology - Results - Labs Labs: Short CBC 02/20/17 Range/Units 10:19 WBC 23.9 H (4.3-11.1) K/mcL Hgb 10.5 L (11.5-15.4) g/dL Hct 33.5 L (35.3-44.9) % Plt Count 198 D (140-400) K/mcL Neutrophils # 20.6 H (1.6-8.9) K/mcL BMP 02/20/17 10:19 Sodium 133 L Potassium 4.8 H Chloride 96 L Carbon Dioxide 21 BUN 47 H Creatinine 5.62 H Glucose 81 Calcium 7.2 L - Imaging and Cardiology CT scan - abdomen Status: image reviewed by me Consult Discharge Plan - Plan Referrals: Kiana Mcgraw CNP [Advanced Practice Nurse] - (PT IS GOING TO ECF NO PCP APPOINTMENT NEEDED) Monroe Santos MD [Partnered Physician] - 03/02/17 12:00 pm
[2017-02-20] MEDS ORDERED: Bisacodyl 10 MG RECTAL SUPPOSITORY RC PRN (18:00)
[2017-02-21] MEDS: Metoclopramide 10 MG/10 ML UD.LIQ PO SCH ×4 (00:52→17:14)
[2017-02-21] MEDS: Ondansetron 4 MG/2 ML VIAL IVP SCH ×4 (06:15→15:04)
[2017-02-21] MEDS ORDERED: Aminoglycoside Consult 1 EACH MC ONE (07:49)
[2017-02-21] MEDS: Aspirin 325 MG TABLET PO SCH (08:13)
[2017-02-21] MEDS: Magnesium Oxide 400 MG TABLET PO SCH (08:14)
[2017-02-21] MEDS: Silvasorb 44.4 ML TUBE TP SCH (08:17)
--- NOTE | 2017-02-21 08:48 | Nephrology Progress Note ---
Date of Encounter: 02/21/17 Time of Encounter: 08:30 - Assessment and Plan (1) End stage renal disease on dialysis Current Visit: Yes Status: Chronic Repeat sequential UF/HD today, orders given with Albumin for BP support. Keeping with TTS schedule. Subjective Interval history: Sitting up in chair, ate entire breakfast. Denies further emesis. Objective - Vital Signs Vital signs: Vital Signs Temp Pulse Resp BP Pulse Ox 02/21/17 07:24 98.4 F 96 17 92/48 99 02/21/17 03:17 98.9 F 97 16 92/48 100 02/20/17 22:48 97.5 F L 92 16 94/46 100 02/20/17 21:45 87/54 02/20/17 19:32 98.0 F 100 16 77/47 98 02/20/17 18:10 97.4 F L 18 70/42 02/20/17 17:55 70/42 02/20/17 17:40 68/41 02/20/17 17:25 60/40 02/20/17 17:10 70/47 02/20/17 16:55 63/33 02/20/17 16:40 90/56 02/20/17 16:25 81/29 02/20/17 16:10 60/32 02/20/17 15:55 63/29 02/20/17 15:40 65/44 02/20/17 15:25 64/38 02/20/17 15:20 68/41 02/20/17 15:10 66/40 02/20/17 14:55 72/40 02/20/17 14:53 66/39 02/20/17 14:50 67/38 02/20/17 14:40 67/40 02/20/17 14:34 61/38 02/20/17 14:25 97.7 F 18 77/46 Intake and Output 02/20/17 02/21/17 02/21/17 23:59 07:59 15:59 Intake Total 360 / 360 Output Total 2600 / 2600 0 / 0 Balance -2240 / -2240 0 / 0 Intake: Oral 360 / 360 Output: Urine 0 / 0 0 / 0 Total Dialysis (HD) 2600 / 2600 Output Other: Meal Dinner Percent of Meal Consumed 75% Stool Size Small Copious Stool Consistency soft loose formed liquid Stool Characteristics Normal for Patient Foamy Stool Color Brown Brown # Bowel Movements 1 Hemodialysis Net Fluid 2000 Removed (mL) - General Appearance General appearance: Present: appears started age, chronically ill, frail EENT: Present: mucous membranes moist Neck: Present: no JVD Additional Comments: fine bibasilar crackles Cardiology: Present: edema, regular rate, regular rhythm Additional Comments: pitting edema somewhat improved, thighs down Gastrointestinal: Present: hypoactive bowel sounds, distended Integumentary: Present: warm and dry Neurologic: Present: alert and oriented x3 Psychiatric: Present: mood/affect appropriate, cooperative - Lab 02/20/17 10:19 02/20/17 10:19 Most recent lab results Calcium 7.2 mg/dL (8.6-10.8) L 02/20/17 10:19 Phosphorus 6.2 mg/dL (2.3-4.7) H 02/17/17 03:35 Magnesium 2.0 mg/dL (1.6-2.6) 02/17/17 03:35 - VTE Documentation of Mechanical Device: Intermittent pneumatic compression device Consult Discharge Plan - Plan Referrals: Kiana Mcgraw CNP [Advanced Practice Nurse] - (PT IS GOING TO ECF NO PCP APPOINTMENT NEEDED) Monroe Santos MD [Partnered Physician] - 03/02/17 12:00 pm
[2017-02-21] MEDS ORDERED: 0.9 % Sodium Chloride 250 ML IVC PRN (09:04)
[2017-02-21] MEDS ORDERED: Albumin 25% 12.5gm/50mL 12.5 GM/50 ML IV.SOLN IVPB PRN (09:04)
[2017-02-21] MEDS ORDERED: 0.9 % Sodium Chloride 1,000 ML PRIME SCH (09:15)
[2017-02-21] MEDS ORDERED: Albumin 25% 12.5gm/50mL 25.0 GM/100 ML IV.SOLN ONE (09:44)
[2017-02-21] MEDS ORDERED: 0.9 % Sodium Chloride 1,000 ML ONE (09:44)
--- NOTE | 2017-02-21 10:34 | Event Note ---
Date of Encounter: 02/21/17 Time of Encounter: 10:00 Patient headed out to dialysis upon my arrival. Asked briefly about symptoms and her nausea is greatly improved, and she states she is eating well. Oncology /nephrology notes reviewed. Will re-visit in am.
[2017-02-21 10:44] LABS: Hemoglobin 9.4 g/dL (11.5-15.4)
[2017-02-21 10:46] LABS: Hematocrit 30.3 % (35.3-44.9); Immature Platelets 8.2 % (1.1-6.1); Mean Corpuscular Hemoglobin 33.7 pg (28.0-33.3); Mean Corpuscular Volume 108.6 fL (83.0-100.0); Nucleated Red Blood Cells 0.1 /100 WBC (0); Platelet Count 128 K/mcL (140-400); Red Blood Count 2.79 M/mcL (3.82-4.97); Red Cell Distribution Width 24.6 % (11.5-14.5)
[2017-02-21 10:55] LABS: Calcium 6.8 mg/dL (8.6-10.8); Potassium 3.5 mEq/L (3.5-4.5)
[2017-02-21 11:04] LABS: Platelet Estimate Normal (Normal)
[2017-02-21 11:05] LABS: Dohle Bodies Present (Not Present)
[2017-02-21 11:07] LABS: Lymphocytes # 1.9 K/mcL (0.6-4.6); Monocytes # 0.7 K/mcL (0.0-1.3); Neutrophils # 13.6 K/mcL (1.6-8.9); Reactive Lymphocytes Present (Not Present)
[2017-02-21 11:08] LABS: Hypochromasia Present (Not Present); Ovalocytes 1+ (Not Present); Polychromasia 1+ (Not Present)
[2017-02-21 11:09] LABS: Anisocytosis 3+ (Not Present); Poikilocytosis 2+ (Not Present)
--- NOTE | 2017-02-21 11:34 | Internal Med Progress Note ---
Date of Encounter: 02/21/17 Time of Encounter: 11:32 - Assessment and plan (1) Sepsis Current Visit: Yes Status: Acute Assessment and plan: likely secondary to Bacteremia and perotinitis continue IV abx follow up blood cultures, growing strep species, final results pending, will possible stop vanco and continue rocephin. white count has been fluctuating , today improved at 16, has no fever and actually looks clinically better. patient at high risk for complications due to underlying comorbidities ( advanced ovarian cancer with malignant ascites) will follow ID recommnedations on duration and the choice of antibiotics at pr, will most likely need IV antibiotics will continue reglan for nausea and will increase the frequency to q4h Qualifiers: Sepsis type: Streptococcus, unspecified Qualified Code(s): A40.9 - Streptococcal sepsis, unspecified; A40 - Streptococcal sepsis (2) Peritonitis Current Visit: Yes Status: Acute Assessment and plan: 2/2 SBP, has chronic long standing ascitis from ovarian cancer will contineu IV antibiotics. s/p IR guided paracentesis , removal of 2 l of ascitic fluid. body fluid cx is negative (3) End stage renal disease on dialysis Current Visit: Yes Status: Chronic Assessment and plan: on HD, followed by Dr. Jerry, appreciate recommendations. (4) Lupus (systemic lupus erythematosus) Current Visit: No Status: Chronic Assessment and plan: continue Plaquenil Qualifiers: Systemic lupus erythematosus type: unspecified Systemic lupus erythematosus organ involvement: unspecified Qualified Code(s): M32.9 - Systemic lupus erythematosus, unspecified - Subjective Interval history: Patient seen at the bedside, lying in bed with no acute distress, reports that she feels much better, nausea is much better today. for HD today. blood cx result still pending. - Constitutional Vitals: Temp Pulse Resp BP Pulse Ox 98.4 F 96 17 92/48 99 02/21/17 07:24 02/21/17 07:24 02/21/17 07:24 02/21/17 07:24 02/21/17 07:24 General appearance: Present: cooperative, A&O X 3 (frail appearing female), pleasant, no acute distress, answers questions appropriately Exam: neck- supple chest- b/l clear, no added sounds CVS-s1 and s2, no m/r/g abd-soft, mildly distended, bs are present ext- b/l lower leg edema. neuro- no focal neuro defecits Internal Medicine: Result - Labs CBC & Chem 7: 02/21/17 09:53 02/21/17 09:53 Labs: Short CBC 02/21/17 Range/Units 09:53 WBC 16.2 H (4.3-11.1) K/mcL Hgb 9.4 L (11.5-15.4) g/dL Hct 30.3 L (35.3-44.9) % Plt Count 128 L (140-400) K/mcL Neutrophils # 13.6 H (1.6-8.9) K/mcL BMP 02/21/17 09:53 Sodium 135 L Potassium 3.5 D Chloride 98 Carbon Dioxide 24 BUN 33 H D Creatinine 4.32 H Glucose 117 H Calcium 6.8 L - ABG Interpretation ABG results: PT/INR, D-dimer PT 14.8 Seconds (9.4-12.1) H 02/14/17 09:00 - VTE Documentation of Mechanical Device: Intermittent pneumatic compression device Consult Discharge Plan - Plan Referrals: Kiana Mcgraw CNP [Advanced Practice Nurse] - (PT IS GOING TO ECF NO PCP APPOINTMENT NEEDED) Monroe Santos MD [Partnered Physician] - 03/02/17 12:00 pm
[2017-02-21] MEDS ORDERED: Ondansetron 4 MG/2 ML VIAL IVP PRN (16:03)
[2017-02-21] MEDS ORDERED: Vancomycin 500 MG in D5% in Water (Mini-Bag+) 100 ML IVPB ONE (18:00)
[2017-02-22] MEDS: Metoclopramide 10 MG/10 ML UD.LIQ PO SCH ×5 (01:53→23:15)
[2017-02-22] MEDS: Magnesium Oxide 400 MG TABLET PO SCH (07:55)
[2017-02-22] MEDS: Aspirin 325 MG TABLET PO SCH (07:55)
[2017-02-22] MEDS: *HR* OxyCODONE Immed Rel 5 MG TABLET PO PRN (08:00)
[2017-02-22 08:38] LABS: Basophils # 0.1 K/mcL (0.0-0.2); Basophils % 0.3 %; Hematocrit 37.8 % (35.3-44.9); Immature Granulocytes % 2.6 % (0-4); Immature Platelets 10.1 % (1.1-6.1); Lymphocytes # 0.6 K/mcL (0.6-4.6); Lymphocytes % 2.4 %; Mean Corpuscular HGB Conc 30.2 g/dL (31.6-35.5); Mean Corpuscular Volume 109.6 fL (83.0-100.0); Monocytes # 1.4 K/mcL (0.0-1.3); Neutrophils # 20.9 K/mcL (1.6-8.9); Nucleated Red Blood Cells 0.2 /100 WBC (0); Platelet Count 123 K/mcL (140-400); Red Blood Count 3.45 M/mcL (3.82-4.97); Red Cell Distribution Width 24.4 % (11.5-14.5); Segmented Neutrophils % 88.7 %
[2017-02-22 08:50] LABS: Calcium 7.5 mg/dL (8.6-10.8); Potassium 3.7 mEq/L (3.5-4.5)
[2017-02-22] MEDS ORDERED: *HR* HYDROmorphone (PF) 1 MG/ML SYRINGE IVP ONE (09:32)
[2017-02-22] MEDS ORDERED: Albumin 25% 12.5gm/50mL 12.5 GM/50 ML IV.SOLN IVPB ONE (09:34)
--- NOTE | 2017-02-22 09:40 | Nephrology Progress Note ---
Date of Encounter: 02/22/17 Time of Encounter: 09:25 - Assessment and Plan (1) End stage renal disease on dialysis Current Visit: Yes Status: Chronic Tolerated sequential UF/HD yesterday. No HD today, most likely on Thursday, Keeping with TTS schedule. Subjective Interval history: Sitting up in chair, ate entire breakfast. Denies further emesis. States having issues with constipation. Objective - Vital Signs Vital signs: Vital Signs Temp Pulse Resp BP Pulse Ox 02/22/17 09:27 73/43 02/22/17 08:02 97.7 F 130 24 76/42 93 02/22/17 05:29 120 16 91/52 02/22/17 05:18 98.3 F 119 16 82/50 92 02/22/17 02:51 116 18 86/46 02/22/17 01:33 117 16 76/43 02/21/17 23:54 98.4 F 123 17 84/38 90 02/21/17 23:34 122 18 87/49 02/21/17 22:28 86/46 02/21/17 21:21 113 16 70/40 02/21/17 20:08 114 18 73/39 02/21/17 19:30 98.3 F 100 17 76/36 90 02/21/17 18:52 102 02/21/17 16:53 97.6 F 114 15 96/61 92 02/21/17 14:45 97 F L 18 80/47 02/21/17 14:30 75/42 02/21/17 14:15 78/43 02/21/17 14:00 75/40 02/21/17 13:45 75/42 02/21/17 13:30 74/47 02/21/17 13:15 62/37 02/21/17 13:00 60/37 02/21/17 12:45 63/37 02/21/17 12:30 61/35 02/21/17 12:15 60/40 02/21/17 12:00 62/40 02/21/17 11:45 63/39 02/21/17 11:30 66/41 02/21/17 11:15 70/46 02/21/17 11:00 97.1 F L 18 77/42 Intake and Output 02/21/17 02/22/17 02/22/17 23:59 07:59 15:59 Intake Total 120 / 120 Balance 120 / 120 Intake: Oral 120 / 120 Other: Meal Dinner Percent of Meal Consumed 50% Weight 58.32 kg Patient Weight 02/22/17 23:59 Weight 58.32 kg - General Appearance General appearance: Present: chronically ill, frail EENT: Present: mucous membranes moist Neck: Present: no JVD Additional Comments: fine bibasilar crackles Cardiology: Present: edema, regular rate, regular rhythm Additional Comments: pitting, thighs down Gastrointestinal: Present: hypoactive bowel sounds, tenderness Integumentary: Present: warm and dry Neurologic: Present: alert and oriented x3 Psychiatric: Present: mood/affect appropriate, cooperative - Lab 02/21/17 09:53 02/22/17 08:32 Most recent lab results Calcium 7.5 mg/dL (8.6-10.8) L 02/22/17 08:32 Phosphorus 6.2 mg/dL (2.3-4.7) H 02/17/17 03:35 Magnesium 2.0 mg/dL (1.6-2.6) 02/17/17 03:35 - VTE Documentation of Mechanical Device: Intermittent pneumatic compression device Consult Discharge Plan - Plan Referrals: Kiana Mcgraw CNP [Advanced Practice Nurse] - (PT IS GOING TO ECF NO PCP APPOINTMENT NEEDED) Monroe Santos MD [Partnered Physician] - 03/02/17 12:00 pm
[2017-02-22 09:41] LABS: Hemoglobin 11.4 g/dL (11.5-15.4)
[2017-02-22 09:51] LABS: Anisocytosis 2+ (Not Present)
[2017-02-22 09:52] LABS: Platelet Estimate Decreased (Normal)
[2017-02-22 09:53] LABS: Basophilic Stippling 1+ (Not Present); Ovalocytes 1+ (Not Present); Polychromasia 1+ (Not Present); Reactive Lymphocytes Present (Not Present)
[2017-02-22 09:54] LABS: Poikilocytosis 1+ (Not Present)
[2017-02-22] MEDS: Silvasorb 44.4 ML TUBE TP SCH (10:30)
--- NOTE | 2017-02-22 10:40 | Palliative Progress Note ---
Date of Encounter: 02/22/17 Time of Encounter: 10:30 - Assessment and plan (1) Cancer associated pain Current Visit: Yes Status: Acute Assessment and plan: Remains on Oxycodone BID PRN. Utilized x2 last 24 hours. She did just receive a one time dose of Dilaudid after move. She is quite comfortable now. MOnitor - she may need frequency of Oxycodone increased. (2) Nausea & vomiting Current Visit: Yes Status: Acute Assessment and plan: Did have episode of nausea this am. Ondansetron has been scheduled again. Currently, this has passed and she is eating ice chips Qualifiers: Vomiting type: unspecified Vomiting Intractability: non-intractable Qualified Code(s): R11.2 - Nausea with vomiting, unspecified (3) Constipation Current Visit: Yes Status: Acute Assessment and plan: + bm's and small one this am. Continue PRN suppository and monitor closely Qualifiers: Constipation type: unspecified constipation type Qualified Code(s): K59.00 - Constipation, unspecified (4) Metastatic cancer Current Visit: No Status: Acute - Time Spent With Patient Total time spent is greater than 50% in coordination of care (as documented) at patient's floor/unit and/or counseling patient: 25 - 35 minutes - Subjective Interval history: Patient just transferred back to r/t [facility]. I entered room on 2A this am, and [employer] and patient leaned over on bed - states "her legs went out from under her when getting back from [facility]". Assisted back to BSC and eventually back to bed. B/P consistently low overnight and pt received fluid boluses, then had increasing abd pain and nausea this am. + small mucousy BM noted in BSC. Son has just arrived at bedside. - Constitutional Vitals: Abnormal lab results WBC 23.6 K/mcL (4.3-11.1) H 02/22/17 08:32 RBC 3.45 M/mcL (3.82-4.97) L 02/22/17 08:32 Hgb 11.4 g/dL (11.5-15.4) L D 02/22/17 08:32 MCV 109.6 fL (83.0-100.0) H 02/22/17 08:32 MCHC 30.2 g/dL (31.6-35.5) L 02/22/17 08:32 RDW 24.4 % (11.5-14.5) H 02/22/17 08:32 Plt Count 123 K/mcL (140-400) L 02/22/17 08:32 Neutrophils # 20.9 K/mcL (1.6-8.9) H 02/22/17 08:32 Monocytes # 1.4 K/mcL (0.0-1.3) H 02/22/17 08:32 Nucleated RBCs/100 WBC 0.2 /100 WBC (0) H 02/22/17 08:32 Reactive Lymphocytes Present (Not Present) A 02/22/17 08:32 Dohle Bodies Present (Not Present) A 02/21/17 09:53 Platelet Estimate Decreased (Normal) L 02/22/17 08:32 Large Platelets Present (Not Present) A 02/15/17 05:00 Immature Plt Fraction 10.1 % (1.1-6.1) H 02/22/17 08:32 Polychromasia 1+ (Not Present) A 02/22/17 08:32 Hypochromasia Present (Not Present) A 02/21/17 09:53 Poikilocytosis 1+ (Not Present) A 02/22/17 08:32 Basophilic Stippling 1+ (Not Present) A 02/22/17 08:32 Anisocytosis 2+ (Not Present) A 02/22/17 08:32 Microcytosis Present (Not Present) A 02/19/17 04:25 Macrocytosis Present (Not Present) A 02/16/17 04:35 Ovalocytes 1+ (Not Present) A 02/22/17 08:32 Helmet Cells Present (Not Present) A 02/20/17 10:19 Schistocytes 2+ (Not Present) A 02/20/17 10:19 PT 14.8 Seconds (9.4-12.1) H 02/14/17 09:00 Chloride 96 mEq/L (98-109) L 02/22/17 08:32 BUN 26 mg/dL (7-20) H 02/22/17 08:32 Creatinine 3.86 mg/dL (0.57-1.11) H 02/22/17 08:32 Est GFR ( Amer) 14 (> 60) L 02/22/17 08:32 Est GFR (Non-Af Amer) 12 (> 60) L 02/22/17 08:32 Calcium 7.5 mg/dL (8.6-10.8) L 02/22/17 08:32 Phosphorus 6.2 mg/dL (2.3-4.7) H 02/17/17 03:35 Total Bilirubin 4.2 mg/dL (0.2-1.2) H 02/17/17 03:35 Direct Bilirubin 1.8 mg/dL (0.0-0.5) H 02/14/17 09:00 Indirect Bilirubin 3.0 mg/dL (0.0-1.2) H 02/14/17 09:00 Alkaline Phosphatase 163 Units/L (38-126) H 02/17/17 03:35 Troponin I 0.33 ng/mL (0-0.03) H* 02/17/17 03:35 B-Natriuretic Peptide 333 pg/mL (0-100) H 02/14/17 09:00 Serum Total Protein 3.8 g/dL (6.0-8.3) L 02/17/17 03:35 Albumin 2.1 g/dL (3.5-5.0) L 02/17/17 03:35 Globulin 1.7 g/dL (2.4-3.5) L 02/17/17 03:35 Lipase < 4 Units/L (8-78) L 02/14/17 09:00 Periton Tot Nuc Cells 2158 TNC/mcL (0-300) H 02/14/17 11:15 Streptococcus sp PCR DETECTED (Not Detect) A 02/14/17 09:22 General appearance: Present: mild distress - Respiratory Respiratory exam: Present: decreased breath sounds, CTAB - Cardiovascular Cardiovascular exam: Present: +S1, +S2, tachycardia - GI/Abdominal GI/Abdominal exam: Present: distended, soft, tenderness - Extremities Exam Additional comments: 2-3+ edema bilateral lower extremities - Neurological Exam Neurological exam: Present: alert, oriented X3, strengths equal and symetr throughout Additional comments: generalized weakness - Skin Skin exam: Present: dry, pallor, warm Palliative Quality Palliative Quality: Screen for Code Status: Yes, Screen for Goals of Care: Yes, Screen for Pain: Yes, If Pain Regimen Started, Initiate Bowel Regimen: NA, Screen for Nausea/Vomitting: Yes - Labs CBC & Chem 7: 02/22/17 08:32 02/22/17 08:32 Labs: Laboratory Results - last 24 hr 02/21/17 02/21/17 02/22/17 09:53 09:53 08:32 WBC 16.2 H 23.6 H RBC 2.79 L 3.45 L Hgb 9.4 L 11.4 L D Hct 30.3 L 37.8 MCV 108.6 H 109.6 H MCH 33.7 H 33.0 MCHC 31.0 L 30.2 L RDW 24.6 H 24.4 H Plt Count 128 L 123 L MPV TNP Immature Gran % 2.6 Seg Neutrophils % 80.0 88.7 Band Neutrophils % 4.0 Lymphocytes % 12.0 2.4 Monocytes % 4.0 6.0 Eosinophils % 0.0 Basophils % 0.3 Neutrophils # 13.6 H 20.9 H Lymphocytes # 1.9 0.6 Monocytes # 0.7 1.4 H Eosinophils # 0.0 Basophils # 0.1 Nucleated RBCs/100 WBC 0.1 H 0.2 H Reactive Lymphocytes Present A Present A Dohle Bodies Present A Platelet Estimate Normal Decreased L Immature Plt Fraction 8.2 H 10.1 H Polychromasia 1+ A 1+ A Hypochromasia Present A Poikilocytosis 2+ A 1+ A Basophilic Stippling 1+ A Anisocytosis 3+ A 2+ A Ovalocytes 1+ A 1+ A Sodium 135 L Potassium 3.5 D Chloride 98 Carbon Dioxide 24 BUN 33 H D Creatinine 4.32 H Est GFR ( Amer) 12 L Est GFR (Non-Af Amer) 10 L BUN/Creatinine Ratio 8 Glucose 117 H Calculated Osmolality 288 Calcium 6.8 L 02/22/17 08:32 WBC RBC Hgb Hct MCV MCH MCHC RDW Plt Count MPV Immature Gran % Seg Neutrophils % Band Neutrophils % Lymphocytes % Monocytes % Eosinophils % Basophils % Neutrophils # Lymphocytes # Monocytes # Eosinophils # Basophils # Nucleated RBCs/100 WBC Reactive Lymphocytes Dohle Bodies Platelet Estimate Immature Plt Fraction Polychromasia Hypochromasia Poikilocytosis Basophilic Stippling Anisocytosis Ovalocytes Sodium 136 Potassium 3.7 Chloride 96 L Carbon Dioxide 26 BUN 26 H Creatinine 3.86 H Est GFR ( Amer) 14 L Est GFR (Non-Af Amer) 12 L BUN/Creatinine Ratio 7 Glucose 84 Calculated Osmolality 286 Calcium 7.5 L - ABG Interpretation ABG results: PT/INR, D-dimer PT 14.8 Seconds (9.4-12.1) H 02/14/17 09:00 Consult Discharge Plan - Plan Referrals: Kiana Mcgraw CNP [Advanced Practice Nurse] - (PT IS GOING TO ECF NO PCP APPOINTMENT NEEDED) Monroe Santos MD [Partnered Physician] - 03/02/17 12:00 pm
[2017-02-22] MEDS: Ondansetron 4 MG/2 ML VIAL IVP SCH ×4 (12:58→23:14)
--- NOTE | 2017-02-22 16:30 | Internal Med Progress Note ---
Date of Encounter: 02/22/17 Time of Encounter: 15:46 - Assessment and plan (1) Sepsis Current Visit: Yes Status: Acute Assessment and plan: likely secondary to Bacteremia and perotinitis continue IV abx follow up blood cultures, growing strep species, final results pending, continue rocephin. white count has been fluctuating , has no fever . patient at high risk for complications due to underlying comorbidities ( advanced ovarian cancer with malignant ascites) will follow ID recommnedations on duration and the choice of antibiotics at dc, will most likely need IV antibiotics will continue reglan for nausea and will increase the frequency to q4h Qualifiers: Sepsis type: Streptococcus, unspecified Qualified Code(s): A40.9 - Streptococcal sepsis, unspecified; A40 - Streptococcal sepsis (2) Peritonitis Current Visit: Yes Status: Acute Assessment and plan: 2/2 SBP, has chronic long standing ascitis from ovarian cancer will contineu IV antibiotics. s/p IR guided paracentesis , removal of 2 l of ascitic fluid. body fluid cx is negative (3) End stage renal disease on dialysis Current Visit: Yes Status: Chronic Assessment and plan: on HD, followed by Dr. Jerry, appreciate recommendations. (4) Lupus (systemic lupus erythematosus) Current Visit: No Status: Chronic Assessment and plan: continue Plaquenil Qualifiers: Systemic lupus erythematosus type: unspecified Systemic lupus erythematosus organ involvement: unspecified Qualified Code(s): M32.9 - Systemic lupus erythematosus, unspecified - Subjective Interval history: Patient seen at the bedside, lying in bed , c/o abdominal discomfort adn says she has nausea and abdominal pain. blood cx showing gram positive cocci in chains. no fever or vomiting/ - Constitutional Vitals: Temp Pulse Resp BP Pulse Ox 97.7 F 112 24 84/54 92 02/22/17 11:27 02/22/17 11:27 02/22/17 11:27 02/22/17 11:27 02/22/17 11:27 General appearance: Present: cooperative, A&O X 3 (frail appearing female), pleasant, no acute distress, answers questions appropriately Exam: neck- supple chest- b/l clear, no added sounds CVS-s1 and s2, nomr//g abd-soft, guarding, bs are present ext- bl lower leg edema neuro- no focal defecits Internal Medicine: Result - Labs CBC & Chem 7: 02/22/17 08:32 02/22/17 08:32 Labs: Short CBC 02/22/17 Range/Units 08:32 WBC 23.6 H (4.3-11.1) K/mcL Hgb 11.4 L D (11.5-15.4) g/dL Hct 37.8 (35.3-44.9) % Plt Count 123 L (140-400) K/mcL Neutrophils # 20.9 H (1.6-8.9) K/mcL BMP 02/22/17 08:32 Sodium 136 Potassium 3.7 Chloride 96 L Carbon Dioxide 26 BUN 26 H Creatinine 3.86 H Glucose 84 Calcium 7.5 L - ABG Interpretation ABG results: PT/INR, D-dimer PT 14.8 Seconds (9.4-12.1) H 02/14/17 09:00 - VTE Documentation of Mechanical Device: Intermittent pneumatic compression device Consult Discharge Plan - Plan Referrals: Kiana Mcgraw CNP [Advanced Practice Nurse] - (PT IS GOING TO ECF NO PCP APPOINTMENT NEEDED) Monroe Santos MD [Partnered Physician] - 03/02/17 12:00 pm
[2017-02-22] MEDS ORDERED: 0.9 % Sodium Chloride 250 ML IVC ONE ×2 (21:10→22:04)
[2017-02-22] MEDS ORDERED: 0.9 % Sodium Chloride 500 ML IVC SCH (23:45)
[2017-02-23] MEDS ORDERED: 0.9 % Sodium Chloride 250 ML IVC ONE (01:14)
[2017-02-23] MEDS: Ondansetron 4 MG/2 ML VIAL IVP SCH ×5 (03:17→19:53)
[2017-02-23] MEDS: Silvasorb 44.4 ML TUBE TP SCH ×2 (03:18→07:30)
[2017-02-23] MEDS: Metoclopramide 10 MG/10 ML UD.LIQ PO SCH ×2 (05:29→11:32)
[2017-02-23] MEDS: Magnesium Oxide 400 MG TABLET PO SCH (07:30)
[2017-02-23] MEDS: Aspirin 325 MG TABLET PO SCH (07:30)
[2017-02-23 08:21] LABS: Hemoglobin 11.1 g/dL (11.5-15.4); Nucleated Red Blood Cells 0.1 /100 WBC (0)
[2017-02-23 08:22] LABS: Hematocrit 36.6 % (35.3-44.9); Mean Corpuscular HGB Conc 30.3 g/dL (31.6-35.5); Mean Corpuscular Hemoglobin 32.5 pg (28.0-33.3); Platelet Count 196 K/mcL (140-400); Red Blood Count 3.42 M/mcL (3.82-4.97); Red Cell Distribution Width 23.1 % (11.5-14.5)
[2017-02-23 08:28] LABS: Calcium 7.5 mg/dL (8.6-10.8); Potassium 4.1 mEq/L (3.5-4.5)
[2017-02-23 08:52] LABS: Anisocytosis 2+ (Not Present); Lymphocytes # 0.3 K/mcL (0.6-4.6); Monocytes # 1.3 K/mcL (0.0-1.3); Neutrophils # 29.4 K/mcL (1.6-8.9); Platelet Estimate Normal (Normal)
[2017-02-23 08:53] LABS: Poikilocytosis 1+ (Not Present); Polychromasia 1+ (Not Present)
--- NOTE | 2017-02-23 09:09 | Nephrology Progress Note ---
Date of Encounter: 02/23/17 Time of Encounter: 09:07 - Assessment and Plan (1) End-stage renal disease Current Visit: Yes Status: Acute The patient's main issue continues to be nausea vomiting and abdominal pain. She is going to undergo a CT scan sometime today. Next dialysis will be tomorrow. (2) Peritonitis (acute) generalized Current Visit: Yes Status: Acute (3) Ovarian cancer Current Visit: Yes Status: Chronic Qualifiers: Laterality: unspecified laterality Qualified Code(s): C56.9 - Malignant neoplasm of unspecified ovary Subjective Interval history: The patient reports she is not feeling well. She continues to experience nausea vomiting and abdominal pain. She is been ordered to have a CT scan of the abdomen. Her last dialysis was Thursday. Objective - Vital Signs Vital signs: Vital Signs Temp Pulse Resp BP Pulse Ox 02/23/17 07:15 99.1 F 130 36 104/72 02/23/17 06:00 115 88/57 02/23/17 05:31 119 88/49 02/23/17 05:00 118 86/55 02/23/17 04:00 118 87/53 02/23/17 03:39 97.6 F 65 16 87/53 100 02/23/17 03:27 116 02/23/17 02:08 116 24 92/57 96 02/23/17 01:00 112 81/49 02/23/17 00:30 115 87/52 02/23/17 00:00 115 91/58 02/22/17 23:42 99.2 F 02/22/17 23:30 83/46 02/22/17 22:50 115 22 103/58 97 02/22/17 22:00 120 21 87/49 97 02/22/17 21:00 121 77/50 02/22/17 20:30 123 79/51 02/22/17 20:07 97.6 F 120 20 76/47 96 02/22/17 16:45 98.3 F 122 24 79/53 92 02/22/17 16:02 98.3 F 122 79/53 02/22/17 11:27 97.7 F 112 24 84/54 92 02/22/17 10:00 97.7 F 112 24 84/54 92 02/22/17 09:55 97.8 F 112 24 77/53 90 02/22/17 09:27 73/43 Intake and Output 02/22/17 02/23/17 02/23/17 23:59 07:59 15:59 Intake Total 500 / 500 1050 / 1050 0 / 0 Output Total 0 / 0 200 / 200 Balance 500 / 500 850 / 850 0 / 0 Intake: IV Fluids 500 / 500 750 / 750 0.9 % Sodium Chloride 250 500 / 500 250 / 250 ML @ 500 mls/hr IVC . Q30M ONE Rx#:[id number] 0.9 % Sodium Chloride 500 400 / 400 ML @ 50 mls/hr IVC .Q10H [facility] Rx#:[id number] Rocephin 2,000 MG In 100 / 100 Dextrose 5% (Minibag+) 100 ML 100 ML @ 200 mls/ hr IVPB DAILY [facility] Rx#: [id number] Oral 0 / 0 300 / 300 0 / 0 Output: Urine 0 / 0 Emesis 200 / 200 Other: Meal Breakfast Percent of Meal Consumed 0% - General Appearance Exam: Patient is alert. She appears chronically ill. Lungs diminished breath sounds. Heart regular rate and rhythm. Precordium is hyperdynamic. Abdomen is distended with ascites. There is generalized tenderness. There is 2-3+ lower extremity swelling. There is a tunnel dialysis catheter in the left chest. - Lab 02/23/17 08:00 02/23/17 08:00 Most recent lab results Calcium 7.5 mg/dL (8.6-10.8) L 02/23/17 08:00 Phosphorus 6.2 mg/dL (2.3-4.7) H 02/17/17 03:35 Magnesium 2.0 mg/dL (1.6-2.6) 02/17/17 03:35 - VTE Documentation of Mechanical Device: Intermittent pneumatic compression device Consult Discharge Plan - Plan Referrals: Kiana Mcgraw CNP [Advanced Practice Nurse] - (PT IS GOING TO ECF NO PCP APPOINTMENT NEEDED) Monroe Santos MD [Partnered Physician] - 03/02/17 12:00 pm
--- NOTE | 2017-02-23 10:58 | Palliative Progress Note ---
Date of Encounter: 02/23/17 Time of Encounter: 10:30 - Assessment and plan (1) Nausea & vomiting Current Visit: Yes Status: Acute Assessment and plan: Continue scheduled Reglan and Zofran. Monitor for diarrhea secondary to reglan. Ms. Dumont did have a BM following the rectal suppository on , but has not had one since. Hospitalist to check CT of the abdomen. Qualifiers: Qualified Code(s): R11.2 - Nausea with vomiting, unspecified (2) Dyspnea Current Visit: Yes Status: Acute Assessment and plan: Dyspnea returning as ascites builds up. Supplemental oxygen, position for comfort. Next paracentesis scheduled for Thursday. Qualifiers: Qualified Code(s): R06.00 - Dyspnea, unspecified (3) Goals of care, counseling/discussion Current Visit: Yes Status: Acute Assessment and plan: Ms. Dumont continues to desire aggressive measures. She will remain a FULL CODE. Plans for discharge to [facility] for inpatient rehab and IV ATB when medically stable. software engineer web services following. Update @ 2:15: conversation with patient and family (spouse, son-Naresh, daughter -Emely) regarding results of CT scan. PROGRAM MANAGER RN with [facility] present. Patient requests time with her family to discuss Copyholder support offered. Following discussion with surgical services, Ms. Dumont is not a surgical candidate. She has elected to seek comfort measures and spend time with family. Pain medication ordered. Patient and family agreeable with plan. Contacted Dr. Jerry and updated him on plan of care. (4) Ascites Current Visit: Yes Status: Chronic Assessment and plan: Therapeutic paracentesis weekly on Wednesdays. Qualifiers: Qualified Code(s): R18.0 - Malignant ascites (5) Peritonitis Current Visit: Yes Status: Acute Assessment and plan: Infectious disease following for peritonitis and bacteremia. (6) Ovarian cancer Current Visit: Yes Status: Chronic Assessment and plan: Currently seeking treatment at the [facility]. Qualifiers: Qualified Code(s): C56.9 - Malignant neoplasm of unspecified ovary (7) Cancer associated pain Current Visit: Yes Status: Acute Assessment and plan: Currently, Ms. Dumont denies pain. She does have oxycodone if needed. Continue to monitor. Last dose 02/22/17. (8) Abdominal pain Current Visit: Yes Status: Acute Assessment and plan: Abdominal pain likely related to ischemic bowel. Given NPO status, will start Fentanyl Qualifiers: Qualified Code(s): R10.84 - Generalized abdominal pain - Time Spent With Patient Total time spent is greater than 50% in coordination of care (as documented) at patient's floor/unit and/or counseling patient: - Subjective Interval history: Ms. Dumont reports improvement in her nausea/vomiting. She has not vomited since 0300 yesterday. She is no longer holding her emesis basin in her lap as she has for the past several days. She denies pain and reports working with physical therapy with plans for in-patient rehab upon discharge. Ms. Dumont did have a BM following the rectal suppository and reports relief. - Constitutional Vitals: Abnormal lab results WBC 31.6 K/mcL (4.3-11.1) H* 02/23/17 08:00 RBC 3.42 M/mcL (3.82-4.97) L 02/23/17 08:00 Hgb 11.1 g/dL (11.5-15.4) L 02/23/17 08:00 MCV 107.0 fL (83.0-100.0) H 02/23/17 08:00 MCHC 30.3 g/dL (31.6-35.5) L 02/23/17 08:00 RDW 23.1 % (11.5-14.5) H 02/23/17 08:00 Band Neutrophils % 19.0 % (0-4) H 02/23/17 08:00 Myelocytes % 2.0 % (0) H 02/23/17 08:00 Neutrophils # 29.4 K/mcL (1.6-8.9) H 02/23/17 08:00 Lymphocytes # 0.3 K/mcL (0.6-4.6) L 02/23/17 08:00 Nucleated RBCs/100 WBC 0.1 /100 WBC (0) H 02/23/17 08:00 Reactive Lymphocytes Present (Not Present) A 02/22/17 08:32 Dohle Bodies Present (Not Present) A 02/21/17 09:53 Large Platelets Present (Not Present) A 02/15/17 05:00 Immature Plt Fraction 10.1 % (1.1-6.1) H 02/22/17 08:32 Polychromasia 1+ (Not Present) A 02/23/17 08:00 Hypochromasia Present (Not Present) A 02/21/17 09:53 Poikilocytosis 1+ (Not Present) A 02/23/17 08:00 Basophilic Stippling 1+ (Not Present) A 02/22/17 08:32 Anisocytosis 2+ (Not Present) A 02/23/17 08:00 Microcytosis Present (Not Present) A 02/19/17 04:25 Macrocytosis Present (Not Present) A 02/16/17 04:35 Ovalocytes 1+ (Not Present) A 02/22/17 08:32 Helmet Cells Present (Not Present) A 02/20/17 10:19 Schistocytes 2+ (Not Present) A 02/20/17 10:19 PT 14.8 Seconds (9.4-12.1) H 02/14/17 09:00 Sodium 135 mEq/L (136-145) L 02/23/17 08:00 Chloride 96 mEq/L (98-109) L 02/23/17 08:00 BUN 36 mg/dL (7-20) H D 02/23/17 08:00 Creatinine 4.59 mg/dL (0.57-1.11) H 02/23/17 08:00 Est GFR ( Amer) 12 (> 60) L 02/23/17 08:00 Est GFR (Non-Af Amer) 9 (> 60) L 02/23/17 08:00 Calcium 7.5 mg/dL (8.6-10.8) L 02/23/17 08:00 Phosphorus 6.2 mg/dL (2.3-4.7) H 02/17/17 03:35 Total Bilirubin 4.2 mg/dL (0.2-1.2) H 02/17/17 03:35 Direct Bilirubin 1.8 mg/dL (0.0-0.5) H 02/14/17 09:00 Indirect Bilirubin 3.0 mg/dL (0.0-1.2) H 02/14/17 09:00 Alkaline Phosphatase 163 Units/L (38-126) H 02/17/17 03:35 Troponin I 0.33 ng/mL (0-0.03) H* 02/17/17 03:35 B-Natriuretic Peptide 333 pg/mL (0-100) H 02/14/17 09:00 Serum Total Protein 3.8 g/dL (6.0-8.3) L 02/17/17 03:35 Albumin 2.1 g/dL (3.5-5.0) L 02/17/17 03:35 Globulin 1.7 g/dL (2.4-3.5) L 02/17/17 03:35 Lipase < 4 Units/L (8-78) L 02/14/17 09:00 Periton Tot Nuc Cells 2158 TNC/mcL (0-300) H 02/14/17 11:15 Streptococcus sp PCR DETECTED (Not Detect) A 02/14/17 09:22 General appearance: Present: cooperative, no acute distress Exam: 66 year old female appearing chronically ill. She is awake/alert/oriented, reports feeling nauseated and tired. She is developing some confusion with days /times, but reorients easily. - Eye Eye exam: Present: EOMI - ENT ENT exam: Present: mucous membranes moist - Respiratory Respiratory exam: Present: decreased breath sounds, tachypnea. Absent: accessory muscle use, respiratory distress Additional comments: Some conversational dyspnea noted secondary to ascites. - Cardiovascular Cardiovascular exam: Present: RRR, tachycardia (rate 130) - GI/Abdominal GI/Abdominal exam: Present: distended, firm, tenderness - Expanded Abdominal Exam GI/Abdominal exam: Present: ascites - Extremities Exam Extremities exam: Present: pedal edema Additional comments: +2 edema noted from sacral area to bilateral feet. - Neurological Exam Neurological exam: Present: alert, strengths equal and symetr throughout ( global weakness) - Psychiatric Psychiatric exam: Present: flat affect - Skin Skin exam: Present: dry, warm Palliative Quality Palliative Quality: Screen for Code Status: Yes, Screen for Goals of Care: Yes, Screen for Pain: Yes, If Pain Regimen Started, Initiate Bowel Regimen: NA, Screen for Nausea/Vomitting: Yes - Labs CBC & Chem 7: 02/23/17 08:00 02/23/17 08:00 Labs: Laboratory Results - last 24 hr 02/23/17 02/23/17 02/23/17 04:18 08:00 08:00 WBC 31.6 H* RBC 3.42 L Hgb 11.1 L Hct 36.6 MCV 107.0 H MCH 32.5 MCHC 30.3 L RDW 23.1 H Plt Count 196 D Seg Neutrophils % 74.0 Band Neutrophils % 19.0 H Lymphocytes % 1.0 Monocytes % 4.0 Myelocytes % 2.0 H Neutrophils # 29.4 H Lymphocytes # 0.3 L Monocytes # 1.3 Nucleated RBCs/100 WBC 0.1 H Platelet Estimate Normal Polychromasia 1+ A Poikilocytosis 1+ A Anisocytosis 2+ A Sodium 135 L Potassium 4.1 Chloride 96 L Carbon Dioxide 24 BUN 36 H D Creatinine 4.59 H Est GFR ( Amer) 12 L Est GFR (Non-Af Amer) 9 L BUN/Creatinine Ratio 8 Glucose 84 Calculated Osmolality 288 Calcium 7.5 L Random Vancomycin 13.1 - ABG Interpretation ABG results: PT/INR, D-dimer PT 14.8 Seconds (9.4-12.1) H 02/14/17 09:00 Consult Discharge Plan - Plan Referrals: Kiana Mcgraw CNP [Advanced Practice Nurse] - (PT IS GOING TO ECF NO PCP APPOINTMENT NEEDED) Monroe Santos MD [Partnered Physician] - 03/02/17 12:00 pm
--- NOTE | 2017-02-23 11:11 | Internal Med Progress Note ---
Date of Encounter: 02/23/17 Time of Encounter: 11:05 - Assessment and plan (1) Sepsis Current Visit: Yes Status: Acute Assessment and plan: likely secondary to Bacteremia and perotinitis continue IV abx, vanco was stopped on 02/21, continued on IV rocephin. follow up blood cultures, growing strep species, final results pending. white count has been fluctuating , went up to 31 today, has no fever , unclear if this is 2/2 worsening infection. has abdominal pain with nausea, will repeat CT abdomen today, r/o bowel obstruction. may need repeat tapping of ascitic fluid. patient at high risk for complications due to underlying comorbidities ( advanced ovarian cancer with malignant ascites) will follow ID recommnedations on duration and the choice of antibiotics. will continue reglan for nausea and will increase the frequency to q4h Qualifiers: Sepsis type: Streptococcus, unspecified Qualified Code(s): A40.9 - Streptococcal sepsis, unspecified; A40 - Streptococcal sepsis (2) Peritonitis Current Visit: Yes Status: Acute Assessment and plan: 2/2 SBP, has chronic long standing ascitis from ovarian cancer will contineu IV antibiotics. abdomen is soft and no rigidity but has some diffuse tenderness. may need to tap the ascitic fluid again , CT abdomen ordered to r/o SBO. last body fluid cx is negative (3) End stage renal disease on dialysis Current Visit: Yes Status: Chronic Assessment and plan: on HD, followed by Dr. Jerry, appreciate recommendations. (4) Lupus (systemic lupus erythematosus) Current Visit: No Status: Chronic Assessment and plan: continue Plaquenil Qualifiers: Systemic lupus erythematosus type: unspecified Systemic lupus erythematosus organ involvement: unspecified Qualified Code(s): M32.9 - Systemic lupus erythematosus, unspecified (5) Abdominal pain Current Visit: Yes Status: Acute Assessment and plan: c/o diffuse abdominal pain with nausea and vomiting. has not moved bowels since last . abdomen distended, has long ascitis from ovarian cancer. will give docusate suppository stat, check CT abd to r/o any obstruction, if there is obstrution , may need NGT placement. will keep NPO for now. if CT negative for obstruction, will consult IR to tap ascitic fluid for cell count and culture. Qualifiers: Abdominal location: generalized Qualified Code(s): R10.84 - Generalized abdominal pain - Subjective Interval history: Patient seen at the bedside, lying in bed , c/o abdominal pain and persistent nausea, reports that the pain is better than yest but still very uncomfortable. blood cx showing gram positive cocci in chains. no fever, white count went up today, has not moved her bowels since last . - Constitutional Vitals: Temp Pulse Resp BP Pulse Ox 99.1 F 130 36 104/72 100 02/23/17 07:30 02/23/17 07:30 02/23/17 07:30 02/23/17 07:30 02/23/17 07:30 General appearance: Present: cooperative, A&O X 3 (frail appearing female), pleasant, no acute distress, answers questions appropriately Exam: neck- supple chest- b/l clear, no added sounds CVS-s1 and s2, no mr//g abd-soft, distended, diffuse tenderness, no rebound or rigidity,bs are not heard. ext- b/l leg pitting edema neuro-alert and awake, no focal neuro defecits. Internal Medicine: Result - Labs CBC & Chem 7: 02/23/17 08:00 02/23/17 08:00 Labs: Short CBC 02/23/17 Range/Units 08:00 WBC 31.6 H* (4.3-11.1) K/mcL Hgb 11.1 L (11.5-15.4) g/dL Hct 36.6 (35.3-44.9) % Plt Count 196 D (140-400) K/mcL Neutrophils # 29.4 H (1.6-8.9) K/mcL BMP 02/23/17 08:00 Sodium 135 L Potassium 4.1 Chloride 96 L Carbon Dioxide 24 BUN 36 H D Creatinine 4.59 H Glucose 84 Calcium 7.5 L - ABG Interpretation ABG results: PT/INR, D-dimer PT 14.8 Seconds (9.4-12.1) H 02/14/17 09:00 - VTE Documentation of Mechanical Device: Intermittent pneumatic compression device Consult Discharge Plan - Plan Referrals: Kiana Mcgraw CNP [Advanced Practice Nurse] - (PT IS GOING TO ECF NO PCP APPOINTMENT NEEDED) Monroe Santos MD [Partnered Physician] - 03/02/17 12:00 pm
[2017-02-23 11:32] VITALS: BP 98/56
--- NOTE | 2017-02-23 13:12 | Electrocardiograph Report ---
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
--- NOTE | 2017-02-23 14:51 | Infectious Disease Progress No ---
Date of Encounter: 02/23/17 Time of Encounter: 14:49 - Assessment and Plan (1) Severe sepsis Current Visit: Yes Status: Acute The patient had leukocytosis with bandemia and tachycardia with thrombocytopenia , lactic acidosis, and hyperbilirubinemia. Likely secondary to SBP and bacteremia. WBC worse with bandemia She continues to have tachycardia. Blood cultures drawn 02/14/17 are positive 2/2 sets for GPC. PCR picked up Strep species, but not S. pneumoniae, GAS, or GBS. Susceptible to Rocephin and penicillin discussed with pharmacy Likely worsening WBC and bandemia is due to ischemic colitis and possible obstruction. Repeat cultures 2 Get a chest x-ray Check lactic acid level Discussed with hospice prognosis very poor (2) Bacteremia Current Visit: Yes Status: Acute Causative organism Strep species. Final ID and sensitivities are pending. Source likely SBP. Blood cultures drawn from a peripheral stick 02/14/17 are positive 2/2 sets for GPC. PCR picked up Strep species, but not GAS, GBS, or S. pneumoniae. Final ID and sensitivities are pending. Repeat blood cultures drawn 02/16/17 is no growth to date 1 set. The patient does have an a-port and a TDC that could also be potential sources. There have been no blood cultures obtained from either line. Clinically, they do not appear infected and patient has no history of line infections. Continue Vancomycin IV. Pharmacy to dose. Goal trough approximately 15. VT 17.4. Continue Rocephin 2 grams IV daily. Give after dialysis on dialysis days. Await final ID and sensitivities and de-escalate antibiotics if/when able. Await repeat cultures. Based on the clinical picture at this point, I think we can leave the current a- port and TDC for now. If repeat cultures are positive, we may need to consider removing them, but given the patient's frail state and her need for the a-port for her weekly chemo and the TDC for her dialysis, I think we can attempt to leave the lines for now. Recommend administering the Vancomycin through the dialysis catheter on HD days and give the Rocephin through the a-port daily. Monitor for drug toxicity and dose-adjust antibiotics for HD. Duration of treatment depends on the clinical picture. (3) Peritonitis Current Visit: Yes Status: Acute SBP. Likely secondary to weekly paracentesis. CT of the abdomen and pelvis showed large amount of ascites, but no infectious etiology. Paracentesis in the ED showed TNC of 2158 with 94% Neutrophils (PMN 2028). Culture is negative. Continue antibiotics as above. Duration of treatment depends on the clinical picture. (4) Lactic acidosis Current Visit: Yes Status: Resolved Likely secondary to sepsis. Resolved. (5) Hyperbilirubinemia Current Visit: Yes Status: Acute Etiology unclear, but likely related to sepsis. AST and ALT normal, but alk phos elevated. Continue to trend. Repeat LFTs in the morning. (6) Thrombocytopenia Current Visit: Yes Status: Acute Likely secondary to sepsis. No acute bleeding noted. Continue to trend. Management per the primary team. (7) Ascites Current Visit: Yes Status: Acute Likely secondary to ovarian cancer. Requires weekly paracentesis. Scheduled for later today. Qualifiers: Ascites type: malignant Qualified Code(s): R18.0 - Malignant ascites (8) Dyspnea Current Visit: Yes Status: Acute Likely secondary to fluid overload based on clinical exam. CXR shows left basilar airspace disease, but low index of suspicion for PNA based on clinical picture. Continue supportive care. Qualifiers: Dyspnea type: unspecified Qualified Code(s): R06.00 - Dyspnea, unspecified (9) Nausea & vomiting Current Visit: Yes Status: Acute Qualifiers: Vomiting type: unspecified Vomiting Intractability: non-intractable Qualified Code(s): R11.2 - Nausea with vomiting, unspecified (10) End-stage renal disease Current Visit: Yes Status: Acute Requires HD Tues/Thurs/Sat. Follows with Dr. Jerry. Nephrology consulted and following. (11) Ovarian cancer Current Visit: Yes Status: Chronic Diagnosed in June 2015. Currently on Genzar and Avastin D1, D8, D15 every 28 days with last dose . Follows with [facility]. Consider Hem/Onc consult for further recommendations. Qualifiers: Laterality: unspecified laterality Qualified Code(s): C56.9 - Malignant neoplasm of unspecified ovary (12) Constipation Current Visit: Yes Status: Acute Patient reports she has not had a BM since admission. States she normally takes stool softeners at home, but states she normally has diarrhea for 48 hours after she has paracentesis. Consider re-starting stool softeners. Further management per the primary team. Qualifiers: Constipation type: unspecified constipation type Qualified Code(s): K59.00 - Constipation, unspecified - Subjective Interval history: Patient seen and examined. And he needs to feel worse. WBC increased to 32,000 with bandemia. Patient was having more nausea or vomiting or abdominal pain. CT abdomen and pelvis was done without contrast and reveals ischemic bowel and possible bowel obstruction. Patient seems to be taken turn to the worse. Infect Dis PN-Objective Data - Labs CBC & Chem 7: 02/23/17 08:00 02/23/17 08:00 Labs: Laboratory Results - last 24 hr 02/23/17 02/23/17 02/23/17 04:18 08:00 08:00 WBC 31.6 H* RBC 3.42 L Hgb 11.1 L Hct 36.6 MCV 107.0 H MCH 32.5 MCHC 30.3 L RDW 23.1 H Plt Count 196 D Seg Neutrophils % 74.0 Band Neutrophils % 19.0 H Lymphocytes % 1.0 Monocytes % 4.0 Myelocytes % 2.0 H Neutrophils # 29.4 H Lymphocytes # 0.3 L Monocytes # 1.3 Nucleated RBCs/100 WBC 0.1 H Platelet Estimate Normal Polychromasia 1+ A Poikilocytosis 1+ A Anisocytosis 2+ A Sodium 135 L Potassium 4.1 Chloride 96 L Carbon Dioxide 24 BUN 36 H D Creatinine 4.59 H Est GFR ( Amer) 12 L Est GFR (Non-Af Amer) 9 L BUN/Creatinine Ratio 8 Glucose 84 Calculated Osmolality 288 Calcium 7.5 L Random Vancomycin 13.1 Cultures: Cultures 02/16/17 04:35 Blood Culture - Final Peripheral Venipuncture No growth. Serology 02/15/17 Range/Units 09:30 Hep Bs Antigen Nonreactive (Nonreactive) Hep Bs Antibody 0.00 mIU/mL - Impressions Impressions Abdomen/Pelvis CT 02/23/17 11:45 IMPRESSION: 1. Interval development of small bowel dilation extending to the level of the distal/terminal ileum where there is a change in caliber. This could represent a transition point from a small bowel obstruction. However, there is associated pneumatosis and portal venous gas which is predominately arising from the jejunal loops compatible with ischemic bowel. No free air is grossly identified. 2. Interval increase in large volume ascites and subcutaneous edema. 3. Stable splenomegaly with associated infarct in the medial aspect. 4. Slightly increasing left basilar opacity which may represent atelectasis or pneumonia. Critical results were called by Dr. Shwetha Olivas MD to Kinjal Salazar on 02/23/2017 at 12:48. D/ / 02/23/2017 13:14:25 Shwetha Olivas MD / [employer]arter Interpreting Provider: Shwetha Olivas MD Exam - Constitutional Vitals: Temp Pulse Resp BP Pulse Ox 98.2 F 130 24 98/56 100 02/23/17 11:27 02/23/17 11:27 02/23/17 11:27 02/23/17 11:27 02/23/17 11:27 General appearance: no acute distress, no febrile - Head Head exam: Present: atraumatic, normocephalic - Neck Neck exam: Present: full ROM - Respiratory Additional comments: Air sounds audible both lung garcia - Cardiovascular Cardiovascular exam: Present: RRR, +S1, +S2 Additional comments: Port right chest intact - GI/Abdominal GI/Abdominal exam: Present: tenderness - VTE Documentation of Mechanical Device: Intermittent pneumatic compression device Consult Discharge Plan - Plan Referrals: Kiana Mcgraw CNP [Advanced Practice Nurse] - (PT IS GOING TO ECF NO PCP APPOINTMENT NEEDED) Monroe Santos MD [Partnered Physician] - 03/02/17 12:00 pm
[2017-02-23] MEDS ORDERED: *HR* LORazepam 2 MG/ML VIAL IVP PRN (15:50)
--- NOTE | 2017-02-23 15:57 | General Surgery Consult Note ---
Date of Encounter: 02/23/17 Time of Encounter: 14:30 Assessment and Plan (1) Ischemic necrosis of small bowel Current Visit: Yes Status: Acute Long discussion with the family per Dr. Rey regarding risks of surgery and expected outcome Will proceed with comfort measures Palliative care for management of pain No surgical intervention (2) Ascites Current Visit: Yes Status: Acute Qualifiers: Ascites type: malignant Qualified Code(s): R18.0 - Malignant ascites (3) End stage renal disease on dialysis Current Visit: Yes Status: Chronic (4) Ovarian cancer Current Visit: Yes Status: Chronic Qualifiers: Laterality: unspecified laterality Qualified Code(s): C56.9 - Malignant neoplasm of unspecified ovary (5) Acute on chronic kidney failure Current Visit: No Status: Acute Qualifiers: Acute renal failure type: unspecified Chronic kidney disease stage: on chronic dialysis Qualified Code(s): N17.9 - Acute kidney failure, unspecified ; N18.9 - Chronic kidney disease, unspecified; Z99.2 - Dependence on renal dialysis (6) Metastatic cancer Current Visit: No Status: Acute (7) Lupus (systemic lupus erythematosus) Current Visit: No Status: Chronic Qualifiers: Systemic lupus erythematosus type: unspecified Systemic lupus erythematosus organ involvement: unspecified Qualified Code(s): M32.9 - Systemic lupus erythematosus, unspecified History of Present Illness Consult date: 02/23/17 Reason for consult: other (Ischemic bowel) Requesting physician: Kinjal Salazar History of present illness: Mrs. Dumont is a very pleasant 66 year old female with a past medical history significant for metastatic ovarian cancer, end stage kidney disease on dialysis , and lupus. She was admitted to the hospital for sepsis and has been treated with IV antibiotics. She had acute onset of increased central abdominal pain 24 hours ago. She states that she does have abdominal pain at a baseline but is not typically this severe. She reports increased nausea and vomiting over the last 24 hours. She has had a CAT scan which shows evidence of ischemic bowel and portal venous gas. We have been asked to see and evaluate the patient for recommendations. Past Med Surg Social Fam HX - Past Medical History Source: old records reviewed Medical history: arthritis, CHF, coronary artery disease, DVT, hypertension, malignancy (Ovarian cancer - diagnosed 2014, currently on Genzar/Avastin D1, D8 , D15 Q28 days), pulmonary embolus, renal disease (ESRD on HD T//Thu), other Psychiatric history: no psych history - Past Surgical History Surgical History: hysterectomy - Social History Smoking Status: Never smoker Smokeless Tobacco Status: No Alcohol use: none Drug use: none - Family History Mother Family Member Ethnicity: Non- Living Status: Hx Family Cardiac Disorders: No Hx Family Respiratory Disorders: No Hx Family Cancer: Yes (inoperative lung cancer) Hx Family GI Disorders: No Hx Family Endocrine Disorder: No Hx Family Neuromuscular Disorders: No Hx Family Neurologic Disorders: Yes (Alzheimers) Hx Family HEENT Disorders: No Hx Family Autoimmune Disorders: No Father Family Member Ethnicity: Non- Living Status: Hx Family Cardiac Disorders: Yes Hx Family Respiratory Disorders: No Hx Family Cancer: No Hx Family GI Disorders: No Hx Family Endocrine Disorder: Yes (diabetes) Hx Family Neuromuscular Disorders: No Hx Family Neurologic Disorders: No Hx Family HEENT Disorders: No Hx Family Autoimmune Disorders: No Medications and Allergies Allopurinol [Zyloprim 100 MG] 100 mg PO BID 05/03/15 [History] Hydroxychloroquine [Plaquenuil] 200 mg PO QAM 05/03/15 [History] Isosorbide DInitrate [Isordil] 10 mg PO TIDAC 10/30/15 [History] Acetaminophen [Tylenol Arthritis] 650 mg PO BID PRN 04/02/16 [History] Multivitamin [Multi-Day Vitamins] 1 tab PO DAILY 04/02/16 [History] Esomeprazole Magnesium [Nexium] 20 mg PO BID 07/10/16 [History] Prochlorperazine Maleate [Compazine] 10 mg PO Q8H PRN 10/23/16 [History] Magnesium Oxide [Magnesium] 400 mg PO DAILY 11/27/16 [History] Metoprolol XL (24 HR) Succ [Toprol Xl] 50 mg PO DAILY 11/27/16 [History] Aspirin 325 mg PO DAILY 01/08/17 [History] OxyCODONE Immed Rel [Roxicodone 5 MG] 5 mg PO BID PRN #60 tablet 01/16/17 [Rx] Cinacalcet [Sensipar] 30 mg PO DAILY 02/14/17 [History] Midodrine [ProAmatine] 10 mg PO BID 02/14/17 [History] Sevelamer [Renvela] 800 mg PO TID 02/14/17 [History] Sodium Bicarbonate 1,300 mg PO BID 02/14/17 [History] Allergies paclitaxel [From Taxol] Adverse Reaction (Severe, Verified 02/14/17 08:03) See Comments Hypertension, chest pain, pain into her right arm, shortness of breath, constant [id number] movement in the chair Review of Systems All systems PM: A 10-system review of systems was performed and is negative for pertinent findings except as documented above in the HPI. - Constitutional anorexia, fatigue, lethargy, weakness, weight loss - EENT Nose, mouth and throat: dry mouth - Cardiovascular dyspnea on exertion, edema, leg edema, rapid heart rate - Respiratory dyspnea on exertion - Gastrointestinal abdominal pain, belching, bloating, constipation, early satiety, nausea, vomiting - Genitourinary Genitourinary: other (minimal UOP- ESRD on dialysis) - Musculoskeletal muscle weakness - Integumentary jaundice - Neurological weakness - Psychiatric change in appetite General Surgery Exam Initial Vital Signs Temp Pulse Resp BP Pulse Ox 97.9 F 79 16 75/51 94 02/14/17 07:59 02/14/17 07:59 02/14/17 07:59 02/14/17 07:59 02/14/17 07:59 - General physical appearance moderate pain, cachectic, chronically ill, jaundice - Eyes PERRL, normal ocular movement - ENT dry mucosa, atraumatic, normocephalic - Neck trachea midline - Respiratory normal respiratory effort, clear to auscultation, other (diminished bibasilar bases) - Cardiovascular Cardiovascular exam: Present: RRR - Abdomen Abdomen general surgery: Present: soft, tender Abdominal Tenderness: Present: diffusely - Integumentary Integumentary general surgery: Present: warm and dry, other (jaundiced) - Neurologic Present: CN 2-12 grossly intact - Musculoskeletal Present: other (severe deconditioning) - Psychiatric Psychiatric general surgery: Present: A&Ox3 Exam Initial Vital Signs Temp Pulse Resp BP Pulse Ox 97.9 F 79 16 75/51 94 02/14/17 07:59 02/14/17 07:59 02/14/17 07:59 02/14/17 07:59 02/14/17 07:59 Results - Labs 02/23/17 08:00 02/23/17 08:00 Abnormal lab results WBC 31.6 K/mcL (4.3-11.1) H* 02/23/17 08:00 RBC 3.42 M/mcL (3.82-4.97) L 02/23/17 08:00 Hgb 11.1 g/dL (11.5-15.4) L 02/23/17 08:00 MCV 107.0 fL (83.0-100.0) H 02/23/17 08:00 MCHC 30.3 g/dL (31.6-35.5) L 02/23/17 08:00 RDW 23.1 % (11.5-14.5) H 02/23/17 08:00 Band Neutrophils % 19.0 % (0-4) H 02/23/17 08:00 Myelocytes % 2.0 % (0) H 02/23/17 08:00 Neutrophils # 29.4 K/mcL (1.6-8.9) H 02/23/17 08:00 Lymphocytes # 0.3 K/mcL (0.6-4.6) L 02/23/17 08:00 Nucleated RBCs/100 WBC 0.1 /100 WBC (0) H 02/23/17 08:00 Reactive Lymphocytes Present (Not Present) A 02/22/17 08:32 Dohle Bodies Present (Not Present) A 02/21/17 09:53 Large Platelets Present (Not Present) A 02/15/17 05:00 Immature Plt Fraction 10.1 % (1.1-6.1) H 02/22/17 08:32 Polychromasia 1+ (Not Present) A 02/23/17 08:00 Hypochromasia Present (Not Present) A 02/21/17 09:53 Poikilocytosis 1+ (Not Present) A 02/23/17 08:00 Basophilic Stippling 1+ (Not Present) A 02/22/17 08:32 Anisocytosis 2+ (Not Present) A 02/23/17 08:00 Microcytosis Present (Not Present) A 02/19/17 04:25 Macrocytosis Present (Not Present) A 02/16/17 04:35 Ovalocytes 1+ (Not Present) A 02/22/17 08:32 Helmet Cells Present (Not Present) A 02/20/17 10:19 Schistocytes 2+ (Not Present) A 02/20/17 10:19 PT 14.8 Seconds (9.4-12.1) H 02/14/17 09:00 Sodium 135 mEq/L (136-145) L 02/23/17 08:00 Chloride 96 mEq/L (98-109) L 02/23/17 08:00 BUN 36 mg/dL (7-20) H D 02/23/17 08:00 Creatinine 4.59 mg/dL (0.57-1.11) H 02/23/17 08:00 Est GFR ( Amer) 12 (> 60) L 02/23/17 08:00 Est GFR (Non-Af Amer) 9 (> 60) L 02/23/17 08:00 Calcium 7.5 mg/dL (8.6-10.8) L 02/23/17 08:00 Phosphorus 6.2 mg/dL (2.3-4.7) H 02/17/17 03:35 Total Bilirubin 4.2 mg/dL (0.2-1.2) H 02/17/17 03:35 Direct Bilirubin 1.8 mg/dL (0.0-0.5) H 02/14/17 09:00 Indirect Bilirubin 3.0 mg/dL (0.0-1.2) H 02/14/17 09:00 Alkaline Phosphatase 163 Units/L (38-126) H 02/17/17 03:35 Troponin I 0.33 ng/mL (0-0.03) H* 02/17/17 03:35 B-Natriuretic Peptide 333 pg/mL (0-100) H 02/14/17 09:00 Serum Total Protein 3.8 g/dL (6.0-8.3) L 02/17/17 03:35 Albumin 2.1 g/dL (3.5-5.0) L 02/17/17 03:35 Globulin 1.7 g/dL (2.4-3.5) L 02/17/17 03:35 Lipase < 4 Units/L (8-78) L 02/14/17 09:00 Periton Tot Nuc Cells 2158 TNC/mcL (0-300) H 02/14/17 11:15 Streptococcus sp PCR DETECTED (Not Detect) A 02/14/17 09:22 Diabetes panel 02/23/17 Range/Units 08:00 Sodium 135 L (136-145) mEq/L Potassium 4.1 (3.5-4.5) mEq/L Chloride 96 L (98-109) mEq/L Carbon Dioxide 24 (19-29) mEq/L BUN 36 H D (7-20) mg/dL Creatinine 4.59 H (0.57-1.11) mg/dL Glucose 84 (70-99) mg/dL Calcium 7.5 L (8.6-10.8) mg/dL Calcium panel 02/23/17 Range/Units 08:00 Calcium 7.5 L (8.6-10.8) mg/dL Pituitary panel 02/23/17 Range/Units 08:00 Sodium 135 L (136-145) mEq/L Potassium 4.1 (3.5-4.5) mEq/L Chloride 96 L (98-109) mEq/L Carbon Dioxide 24 (19-29) mEq/L BUN 36 H D (7-20) mg/dL Creatinine 4.59 H (0.57-1.11) mg/dL Glucose 84 (70-99) mg/dL Calcium 7.5 L (8.6-10.8) mg/dL Adrenal panel 02/23/17 Range/Units 08:00 Sodium 135 L (136-145) mEq/L Potassium 4.1 (3.5-4.5) mEq/L Chloride 96 L (98-109) mEq/L Carbon Dioxide 24 (19-29) mEq/L BUN 36 H D (7-20) mg/dL Creatinine 4.59 H (0.57-1.11) mg/dL Glucose 84 (70-99) mg/dL Calcium 7.5 L (8.6-10.8) mg/dL All other labs normal. - Imaging CT scan - abdomen: report reviewed CT scan - pelvis: report reviewed Additional studies: Chest X-Ray 02/14/17 08:35 IMPRESSION: Mild left basilar airspace disease. D/ / Clifford Vann MD / Clifford Vann MD Interpreting Provider: Clifford Vann MD Paracentesis Ultrasound 02/18/17 00:00 IMPRESSION: 1. Successful ultrasound guided paracentesis. D/ / Buck Champagne MD / Buck Champagne MD Interpreting Provider: Buck Champagne MD Abdomen/Pelvis CT 02/23/17 11:45 IMPRESSION: 1. Interval development of small bowel dilation extending to the level of the distal/terminal ileum where there is a change in caliber. This could represent a transition point from a small bowel obstruction. However, there is associated pneumatosis and portal venous gas which is predominately arising from the jejunal loops compatible with ischemic bowel. No free air is grossly identified. 2. Interval increase in large volume ascites and subcutaneous edema. 3. Stable splenomegaly with associated infarct in the medial aspect. 4. Slightly increasing left basilar opacity which may represent atelectasis or pneumonia. Critical results were called by Dr. Shwetha Olivas MD to Kinjal Salazar on 02/23/2017 at 12:48. D/ / 02/23/2017 13:14:25 Shwetha Olivas MD / milli Interpreting Provider: Shwetha Olivas MD Consult Discharge Plan - Plan Referrals: Kiana Mcgraw CNP [Advanced Practice Nurse] - ([facility] IS GOING TO [facility] NO PCP APPOINTMENT NEEDED) Monroe Santos MD [Partnered Physician] - 03/02/17 12:00 pm - Attending Attestation I examined this patient and my medical decision-making was reviewed with the BUSINESS SERVICES OFFICER/PA/Advanced Practice Nurse/Resident Physician. I agree with the documented findings, disposition and treatment plan as described except to the extent set forth below.
[2017-02-23] MEDS: MetroNIDAZOLE 500 MG/100 ML 500 MG/100 ML BAG IVPB SCH ×2 (16:24→22:47)
--- NOTE | 2017-02-23 17:03 | Event Note ---
Date of Encounter: 02/23/17 Time of Encounter: 17:00 hospital stay complicated by bowel ischemia as noted on CT abdomen today. surgery was consulted and a long discussion with the family regarding the surgery and the expected outcome. patient and the family wishes to be in comfort care from this point given poor outcome and overall poor prognosis. palliative on board. will continue IV antibiotics for now. HD will be discussed by DR. Rosalino lopez at rounds.
[2017-02-23] MEDS ORDERED: *HR* Promethazine 25 MG/ML VIAL IVP PRN (18:18)
[2017-02-23] MEDS: *HR* FentaNYL (PF) 100 MCG/2 ML VIAL IVP PRN (20:39)
[2017-02-24] MEDS: Ondansetron 4 MG/2 ML VIAL IVP SCH ×2 (00:22→05:24)
[2017-02-24] MEDS: *HR* FentaNYL (PF) 100 MCG/2 ML VIAL IVP PRN ×2 (00:28→03:11)
[2017-02-24] MEDS: MetroNIDAZOLE 500 MG/100 ML 500 MG/100 ML BAG IVPB SCH (05:24)
--- NOTE | 2017-03-19 00:36 | Discharge Summary ---
Date of Encounter: 03/06/17 Time of Encounter: 08:00 - Discharge Diagnosis (1) Sepsis Priority: Primary Status: Acute Qualifiers: Sepsis type: Streptococcus, unspecified Qualified Code(s): A40.9 - Streptococcal sepsis, unspecified; A40 - Streptococcal sepsis (2) Peritonitis Priority: Primary Status: Acute (3) End stage renal disease on dialysis Priority: Secondary Status: Chronic (4) Lupus (systemic lupus erythematosus) Priority: Secondary Status: Chronic Qualifiers: Systemic lupus erythematosus type: unspecified Systemic lupus erythematosus organ involvement: unspecified Qualified Code(s): M32.9 - Systemic lupus erythematosus, unspecified (5) Abdominal pain Priority: Primary Status: Acute Qualifiers: Abdominal location: generalized Qualified Code(s): R10.84 - Generalized abdominal pain - Discharge Medications Home Medications: Allopurinol [Zyloprim 100 MG] 100 mg PO BID 05/03/15 [History] Hydroxychloroquine [Plaquenuil] 200 mg PO QAM 05/03/15 [History] Isosorbide DInitrate [Isordil] 10 mg PO TIDAC 10/30/15 [History] Acetaminophen [Tylenol Arthritis] 650 mg PO BID PRN 04/02/16 [History] Multivitamin [Multi-Day Vitamins] 1 tab PO DAILY 04/02/16 [History] Esomeprazole Magnesium [Nexium] 20 mg PO BID 07/10/16 [History] Prochlorperazine Maleate [Compazine] 10 mg PO Q8H PRN 10/23/16 [History] Magnesium Oxide [Magnesium] 400 mg PO DAILY 11/27/16 [History] Metoprolol XL (24 HR) Succ [Toprol Xl] 50 mg PO DAILY 11/27/16 [History] Aspirin 325 mg PO DAILY 01/08/17 [History] OxyCODONE Immed Rel [Roxicodone 5 MG] 5 mg PO BID PRN #60 tablet 01/16/17 [Rx] Cinacalcet [Sensipar] 30 mg PO DAILY 02/14/17 [History] Midodrine [ProAmatine] 10 mg PO BID 02/14/17 [History] Sevelamer [Renvela] 800 mg PO TID 02/14/17 [History] Sodium Bicarbonate 1,300 mg PO BID 02/14/17 [History] Allergies/Adverse Reactions: Allergies paclitaxel [From Taxol] Adverse Reaction (Severe, Verified 02/14/17 08:03) See Comments Hypertension, chest pain, pain into her right arm, shortness of breath, constant [id number] movement in the chair Date of admission: 02/14/17 14:09 Primary care physician: Cleve Hannon DO Consults: 02/14/17 14:57 Consult to Wound Care [CONS] Routine Reason for Consult: Patient presents with 3.8 x 5 skin tear to left forearm. Please evaluate and create treatment plan Call Completed: No 02/14/17 15:37 Consult to Nephrology [CONS] Routine Consulting Provider: [facility] Reason for Consult: ESRD pt Time Notified: 15:38 Call Completed: Yes 02/15/17 08:00 Consult to Dialysis [CONS] ONCE 02/15/17 14:10 Consult to Palliative Care [CONS] Routine Comment: Consulting Provider: [facility] Reason for Consult: establish goals of care and code status Call Completed: Yes 02/17/17 08:24 Consult to Infectious Diseases [CONS] Routine Consulting Provider: Infectious Disease [facility] Reason for Consult: bacteremia, peritonitis Time Notified: 08:25 Call Completed: Yes 02/17/17 08:30 Consult to Dialysis [CONS] ONCE 02/17/17 15:15 Consult to Interventional Radiology [CONS] Routine Consulting Provider: Radiology Interventional [facility] Reason for Consult: please evaluate for IR guided therapeutic paracentesis. Thank you Call Completed: No 02/18/17 10:44 Consult to [facility] [place] [CONS] Routine Reason for SW Consult: D/C PLANNING. POSSIBLE IV ANTIBIOTICS. 02/19/17 08:45 Consult to Dialysis [CONS] ONCE 02/20/17 13:30 Consult to Dialysis [CONS] ONCE 02/21/17 09:15 Consult to Dialysis [CONS] ONCE 02/23/17 13:28 Consult to Surgery [CONS] Routine Consulting Provider: Surgery [facility] Reason for Consult: please evaluate this patient with abdominal pain with concerns for ischemic bowel and small bowel obstruction c/o abdominal pain and nausea. thank you Call Completed: Yes Discharging clinician: Kinjal Salazar Anticipated date of discharge: 03/06/17 - Patient Status Disposition: Condition: Fair - Discharge Instructions Follow Up With: Kiana Mcgraw JAVASCRIPT APPLICATION DEVELOPER [Advanced Practice Nurse] - ([facility] IS GOING TO [facility] NO PCP APPOINTMENT NEEDED) Monroe Santos MD [Partnered Physician] - 03/02/17 12:00 pm Interval History: Mrs. Dumont is a very pleasant 66 year old female with a past medical history significant for metastatic ovarian cancer, end stage kidney disease on dialysis , and lupus. She was admitted to the hospital for severe sepsis 2/2 bacteremia and peritonitis and has been treated with IV antibiotics. ID and nephrology has been following the patient. She had acute onset of increased central abdominal pain. She has had a CAT scan which shows evidence of ischemic bowel and portal venous gas. general surgery was consulted, given poor prognosis and poor overall outcome, It was recommended that she is not a candidate for surgical treatment. case discussed with the family and as per the patient and the family the code status has been changed to comfort care only. she 03/06/17 at 0605. Hospital course: Ms. Dumont is a 66 year old female - Time Spent with Patient Total time spent providing and/or coordinating discharge services: - Constitutional Vitals: Temp Pulse Resp BP Pulse Ox 98.2 F 130 24 98/56 100 02/23/17 12:30 02/23/17 15:45 02/23/17 15:45 02/23/17 12:30 02/23/17 12:30 General appearance: Present: cooperative, A&O X 3 (frail appearing female), pleasant, no acute distress, answers questions appropriately - VTE Documentation of Mechanical Device: Intermittent pneumatic compression device
== END 2017-02-24 07:31 | disposition expired | DRG 871 ==
LOC: 2NNU 07:56 → EMEROO 07:56 → 2NNU 13:35 → 2ANU 02-21 14:57 → 2NNU 02-22 09:53
PROVIDERS: ADMIT Internal Medicine Sleep Medicine; ATTEND Internal Medicine